=== PATIENT | male | born 1965 | race Caucasian/White ===

== ENCOUNTER → 2019-10-10 09:18 | Outpatient (BNVA) | payer MEDICARE, SELFPAY | PROVIDERS: Visit Provider Nurse Practitioner | DX: F33.2 Major depressive disorder, recurrent severe without psychotic features (principal); G47.30 Sleep apnea, unspecified | CPT/HCPCS: 99213 ==

== ENCOUNTER → 2019-10-15 13:25 | Outpatient (BNVA) | payer MEDICARE, SELFPAY | PROVIDERS: Visit Provider Nurse Practitioner | DX: M51.36 Other intervertebral disc degeneration, lumbar region (principal); M51.17 Intervertebral disc disorders with radiculopathy, lumbosacral region; Z79.891 Long term (current) use of opiate analgesic | CPT/HCPCS: 99213 ==

== ENCOUNTER → 2020-01-09 07:48 | Outpatient (BNVA) | payer MEDICARE, SELFPAY | PROVIDERS: PCP Family Medicine; Visit Provider Nurse Practitioner | DX: F33.2 Major depressive disorder, recurrent severe without psychotic features (principal) | CPT/HCPCS: 99213 ==

== ENCOUNTER → 2020-02-06 10:15 | Outpatient (BNVA) | payer MEDICARE, SELFPAY | PROVIDERS: PCP Family Medicine; Visit Provider Nurse Practitioner | DX: M47.816 Spondylosis without myelopathy or radiculopathy, lumbar region (principal); M51.36 Other intervertebral disc degeneration, lumbar region; M51.17 Intervertebral disc disorders with radiculopathy, lumbosacral region; Z79.891 Long term (current) use of opiate analgesic | CPT/HCPCS: 99213 ==

== ENCOUNTER → 2020-02-26 10:20 | Outpatient (BNVA) | payer MEDICARE, SELFPAY | PROVIDERS: PCP Family Medicine; Visit Provider Family Medicine | DX: J30.9 Allergic rhinitis, unspecified; I10 Essential (primary) hypertension; F32.1 Major depressive disorder, single episode, moderate; E78.2 Mixed hyperlipidemia | CPT/HCPCS: 80053; 80061; 85025 ==

== ENCOUNTER → 2020-04-09 10:11 | Outpatient (BNVA) | payer MEDICARE, SELFPAY | PROVIDERS: PCP Family Medicine; Visit Provider Nurse Practitioner | DX: F33.2 Major depressive disorder, recurrent severe without psychotic features (principal); M51.36 Other intervertebral disc degeneration, lumbar region; M47.816 Spondylosis without myelopathy or radiculopathy, lumbar region; M51.17 Intervertebral disc disorders with radiculopathy, lumbosacral region; Z79.891 Long term (current) use of opiate analgesic | CPT/HCPCS: 99213 ==

== ENCOUNTER → 2020-04-22 13:52 | Outpatient (BNVA) | payer MEDICARE, SELFPAY | PROVIDERS: PCP Family Medicine; Visit Provider Anesthesiology Pain Medicine | DX: M47.816 Spondylosis without myelopathy or radiculopathy, lumbar region (principal); Z79.891 Long term (current) use of opiate analgesic | CPT/HCPCS: 64635; 64636; J1030 ==

== ENCOUNTER → 2020-05-04 12:25 | Outpatient (BNVA) | payer MEDICARE, SELFPAY | PROVIDERS: PCP Family Medicine; Visit Provider Anesthesiology Pain Medicine | DX: M47.816 Spondylosis without myelopathy or radiculopathy, lumbar region (principal) | CPT/HCPCS: 64635; 64636; J1030 ==

== ENCOUNTER → 2020-06-22 09:33 | Outpatient (BNVA) | payer MEDICARE, SELFPAY | PROVIDERS: PCP Family Medicine; Visit Provider Family Medicine | DX: Z20.828 Contact with and (suspected) exposure to other viral communicable diseases (principal); E78.5 Hyperlipidemia, unspecified; R10.9 Unspecified abdominal pain | CPT/HCPCS: 81000; 87635 ==

== ENCOUNTER → 2020-07-03 07:35 | Outpatient (BNVA) | payer MEDICARE, SELFPAY | PROVIDERS: PCP Family Medicine; Visit Provider Nurse Practitioner | DX: F33.2 Major depressive disorder, recurrent severe without psychotic features (principal) | CPT/HCPCS: 99213 ==

== ENCOUNTER → 2020-07-09 08:31 | Outpatient (BNVA) | payer MEDICARE, SELFPAY | PROVIDERS: PCP Family Medicine; Visit Provider Anesthesiology | DX: M47.816 Spondylosis without myelopathy or radiculopathy, lumbar region (principal); M51.36 Other intervertebral disc degeneration, lumbar region; M51.17 Intervertebral disc disorders with radiculopathy, lumbosacral region; Z51.81 Encounter for therapeutic drug level monitoring; Z79.1 Long term (current) use of non-steroidal anti-inflammatories (NSAID); Z79.891 Long term (current) use of opiate analgesic | CPT/HCPCS: 99214 ==

== ENCOUNTER → 2020-07-16 11:49 | Outpatient (BNVA) | payer MEDICARE, SELFPAY | PROVIDERS: PCP Family Medicine; Visit Provider Anesthesiology | DX: Z51.81 Encounter for therapeutic drug level monitoring (principal); Z79.1 Long term (current) use of non-steroidal anti-inflammatories (NSAID); Z79.891 Long term (current) use of opiate analgesic | CPT/HCPCS: 80048 ==

== ENCOUNTER 2020-07-30 19:06 | Emergency (ER) | payer MEDICARE, SELFPAY ==
[2020-07-30 19:12] VITALS: BP 152/87; PULSE 76; RESP 16; TEMP 37.5; O2SAT 96; BMI 36.1
--- NOTE | 2020-07-30 19:12 | XRR_ITS ---
PROCEDURE INFORMATION: Exam: XR Chest, 1 View Exam date and time: 07/30/2020 7:26 PM Age: 54 years old Clinical indication: Cough and shortness of breath TECHNIQUE: Imaging protocol: XR of the chest Views: 1 view. COMPARISON: CR Chest 1 [place] [id number] 09/16/2018 2:58 AM FINDINGS: Lungs: Unremarkable. No consolidation. Pleural space: Unremarkable. No pleural effusion. No pneumothorax. Heart/Mediastinum: Unremarkable. No cardiomegaly. Bones/joints: Unremarkable. XR/XR chest 1V portable [id number] IMPRESSION: No acute findings.
--- NOTE | 2020-07-30 19:13 | ED_ITS ---
HPI - URI/Sore Throat General: Chief Complaint: COVID symptoms Stated Complaint: cough, dizzy Time Seen by Provider: 07/30/20 19:10 Source: patient and EMS Mode of arrival: EMS Limitations: no limitations History of Present Illness: HPI Narrative: 54-year-old male states that he has had a cough along with congestion and body aches started yesterday. He states he has had low-grade fevers as well and some diarrhea. He states he is concerned he may have Covid as he has been exposed at home. Patient is not having shortness of breath and his pulse ox per EMS has been in the upper 90s on room air. He denies any chest pain. Associated symptoms: Reports chills and diarrhea; Deny chest pain or headache(s) Review of Systems Const: Reports: chills and body aches Eyes: Denies: blurry vision or eye discomfort ENMT: Denies: throat pain or dental pain Card: Denies: chest pain Resp: Reports: non-productive cough GI: Reports: diarrhea : Denies: dysuria Musc: Denies: neck pain or back pain Skin/Breast: Denies: rash Neuro: Denies: headache(s) Psych: Denies: depression Magdi/Lymph: Denies: easy bruising All/Imm: Denies: urticaria PFSH ED PFSH: Medical History (Updated 07/30/20 @ 20:25 by Loida Harmon MD) DDD (degenerative disc disease), lumbar Facet syndrome, lumbar Inguinal hernia Long-term current use of opiate analgesic Major depressive disorder, recurrent severe without psychotic features Pain management contract signed Surgical History Hx of appendectomy Hx of hernia repair Hx of rotator cuff surgery LEFT SHOULDER S/P appendectomy Family History Mother CAD (coronary artery disease) Cancer LUNG CANCER Social History Smoking and tobacco status: never smoked Alcohol intake: never Lives independently: Yes Marital status: History of recent travel: No Physical Exam Const: COMMON NORMALS: no acute distress, patient oriented x3 and healthy appearing HENMT: COMMON NORMALS: normocephalic and atraumatic HEAD & SCALP: normocephalic and atraumatic Eye: COMMON NORMALS: Equal, round and reactive pupils present and EOMs intact bilaterally PUPIL: Yes Equal, round and reactive pupils present Neck/C-Spine: COMMON NORMALS: full ROM and supple Chest: COMMONS NORMALS: normal inspection of the chest and normal palpation of entire chest wall Resp: COMMON NORMALS: normal respiratory effort, No retractions, No use of accessory muscles and clear to auscultation bilaterally AUSCULTATION: clear to auscultation bilaterally Cardio: COMMON NORMALS: regular rate, regular rhythm and No murmurs present (Cardio) RATE: regular rate RHYTHM: regular rhythm GI: COMMON NORMALS: Normal to inspection, nondistended, normoactive bowel sounds present, Soft to palpation, non-tender and no masses PALPATION: Yes Soft to palpation Extremity: COMMON NORMALS: normal to inspection and full ROM Neuro: COMMON NORMALS: patient oriented x3, moves all extremities and no focal motor deficits Psych: COMMON NORMALS: mental status grossly normal, Normal thought process present and cooperative THOUGHT PROCESS: Normal thought process present Skin: COMMON NORMALS: no rashes or lesions noted and no wounds GENERAL SKIN EXAM: no rashes or lesions noted Course Vital Signs: Vital signs: Vital Signs Temperature 99.5 F 07/30/20 19:12 Pulse Rate 74 07/30/20 19:51 Respiratory Rate 23 H 07/30/20 19:51 Blood Pressure 128/79 07/30/20 19:51 Pulse Oximetry 98 07/30/20 19:51 MDM - URI/Sore Throat MDM Narrative: Medical decision making narrative: Patient presents here with cough body aches with COVID-19 exposure. Symptoms are consistent with likely Covid. He is in no distress here and his oxygen level is normal. Patient's lab work here is normal. Did do a send out PTC Covid test. Patient is to return if worsening. He understands agrees to plan. Lab Data: Labs: Lab Results 07/30/20 07/30/20 Range/Units 19:44 19:44 WBC 6.1 (4.0-10.0) 10^3/ uL RBC 5.24 (4.1-5.3) 10^6/u L Hgb 14.6 (11.7-16.6) g/dL Hct 45.9 (42.0-52.0) % MCV 87.6 (80-94) fL MCH 27.9 L (28.0-34.0) pg MCHC 31.8 (30.0-36.0) g/dL RDW 13.2 (12.1-15.1) % Plt Count 200 (130-400) 10^3/c mm MPV 11.9 H (7.4-10.4) fL Neut % (Auto) 59.0 % Lymph % (Auto) 21.0 % [place] % (Auto) 16.0 % Eos % (Auto) 2.0 % Baso % (Auto) 1.7 % Neut # (Auto) 3.57 (1.8-7.7) 10^3/u L Lymph # (Auto) 1.3 (0.8-4.8) 10^3/u L [place] # (Auto) 1.0 H (0.2-0.9) 10^3/u L Eos # (Auto) 0.1 (0.0-0.8) 10^3/u L Baso # (Auto) 0.1 (0.0-0.1) 10^3/u L Nucleated RBC % (a uto) 0 % Nucleated RBCs # 0.0 /100WBC Sodium 136 (136-145) mmol/L Potassium 3.7 (3.5-5.1) mmol/L Chloride 106 (98-107) mmol/L Carbon Dioxide 21 L (22-29) mmol/L Anion Gap 12.7 (5-19) BUN 14 (6-20) mg/dL Creatinine 0.9 (0.7-1.2) mg/dL GFR Calculation 87.3 L (90-130) mL/min Glucose 102 (65-115) mg/dL Calculated Osmolal ity 283 L (285-295) mOsm/k g Calcium 8.8 (8.5-10.5) mg/dL Total Bilirubin 0.4 (0.15-1.2) mg/dL AST 32 (0-40) U/L ALT 46 H (0-41) U/L Alkaline Phosphata se 153 H (40-130) IU/L Total Protein 6.4 L (6.6-8.7) g/dL Albumin 4.1 (3.5-5.2) g/dL Globulin 2.3 (1.3-4.6) g/dL Imaging Data^: CXR: Attestation: I personally reviewed and interpreted this imaging study as follows: My impression: no acute abnormality Discharge Plan Discharge Patient Disposition: Home Clinical Impression: Close exposure to severe acute respiratory syndrome coronavirus 2 (SARS-CoV-2) Upper respiratory infection Qualifiers: URI type: unspecified URI Qualified Code(s): J06.9 - Acute upper respiratory infection, unspecified Condition: Stable Prescriptions: No Action sodium chloride 0.9 % Solution 10 ml epidural ONCE Qty: 1 RF: 0 methylprednisolone acetate [Depo-Medrol] 40 mg/mL suspension 40 mg Infiltration ONCE Qty: 1 RF: 0 lidocaine (PF) 10 mg/mL (1 %) solution 10 mg SUBCUT ONCE Qty: 1 RF: 0 nitroglycerin 0.4 mg tablet, sublingual 0.4 mg SUBLINGUAL Q5M PRNRF: 0 Zyrtec 10 mg tablet,disintegrating 10 mg PO ONCE RF: 0 brimonidine 0.1 % drops 1 drop ophthalmic (eye) Q8H RF: 0 multivitamin Tablet 1 tab PO QAM RF: 0 timolol maleate 0.5 % drops 1 drop ophthalmic (eye) BID RF: 0 aspirin [Adult Low Dose Aspirin] 81 mg tablet,delayed release (DR/EC) 81 mg PO ONCE RF: 0 ascorbate calcium (vitamin C) 500 mg tablet 500 mg PO BID RF: 0 duloxetine [Cymbalta] 60 mg capsule,delayed release(DR/EC) 60 mg PO BID Qty: 180 RF: 1 cyclobenzaprine 10 mg tablet 10 mg PO TID PRN (Reason: muscle spasm) 90 Days Qty: 270 RF: 0 fluticasone propionate [Flonase Allergy Relief] 50 mcg/actuation spray,suspension 1 spray INTRANASAL BID Qty: 48 RF: 2 metoprolol tartrate 50 mg tablet 50 mg PO DAILY Qty: 90 RF: 2 pantoprazole 40 mg tablet,delayed release (DR/EC) 40 mg PO DAILY Qty: 90 RF: 2 tamsulosin 0.4 mg capsule 0.4 mg PO .hs Qty: 90 RF: 2 potassium chloride 20 mEq tablet extended release 20 meq PO DAILY Qty: 90 RF: 2 potassium chloride 10 mEq tablet extended release 10 meq .ROUTE DAILY Qty: 90 RF: 2 oxycodone 5 mg tablet 5 mg PO .at bedtime PRN (Reason: pain) 30 Days Qty: 30 RF: 0 oxycodone 5 mg tablet 5 mg PO .Q hs PRN (Reason: pain) 30 Days Qty: 30 RF: 0 valsartan-hydrochlorothiazide 80-12.5 mg tablet See Rx Instructions .ROUTE .COMPLEX Qty: 90 RF: 3 atorvastatin 80 mg tablet See Rx Instructions .ROUTE .COMPLEX Qty: 90 RF: 3 montelukast 10 mg tablet See Rx Instructions .ROUTE .COMPLEX Qty: 30 RF: 3 celecoxib 200 mg capsule See Rx Instructions .ROUTE .COMPLEX Qty: 60 RF: 2 aripiprazole [Abilify] 5 mg tablet 5 mg PO DAILY Qty: 30 RF: 2 topiramate [Topamax] 100 mg tablet 100 mg PO BID Qty: 60 RF: 2 Discharge Orders: Discharge Order (Routine); Ordered 07/30/20 Ordered By: Loida Harmon Referrals: Angélica Ugalde MD [Primary Care Provider] - 1-3 days Discharge Diet: Advance as tolerated Discharge Activity: Resume usual activity Patient Instructions: Upper Respiratory Infection (ED) Coding Level of Care Code ED [employer] for [employer] Fwd Exam Comprehensive
[2020-07-30 19:21] VITALS: O2SAT 98
[2020-07-30] MEDS: sodium chloride 0.9% 1,000 ML 999 ML IV (19:34)
[2020-07-30 19:51] VITALS: BP 128/79; PULSE 74; RESP 23; O2SAT 98
[2020-07-30 19:54] LABS: Basophils # 0.1 10^3/uL (0.0-0.1); Basophils % 1.7 %; Eosinophils # 0.1 10^3/uL (0.0-0.8); Hematocrit 45.9 % (42.0-52.0); Hemoglobin 14.6 g/dL (11.7-16.6); Lymphocytes # 1.3 10^3/uL (0.8-4.8); Mean Corpuscular HGB Conc 31.8 g/dL (30.0-36.0); Mean Corpuscular Hemoglobin 27.9 pg (28.0-34.0); Mean Corpuscular Volume 87.6 fL (80-94); Mean Platelet Volume 11.9 fL (7.4-10.4); Neutrophils # 3.57 10^3/uL (1.8-7.7); Nucleated Red Blood Cells % 0 %; Platelet Count 200 10^3/cmm (130-400); Red Blood Count 5.24 10^6/uL (4.1-5.3); Red Cell Distribution Width 13.2 % (12.1-15.1); White Blood Count 6.1 10^3/uL (4.0-10.0)
[2020-07-30 20:10] LABS: Alanine Aminotransferase 46 U/L (0-41); Albumin Level 4.1 g/dL (3.5-5.2); Alkaline Phosphatase 153 IU/L (40-130); Blood Urea Nitrogen 14 mg/dL (6-20); Calcium 8.8 mg/dL (8.5-10.5); Carbon Dioxide 21 mmol/L (22-29); Chloride 106 mmol/L (98-107); Globulin 2.3 g/dL (1.3-4.6); Glomerular Filtration Rate 87.3 mL/min (90-130); Glucose 102 mg/dL (65-115); Osmolality Calculated 283 mOsm/kg (285-295); Sodium 136 mmol/L (136-145); Total Bilirubin 0.4 mg/dL (0.15-1.2); Total Protein 6.4 g/dL (6.6-8.7)
[2020-07-30 20:16] LABS: Anion Gap 12.7 (5-19); Aspartate Amino Transferase 32 U/L (0-40); Potassium 3.7 mmol/L (3.5-5.1)
[2020-07-30] MEDS: ketorolac 30 mg/mL INJ 15 MG IVP (20:35)
[2020-07-30 20:45] VITALS: BP 140/79; PULSE 76; RESP 20; O2SAT 98
[2020-08-03 07:02] LABS: Coronavirus Lab Test PTC Positive
--- NOTE | 2020-08-03 08:43 | PC.NURSE ---
Patient notified of COVID results at this time.
== END 2020-07-30 20:46 | disposition home or self-care (01) ==
PROVIDERS: Emergency Provider Emergency Medicine; PCP Family Medicine
DX: U07.1 COVID-19 (principal); Z79.82 Long term (current) use of aspirin
CPT/HCPCS: 12345; 71045; 80053; 85025; 87635; 96361; 96374; 96375; 99283; J1885; J7030

== ENCOUNTER → 2020-09-18 08:29 | Outpatient (BNVA) | payer MEDICARE, SELFPAY | PROVIDERS: PCP Family Medicine; Visit Provider Family Medicine | DX: E78.5 Hyperlipidemia, unspecified (principal); Z12.5 Encounter for screening for malignant neoplasm of prostate | CPT/HCPCS: 80053; 80061; 85025; G0103 ==

== ENCOUNTER → 2020-10-06 09:43 | Outpatient (BNVA) | payer MEDICARE, SELFPAY | PROVIDERS: PCP Family Medicine; Visit Provider Nurse Practitioner | DX: M47.816 Spondylosis without myelopathy or radiculopathy, lumbar region (principal); M51.36 Other intervertebral disc degeneration, lumbar region; Z79.891 Long term (current) use of opiate analgesic | CPT/HCPCS: 99212; 99213 ==

== ENCOUNTER → 2020-10-30 07:50 | Outpatient (BNVA) | payer MEDICARE, SELFPAY | PROVIDERS: PCP Family Medicine; Visit Provider Nurse Practitioner | DX: F33.2 Major depressive disorder, recurrent severe without psychotic features (principal) | CPT/HCPCS: 99214 ==

== ENCOUNTER → 2021-02-23 12:05 | Outpatient (BNVA) | payer MEDICARE, SELFPAY | PROVIDERS: PCP Family Medicine; Visit Provider Family Medicine | DX: I10 Essential (primary) hypertension (principal); E78.2 Mixed hyperlipidemia; Z12.5 Encounter for screening for malignant neoplasm of prostate | CPT/HCPCS: 80053; 80061; 85025; G0103 ==

== ENCOUNTER → 2021-05-25 08:35 | Outpatient (BNVA) | payer MEDICARE, SELFPAY | PROVIDERS: PCP Family Medicine; Visit Provider Anesthesiology | DX: M51.17 Intervertebral disc disorders with radiculopathy, lumbosacral region (principal); M47.816 Spondylosis without myelopathy or radiculopathy, lumbar region; M51.36 Other intervertebral disc degeneration, lumbar region; Z79.891 Long term (current) use of opiate analgesic | CPT/HCPCS: 99213 ==

== ENCOUNTER → 2021-05-26 10:56 | Outpatient (BNVA) | payer MEDICARE, SELFPAY | PROVIDERS: PCP Family Medicine; Visit Provider Nurse Practitioner Family | DX: M19.011 Primary osteoarthritis, right shoulder (principal) | CPT/HCPCS: 73030 ==

== ENCOUNTER → 2021-06-02 13:51 | Outpatient (BNVA) | payer MEDICARE, SELFPAY | PROVIDERS: PCP Family Medicine; Visit Provider Anesthesiology Pain Medicine | DX: M47.816 Spondylosis without myelopathy or radiculopathy, lumbar region (principal); Z79.891 Long term (current) use of opiate analgesic | CPT/HCPCS: 64635; 64636; J1030 ==

== ENCOUNTER → 2021-06-16 13:24 | Outpatient (BNVA) | payer MEDICARE, SELFPAY | PROVIDERS: PCP Family Medicine; Visit Provider Anesthesiology Pain Medicine | DX: M47.816 Spondylosis without myelopathy or radiculopathy, lumbar region (principal); Z79.891 Long term (current) use of opiate analgesic | CPT/HCPCS: 64635; 64636; J1030 ==

== ENCOUNTER → 2021-07-09 11:29 | Outpatient (BNVA) | payer MEDICARE, SELFPAY | PROVIDERS: PCP Family Medicine; Visit Provider Nurse Practitioner Family | DX: Z20.822 Contact with and (suspected) exposure to COVID-19 (principal); J40 Bronchitis, not specified as acute or chronic; R05.9 Cough, unspecified; I10 Essential (primary) hypertension; M19.90 Unspecified osteoarthritis, unspecified site; J01.40 Acute pansinusitis, unspecified | CPT/HCPCS: 87635 ==

== ENCOUNTER → 2021-09-15 09:55 | Outpatient (BNVA) | payer MEDICARE, SELFPAY | PROVIDERS: PCP Family Medicine; Visit Provider Nurse Practitioner Family | DX: Z12.5 Encounter for screening for malignant neoplasm of prostate (principal); N40.0 Benign prostatic hyperplasia without lower urinary tract symptoms; E78.2 Mixed hyperlipidemia; I10 Essential (primary) hypertension | CPT/HCPCS: 80053; 80061; 84153 ==

== ENCOUNTER → 2021-09-16 09:02 | Outpatient (BNVA) | payer MEDICARE, SELFPAY | PROVIDERS: PCP Family Medicine; Visit Provider Nurse Practitioner Family | DX: R74.8 Abnormal levels of other serum enzymes (principal) | CPT/HCPCS: 86705; 86706; 86709; 86803; 87340 ==

== ENCOUNTER 2021-09-23 13:46 | Outpatient (CLI) | payer MEDICARE, SELFPAY ==
--- NOTE | 2021-09-23 14:14 | XR_ITS ---
WS: [id number] SHOULDER LEFT TECHNIQUE: 3 views of the left shoulder CLINICAL INFORMATION: shoulder pain COMPARISON: 2016 FINDINGS: Mild degenerative arthritis left AC joint with mild downsloping acromion. Slight subacromia l spurring. Distal clavicle is normal. Moderate degenerative arthritis left shoulder with joint space narrowing at the glenohumeral joint. No acute fractures. Partially visualized left lung is well aera doris. XR/XR shoulder LT min 2V* [id number] IMPRESSION: No acute fractures
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
--- NOTE | 2021-09-23 14:14 | XR_ITS ---
WS: [id number] PELVIS TECHNIQUE: 1 view(s) of the pelvis CLINICAL INFORMATION: tail bone pain, bilateral hip pain COMPARISON: None. FINDINGS: Visualized hips are normal in appearance. Mild degenerative narrowing both hips with slight hypertrop hic spurring of acetabulum. Normal acetabulum. Lower lumbar spine is normal. Inferior and superior pu bic rami are normal. Normal iliopectineal line. Visualized sacrum appears normal. XR/XR pelvis 1-2V* [id number] IMPRESSION: 1. Mild degenerative arthritis with joint space narrowing. 2. No visualized acute fractures. 3. Possible sacrococcygeal fracture discussed on lumbar spine radiograph
== END 2021-09-23 13:47 | disposition home or self-care (01) ==
PROVIDERS: PCP Family Medicine; Visit Provider Nurse Practitioner Family
DX: M25.512 Pain in left shoulder (principal); M25.551 Pain in right hip; M25.552 Pain in left hip; M53.3 Sacrococcygeal disorders, not elsewhere classified; M47.816 Spondylosis without myelopathy or radiculopathy, lumbar region; M51.36 Other intervertebral disc degeneration, lumbar region; M54.50 Low back pain, unspecified; M19.09 Primary osteoarthritis, other specified site
CPT/HCPCS: 72100; 72170; 73030

== ENCOUNTER → 2021-11-09 09:51 | Outpatient (BNVA) | payer MEDICARE, SELFPAY | PROVIDERS: PCP Family Medicine; Referring Provider Family Medicine; Visit Provider Orthopaedic Surgery | DX: M25.551 Pain in right hip (principal); M25.552 Pain in left hip | CPT/HCPCS: 73523 ==

== ENCOUNTER 2021-12-13 19:37 | Emergency (ER) | payer MEDICARE, SELFPAY ==
[2021-12-13 19:43] VITALS: BP 187/99; PULSE 78; RESP 20; TEMP 36.7; O2SAT 94; BMI 37.6
--- NOTE | 2021-12-13 19:54 | XRR_ITS ---
PROCEDURE INFORMATION: Exam: XR Chest Exam date and time: 12/13/2021 8:01 PM Age: 56 years old Clinical indication: Cough TECHNIQUE: Imaging protocol: XR of the chest. Views: 1 view. COMPARISON: CR XR chest 1V portable [id number] 07/30/2020 7:46 PM FINDINGS: Lungs: Unremarkable. No consolidation. Pleural spaces: Unremarkable. No pleural effusion. No pneumothorax. Heart/Mediastinum: Unremarkable. No cardiomegaly. Bones/joints: Unremarkable. XR/XR chest 1V portable [id number] IMPRESSION: No acute findings.
--- NOTE | 2021-12-13 19:55 | ED_ITS ---
Documented by User: TIFFANIE Rhoades 12/13/21 22:53 HPI - General Adult General: Chief complaint: Shortness of Breath/Dyspnea Stated complaint: SOB\Cough\Wheezing Time Seen by Provider: 12/13/21 19:51 History of Present Illness: Presents with cough that started this morning. Patient that his allergies are flaring up he is on Singulair, Flonase and Claritin. Said last week's been pretty bad. He is having a dripping nose consistently. Not anything up with cough. Cough makes him feel short of breath. Denies any fever chills or other recent illness. Has used albuterol inhaler x6-day with good relief. Just does not seem like it lasted very long. Associated symptoms: Reports dyspnea; Deny chest pain, headache(s), nausea, rash or vomiting Review of Systems Const: Denies: fever(s), chills or body aches Eyes: Denies: eye discomfort ENMT: Reports: nasal congestion; Denies: throat pain Card: Denies: chest pain Resp: Reports: dyspnea and non-productive cough GI: Denies: abdominal pain, nausea or vomiting Skin/Breast: Denies: rash Neuro: Denies: headache(s) Psych: Denies: depression or suicidal ideation PFS ED PFSH: Medical History (Updated 12/13/21 @ 20:50 by TIFFANIE Rhoades) DDD (degenerative disc disease), lumbar Facet syndrome, lumbar Inguinal hernia Long-term current use of opiate analgesic Major depressive disorder, recurrent severe without psychotic features Pain management contract signed Surgical History Hx of appendectomy Hx of hernia repair Hx of rotator cuff surgery LEFT SHOULDER S/P appendectomy Family History Mother CAD (coronary artery disease) Cancer LUNG CANCER Social History Smoking and tobacco status: never smoked Second hand smoke exposure: No Alcohol intake: never Lives independently: Yes Marital status: History of recent travel: No Physical Exam Const: COMMON NORMALS: no acute distress, patient oriented x3 and alert HENMT: COMMON NORMALS: normocephalic and external ears normal HEAD & SCALP: normocephalic EXTERNAL EAR: Yes external ears normal Eye: COMMON NORMALS: EOMs intact bilaterally Neck/C-Spine: COMMON NORMALS: no JVD Resp: COMMON NORMALS: normal respiratory effort and No use of accessory muscles Cardio: COMMON NORMALS: no JVD GI: INSPECTION: Yes normal to inspection Extremity: COMMON NORMALS: normal to inspection and full ROM Neuro: COMMON NORMALS: patient oriented x3 SENSORIUM/ORIENTATION: Yes alert Psych: COMMON NORMALS: mental status grossly normal Skin: COMMON NORMALS: no rashes or lesions noted GENERAL SKIN EXAM: no rashes or lesions noted Course Vital Signs: Vital signs: Vital Signs Temperature 98.1 F 12/13/21 19:43 Pulse Rate 78 12/13/21 21:12 Respiratory Rate 18 12/13/21 21:12 Blood Pressure 159/74 12/13/21 21:12 Pulse Oximetry 95 12/13/21 21:12 MDM - General Adult Medical Decision Making Comes in complain about coughing that started this morning and also shortness of breath when he coughs. Patient been have allergy problems last week due to pretty bad. Had use inhaler x6 today with short-term relief. Patient given breathing treatment here which she responded to very well. Steroids was admin istered and chest x-ray which was clear for any concerning problems. Patient encouraged to wear a mask while out in the yard at home take medication as prescribed and follow-up primary care provider in the next week or 2. Lab Data Radiology Impressions Chest X-Ray 12/13/21 19:54 IMPRESSION: No acute findings. Discharge Plan Discharge Patient Disposition: Home Clinical Impression: Dyspnea, Seasonal allergies Condition: Stable Prescriptions: New Combivent Respimat 20-100 mcg/actuation mist 1 puff inhalation QID Qty: 4 0RF Rx Instructions: space evenly during waking hours prednisone 20 mg tablet 20 mg PO DAILY Qty: 7 0RF No Action aripiprazole [Abilify] 5 mg tablet 5 mg PO DAILY Qty: 30 2RF atorvastatin 80 mg tablet See Rx Instructions .ROUTE .COMPLEX Qty: 90 3RF Dose Instruction: TAKE 1 TABLET BY MOUTH DAILY Rx Instructions: TAKE 1 TABLET BY MOUTH DAILY tramadol 50 mg tablet 50 mg PO TID Qty: 60 0RF (DME) lower back brace See Rx Instructions .Route .MEDSUPPLY Qty: 1 0RF Rx Instructions: As directed nitroglycerin 0.4 mg tablet, sublingual 0.4 mg SUBLINGUAL Q5M PRN0RF brimonidine 0.1 % drops 1 drop ophthalmic (eye) Q8H 0RF multivitamin Tablet 1 tab PO QAM 0RF timolol maleate 0.5 % drops 1 drop ophthalmic (eye) BID 0RF aspirin [Adult Low Dose Aspirin] 81 mg tablet,delayed release (DR/EC) 81 mg PO ONCE 0RF ascorbate calcium (vitamin C) 500 mg tablet 500 mg PO BID 0RF oxycodone 5 mg tablet 5 mg PO .Q hs PRN (Reason: pain) 30 Days Qty: 23 0RF Rx Instructions: Fill on or after 06/01/21 dutasteride [Avodart] 0.5 mg capsule 0.5 mg PO DAILY Qty: 30 3RF tamsulosin 0.4 mg capsule 0.4 mg PO .COMPLEX Qty: 180 3RF Rx Instructions: 0.4 mg PO; albuterol sulfate [ProAir HFA] 90 mcg/actuation HFA aerosol inhaler 2 puff inhalation QID Qty: 8.5 3RF budesonide-formoterol [Symbicort] 160-4.5 mcg/actuation HFA aerosol inhaler 2 puff inhalation Q12H Qty: 10.2 3RF celecoxib 200 mg capsule See Rx Instructions .ROUTE .COMPLEX Qty: 60 5RF Dose Instruction: Take 1 capsule by mouth twice daily Rx Instructions: Take 1 capsule by mouth twice daily Zyrtec 10 mg tablet,disintegrating 10 mg PO ONCE Qty: 90 3RF duloxetine [Cymbalta] 60 mg capsule,delayed release(DR/EC) 60 mg PO BID Qty: 180 1RF fluticasone propionate 50 mcg/actuation spray,suspension See Rx Instructions .ROUTE .COMPLEX Qty: 48 2RF Dose Instruction: USE 1 SPRAY NASALLY TWICE DAILY Rx Instructions: USE 1 SPRAY NASALLY TWICE DAILY metoprolol tartrate 50 mg tablet See Rx Instructions .ROUTE .COMPLEX Qty: 90 3RF Dose Instruction: TAKE 1 TABLET BY MOUTH DAILY Rx Instructions: TAKE 1 TABLET BY MOUTH DAILY montelukast 10 mg tablet See Rx Instructions .ROUTE .COMPLEX Qty: 30 4RF Dose Instruction: Take 1 tablet by mouth once daily Rx Instructions: Take 1 tablet by mouth once daily pantoprazole 40 mg tablet,delayed release (DR/EC) See Rx Instructions .ROUTE .COMPLEX Qty: 90 3RF Dose Instruction: TAKE 1 TABLET BY MOUTH DAILY Rx Instructions: TAKE 1 TABLET BY MOUTH DAILY potassium chloride 10 mEq tablet extended release See Rx Instructions .ROUTE .COMPLEX Qty: 90 3RF Dose Instruction: TAKE 1 TABLET BY MOUTH DAILY Rx Instructions: TAKE 1 TABLET BY MOUTH DAILY potassium chloride 20 mEq tablet extended release See Rx Instructions .ROUTE .COMPLEX Qty: 90 3RF Dose Instruction: TAKE 1 TABLET BY MOUTH DAILY WITH 10MEQ TABLET DAILY FOR A TOTAL DAILY DOSE OF 30 MEQ Rx Instructions: TAKE 1 TABLET BY MOUTH DAILY WITH 10MEQ TABLET DAILY FOR A TOTAL DAILY DOSE OF 30 MEQ topiramate [Topamax] 100 mg tablet 100 mg PO BID Qty: 60 2RF valsartan-hydrochlorothiazide 80-12.5 mg tablet See Rx Instructions .ROUTE .COMPLEX Qty: 90 3RF Dose Instruction: TAKE 1 TABLET BY MOUTH DAILY Rx Instructions: TAKE 1 TABLET BY MOUTH DAILY primidone 50 mg tablet 50 mg PO .qhs 90 Days Qty: 90 1RF Discharge Orders: Discharge ED (Routine); Ordered 12/13/21 Ordered By: Braulio Hester Referrals: Angélica Ugalde MD [Primary Care Provider] - Discharge Diet: Usual diet Discharge Activity: Increase activity as tolerated Patient Instructions: Allergic Rhinitis (ED), Allergies (ED) Activity Restrictions/Additional Instructions: Follow-up with medical provider as directed. Take medications as prescribed. Return to the ER or your medical provider if condition worsens. Please read and understand discharge instructions. If any questions ask please. Coding Level of Care Code ED Biodiesel Process Control Technician for g Fwd Exam Comprehensive Documented by User: Jean Stevens MD 12/14/21 11:10 HPI - General Adult General: Chief complaint: Shortness of Breath/Dyspnea Stated complaint: SOB\Cough\Wheezing Time Seen by Provider: 12/13/21 19:51 PFSH ED PFSH: Medical History (Updated 04/11/22 @ 20:50 by TIFFANIE Rhoades) DDD (degenerative disc disease), lumbar Facet syndrome, lumbar Inguinal hernia Long-term current use of opiate analgesic Major depressive disorder, recurrent severe without psychotic features Pain management contract signed Surgical History Hx of appendectomy Hx of hernia repair Hx of rotator cuff surgery LEFT SHOULDER S/P appendectomy Family History Mother CAD (coronary artery disease) Cancer LUNG CANCER Social History Smoking and tobacco status: never smoked Second hand smoke exposure: No Alcohol intake: never Lives independently: Yes Marital status: History of recent travel: No Course Vital Signs: Vital signs: Vital Signs Temperature 98.1 F 12/13/21 19:43 Pulse Rate 78 12/13/21 21:12 Respiratory Rate 18 12/13/21 21:12 Blood Pressure 159/74 12/13/21 21:12 Pulse Oximetry 95 12/13/21 21:12 MDM - General Adult Medical Decision Making Comes in complain about coughing that started this morning and also shortness of breath when he coughs. Patient been have allergy problems last week due to pretty bad. Had use inhaler x6 today with short-term relief. Patient given breathing treatment here which she responded to very well. Steroids was administered and chest x-ray which was clear for any concerning problems. Patient encouraged to wear a mask while out in the yard at home take medication as prescribed and follow-up primary care provider in the next week or 2. Dr. Stevens - Patient evaluation, diagnosis, and management was performed independently by Braulio Hester. I did not personally see the patient nor staff the patient with patient's provider. I did review the patient's note today and I believe this note is consistent. Lab Data Radiology Impressions Chest X-Ray 12/13/21 19:54 IMPRESSION: No acute findings. Discharge Plan Discharge Patient Disposition: Home Clinical Impression: Dyspnea, Seasonal allergies Condition: Stable Prescriptions: New Combivent Respimat 20-100 mcg/actuation mist 1 puff inhalation QID Qty: 4 0RF Rx Instructions: space evenly during waking hours prednisone 20 mg tablet 20 mg PO DAILY Qty: 7 0RF No Action aripiprazole [Abilify] 5 mg tablet 5 mg PO DAILY Qty: 30 2RF atorvastatin 80 mg tablet See Rx Instructions .ROUTE .COMPLEX Qty: 90 3RF Dose Instruction: TAKE 1 TABLET BY MOUTH DAILY Rx Instructions: TAKE 1 TABLET BY MOUTH DAILY tramadol 50 mg tablet 50 mg PO TID Qty: 60 0RF (DME) lower back brace See Rx Instructions .Route .MEDSUPPLY Qty: 1 0RF Rx Instructions: As directed nitroglycerin 0.4 mg tablet, sublingual 0.4 mg SUBLINGUAL Q5M PRN0RF brimonidine 0.1 % drops 1 drop ophthalmic (eye) Q8H 0RF multivitamin Tablet 1 tab PO QAM 0RF timolol maleate 0.5 % drops 1 drop ophthalmic (eye) BID 0RF aspirin [Adult Low Dose Aspirin] 81 mg tablet,delayed release (DR/EC) 81 mg PO ONCE 0RF ascorbate calcium (vitamin C) 500 mg tablet 500 mg PO BID 0RF oxycodone 5 mg tablet 5 mg PO .Q hs PRN (Reason: pain) 30 Days Qty: 23 0RF Rx Instructions: Fill on or after 06/01/21 dutasteride [Avodart] 0.5 mg capsule 0.5 mg PO DAILY Qty: 30 3RF tamsulosin 0.4 mg capsule 0.4 mg PO .COMPLEX Qty: 180 3RF Rx Instructions: 0.4 mg PO; albuterol sulfate [ProAir HFA] 90 mcg/actuation HFA aerosol inhaler 2 puff inhalation QID Qty: 8.5 3RF budesonide-formoterol [Symbicort] 160-4.5 mcg/actuation HFA aerosol inhaler 2 puff inhalation Q12H Qty: 10.2 3RF celecoxib 200 mg capsule See Rx Instructions .ROUTE .COMPLEX Qty: 60 5RF Dose Instruction: Take 1 capsule by mouth twice daily Rx Instructions: Take 1 capsule by mouth twice daily Zyrtec 10 mg tablet,disintegrating 10 mg PO ONCE Qty: 90 3RF duloxetine [Cymbalta] 60 mg capsule,delayed release(DR/EC) 60 mg PO BID Qty: 180 1RF fluticasone propionate 50 mcg/actuation spray,suspension See Rx Instructions .ROUTE .COMPLEX Qty: 48 2RF Dose Instruction: USE 1 SPRAY NASALLY TWICE DAILY Rx Instructions: USE 1 SPRAY NASALLY TWICE DAILY metoprolol tartrate 50 mg tablet See Rx Instructions .ROUTE .COMPLEX Qty: 90 3RF Dose Instruction: TAKE 1 TABLET BY MOUTH DAILY Rx Instructions: TAKE 1 TABLET BY MOUTH DAILY montelukast 10 mg tablet See Rx Instructions .ROUTE .COMPLEX Qty: 30 4RF Dose Instruction: Take 1 tablet by mouth once daily Rx Instructions: Take 1 tablet by mouth once daily pantoprazole 40 mg tablet,delayed release (DR/EC) See Rx Instructions .ROUTE .COMPLEX Qty: 90 3RF Dose Instruction: TAKE 1 TABLET BY MOUTH DAILY Rx Instructions: TAKE 1 TABLET BY MOUTH DAILY potassium chloride 10 mEq tablet extended release See Rx Instructions .ROUTE .COMPLEX Qty: 90 3RF Dose Instruction: TAKE 1 TABLET BY MOUTH DAILY Rx Instructions: TAKE 1 TABLET BY MOUTH DAILY potassium chloride 20 mEq tablet extended release See Rx Instructions .ROUTE .COMPLEX Qty: 90 3RF Dose Instruction: TAKE 1 TABLET BY MOUTH DAILY WITH 10MEQ TABLET DAILY FOR A TOTAL DAILY DOSE OF 30 MEQ Rx Instructions: TAKE 1 TABLET BY MOUTH DAILY WITH 10MEQ TABLET DAILY FOR A TOTAL DAILY DOSE OF 30 MEQ topiramate [Topamax] 100 mg tablet 100 mg PO BID Qty: 60 2RF valsartan-hydrochlorothiazide 80-12.5 mg tablet See Rx Instructions .ROUTE .COMPLEX Qty: 90 3RF Dose Instruction: TAKE 1 TABLET BY MOUTH DAILY Rx Instructions: TAKE 1 TABLET BY MOUTH DAILY primidone 50 mg tablet 50 mg PO .qhs 90 Days Qty: 90 1RF Discharge Orders: Discharge ED (Routine); Ordered 12/13/21 Ordered By: Braulio Hester Referrals: Angélica Ugalde MD [Primary Care Provider] - Discharge Diet: Usual diet Discharge Activity: Increase activity as tolerated Patient Instructions: Allergic Rhinitis (ED), Allergies (ED) Activity Restrictions/Additional Instructions: Follow-up with medical provider as directed. Take medications as prescribed. Return to the ER or your medical provider if condition worsens. Please read and understand discharge instructions. If any questions ask please. Coding Level of Care Code ED Biodiesel Process Control Technician for Dinesh Fwd Exam Comprehensive
[2021-12-13] MEDS: dexamethasone 10 mg/mL INJ IM (20:11)
[2021-12-13] MEDS: predniSONE 20 mg Tablet PO (20:12)
[2021-12-13 20:25] VITALS: PULSE 77; RESP 16; O2SAT 97
[2021-12-13] MEDS: ipratropium-albuterol 3 mL Neb INHALATION (20:25)
[2021-12-13 21:12] VITALS: BP 159/74; PULSE 78; RESP 18; O2SAT 95
== END 2021-12-13 21:13 | disposition home or self-care (01) ==
PROVIDERS: Emergency Provider Nurse Practitioner Family; PCP Family Medicine
DX: J30.2 Other seasonal allergic rhinitis (principal); R06.00 Dyspnea, unspecified
CPT/HCPCS: 71045; 94640; 96372; 99283; J1100; J7512

== ENCOUNTER → 2022-04-11 08:59 | Outpatient (BNVA) | payer MEDICARE, SELFPAY | PROVIDERS: PCP Family Medicine; Visit Provider Family Medicine | DX: E78.5 Hyperlipidemia, unspecified (principal); I10 Essential (primary) hypertension; G25.0 Essential tremor; J30.9 Allergic rhinitis, unspecified; M51.36 Other intervertebral disc degeneration, lumbar region; M47.816 Spondylosis without myelopathy or radiculopathy, lumbar region; M19.90 Unspecified osteoarthritis, unspecified site; J40 Bronchitis, not specified as acute or chronic; K21.9 Gastro-esophageal reflux disease without esophagitis; E78.2 Mixed hyperlipidemia; Z12.5 Encounter for screening for malignant neoplasm of prostate | CPT/HCPCS: 80053; 80061; 84443; 85025; G0103 ==

== ENCOUNTER → 2022-07-13 09:00 | Outpatient (BNVA) | payer MEDICARE, SELFPAY | PROVIDERS: PCP Family Medicine; Visit Provider Nurse Practitioner Family | DX: J02.9 Acute pharyngitis, unspecified (principal); J32.0 Chronic maxillary sinusitis | CPT/HCPCS: 87071; 87880 ==

== ENCOUNTER → 2022-07-22 11:08 | Outpatient (BNVA) | payer MEDICARE, SELFPAY | PROVIDERS: PCP Family Medicine; Visit Provider Nurse Practitioner Family | DX: J18.9 Pneumonia, unspecified organism (principal) | CPT/HCPCS: 71046 ==

== ENCOUNTER 2022-07-22 12:38 | Emergency (ER) | payer MEDICARE, SELFPAY ==
[2022-07-22 13:02] VITALS: BP 166/77; PULSE 89; RESP 17; TEMP 38.2; O2SAT 95; BMI 39.2
--- NOTE | 2022-07-22 13:25 | XR_ITS ---
WS: [id number] Exam: XR chest 1V portable [id number] Date/Time of Exam: 07/22/2022 1:25 PM Reason For Exam: dyspnea/cough Comparison 07/22/2022. 11:11 AM The lungs are clear and fully inflated. Normal cardiomediastinal silhouette. No pleural effusions. Jomar ny elements are intact. XR/XR chest 1V portable [id number] IMPRESSION: 1. No acute cardiopulmonary finding.
--- NOTE | 2022-07-22 13:37 | W.ED.SOB ---
HPI - SOB/Dyspnea General: Chief Complaint: Shortness of Breath/Dyspnea Stated Complaint: SOB Time Seen by Provider: 07/22/22 13:20 Source: patient Mode of arrival: ambulatory History of Present Illness: HPI Narrative: 48-year-old male presents emergency room complaining of a cough for the last several weeks getting progressively worse he has a low-grade fever with it as well. He does not really have any chest pain except with coughing fits. He has not had any hemoptysis. He has been through several rounds of steroids and antibiotics it seems to get better spicer on the antibiotics and then worsens shortly after he finishes them. Patient presents with a temp today. No dysuria urgency or frequency denies any abdominal pain. MD elicited complaint: shortness of breath and cough Onset (ago): week(s) (2) Timing: intermittent Severity: mild Exacerbating factors: coughing Relieving factors: nothing Associated symptoms: Deny abdominal pain, chest congestion, chest pain, cough, diaphoresis, dizziness, extremity pain, fever(s), hemoptysis, lightheadedness, myalgias, nausea, orthopnea, palpitations, paresthesias, polydipsia, polyuria, rash, sense of impending doom, syncope or vomiting Treatment prior to arrival: none Review of Systems Const: Denies: fever(s), chills, fatigue or diaphoresis Card: Denies: chest pain, palpitations, lightheadedness, syncope or orthopnea Resp: Reports: dyspnea, non-productive cough and wheezing; Denies: hemoptysis or chest congestion GI: Denies: abdominal pain, nausea or vomiting : Denies: difficulty urinating, dysuria, urinary frequency or urinary urgency Musc: Denies: extremity pain Neuro: Reports: headache(s); Denies: dizziness Endo: Denies: polyuria or polydipsia PFS ED PFSH: Medical History DDD (degenerative disc disease), lumbar Facet syndrome, lumbar Inguinal hernia Long-term current use of opiate analgesic Major depressive disorder, recurrent severe without psychotic features Pain management contract signed Surgical History Hx of appendectomy Hx of hernia repair Hx of rotator cuff surgery LEFT SHOULDER S/P appendectomy Family History Mother CAD (coronary artery disease) Cancer LUNG CANCER Social History Smoking and tobacco status: never smoked Second hand smoke exposure: No Alcohol intake: never Lives independently: Yes Marital status: History of recent travel: No Physical Exam Const: GENERAL APPEARANCE: cooperative and comfortable ORIENTATION/CONSCIOUSNESS: Yes awake, Yes oriented to person, Yes oriented to place and Yes oriented to time HENMT: COMMON NORMALS: normocephalic, atraumatic and hearing grossly normal bilaterally HEAD & SCALP: normocephalic and atraumatic Resp: COMMON NORMALS: normal respiratory effort, No retractions and No use of accessory muscles AUSCULTATION: rhonchi and wheezes Cardio: COMMON NORMALS: regular rate, regular rhythm and No murmurs present (Cardio) RATE: regular rate RHYTHM: regular rhythm GI: COMMON NORMALS: Soft to palpation and No hepatosplenomegaly present AUSCULTATION: Yes normoactive bowel sounds PALPATION: Yes Soft to palpation, No Tenderness to palpation present (GI), No Guarding due to palpation present (GI) and Yes No hepatosplenomegaly present Extremity: COMMON NORMALS: normal to inspection, capillary refill normal, no clubbing, cyanosis or edema, no calf tenderness and no pedal edema Neuro: SENSORIUM/ORIENTATION: Yes oriented to person, Yes oriented to place and Yes oriented to time Skin: COMMON NORMALS: no rashes or lesions noted GENERAL SKIN EXAM: no rashes or lesions noted Course Vital Signs: Vital signs: Vital Signs Temperature 100.8 F H 07/22/22 13:02 Pulse Rate 89 07/22/22 13:02 Respiratory Rate 17 07/22/22 13:02 Blood Pressure 166/77 07/22/22 13:02 Pulse Oximetry 95 07/22/22 13:02 Oxygen Delivery Me thod 07/22/22 13:02 MDM - SOB/Dyspnea Medical Decision Making Positive for influenza outside the timeframe for antiviral supportive cares follow-up as needed. Labs and imaging reviewed. Patient stable at time of discharge. Medical Records I reviewed the patient's medical records. Lab Data I reviewed the patient's lab results. 07/22/22 13:50 07/22/22 13:50 Labs/Radiology: Radiology Impressions Chest X-Ray 07/22/22 13:25 IMPRESSION: 1. No acute cardiopulmonary finding. Laboratory Results WBC 9.9 10^3/uL (4.0-10.0) 07/22/22 13:50 RBC 5.43 10^6/uL (4.1-5.3) H 07/22/22 13:50 Hgb 15.0 g/dL (11.7-16.6) 07/22/22 13:50 Hct 46.3 % (42.0-52.0) 07/22/22 13:50 MCV 85.3 fl (80-94) 07/22/22 13:50 MCH 27.6 pg (28.0-34.0) L 07/22/22 13:50 MCHC 32.4 g/dL (30.0-36.0) 07/22/22 13:50 RDW 13.2 % (12.1-15.1) 07/22/22 13:50 Plt Count 198 10^3/cmm (130-400) 07/22/22 13:50 MPV 11.2 fL (7.4-10.4) H 07/22/22 13:50 Neut % (Auto) 81.6 % 07/22/22 13:50 Lymph % (Auto) 3.9 % 07/22/22 13:50 Richardson % (Auto) 10.1 % 07/22/22 13:50 Eos % (Auto) 3.0 % 07/22/22 13:50 Baso % (Auto) 1.1 % 07/22/22 13:50 Neut # (Auto) 8.06 10^3/uL (1.8-7.7) H 07/22/22 13:50 Lymph # (Auto) 0.4 10^3/uL (0.8-4.8) L 07/22/22 13:50 Richardson # (Auto) 1.0 10^3/uL (0.2-0.9) H 07/22/22 13:50 Eos # (Auto) 0.3 10^3/uL (0.0-0.8) 07/22/22 13:50 Baso # (Auto) 0.1 10^3/uL (0.0-0.1) 07/22/22 13:50 Nucleated RBC % (auto) 0 % 07/22/22 13:50 Nucleated RBCs # 0.0 /100WBC 07/22/22 13:50 Sodium 138 mmol/L (136-145) 07/22/22 13:50 Potassium 4.1 mmol/L (3.5-5.1) 07/22/22 13:50 Chloride 102 mmol/L (98-107) 07/22/22 13:50 Carbon Dioxide 24 mmol/L (22-29) 07/22/22 13:50 Anion Gap 16.1 (5-19) 07/22/22 13:50 BUN 16 mg/dL (6-20) 07/22/22 13:50 Creatinine 0.7 mg/dL (0.7-1.2) 07/22/22 13:50 GFR Calculation 115.8 mL/min (90-130) 07/22/22 13:50 Glucose 107 mg/dL (65-115) 07/22/22 13:50 Calculated Osmolality 288 mOsm/kg (285-295) 07/22/22 13:50 Calcium 9.2 mg/dL (8.5-10.5) 07/22/22 13:50 Total Bilirubin 0.5 mg/dL (0.15-1.2) 07/22/22 13:50 AST 34 U/L (0-40) 07/22/22 13:50 ALT 37 U/L (0-41) 07/22/22 13:50 Alkaline Phosphatase 136 U/L (40-130) H 07/22/22 13:50 NT-Pro-B Natriuret Pep 66 pg/mL (0-125) 07/22/22 13:50 Total Protein 7.0 g/dL (6.6-8.7) 07/22/22 13:50 Albumin 4.3 g/dL (3.5-5.2) 07/22/22 13:50 Globulin 2.7 g/dL (1.3-4.6) 07/22/22 13:50 Influenza Type A Ag positive (Negative) 07/22/22 13:50 Influenza Type B Ag negative (Negative) 07/22/22 13:50 Discharge Plan Discharge Patient Disposition: Home Clinical Impression: Influenza Condition: Stable Prescriptions: No Action (DME) lower back brace See Rx Instructions .Route .MEDSUPPLY Qty: 1 0RF Rx Instructions: As directed multivitamin Tablet 1 tab PO QAM aspirin [Adult Low Dose Aspirin] 81 mg tablet,delayed release (DR/EC) 81 mg PO DAILY ascorbate calcium (vitamin C) 500 mg tablet 500 mg PO BID (DME) CPAP AUTO TITRATING See Rx Instructions .Route .MEDSUPPLY Qty: 1 0RF Rx Instructions: PLEASE PROVIDE NEW TUBING AND MASK. doxycycline hyclate 100 mg capsule 100 mg PO BID 10 Days Qty: 40 0RF prednisone 10 mg tablet See Rx Instructions PO DAILY Qty: 7 0RF Rx Instructions: 30mg , 20 mg Monday, 10 mg Monday and Monday ipratropium-albuterol 0.5 mg-3 mg(2.5 mg base)/3 mL solution for nebulization 3 ml inhalation Q4H PRN (Reason: wheezing) Qty: 180 0RF (DME) nebulizers Misc See Rx Instructions .Route Qty: 1 0RF Rx Instructions: 1 nebulizer and all necessary equipment As directed duloxetine [Cymbalta] 60 mg capsule,delayed release(DR/EC) 60 mg PO BID Qty: 180 1RF albuterol sulfate [ProAir HFA] 90 mcg/actuation HFA aerosol inhaler 2 puff inhalation QID Qty: 8.5 3RF benzonatate 200 mg capsule 200 mg PO TID PRN (Reason: cough) Qty: 30 0RF (DME) C-PAP Supplies See Rx Instructions .Route .MEDSUPPLY Qty: 1 11RF Rx Instructions: As directed celecoxib 200 mg capsule 200 mg PO BID primidone 50 mg tablet 50 mg PO BEDTIME atorvastatin 80 mg tablet 80 mg PO BEDTIME potassium chloride 10 mEq tablet extended release 10 meq PO BEDTIME valsartan-hydrochlorothiazide 80-12.5 mg tablet 1 tab PO DAILY tamsulosin 0.4 mg capsule 0.4 mg PO BID pantoprazole 40 mg tablet,delayed release (DR/EC) 40 mg PO DAILY metoprolol tartrate 50 mg tablet 25 mg PO DAILY montelukast 10 mg tablet 10 mg PO BEDTIME fluticasone propionate 50 mcg/actuation spray,suspension 1 spray intranasal BID dutasteride 0.5 mg capsule 0.5 mg PO DAILY Zyrtec 10 mg tablet,disintegrating 10 mg PO DAILY potassium chloride 20 mEq tablet extended release 20 meq PO BEDTIME Rx Instructions: TAKE WITH 10 MEQ TAB TO EQUAL 30 MEQ DAILY Combivent Respimat 20-100 mcg/actuation mist 1 puff inhalation BID vitamin E 268 mg (400 unit) Capsule 268 mg PO DAILY Discharge Orders: Discharge ED (Routine); Ordered 07/22/22 Ordered By: Herson Reich Referrals: Angélica Ugalde MD [Primary Care Provider] - Discharge Diet: Usual diet Discharge Activity: Resume usual activity Patient Instructions: Influenza (ED), Opioid Safety, Pain Management Activity Restrictions/Additional Instructions: You were seen today for fever and upper respiratory symptoms. Your influenza test was positive. You have had symptoms for long enough that the antivirals are not an option. Influenza is self-limiting. Recommend you treat symptoms as as needed with [id number] medications follow-up with your primary care doctor if not improving. Coding Level of Care Code ED Regulatory Technician for Dinesh Fwd Exam Detailed
[2022-07-22 14:00] VITALS: BP 178/98; PULSE 92; RESP 18; O2SAT 91
[2022-07-22 14:08] LABS: Basophils # 0.1 10^3/uL (0.0-0.1); Basophils % 1.1 %; Eosinophils # 0.3 10^3/uL (0.0-0.8); Hematocrit 46.3 % (42.0-52.0); Lymphocytes # 0.4 10^3/uL (0.8-4.8); Lymphocytes % 3.9 %; Mean Corpuscular HGB Conc 32.4 g/dL (30.0-36.0); Mean Corpuscular Hemoglobin 27.6 pg (28.0-34.0); Mean Corpuscular Volume 85.3 fl (80-94); Mean Platelet Volume 11.2 fL (7.4-10.4); Monocytes % 10.1 %; Neutrophils # 8.06 10^3/uL (1.8-7.7); Neutrophils % 81.6 %; Nucleated Red Blood Cells % 0 %; Platelet Count 198 10^3/cmm (130-400); Red Blood Count 5.43 10^6/uL (4.1-5.3); Red Cell Distribution Width 13.2 % (12.1-15.1); White Blood Count 9.9 10^3/uL (4.0-10.0)
[2022-07-22 14:23] LABS: Influenza A by IFA positive (Negative); Influenza B by IFA negative (Negative)
[2022-07-22 14:33] LABS: Alanine Aminotransferase 37 U/L (0-41); Albumin Level 4.3 g/dL (3.5-5.2); Alkaline Phosphatase 136 U/L (40-130); Blood Urea Nitrogen 16 mg/dL (6-20); Calcium 9.2 mg/dL (8.5-10.5); Carbon Dioxide 24 mmol/L (22-29); Chloride 102 mmol/L (98-107); Globulin 2.7 g/dL (1.3-4.6); Glomerular Filtration Rate 115.8 mL/min (90-130); Glucose 107 mg/dL (65-115); NT Pro B Type Natriuretic Pept 66 pg/mL (0-125); Osmolality Calculated 288 mOsm/kg (285-295); Sodium 138 mmol/L (136-145); Total Bilirubin 0.5 mg/dL (0.15-1.2)
[2022-07-22 14:34] LABS: Anion Gap 16.1 (5-19); Aspartate Amino Transferase 34 U/L (0-40); Potassium 4.1 mmol/L (3.5-5.1)
[2022-07-22 15:00] VITALS: BP 172/93; PULSE 89; RESP 18; O2SAT 92
[2022-07-22 15:02] LABS: Add Urine Microscopic? NO; Charge for UA Resulting for Rev
--- NOTE | 2022-07-22 15:15 | PC.NURSE ---
notfied dr. gray of pt co dizziness upon dc. he verbalized understanding no further orders.
[2022-07-22 15:16] LABS: Urine Color Yellow (Yellow)
[2022-07-22 15:17] LABS: Bilirubin Urine Neg (Negative); Blood Urine Neg (Negative); Glucose Urine UA Norm (Normal); Ketones Urine Negative (Negative); Leukocyte Esterase Urine Negative (Negative); Nitrate Urine Negative (Negative); Protein Urine Neg (Negative); Specific Gravity, Urine 1.025 (1.005-1.030); Urine Appearance Clear (CLEAR); Urobilinogen Urine Norm (Negative); pH Urine 5 (5-7)
[2022-07-22 16:10] LABS: Adenovirus Not Detected (NOT DETECT); Chlamydia Pneumoniae Not Detected (NOT DETECT); Coronavirus 229E,HKU1,NL63,OC4 Not Detected (NOT DETECT); Human Metapneumovirus Not Detected (NOT DETECT); Human Rhinovirus/Enterovirus Not Detected (NOT DETECT); Influenza A Detected (NOT DETECT); Influenza A H1 Not Detected (NOT DETECT); Influenza A H1-2009 Detected (NOT DETECT); Influenza A H3 Not Detected (NOT DETECT); Influenza B Not Detected (NOT DETECT); Mycoplasma Pneumoniae Not Detected (NOT DETECT); Parainfluenza Virus Type 1 Not Detected (NOT DETECT); Parainfluenza Virus Type 2 Not Detected (NOT DETECT); Parainfluenza Virus Type 3 Not Detected (NOT DETECT); Parainfluenza Virus Type 4 Not Detected (NOT DETECT); Respiratory Syncytial Virus A Not Detected (NOT DETECT); Respiratory Syncytial Virus B Not Detected (NOT DETECT); SARS-COV-2 Not Detected (NOT DETECT)
[2022-07-22 19:35] LABS: Influenza A Detected (NOT DETECT); Influenza A H1 Not Detected (NOT DETECT); Influenza A H1-2009 Detected (NOT DETECT); Influenza A H3 Not Detected (NOT DETECT); Influenza B Not Detected (NOT DETECT); Results from Genmark
== END 2022-07-22 15:25 | disposition home or self-care (01) ==
PROVIDERS: Emergency Provider Family Medicine; PCP Family Medicine
DX: J11.1 Influenza due to unidentified influenza virus with other respiratory manifestations (principal); Z79.82 Long term (current) use of aspirin; Z20.822 Contact with and (suspected) exposure to COVID-19; J18.9 Pneumonia, unspecified organism
CPT/HCPCS: 71045; 71046; 80053; 81003; 83880; 85025; 87631; 87635; 87804; 99284

== ENCOUNTER 2022-10-03 09:20 | Outpatient (CLI) | payer MEDICARE, OTHER, SELFPAY ==
--- NOTE | 2022-10-03 09:30 | CT_ITS ---
WS: [id number] TECHNIQUE: with coronal and sagittal reformatted images. CLINICAL INFORMATION: left shoulder pain, tenderness and decrased ROM COMPARISON: None. DLP: 637.[address] scans at [facility] use at least one of these dose optimization techniques: automated e xposure control; mA and/or kV adjustment per patient size (includes targeted exams where dose is matc hed to clinical indication); or iterative reconstruction. FINDINGS: Mild degenerative arthritis AC joint. Mild downsloping acromion with subacromial spurring. Mild narro wing of the subacromial space. Normal humerus and glenoid. No acute fractures. History of prior rotat or cuff surgery. Supraspinatus and infraspinatus appear grossly intact. Normal teres minor. Normal vi sualized subscapularis. Biceps tendon visualized in the bicipital groove. Rotator cuff would be silva r evaluated with MRI. Visualized LEFT lung is well aerated CT/CT shoulder LT wo con* [id number] IMPRESSION: 1. Mild degenerative arthritis AC joint with mild subacromial spurring. Mild n arrowing of the subacromial space. 2. No acute fractures. 3. Rotator cuff appears grossly intact. This would be better evaluated with MR I. 4. Biceps tendon is visualized in the bicipital groove. 5. No other suspicious findings.
== END 2022-10-03 09:21 | disposition home or self-care (01) ==
PROVIDERS: PCP Family Medicine; Visit Provider Nurse Practitioner Family
DX: M19.012 Primary osteoarthritis, left shoulder (principal); M25.512 Pain in left shoulder; M25.612 Stiffness of left shoulder, not elsewhere classified
CPT/HCPCS: 73200

== ENCOUNTER 2022-11-07 11:20 | Outpatient (CLI) | payer MEDICARE, MEDICAID, SELFPAY ==
--- NOTE | 2022-11-07 11:45 | MR_ITS ---
WS: [id number] MRI LEFT SHOULDER HISTORY: abnormal CT of Left Shoulder. COMPARISON: Shoulder CT 10/03/2022. Prior MRI 06/01/2017 TECHNIQUE: Multiplanar sequences of the shoulder joint are submitted. Moderate AC joint arthritis. Very minimal encroachment upon the supraspinatus. Small amount of fluid in the subacromial bursa. Moderate osteophytosis distal acromion with moderate subacromial impingemen t. No os acromion. Biceps tendon in the bicipital groove. Micrometallic artifacts from prior shoulder surgery. Mild narrowing of the glenohumeral joint. No mus nicolas atrophy or edema. Moderate thickening and increased T2 signal in the distal supraspinatus. Consis tent with tendinopathy. No definite tear is identified. There is an increased T2 signal are more cons istent with tendinopathy. No labral tear. Normal rotator cuff interval. No anchors are identified in the humeral head. MR/MR shoulder LT wo con* [id number] IMPRESSION: 1. Moderate AC joint arthritis. 2. Moderate subacromial impingement. Subacromial impingement due to an osteoph yte from the distal undersurface of the acromion. 3. Moderate tendinopathy distal supraspinatus. No definite tear is identified. No retraction or muscle atrophy. 4. Normal biceps tendon. 5. Mild glenohumeral joint narrowing.
== END 2022-11-07 11:21 | disposition home or self-care (01) ==
PROVIDERS: PCP Nurse Practitioner Family; Referring Provider Orthopaedic Surgery; Visit Provider Nurse Practitioner Family
DX: M19.012 Primary osteoarthritis, left shoulder (principal); M67.912 Unspecified disorder of synovium and tendon, left shoulder
CPT/HCPCS: 73221

== ENCOUNTER → 2022-11-09 10:14 | Outpatient (BNVA) | payer MEDICARE, MEDICAID, SELFPAY | PROVIDERS: PCP Nurse Practitioner Family; Referring Provider Nurse Practitioner Family; Visit Provider Orthopaedic Surgery | DX: S43.402A Unspecified sprain of left shoulder joint, initial encounter (principal); V63.9XXA Unspecified occupant of heavy transport vehicle injured in collision with car, pick-up truck or van in traffic accident, initial encounter | CPT/HCPCS: 99213 ==

== ENCOUNTER → 2022-12-13 10:36 | Outpatient (BNVA) | payer MEDICARE, MEDICAID, SELFPAY | PROVIDERS: PCP Nurse Practitioner Family; Visit Provider Orthopaedic Surgery | DX: S43.402A Unspecified sprain of left shoulder joint, initial encounter (principal); X58.XXXA Exposure to other specified factors, initial encounter | CPT/HCPCS: 20610; 99213; J0702; J3490 ==

== ENCOUNTER 2022-12-16 09:26 | Outpatient (CLI) | payer MEDICARE, MEDICAID, SELFPAY ==
--- NOTE | 2022-12-16 10:00 | US_ITS ---
WS: [id number] ULTRASOUND SOFT TISSUES inguinal canals. HISTORY: right inguinal hernia COMPARISON: None available. TECHNIQUE: 2-D and color Doppler imaging is submitted. Ultrasound directed to the inguinal canals. No soft tissue mass or peristalsis identified. No bowel l oop or fatty hernia. US/US abdomen limited [id number] IMPRESSION: Negative ultrasound RIGHT inguinal canal. No hernia identified.
== END 2022-12-16 09:27 | disposition home or self-care (01) ==
LOC: RAD 09:30
PROVIDERS: PCP Nurse Practitioner Family; Visit Provider Nurse Practitioner Family
DX: K40.90 Unilateral inguinal hernia, without obstruction or gangrene, not specified as recurrent (principal)
CPT/HCPCS: 76705

== ENCOUNTER → 2022-12-21 10:08 | Outpatient (BNVA) | payer MEDICARE, MEDICAID, SELFPAY | PROVIDERS: PCP Nurse Practitioner Family; Visit Provider Orthopaedic Surgery | DX: S43.402A Unspecified sprain of left shoulder joint, initial encounter (principal); X58.XXXA Exposure to other specified factors, initial encounter | CPT/HCPCS: 99213 ==

== ENCOUNTER → 2022-12-27 09:40 | Outpatient (BNVA) | payer MEDICARE, MEDICAID, SELFPAY | PROVIDERS: PCP Nurse Practitioner Family; Visit Provider Surgery | DX: K40.90 Unilateral inguinal hernia, without obstruction or gangrene, not specified as recurrent (principal) | CPT/HCPCS: 99203 ==

== ENCOUNTER 2023-01-26 06:28 | Day surgery (SDC) | payer MEDICARE, MEDICAID, SELFPAY ==
[2023-01-26 07:22] VITALS: BP 165/85; PULSE 62; RESP 16; TEMP 36.5; O2SAT 99
[2023-01-26 08:17] LABS: Blood Urea Nitrogen 19 mg/dL (6-20); Calcium 8.8 mg/dL (8.5-10.5); Carbon Dioxide 25 mmol/L (22-29); Chloride 107 mmol/L (98-107); Creatinine Clr Calc Pharmacy 148.0719; Glomerular Filtration Rate 115.4 mL/min (90-130); Glucose 90 mg/dL (65-115); Osmolality Calculated 298 mOsm/kg (285-295); Sodium 143 mmol/L (136-145)
== END 2023-01-26 07:00 | disposition home or self-care (01) ==
PROVIDERS: Anesthesiology; PCP Nurse Practitioner Family; Visit Provider Surgery
DX: K40.90 Unilateral inguinal hernia, without obstruction or gangrene, not specified as recurrent (principal); Z53.9 Procedure and treatment not carried out, unspecified reason
CPT/HCPCS: 36415; 80048

== ENCOUNTER 2023-03-07 13:21 | Emergency (ER) | payer MEDICARE, MEDICAID, SELFPAY ==
[2023-03-07 13:39] VITALS: BP 173/91; PULSE 65; RESP 14; TEMP 37; O2SAT 96; BMI 39.9
[2023-03-07] MEDS: tizanidine 4 mg Tablet 8 MG PO (14:20)
[2023-03-07] MEDS: dexamethasone 10 mg/mL INJ IVP (14:21)
[2023-03-07] MEDS: ketorolac 30 mg/mL INJ IVP (14:22)
--- NOTE | 2023-03-07 14:25 | ED_ITS ---
HPI - Back Pain/Injury General: Chief Complaint: Back Pain/Injury Stated Complaint: back pain Time Seen by Provider: 03/07/23 13:51 Source: patient Mode of arrival: ambulatory History of Present Illness: 57-year-old male presents to the emergency room with complaint of right-sided low back pain radiating to his right upper leg through his groin. 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 No urinary retention or fecal incontinence. He has been able to ambulate but has significant discomfort while ambulating most comfortable position is supine. He has previously had MRIs and been referred to pain clinic has not had surgical intervention he has been told he has some disc bulging. MRI from December 2011 reviewed he had some slight disc bulges no encroachment nerve roots at that time. MD elicited complaint: back pain Pertinent past history: prior back pain Onset (ago): hour(s) Timing: constant Severity: moderate Similar Symptoms Previously: Yes Location: lumbar spine Radiation: right upper leg Exacerbating factors: sitting upright and walking Relieving factors: supine Context: while lifting Associated symptoms: Reports difficulty walking and other; Deny abdominal pain, arthralgias, chills, dysuria, fecal incontinence, fever(s), hematuria, myalgias, numbness, syncope, tingling/numbness/burning, urinary frequency, urinary urgency or weakness Work related injury: No Review of Systems Const: Denies: fever(s) or chills Card: Denies: syncope Resp: Denies: dyspnea GI: Denies: abdominal pain or fecal incontinence : Denies: difficulty urinating, dysuria, urinary frequency, urinary urgency or hematuria Skin/Breast: Denies: rash or pruritus Neuro: Reports: difficulty walking PFSH ED PFSH: Medical History DDD (degenerative disc disease), lumbar Facet syndrome, lumbar Inguinal hernia Long-term current use of opiate analgesic Major depressive disorder, recurrent severe without psychotic features LUIS (obstructive sleep apnea) Pain management contract signed Surgical History History of esophagogastroduodenoscopy (EGD) Hx of appendectomy Hx of colonoscopy 3 yrs ago Hx of hernia repair Hx of rotator cuff surgery LEFT SHOULDER S/P appendectomy Family History Mother CAD (coronary artery disease) Cancer LUNG CANCER Social History Smoking and tobacco status: never smoked Second hand smoke exposure: No Alcohol intake: never Substance/Drug Use: never Lives independently: Yes Marital status: Physical Exam Const: GENERAL APPEARANCE: cooperative and comfortable ORIENTATION/CONSCIOUSNESS: Yes awake, Yes oriented to person, Yes oriented to place and Yes oriented to time HENMT: COMMON NORMALS: normocephalic, atraumatic and hearing grossly normal bilaterally HEAD & SCALP: normocephalic and atraumatic Resp: COMMON NORMALS: normal respiratory effort, No retractions, No use of accessory muscles and clear to auscultation bilaterally AUSCULTATION: clear to auscultation bilaterally Cardio: COMMON NORMALS: regular rate, regular rhythm and No murmurs present (Cardio) RATE: regular rate RHYTHM: regular rhythm GI: COMMON NORMALS: Soft to palpation and No hepatosplenomegaly present AUSCULTATION: Yes normoactive bowel sounds PALPATION: Yes Soft to palpation, No Tenderness to palpation present (GI), No Guarding due to palpation present (GI) and Yes No hepatosplenomegaly present : OTHER: Examination of the inguinal region there is no inguinal hernia or bulging there is tenderness along the ilioinguinal ligament. Extremity: COMMON NORMALS: normal to inspection, capillary refill normal, no clubbing, cyanosis or edema, no calf tenderness and no pedal edema Neuro: SENSORIUM/ORIENTATION: Yes oriented to person, Yes oriented to place and Yes oriented to time OTHER: Straight leg raising equivocal on the right negative on the left. On the right mild discomfort radiating to the right lateral thigh Skin: COMMON NORMALS: no rashes or lesions noted GENERAL SKIN EXAM: no rashes or lesions noted Course Vital Signs: Vital signs: Vital Signs Temperature 98.6 F 03/07/23 13:39 Pulse Rate 65 03/07/23 13:39 Respiratory Rate 14 03/07/23 13:39 Blood Pressure 173/91 03/07/23 13:39 Pulse Oximetry 96 03/07/23 13:39 Oxygen Delivery Me thod Room Air 03/07/23 13:39 MDM - Back Pain/Injury Medical Decision Making Prednisone taper. Start Lyrica 75 twice daily also start on tizanidine 4 mg every 6 hours as needed. Was recently prescribed diclofenac continue to use this follow-up with pain clinic and also make arrangements for follow-up with Dr. Law in the outpatient orthopedic spine clinic. Return if is worsening problems. Medical Records I reviewed the patient's medical records. Labs I reviewed the patient's lab results. Discharge Plan Discharge Patient Disposition: Home Clinical Impression: Strain of lumbar region, Lumbar radiculopathy Condition: Stable Prescriptions: New tizanidine 4 mg tablet 4 mg PO Q6H PRN (Reason: muscle spasticity) Qty: 20 0RF Rx Instructions: do not exceed 3 doses per 24 hrs prednisone 20 mg tablet 20 mg PO TID Qty: 15 0RF Rx Instructions: 1 p.o. 3 times daily x3 days, 1 p.o. twice daily x2 days, 1 p.o. daily x2 day s Lyrica 75 mg capsule 75 mg PO BID Qty: 60 0RF Discontinued cyclobenzaprine 10 mg tablet 10 mg PO TID PRN (Reason: muscle spasm) Qty: 90 0RF No Action (DME) lower back brace See Rx Instructions .Route .MEDSUPPLY Qty: 1 0RF Rx Instructions: As directed multivitamin Tablet 1 tab PO QAM aspirin [Adult Low Dose Aspirin] 81 mg tablet,delayed release (DR/EC) 81 mg PO DAILY ascorbate calcium (vitamin C) 500 mg tablet 500 mg PO BID (DME) CPAP AUTO TITRATING See Rx Instructions .Route .MEDSUPPLY Qty: 1 0RF Rx Instructions: PLEASE PROVIDE NEW TUBING AND MASK. triamcinolone acetonide [Kenalog] 40 mg/mL suspension 40 mg Infiltration ONCE Qty: 1 0RF bupivacaine (PF) 0.5 % (5 mg/mL) solution 5 mg Infiltration ONCE Qty: 1 0RF methylprednisolone acetate [Depo-Medrol] 40 mg/mL suspension 40 mg Infiltration ONCE Qty: 1 0RF bupivacaine (PF) 0.5 % (5 mg/mL) solution 5 mg Infiltration ONCE Qty: 1 0RF (DME) C-PAP Supplies See Rx Instructions .Route .MEDSUPPLY Qty: 1 11RF Rx Instructions: As directed (DME) nebulizers Misc See Rx Instructions .Route Qty: 1 0RF Rx Instructions: 1 nebulizer and all necessary equipment As directed valsartan-hydrochlorothiazide 80-12.5 mg tablet 1 tab PO DAILY Qty: 90 0RF montelukast 10 mg tablet See Rx Instructions .ROUTE .COMPLEX Qty: 30 3RF Dose Instruction: Take 1 tablet by mouth once daily Rx Instructions: Take 1 tablet by mouth once daily dutasteride 0.5 mg capsule See Rx Instructions .ROUTE .COMPLEX Qty: 30 2RF Dose Instruction: Take 1 capsule by mouth once daily Rx Instructions: Take 1 capsule by mouth once daily potassium chloride [Klor-Con M20] 20 mEq tablet,ER particles/crystals See Rx Instructions .ROUTE .COMPLEX Qty: 90 0RF Dose Instruction: TAKE 1 TABLET BY MOUTH ONCE DAILY WITH 10 MEQ TABLET DAILY FOR A TOTAL DAILY DOSE OF 30 MEQ Rx Instructions: TAKE 1 TABLET BY MOUTH ONCE DAILY WITH 10 MEQ TABLET DAILY FOR A TOTAL DAILY DOSE OF 30 MEQ duloxetine 60 mg capsule,delayed release(DR/EC) See Rx Instructions .ROUTE .COMPLEX Qty: 180 0RF Dose Instruction: Take 1 capsule by mouth twice daily Rx Instructions: Take 1 capsule by mouth twice daily diclofenac potassium 50 mg tablet See Rx Instructions .ROUTE .COMPLEX Qty: 90 0RF Dose Instruction: TAKE 1 TABLET BY MOUTH THREE TIMES DAILY NEEDED FOR PAIN Rx Instructions: TAKE 1 TABLET BY MOUTH THREE TIMES DAILY NEEDED FOR PAIN primidone 50 mg tablet See Rx Instructions .ROUTE .COMPLEX Qty: 90 0RF Dose Instruction: TAKE 1 TABLET BY MOUTH AT BEDTIME Rx Instructions: TAKE 1 TABLET BY MOUTH AT BEDTIME atorvastatin 80 mg tablet 80 mg PO BEDTIME potassium chloride 10 mEq tablet extended release 10 meq PO BEDTIME tamsulosin 0.4 mg capsule 0.4 mg PO BID pantoprazole 40 mg tablet,delayed release (DR/EC) 40 mg PO DAILY metoprolol tartrate 50 mg tablet 25 mg PO DAILY fluticasone propionate 50 mcg/actuation spray,suspension 1 spray intranasal BID Zyrtec 10 mg tablet,disintegrating 10 mg PO DAILY vitamin E 268 mg (400 unit) Capsule 268 mg PO DAILY Discharge Orders: Discharge ED (Routine); Ordered 03/07/23 Ordered By: Herson Reich Referrals: Bess Bernard NP [Primary Care Provider] - Patient Instructions: Opioid Safety, Pain Management Activity Restrictions/Additional Instructions: You are seen today for an exacerbation of your low back pain. On exam this appears more musculoskeletal. We have given you prescriptions for a muscle relaxer prednisone and Lyrica which is for chronic pain. Can also use the diclofenac which was recently prescribed by a provider in your primary care clinic. Case management will make arrangements for you to have follow-up with Dr. Law in the orthopedic spine clinic. Coding Level of Care Code ED Drupal Developer for Dinesh Padilla
[2023-03-07] MEDS: morphine 4 mg/mL SDV 1 mL IVP (14:56)
[2023-03-07 16:20] VITALS: RESP 16; O2SAT 95
== END 2023-03-07 16:21 | disposition home or self-care (01) ==
PROVIDERS: Emergency Provider Family Medicine; PCP Nurse Practitioner Family
DX: S39.012A Strain of muscle, fascia and tendon of lower back, initial encounter (principal); M54.16 Radiculopathy, lumbar region; Z79.82 Long term (current) use of aspirin; X50.0XXA Overexertion from strenuous movement or load, initial encounter
CPT/HCPCS: 96374; 96375; 99284; J1100; J1885; J2270

== ENCOUNTER 2023-03-08 11:18 | Outpatient (CLI) | payer MEDICARE, MEDICAID, SELFPAY ==
--- NOTE | 2023-03-08 12:04 | XR_ITS ---
WS: [id number] XR lumbar spine 6V w f/e [id number] REASON FOR EXAM: back pain FINDINGS: Old compression deformities of T12-L2. Intervertebral disc spaces are intact with mild narrowing at L4-L5 and L5-S1. 3 mm of anterolisthesis of L4 in relation to L3. No significant change in this listhesis with flexion and extension. No other vertebral body movement on flexion and extension. XR/XR lumbar spine 6V w f/e [id number] IMPRESSION: Old healed compression fractures and degenerative spondylosis as above.
== END 2023-03-08 11:19 | disposition home or self-care (01) ==
LOC: RAD 11:21
PROVIDERS: PCP Nurse Practitioner Family; Visit Provider Family Medicine
DX: M47.816 Spondylosis without myelopathy or radiculopathy, lumbar region (principal); M79.604 Pain in right leg; Z87.311 Personal history of (healed) other pathological fracture
CPT/HCPCS: 72114

== ENCOUNTER 2023-03-17 10:55 | Outpatient (CLI) | payer MEDICARE, MEDICAID, SELFPAY ==
--- NOTE | 2023-03-17 11:00 | MR_ITS ---
WS: [id number] MRI LUMBAR SPINE NONCONTRAST TECHNIQUE: Sagittal T1, T2 and STIR imaging. Axial T1 and T2 imaging. CLINICAL INFORMATION: low back pain COMPARISON: MRI 2012 FINDINGS: Mild lumbar curve. Mild chronic anterior wedging L1 vertebral body. No acute compression fractures. D isc bulging worse L4-L5 and L5-S1. Tiny annular fissure L5-S1. L1-L2: Mild annular bulging. Mild facet arthropathy. Spinal canal and foramen are patent. L2-L3: Mild annular bulging with narrowing of the subarticular recess bilaterally. RIGHT eccentric di sc bulging with mild RIGHT foraminal narrowing. Mild facet arthropathy. LEFT foramen is patent. L3-L4: Mild annular bulging with mild central canal stenosis. Impingement traversing LEFT greater thierry n RIGHT L4 nerve roots. Moderate facet arthropathy. Small LEFT foraminal protrusion slightly impinges the exiting LEFT L3 nerve root with mild LEFT foraminal narrowing. Mild RIGHT foraminal narrowing wi th a tiny RIGHT foraminal protrusion. L4-L5: Mild annular bulging with mild central canal stenosis. Slight impingement traversing L5 nerve roots LEFT greater than RIGHT. Mild facet arthropathy. Mild bilateral foraminal narrowing. L5-S1: Mild disc bulging with a tiny RIGHT pericentral protrusion. Slight contact RIGHT S1 nerve root . Mild facet arthropathy. Small annular fissure. Mild bilateral foraminal narrowing. Visualized pelvic bony structures: Normal. Paravertebral soft tissues: Normal. Mild central canal stenosis in the cervical spine due to small disc protrusions at C5-C6 and C6-C7. S maller protrusion at C3-C4. MR/MR lumbar spine wo con* [id number] IMPRESSION: 1. Mild lumbar curve. No acute compression. No high-grade central canal stenos is. 2. Mild annular bulging L3-L4 and L4-L5 with mild central canal stenosis and s light impingement subarticular recess at these levels. 3. Tiny shallow RIGHT pericentral protrusion L5-S1 slightly contacts the RIGHT S1 nerve root. 4. Small LEFT foraminal protrusion L3-L4 with mild LEFT foraminal narrowing wi th slight impingement on the exiting LEFT L3 nerve root laterally. 5. Moderate facet arthropathy L3-L4 and L4-L5.
== END 2023-03-17 10:56 | disposition home or self-care (01) ==
PROVIDERS: PCP Nurse Practitioner Family; Visit Provider Family Medicine
DX: M79.604 Pain in right leg (principal); M51.36 Other intervertebral disc degeneration, lumbar region; M51.26 Other intervertebral disc displacement, lumbar region
CPT/HCPCS: 72148

== ENCOUNTER → 2023-04-11 13:52 | Outpatient (BNVA) | payer MEDICARE, MEDICAID, SELFPAY | PROVIDERS: PCP Nurse Practitioner Family; Referring Provider Family Medicine; Visit Provider Physician Assistant | DX: M79.604 Pain in right leg; M48.061 Spinal stenosis, lumbar region without neurogenic claudication; M47.817 Spondylosis without myelopathy or radiculopathy, lumbosacral region | CPT/HCPCS: 99204 ==

== ENCOUNTER → 2023-05-01 10:59 | Outpatient (BNVA) | payer MEDICARE, MEDICAID, SELFPAY | PROVIDERS: PCP Nurse Practitioner Family; Visit Provider Anesthesiology Pain Medicine | DX: M79.604 Pain in right leg; M51.16 Intervertebral disc disorders with radiculopathy, lumbar region | CPT/HCPCS: 99214 ==

== ENCOUNTER → 2023-05-03 12:10 | Outpatient (BNVA) | payer MEDICARE, MEDICAID, SELFPAY | PROVIDERS: PCP Nurse Practitioner Family; Visit Provider Nurse Practitioner Family | DX: F33.2 Major depressive disorder, recurrent severe without psychotic features (principal); M25.50 Pain in unspecified joint | CPT/HCPCS: 84443; 84550; 85651; 86038; 86140; 86200; 86431 ==

== ENCOUNTER → 2023-05-09 15:40 | Outpatient (BNVA) | payer MEDICARE, MEDICAID, SELFPAY | PROVIDERS: PCP Nurse Practitioner Family; Visit Provider Nurse Practitioner Family | DX: I10 Essential (primary) hypertension (principal); E78.5 Hyperlipidemia, unspecified; E78.2 Mixed hyperlipidemia; M19.90 Unspecified osteoarthritis, unspecified site; M25.512 Pain in left shoulder; M25.561 Pain in right knee; M25.562 Pain in left knee; G25.0 Essential tremor; K21.9 Gastro-esophageal reflux disease without esophagitis | CPT/HCPCS: 80053; 80061 ==

== ENCOUNTER → 2023-05-18 13:53 | Outpatient (BNVA) | payer MEDICARE, MEDICAID, SELFPAY | PROVIDERS: PCP Nurse Practitioner Family; Visit Provider Anesthesiology Pain Medicine | DX: M54.16 Radiculopathy, lumbar region (principal); M79.604 Pain in right leg | CPT/HCPCS: 62323; J1040 ==

== ENCOUNTER → 2023-05-23 11:31 | Outpatient (BNVA) | payer MEDICARE, MEDICAID, SELFPAY | PROVIDERS: PCP Nurse Practitioner Family; Referring Provider Nurse Practitioner Family; Visit Provider Physician Assistant | DX: M75.42 Impingement syndrome of left shoulder; M19.012 Primary osteoarthritis, left shoulder | CPT/HCPCS: 20610; 73030; 99213; J3301 ==

== ENCOUNTER → 2023-06-01 12:35 | Outpatient (BNVA) | payer MEDICARE, MEDICAID, SELFPAY | PROVIDERS: PCP Nurse Practitioner Family; Visit Provider Anesthesiology Pain Medicine | DX: M54.16 Radiculopathy, lumbar region (principal); M79.604 Pain in right leg | CPT/HCPCS: 62323; J1040 ==

== ENCOUNTER → 2023-06-22 11:23 | Outpatient (BNVA) | payer MEDICARE, MEDICAID, SELFPAY | PROVIDERS: PCP Nurse Practitioner Family; Visit Provider Physician Assistant | DX: M17.12 Unilateral primary osteoarthritis, left knee; M25.569 Pain in unspecified knee | CPT/HCPCS: 20610; 73560; 73565; 99213; J3301 ==

== ENCOUNTER → 2023-06-27 14:04 | Outpatient (BNVA) | payer MEDICARE, MEDICAID, SELFPAY | PROVIDERS: PCP Nurse Practitioner Family; Visit Provider Physician Assistant | DX: G89.29 Other chronic pain (principal); M79.604 Pain in right leg; M47.816 Spondylosis without myelopathy or radiculopathy, lumbar region; M51.26 Other intervertebral disc displacement, lumbar region; M48.061 Spinal stenosis, lumbar region without neurogenic claudication | CPT/HCPCS: 36415; 72100; 80053; 81003; 85025; 85651; 86140; 86160; 86162; 86200; 86235; 86255; 86376; 86431; 99213 ==

== ENCOUNTER → 2023-07-18 10:11 | Outpatient (BNVA) | payer MEDICARE, MEDICAID, SELFPAY | PROVIDERS: PCP Nurse Practitioner Family; Visit Provider Anesthesiology Pain Medicine | DX: M79.604 Pain in right leg; M51.16 Intervertebral disc disorders with radiculopathy, lumbar region; M47.816 Spondylosis without myelopathy or radiculopathy, lumbar region | CPT/HCPCS: 99214 ==

== ENCOUNTER 2023-07-23 11:12 | Day surgery (SDC) | payer OTHER, MEDICAID, SELFPAY ==
[2023-07-23] VITALS (17 sets, daily range): BP systolic 153–191; BP diastolic 81–105; PULSE 60–91; RESP 16–18; TEMP 36.1–37.1; O2SAT 92–98; BMI 39.2
--- NOTE | 2023-07-23 11:17 | ED_ITS ---
HPI - General Adult General: Chief complaint: Eye Problems Stated complaint: RIGHT EYE LAC Time Seen by Provider: 07/23/23 11:15 Source: patient Mode of arrival: EMS History of Present Illness: 57-year-old male presents emergency room with a laceration above his right eye. Patient is bilateral eye patches on arrival. He is unsure of his last tetanus shot he did this a couple hours prior to arrival. patient can only see light in the right his left eye was affected. Immediately after the injury he covered his eye with his hand but states he did not rub over it. He did have a little bleeding from the time. Onset (ago): minute(s) Location: eyes Relieving factors: none Exacerbating factors: none Associated symptoms: Deny chest pain, confusion, cough, diaphoresis, decreased appetite, dyspnea, fevers/chills, headache(s), malaise, nausea, rash, palpitations, seizures, short of breath, syncope, vomiting or weakness Review of Systems Const: Denies: fever(s), chills, fatigue, malaise or diaphoresis Eyes: Reports: change in vision (Loss of vision right eye), eye discomfort and eye redness Card: Denies: chest pain, palpitations or syncope Resp: Denies: dyspnea GI: Denies: nausea or vomiting : Denies: dysuria, urinary frequency or urinary urgency Musc: Denies: neck pain or back pain Skin/Breast: Denies: rash Neuro: Denies: headache(s) or confusion PFS ED PFSH: Medical History DDD (degenerative disc disease), lumbar Facet syndrome, lumbar Inguinal hernia Long-term current use of opiate analgesic Major depressive disorder, recurrent severe without psychotic features LUIS (obstructive sleep apnea) Pain management contract signed Surgical History History of esophagogastroduodenoscopy (EGD) Hx of appendectomy Hx of colonoscopy 3 yrs ago Hx of hernia repair Hx of rotator cuff surgery LEFT SHOULDER S/P appendectomy Family History Mother CAD (coronary artery disease) Cancer LUNG CANCER Social History (Reviewed 07/23/23 @ 11:17 by EDGAR Valladares Smoking and tobacco/nicotine status: never used tobacco/nicotine Second hand smoke exposure: No Alcohol intake: never Substance/Drug Use: never Lives independently: Yes Marital status: Physical Exam Const: COMMON NORMALS: no acute distress GENERAL APPEARANCE: cooperative and comfortable ORIENTATION/CONSCIOUSNESS: Yes awake, Yes oriented to person, Yes oriented to place and Yes oriented to time HENMT: COMMON NORMALS: normocephalic and hearing grossly normal bilaterally HEAD & SCALP: normocephalic Eye: OTHER: Right eye subconjunctival hematoma and hyphema. Resp: COMMON NORMALS: normal respiratory effort, No retractions, No use of accessory muscles and clear to auscultation bilaterally AUSCULTATION: clear to auscultation bilaterally Cardio: COMMON NORMALS: regular rate, regular rhythm and No murmurs present (Cardio) RATE: regular rate RHYTHM: regular rhythm GI: COMMON NORMALS: Soft to palpation and No hepatosplenomegaly present AUSCULTATION: Yes normoactive bowel sounds PALPATION: Yes Soft to palpation, No Tenderness to palpation present (GI), No Guarding due to palpation present (GI) and Yes No hepatosplenomegaly present Extremity: COMMON NORMALS: normal to inspection, capillary refill normal, no clubbing, cyanosis or edema, no calf tenderness and no pedal edema Neuro: SENSORIUM/ORIENTATION: Yes oriented to person, Yes oriented to place and Yes oriented to time Skin: COMMON NORMALS: no rashes or lesions noted GENERAL SKIN EXAM: no rashes or lesions noted Course Vital Signs: Vital signs: Vital Signs Temperature 98.8 F 07/23/23 11:14 Pulse Rate 64 07/23/23 14:21 Respiratory Rate 18 07/23/23 14:21 Blood Pressure 157/92 07/23/23 14:21 Pulse Oximetry 95 07/23/23 14:21 Oxygen Delivery Me thod Room Air 07/23/23 14:21 MDM - General Adult Medical Decision Making Patient seen and evaluated. He can only appreciate light in the right eye her left eye is unaffected. Contact Dr. Akhtar who is on-call for ophthalmology he came to the department seen the patient we had requested a CT of the orbits with contrast he reviewed the CT films he is planning to take patient to surgery for this injury. Medical Records I reviewed the patient's medical records. Lab Data Radiology Impressions Orbit CT 07/23/23 11:37 IMPRESSION: 1. Fluid density tracking beneath right eyelid and along right sclera. Irregular and smaller right globe with tear in anterolateral aspect of sclera. Irregular hyperdensity seen within vitreous humor suggesting hemorrhage with additional tracking of hemorrhage along superolateral sclera suggesting retinal hemorrhage. 2. No radio-dense foreign body. 3. No acute facial fractures detected. ADDENDUM: 07/23/23 1222 THIS REPORT CONTAINS FINDINGS THAT MAY BE CRITICAL TO PATIENT CARE. The findings were verbally communicated via telephone conference at 12:20 PM [employer] 1 THROUGH 6 TEACHER on 07/23/2023 with HERSON REICH. The findings were acknowledged and understood. All radiology interpretation(s) finalized by discharge Discharge Plan Discharge Patient Disposition: Placed in Observation Clinical Impression: Hyphema of right eye, Injury of globe of right eye Coding Level of Care Code ED Topographical Field Assistant for Dinesh Padilla
--- NOTE | 2023-07-23 11:37 | CTR_ITS ---
PROCEDURE INFORMATION: Exam: CT Orbits With Contrast Exam date and time: 07/23/2023 11:48 AM Age: 57 years old Clinical indication: Injury or trauma; Other: Hit RT eye; Laceration; Ocular (eye or eyeball); Right; Not specified TECHNIQUE: Imaging protocol: Computed tomography of the orbits with contrast. Total images: 824 Radiation optimization: All CT scans at this facility use at least one of these dose optimization techniques: automated exposure control; mA and/or kV adjustment per patient size (includes targeted exams where dose is matched to clinical indication); or iterative reconstruction. Contrast material: OMNI 350; Contrast volume: 100 ml; Contrast route: INTRAVENOUS (IV); REPORTING DATA: Count of CT and Cardiac NM exams in prior 12 months: This patient has received [address] and 0 known cardiac nuclear medicine studies in the 12 months prior to the current study. COMPARISON: CT facial bones w con [id number] 04/11/2018 7:06 PM RADIATION DOSE METRICS: Total DLP (mGy-cm): 377.18 FINDINGS: Paranasal sinuses: Normal. No air-fluid levels. Orbital cavities: Fluid density tracking beneath right eyelid and along right sclera. Irregular and smaller right globe with tear in anterolateral aspect of sclera. Irregular hyperdensity seen within vitreous humor suggesting hemorrhage with additional tracking of hemorrhage along superolateral sclera suggesting retinal hemorrhage. Normal appearance of right optic nerve. Right extraocular muscles intact. Intraconal and extraconal fat unremarkable. Small density along the lateral left cornea felt to be postsurgical. Prior lens extraction. Bones/joints: No acute facial fractures detected. Soft tissues: No radio-dense foreign body. Vasculature: Small amount of air seen within cavernous sinus and right superior ophthalmic vein felt to be iatrogenic at the time of injection and not felt to be of clinical significance. CT/CT orbit BI w con [id number] IMPRESSION: 1. Fluid density tracking beneath right eyelid and along right sclera. Irregular and smaller right globe with tear in anterolateral aspect of sclera. Irregular hyperdensity seen within vitreous humor suggesting hemorrhage with additional tracking of hemorrhage along superolateral sclera suggesting retinal hemorrhage. 2. No radio-dense foreign body. 3. No acute facial fractures detected.
[2023-07-23] MEDS: iohexol 350 mg/mL 500 mL Btl (per mL) IV (12:01)
[2023-07-23] MEDS: morphine 4 mg/mL SDV 1 mL IVP (12:09)
[2023-07-23] MEDS: ondansetron 2 mg/ML SDV 2 mL 4 MG IVP (12:12)
[2023-07-23] MEDS: tetanus-dipt-pertussis 0.5 mL SDV IM (12:14)
--- NOTE | 2023-07-23 13:03 | PC.NURSE ---
eye shield placed over right eye
--- NOTE | 2023-07-23 13:53 | P.ANESASSM_ITS ---
Pre-Anesthetic Assessment Height/Weight: Height 1.75 m Weight 120.656 kg Temp Pulse Resp BP Pulse Ox O2 Del Method 98.8 F 61 16 164/98 95 Room Air 07/23/23 11:14 07/23/23 13:00 07/23/23 12:46 07/23/23 13:35 07/23/23 13:35 07/23/23 13:35 Operation Date: 07/23/23 14:50 Proposed Procedures p Perforated Globe Repair(Right) - Arjun Akhtar MD Familial anesthetic complications: None Was Beta Merary taken within 24 hours: N/A Was Clonidine taken within 24 hours: N/A Last intake: raisin Bran w/ 2% milk at 0730 Social No alcohol and No tobacco Exam alert, oriented x 3, clear to auscultation bilaterally and regular rate & rhythm Airway Mallampati: Class IV Dentition: partials Comments: Comments: large neck full del rosario Pulmonary Sleep Apnea CV/HEM Hypertension GI Gastroesophageal Reflux Disease Metabolic Hyperlipidemia and Morbid Obesity Musc/skel Lower Back Pain and Osteoarthritis/DJD Anesthetic Plan ASA status: 2 Anesthesia: General Risk of > 500 ml blood loss (7ml/kg in children): No Medications/Allergies Home Medications Medication Instructions Recorded Confirmed Last Taken Type ascorbate calcium (vitamin C) 500 500 mg PO BID 09/16/19 07/18/23 01/26/23 History mg tablet aspirin 81 mg tablet,delayed 81 mg PO DAILY 09/16/19 07/18/23 01/24/23 History release (Adult Low Dose Aspirin) multivitamin 1 tab PO QAM 09/16/19 07/18/23 01/25/23 History lower back brace #1 ea 09/30/21 07/18/23 Unknown Rx C-PAP Supplies #1 ea 05/02/22 07/18/23 Unknown Rx CPAP AUTO TITRATING #1 ea 06/30/22 07/18/23 Unknown Rx cetirizine 10 mg disintegrating 10 mg PO DAILY 07/22/22 07/18/23 01/25/23 History tablet metoprolol tartrate 50 mg tablet 25 mg PO DAILY 07/22/22 07/18/23 01/25/23 History nebulizers #1 ea 07/22/22 07/18/23 Unknown Rx vitamin E 268 mg (400 unit) capsule 268 mg PO DAILY 07/22/22 07/18/2301/25/23 History montelukast 10 mg tablet See Rx Instructions .Route 01/10/23 07/18/23 01/25/23 Rx .COMPLEX #30 tabs tizanidine 4 mg tablet 4 mg PO Q6H PRN muscle spasticity 03/07/23 07/18/23 Unknown Rx #20 tabs hydrocodone 7.5 mg-acetaminophen 1 tab PO Q6H PRN pain 30 days #120 03/23/23 07/18/23 Unknown Rx 325 mg tablet tabs valsartan 80 See Rx Instructions .Route 03/31/23 07/18/23 Unknown Rx mg-hydrochlorothiazide 12.5 mg .COMPLEX #90 tabs tablet cyclobenzaprine 10 mg tablet 10 mg PO TID PRN muscle spasm #60 05/03/23 07/18/23 Unknown Rx tabs fluticasone propionate 50 See Rx Instructions .Route 05/03/23 07/18/23 Unknown Rx mcg/actuation nasal .COMPLEX #48 grams spray,suspension dutasteride 0.5 mg capsule See Rx Instructions .Route 05/09/23 07/18/23 Unknown Rx .COMPLEX 90 days #90 caps potassium chloride 10 mEq 10 meq PO BEDTIME 90 days #90 tabs 05/09/23 07/18/23 Unknown Rx tablet,extended release potassium chloride 20 mEq See Rx Instructions .Route 05/09/23 07/18/23 Unknown Rx tablet,extended .COMPLEX #90 tabs release(part/cryst) (Klor-Con M) naltrexone 1.5 mg capsule (Naltrex) 1.5 mg PO DAILY 30 days #30 caps 05/11/23 07/18/23 Unknown Rx duloxetine 60 mg capsule,delayed See Rx Instructions .Route 05/22/23 07/18/23 Unknown Rx release .COMPLEX #180 ea primidone 50 mg tablet See Rx Instructions .Route 05/22/23 07/18/23 Unknown Rx .COMPLEX #90 tabs diclofenac sodium 100 mg 100 mg PO BID 30 days #60 tabs 06/23/23 07/18/23 Unknown Rx tablet,extended release 24 hr pregabalin 75 mg capsule (Lyrica) 75 mg PO BID #60 caps 06/23/23 07/18/23 Unknown Rx pantoprazole 40 mg tablet,delayed 40 mg PO DAILY #30 tabs 07/05/23 07/18/23 Unknown Rx release tamsulosin 0.4 mg capsule 0.4 mg PO BID #60 caps 07/05/23 07/18/23 Unknown Rx atorvastatin 80 mg tablet See Rx Instructions .Route 07/06/23 07/18/23 Unknown Rx .COMPLEX #90 tabs Allergies Allergy/AdvReac Type Severity Reaction Status Date / Time chicken derived Allergy anaphylaxis Verified 07/23/23 11:18 turkey Allergy anaphylaxis Verified 07/23/23 11:18 [facility] Anesthesia Medical History DDD (degenerative disc disease), lumbar Facet syndrome, lumbar Inguinal hernia Long-term current use of opiate analgesic Major depressive disorder, recurrent severe without psychotic features LUIS (obstructive sleep apnea) Pain management contract signed Surgical History History of esophagogastroduodenoscopy (EGD) Hx of appendectomy Hx of colonoscopy 3 yrs ago Hx of hernia repair Hx of rotator cuff surgery LEFT SHOULDER S/P appendectomy Family History Mother CAD (coronary artery disease) Cancer LUNG CANCER Social History Smoking and tobacco/nicotine status: never used tobacco/nicotine Second hand smoke exposure: No Alcohol intake: never Substance/Drug Use: never Lives independently: Yes Marital status: Data Anesthesia Cardiac Studies: No Data to Display
[2023-07-23] MEDS: sodium chloride 0.9% 1,000 ML 30 ML IV (14:58)
[2023-07-23] MEDS: cefTAZidime 1,000 MG in sodium chloride 0.9% (plus) 50 ML 150 MG IV (15:01)
[2023-07-23] MEDS: triamcinolone 40 mg/mL SDV XX (15:49)
[2023-07-23] MEDS: lidocaine 1% INJ 10 mL (per mL) 3 ML XX (17:01)
[2023-07-23] MEDS: neomycin-poly-dex Op oint 3.5 gm 1 APPLIC EYE-RIGHT (17:05)
--- NOTE | 2023-07-23 17:27 | SUR.OPER ---
Moxifoxacin eye drops administered to right eye, lot number [id number] exp 03/2025
--- NOTE | 2023-07-23 18:24 | SUR.PHASEII ---
3 hydrocodone 5-325mg tabs given to pt due to being unable to get prescription filled tonight to take home and take q 4 as needed. Medication verified by pharmacy. Discharge notes not able to be printed, IT consulted, Jasmina Crews and myself looked at trying to get them printed. A copy of discharge instructions written by myself and signed by Dr. Akhtar given to the patient.
== END 2023-07-23 13:49 | disposition home or self-care (01) ==
LOC: ER 13:38 → OR 13:50
PROVIDERS: Emergency Provider Family Medicine; PCP Nurse Practitioner Family; Visit Provider Student in an Organized Health Care Education/Training Program
PROC: (CPT 65280; principal; 2023-07-23 14:30)
DX: H21.01 Hyphema, right eye (principal); S05.31XA Ocular laceration without prolapse or loss of intraocular tissue, right eye, initial encounter; X58.XXXA Exposure to other specified factors, initial encounter; G47.33 Obstructive sleep apnea (adult) (pediatric); I10 Essential (primary) hypertension; K21.9 Gastro-esophageal reflux disease without esophagitis; E78.5 Hyperlipidemia, unspecified; E66.01 Morbid (severe) obesity due to excess calories; Z68.39 Body mass index [BMI] 39.0-39.9, adult; Z79.82 Long term (current) use of aspirin
CPT/HCPCS: 65285; 70481; 90471; 90715; A4216; J0330; J0713; J1100; J2270; J2405; J2704; J3010; J3301; J7030; Q9967

== ENCOUNTER → 2023-09-12 11:04 | Outpatient (BNVA) | payer OTHER, MEDICAID, SELFPAY | PROVIDERS: PCP Nurse Practitioner Family; Visit Provider Nurse Practitioner Family | DX: R10.31 Right lower quadrant pain (principal); R10.813 Right lower quadrant abdominal tenderness; N45.1 Epididymitis; Z12.5 Encounter for screening for malignant neoplasm of prostate; N50.811 Right testicular pain | CPT/HCPCS: 80053; G0103 ==

== ENCOUNTER → 2023-09-26 10:04 | Outpatient (BNVA) | payer OTHER, MEDICAID, SELFPAY | PROVIDERS: PCP Nurse Practitioner Family; Visit Provider Orthopaedic Surgery | DX: Z01.812 Encounter for preprocedural laboratory examination (principal); M48.062 Spinal stenosis, lumbar region with neurogenic claudication | CPT/HCPCS: 36415; 72100; 80053; 81003; 85025; 99214 ==

== ENCOUNTER 2023-09-28 07:56 | Outpatient (CLI) | payer OTHER, MEDICAID, SELFPAY ==
--- NOTE | 2023-09-28 09:00 | US_ITS ---
WS: [id number] TESTICULAR ULTRASOUND HISTORY: Right testicular pain COMPARISON: None available. TECHNIQUE: Real-time and color Doppler imaging or utilized to perform a testicular ultrasound. Right testicle: 5.0 cm x 3.0 cm x 2.3 cm. Normal size testicle. There is mild heterogeneity throughout the parenchyma of the testicle with slig ht increased vascularity. No mass or torsion. Increased Doppler within the testicle. Small simple hydrocele. Right epididymis: Epididymis is slightly enlarged and contains a spermatocele measuring 9 x 8 x 9 mm. No increased vascularity. Left testicle: 4.0 cm x 3.1 cm x 2.2 cm. Normal size and echogenicity. No mass or torsion. Normal color Doppler is present throughout. Systolic and diastolic velocities are both present. No significant hydrocele. Left epididymis: Normal epididymis with no increased vascularity. IMPRESSION: 1. Mild RIGHT orchitis. No mass or torsion. 2. Small RIGHT epididymal spermatocele. 3. Small simple RIGHT hydrocele.
[2023-09-28] MEDS: iohexol 350 mg/mL 500 mL Btl (per mL) PO (09:26)
--- NOTE | 2023-09-28 09:30 | CT_ITS ---
WS: [id number] CT ABDOMEN AND PELVIS WITH CONTRAST HISTORY: RLQ ABD pain TECHNIQUE: Imaging performed of the abdomen and pelvis with IV contrast. Single phase imaging of the abdomen. Coronal and sagittal reformats are submitted. All CT scans at [facility] use at [address] one of these dose optimization techniques: automated exposure control; mA and/or kV adjustment per patient size (includes targeted exams where dose is matched to clinical indication); or iterative re construction. IV CONTRAST: Omnipaque 350; 100 mL IV. Oral contrast: Yes. DLP: 1062.43 mGy.cm COMPARISON: 10/02/2017 Lower thorax: Platelike atelectasis or scar at the RIGHT lung base. Heart is normal size. No hiatal h ernia. Liver/biliary system: Normal size liver. There is scattered low-attenuation masses within the RIGHT a nd LEFT lobes which are probably small cyst. These are too small to characterize completely. Some of these low-attenuation masses were present on the prior study from 2018. No bile duct dilatation. Gallbladder: Slightly contracted gallbladder. No adjacent inflammation. Pancreas: Normal size pancreas and pancreatic duct. No adjacent inflammation. Spleen: Normal size spleen. No mass or infarct. Adrenal glands: Normal. Right kidney: Very minimal perinephric stranding with no obstruction. Left kidney: Minimal perinephric stranding with no obstruction. Aorta: Mild atherosclerosis with no aneurysm. Lymphadenopathy: None. Free fluid: None. GI tract: Normally distended stomach. No small bowel obstruction. Prior appendectomy. No colon obstru ction. Very minimal diverticular burden in the sigmoid colon. Abdominal wall: Unremarkable abdominal wall. No hernia. Pelvis: No free fluid or adenopathy. Negative urinary bladder. No inguinal abnormalities are identifi ed. Bones: Increase in the lumbar lordosis. Very slight anterior wedging of L1 is chronic. IMPRESSION: 1. No acute abdominal or pelvic abnormalities. No abnormality in the RIGHT inguinal region to explai n patient's pain and discomfort. 2. Prior appendectomy. 3. No GI tract obstruction. 4. Too small to characterize masses within this liver. Some of these were present on the prior study from 2018. Favor these are probably benign cysts.
[2023-09-28] MEDS: iohexol 350 mg/mL 500 mL Btl (per mL) IV (09:41)
== END 2023-09-28 07:57 | disposition home or self-care (01) ==
LOC: RAD 07:57
PROVIDERS: PCP Nurse Practitioner Family; Visit Provider Nurse Practitioner Family
DX: R10.31 Right lower quadrant pain (principal); N50.811 Right testicular pain; Z90.89 Acquired absence of other organs
CPT/HCPCS: 74177; 76870; Q9967

== ENCOUNTER 2023-10-16 05:27 | Day surgery (SDC) | payer MEDICARE, MEDICAID, SELFPAY ==
[2023-10-16] VITALS (11 sets, daily range): BP systolic 134–172; BP diastolic 76–89; PULSE 67–86; RESP 15–18; TEMP 36.3–36.5; O2SAT 95–100; BMI 39.9
--- NOTE | 2023-10-16 | XR_ITS ---
WS: [id number] INTRAOPERATIVE TECHNIQUE: 2 Spot fluoroscopic images for intraoperative purposes. FLUOROSCOPY TIME: 17.7 seconds CLINICAL INFORMATION: decompression, or pic COMPARISON: None. FINDINGS: Localization marker overlying the RIGHT L4-5 interspace and RIGHT L3-4 interspace IMPRESSION: Images obtained for intraoperative purposes.
[2023-10-16] MEDS: sodium chloride 0.9% 1,000 ML 30 ML IV (06:53)
--- NOTE | 2023-10-16 07:04 | W.PM.OPSUD ---
Surgery/Procedure H&P Update DATE OF PROCEDURE: October 16, 2023 DATE H&P PERFORMED: 10/09/23 H&P UPDATE INFORMATION: I have reviewed H&P completed within last 30 days, I have examined patient prior to procedure and No changes to prior documentation PREOP DIAGNOSIS: Lumbar stenosis with neurogenic claudication PLANNED PROCEDURE: Operation Date: 10/16/23 08:15 Proposed Procedures p Lumbar Spine Decompression Lumbar Decompression/ standing on the right side(Bilateral) - Chay Law DO
[2023-10-16] MEDS: HYDROmorphone 1 mg/mL INJ 1 mL 0.5 MG IVP (07:18)
[2023-10-16] MEDS: ceFAZolin 2,000 MG in sodium chloride 0.9% (plus) 50 ML 100 MG IV (08:59)
[2023-10-16] MEDS: ceFAZolin 1,000 mg SDV 1000 MG (09:23)
[2023-10-16] MEDS: lidocaine-epi 1% 20 mL INJ INJECTION (09:24)
--- NOTE | 2023-10-16 09:37 | ANES.PREANE2 ---
Pre-Anesthetic Assessment Height/Weight: Height 1.75 m Weight 122.47 kg Temp Pulse Resp BP Pulse Ox O2 Del Method 97.4 F L 67 16 152/89 96 Room Air 10/16/23 06:15 10/16/23 06:15 10/16/23 07:18 10/16/23 06:15 10/16/23 06:15 10/16/23 06:19 Preop Diagnosis: Lumbar stenosis with neurogenic claudication Operation Date: 10/16/23 08:15 Proposed Procedures p Lumbar Spine Decompression Lumbar Decompression/ standing on the right side(Bilateral) - Chay Law DO Familial anesthetic complications: none Was Beta Merary taken within 24 hours: Yes Was Clonidine taken within 24 hours: N/A Last intake: Intake Last Liquid Date 10/15/23 Last Liquid Time 20:00 Last Solid Date 10/15/23 Last Solid Time 16:00 Social No alcohol and No tobacco Exam alert, oriented x 3, clear to auscultation bilaterally and regular rate & rhythm Airway Submandibular: within normal limits Cervical ROM: within normal limits Mallampati: Class II Dentition: chipped Pulmonary Sleep Apnea CV/HEM Hypertension GI Gastroesophageal Reflux Disease Metabolic Morbid Obesity [facility] [place] Lower Back Pain and Osteoarthritis/DJD Neuropsych Anxiety, Depression and Neuropathy Anesthetic Plan ASA status: 3 Anesthesia: General Medications/Allergies Home Medications Medication Instructions Recorded Confirmed Last Taken Type ascorbate calcium (vitamin C) 500 500 mg PO BID 09/16/19 10/14/23 10/15/23 History mg tablet aspirin 81 mg tablet,delayed 81 mg PO DAILY 09/16/19 10/14/23 10/08/23 History release (Adult Low Dose Aspirin) multivitamin 1 tab PO QAM 09/16/19 10/14/23 10/15/23 History lower back brace #1 ea 09/30/21 10/06/23 Unknown Rx C-PAP Supplies #1 ea 05/02/22 10/06/23 Unknown Rx CPAP AUTO TITRATING #1 ea 06/30/22 10/06/23 Unknown Rx metoprolol tartrate 50 mg tablet 25 mg PO DAILY 07/22/22 10/14/23 10/16/23 History nebulizers #1 ea 07/22/22 10/06/23 Unknown Rx vitamin E 268 mg (400 unit) capsule 268 mg PO DAILY 07/22/22 10/14/23 10/10/23 History potassium chloride 10 mEq 10 meq PO BEDTIME 90 days #90 tabs 05/09/23 10/14/23 10/15/23 Rx tablet,extended release tamsulosin 0.4 mg capsule 0.4 mg PO BID #60 caps 09/22/23 10/14/23 10/15/23 Rx pregabalin 75 mg capsule 75 mg PO DAILY #30 caps 10/03/23 10/16/23 10/15/23 Rx cyclobenzaprine 10 mg tablet 10 mg PO TID PRN muscle spasm #90 10/06/23 10/14/23 10/12/23 Rx tabs magnesium oxide 400 mg (241.3 mg 400 mg PO DAILY 90 days #90 tabs 10/06/23 10/16/23 10/15/23 Rx magnesium) tablet (MagOx) atorvastatin 80 mg tablet 80 mg PO DAILY 10/14/23 10/14/23 10/15/23 History cetirizine 10 mg tablet (Allergy 10 mg PO DAILY 10/14/23 10/14/23 10/15/23 History Relief (cetirizine)) diclofenac sodium 100 mg 100 mg PO DAILY 10/14/23 10/14/23 10/11/23 History tablet,extended release 24 hr duloxetine 60 mg capsule,delayed 60 mg PO BID 10/14/23 10/14/23 10/15/23 History release dutasteride 0.5 mg capsule 0.5 mg PO DAILY 10/14/23 10/14/23 10/15/23 History fluticasone propionate 50 50 mcg intranasal DAILY 10/14/23 10/14/23 10/16/23 History mcg/actuation nasal spray,suspension pantoprazole 40 mg tablet,delayed 40 mg PO DAILY 10/14/23 10/14/23 10/16/23 History release potassium chloride 20 mEq 20 meq PO DAILY 10/14/23 10/14/23 History tablet,extended release(part/cryst) (Klor-Con M) primidone 50 mg tablet 50 mg PO BEDTIME 10/14/23 10/14/23 10/15/23 History valsartan 80 80 tab PO DAILY 10/14/23 10/14/23 10/14/23 History mg-hydrochlorothiazide 12.5 mg tablet Allergies Allergy/AdvReac Type Severity Reaction Status Date / Time chicken derived Allergy anaphylaxis Verified 10/09/23 11:44 turkey Allergy anaphylaxis Verified 10/09/23 11:44 Current Medications Generic Name Dose Route Start Last Admin Trade Name Freq PRN Reason Stop Dose Admin Hydromorphone HCl 0.5 mg 10/16/23 06:44 10/16/23 07:18 Hydromorphone 1 Mg/Ml Inj 1 Ml IVP 0.5 mg ONCE PRN Administration For preop pain/anxiety Sodium Chloride 1,000 mls @ 30 mls/hr 10/16/23 06:45 10/16/23 06:53 Sodium Chloride 0.9% IV 10/17/23 06:44 30 mls/hr .Q24H JASON Administration PFSH Anesthesia Medical History LUIS (obstructive sleep apnea) Major depressive disorder, recurrent severe without psychotic features Inguinal hernia Long-term current use of opiate analgesic Pain management contract signed DDD (degenerative disc disease), lumbar Facet syndrome, lumbar Surgical History Hx of colonoscopy 3 yrs ago History of esophagogastroduodenoscopy (EGD) S/P appendectomy Hx of appendectomy Hx of hernia repair Hx of rotator cuff surgery LEFT SHOULDER Family History Mother CAD (coronary artery disease) Cancer LUNG CANCER Social History Smoking and tobacco/nicotine status: never used tobacco/nicotine Second hand smoke exposure: No Alcohol intake: never Substance/Drug Use: never Lives independently: Yes Marital status: Data Anesthesia Cardiac Studies: No Data to Display
--- NOTE | 2023-10-16 10:46 | PM.OP ---
Operative Report Date of procedure: October 16, 2023 Post-op diagnosis: same Procedure done: 1. L3-4 laminectomy with partial facetectomy 2. L4-5 laminectomy with partial facetectomy Surgeon: Chay Law DO Estimated blood loss (mL): 25 Procedure: 1. L3-4 laminectomy with partial facetectomy 2. L4-5 laminectomy with partial facetectomy Patient is brought to the operative suite. After undergoing anesthesia they are placed in the prone position. All areas of impingement are well padded. Patient is then prepped and draped in the normal sterile fashion. A skin incision is made over the L3/4 level. This is confirmed under c-arm guidance. A series of dilators are passed and the tubular retractor is docked on the L3 lamina. A bovie is used to clear the soft tissue off the lamina and the L 3/4 facet joint. A high speed curtis is then used to perform the laminectomy and take down the medial aspect of the L 3/4 facet joint. A kerrison rongeure was then used to take down the remaining lamina and smooth the edge of the laminectomy up to the point where the ligamentum flavum attaches. Attention was then brought to the medial aspect of the facet joint. The remaining medial aspect of the superior and inferior aspect of the facet joint were taken down with the kerrison from the pedicle of L3 to L 4. The facet joint had significant hypertrophy. Attention was then brought to the Ligamentum Flavum. The ligament was taken down from the lamina of L3 to L4 and out medially to the remaining facet joint. The ligament was thick. The dura was then exposed. The dura was in good repair. The L3 nerve was then traced with a curette out the L3/4 foramen and found to be adequately decompressed. The L4 nerve was traced with a curette around the L4 pedicle. The lateral recess was opened with a kerrison helping to further decompress the L4 nerve. Wound is then irrigated copiously with saline and surgiflo is used to stop any bleeding. The tubular retractor is removed and the A skin incision is made over the L4/5 level. This is confirmed under c-arm guidance. A series of dilators are passed and the tubular retractor is docked on the L4 lamina. A bovie is used to clear the soft tissue off the lamina and the L 4/5 facet joint. A high speed curtis is then used to perform the laminectomy and take down the medial aspect of the L 4/5 facet joint. A kerrison rongeure was then used to take down the remaining lamina and smooth the edge of the laminectomy up to the point where the ligamentum flavum attaches. Attention was then brought to the medial aspect of the facet joint. The remaining medial aspect of the superior and inferior aspect of the facet joint were taken down with the kerrison from the pedicle of L4 to L 5. The facet joint had significant hypertrophy. Attention was then brought to the Ligamentum Flavum. The ligament was taken down from the lamina of L4 to L5 and out medially to the remaining facet joint. The ligament was thick. The dura was then exposed. The dura was in good repair. The L4 nerve was then traced with a curette out the L4/5 foramen and found to be adequately decompressed. The L5 nerve was traced with a curette around the L5 pedicle. The lateral recess was opened with a kerrison helping to further decompress the L5 nerve. Wound is then irrigated copiously with saline and surgiflo is used to stop any bleeding. The tubular retractor is removed and the wound is closed with vicryl and monocryl suture. Glue is then used to protect the wound. A sterile dressing is then placed. Patient was then placed in the supine position and transferred to the PACU in stable condition.
[2023-10-16] MEDS: HYDROcodone-acetaminophen 5-325 mg Tablet 2 TAB PO (11:15)
--- NOTE | 2023-10-16 16:16 | ANE.PACU2 ---
Inpatient post-anesthesia follow up: Airway intact: Yes Vital signs: Temperature 97.3 F Pulse Rate 69 Respiratory Rate 18 Blood Pressure 157/84 Pulse Oximetry 98 Oxygen Delivery Me thod Room Air Oxygen Flow Rate 6 Fraction of Inspir ed Oxygen Hydration adequate: Yes Nausea and vomiting: No Pain level: 3 Mental status: Baseline
== END 2023-10-16 11:40 | disposition home or self-care (01) ==
PROVIDERS: PCP Nurse Practitioner Family; Visit Provider Orthopaedic Surgery
PROC: (CPT 63005; principal; 2023-10-16 08:15)
DX: M48.062 Spinal stenosis, lumbar region with neurogenic claudication (principal); I10 Essential (primary) hypertension; K21.9 Gastro-esophageal reflux disease without esophagitis; E66.01 Morbid (severe) obesity due to excess calories; Z68.39 Body mass index [BMI] 39.0-39.9, adult; G47.33 Obstructive sleep apnea (adult) (pediatric); Z79.891 Long term (current) use of opiate analgesic
CPT/HCPCS: 63047; 63048; 72020; 76000; J0690; J1170; J2250; J2704; J2710; J3010; J3490; J7030

== ENCOUNTER 2023-10-19 14:33 | Observation (INO) | payer MEDICARE, MEDICAID, SELFPAY ==
[2023-10-19] VITALS (11 sets, daily range): BP systolic 170–183; BP diastolic 87–92; PULSE 60–79; RESP 16–20; TEMP 36.9–37.2; O2SAT 92–97; BMI 39.9
[2023-10-19] MEDS: ondansetron 2 mg/ML SDV 2 mL 4 MG IVP (14:52)
[2023-10-19] MEDS: dexamethasone 10 mg/mL INJ IVP ×2 (14:52→20:18)
[2023-10-19] MEDS: HYDROmorphone 1 mg/mL INJ 1 mL IVP ×2 (14:52→16:56)
--- NOTE | 2023-10-19 15:00 | W.ED.BACK ---
HPI - Back Pain/Injury General: Chief Complaint: Back Pain/Injury Stated Complaint: back pain post surgery Time Seen by Provider: 10/19/23 14:35 Source: patient Mode of arrival: ambulatory Limitations: no limitations History of Present Illness: 57-year-old male who had low back surgery here on Monday he states that he started having pain yesterday and increased today states that he is having a shooting pain down both legs. He had no bowel or bladder incontinence said some pain with walking but is able ambulate denies any fevers. Associated symptoms: Deny abdominal pain, chills, fever(s), nausea or vomiting Review of Systems Const: Denies: fever(s), chills, body aches or change in appetite ENMT: Denies: throat pain or dental pain Card: Denies: chest pain Resp: Denies: dyspnea GI: Denies: abdominal pain, nausea, vomiting or diarrhea Musc: Reports: back pain; Denies: neck pain Skin/Breast: Denies: rash Neuro: Denies: headache(s) PFSH ED PFSH: Medical History LUIS (obstructive sleep apnea) Major depressive disorder, recurrent severe without psychotic features Inguinal hernia Long-term current use of opiate analgesic Pain management contract signed DDD (degenerative disc disease), lumbar Facet syndrome, lumbar Surgical History Hx of colonoscopy 3 yrs ago History of esophagogastroduodenoscopy (EGD) S/P appendectomy Hx of appendectomy Hx of hernia repair Hx of rotator cuff surgery LEFT SHOULDER Family History Mother CAD (coronary artery disease) Cancer LUNG CANCER Social History Smoking and tobacco/nicotine status: never used tobacco/nicotine Second hand smoke exposure: No Alcohol intake: never Substance/Drug Use: never Lives independently: Yes Marital status: Physical Exam Const: COMMON NORMALS: no acute distress, patient oriented x3 and healthy appearing HENMT: COMMON NORMALS: normocephalic and atraumatic HEAD & SCALP: normocephalic and atraumatic Neck/C-Spine: COMMON NORMALS: full ROM and supple Chest: COMMONS NORMALS: normal inspection of the chest Resp: COMMON NORMALS: normal respiratory effort, No retractions, No use of accessory muscles and clear to auscultation bilaterally AUSCULTATION: clear to auscultation bilaterally Cardio: COMMON NORMALS: regular rate, regular rhythm and No murmurs present (Cardio) RATE: regular rate RHYTHM: regular rhythm Extremity: COMMON NORMALS: normal to inspection and full ROM Neuro: COMMON NORMALS: patient oriented x3, moves all extremities and no focal motor deficits Psych: COMMON NORMALS: mental status grossly normal, Normal thought process present and cooperative THOUGHT PROCESS: Normal thought process present Skin: COMMON NORMALS: no rashes or lesions noted and no wounds GENERAL SKIN EXAM: no rashes or lesions noted Course Vital Signs: Vital signs: Vital Signs Temperature 98.4 F 10/19/23 14:34 Pulse Rate 69 10/19/23 14:34 Respiratory Rate 17 10/19/23 14:52 Blood Pressure 170/87 10/19/23 14:34 Pulse Oximetry 97 10/19/23 14:52 Oxygen Delivery Me thod Room Air 10/19/23 14:34 MDM - Back Pain/Injury Medical Decision Making Patient presents here with postop back pain is no signs of infection spoke to patient surgeon Dr. Law and will admit. Medical Records I reviewed the patient's medical records. Labs I reviewed the patient's lab results. 10/19/23 14:55 10/19/23 14:55 Laboratory Results WBC 8.12 10^3/uL (3.29-11.43) 10/19/23 14:55 RBC 4.70 10^6/uL (3.85-5.65) 10/19/23 14:55 Hgb 13.30 g/dL (11.27-16.99) 10/19/23 14:55 Hct 41.3 % (37-53) 10/19/23 14:55 MCV 87.9 fl (82-101) 10/19/23 14:55 MCH 28.3 pg (27-33) 10/19/23 14:55 MCHC 32.2 g/dL (30-55) 10/19/23 14:55 RDW 12.5 % (12.1-15.1) 10/19/23 14:55 Plt Count 220 10^3/cmm (157-399) 10/19/23 14:55 MPV 11.0 fL (7.4-10.4) H 10/19/23 14:55 Neut % (Auto) 49.7 % 10/19/23 14:55 Lymph % (Auto) 34.0 % 10/19/23 14:55 Haines % (Auto) 9.6 % 10/19/23 14:55 Eos % (Auto) 5.3 % 10/19/23 14:55 Baso % (Auto) 1.2 % 10/19/23 14:55 Neut # (Auto) 4.03 10^3/uL (1.8-7.7) 10/19/23 14:55 Lymph # (Auto) 2.8 10^3/uL (0.8-4.8) 10/19/23 14:55 Haines # (Auto) 0.8 10^3/uL (0.2-0.9) 10/19/23 14:55 Eos # (Auto) 0.4 10^3/uL (0.0-0.8) 10/19/23 14:55 Baso # (Auto) 0.1 10^3/uL (0.0-0.1) 10/19/23 14:55 Nucleated RBC % (auto) 0 % 10/19/23 14:55 Nucleated RBCs # 0.0 /100WBC 10/19/23 14:55 Sodium 137 mmol/L (136-145) 10/19/23 14:55 Potassium 4.0 mmol/L (3.5-5.1) 10/19/23 14:55 Chloride 101 mmol/L (98-107) 10/19/23 14:55 Carbon Dioxide 29 mmol/L (22-29) 10/19/23 14:55 Anion Gap 11.0 (5-19) 10/19/23 14:55 BUN 14 mg/dL (6-20) 10/19/23 14:55 Creatinine 0.8 mg/dL (0.7-1.2) 10/19/23 14:55 GFR Calculation 98.9 mL/min (90-130) 10/19/23 14:55 Glucose 113 mg/dL (65-115) 10/19/23 14:55 Calculated Osmolality 285 mOsm/kg (285-295) 10/19/23 14:55 Calcium 8.7 mg/dL (8.5-10.5) 10/19/23 14:55 Total Bilirubin 0.7 mg/dL (0.15-1.2) 10/19/23 14:55 AST 25 U/L (0-40) 10/19/23 14:55 ALT 29 U/L (0-41) 10/19/23 14:55 Alkaline Phosphatase 117 U/L (40-130) 10/19/23 14:55 Total Protein 6.5 g/dL (6.6-8.7) L 10/19/23 14:55 Albumin 3.9 g/dL (3.5-5.2) 10/19/23 14:55 Globulin 2.6 g/dL (1.3-4.6) 10/19/23 14:55 No radiology studies performed this visit Discharge Plan Discharge Patient Disposition: Admitted As Inpatient Clinical Impression: Post-operative pain Condition: Stable Prescriptions: No Action (DME) lower back brace See Rx Instructions .Route .MEDSUPPLY Qty: 1 0RF Rx Instructions: As directed multivitamin Tablet 1 tab PO QAM aspirin [Adult Low Dose Aspirin] 81 mg tablet,delayed release (DR/EC) 81 mg PO QPM ascorbate calcium (vitamin C) 500 mg tablet 500 mg PO BID (DME) CPAP AUTO TITRATING See Rx Instructions .Route .MEDSUPPLY Qty: 1 0RF Rx Instructions: PLEASE PROVIDE NEW TUBING AND MASK. cyclobenzaprine 10 mg tablet 10 mg PO TID PRN (Reason: muscle spasm) Qty: 90 0RF magnesium oxide [MagOx] 400 mg (241.3 mg magnesium) tablet 400 mg PO DAILY 90 Days Qty: 90 1RF potassium chloride 10 mEq tablet extended release 10 meq PO BEDTIME 90 Days Qty: 90 1RF (DME) C-PAP Supplies See Rx Instructions .Route .MEDSUPPLY Qty: 1 11RF Rx Instructions: As directed (DME) nebulizers Misc See Rx Instructions .Route Qty: 1 0RF Rx Instructions: 1 nebulizer and all necessary equipment As directed tamsulosin 0.4 mg capsule 0.4 mg PO BID Qty: 60 1RF pregabalin 75 mg capsule 75 mg PO DAILY Qty: 30 2RF hydrocodone-acetaminophen 5-325 mg tablet 1 - 2 tab PO Q4H PRN (Reason: pain) montelukast 10 mg tablet 10 mg PO BEDTIME metoprolol tartrate 50 mg tablet 25 mg PO DAILY vitamin E 268 mg (400 unit) Capsule 268 mg PO DAILY atorvastatin 80 mg tablet 80 mg PO QPM cetirizine [Allergy Relief (cetirizine)] 10 mg tablet 10 mg PO DAILY diclofenac sodium 100 mg tablet extended release 24 hr 100 mg PO BID primidone 50 mg tablet 50 mg PO BEDTIME valsartan-hydrochlorothiazide 80-12.5 mg tablet 80 tab PO DAILY potassium chloride [Klor-Con M20] 20 mEq tablet,ER particles/crystals 20 meq PO DAILY Rx Instructions: TAKE 1 TABLET BY MOUTH ONCE DAILY WITH 10 MEQ TABLET DAILY FOR A TOTAL DAILY DOSE OF 30 MEQ pantoprazole 40 mg tablet,delayed release (DR/EC) 40 mg PO DAILY fluticasone propionate 50 mcg/actuation spray,suspension 2 spray intranasal DAILY dutasteride 0.5 mg capsule 0.5 mg PO DAILY duloxetine 60 mg capsule,delayed release(DR/EC) 60 mg PO BID Referrals: Bess Bernard NP [Primary Care Provider] - Coding Level of Care Code ED Anesthesiologists' Assistant for Dinesh Padilla
[2023-10-19 15:08] LABS: Basophils # 0.1 10^3/uL (0.0-0.1); Basophils % 1.2 %; Eosinophils # 0.4 10^3/uL (0.0-0.8); Eosinophils % 5.3 %; Hematocrit 41.3 % (37-53); Lymphocytes # 2.8 10^3/uL (0.8-4.8); Mean Corpuscular HGB Conc 32.2 g/dL (30-55); Mean Corpuscular Hemoglobin 28.3 pg (27-33); Mean Corpuscular Volume 87.9 fl (82-101); Monocytes # 0.8 10^3/uL (0.2-0.9); Monocytes % 9.6 %; Neutrophils # 4.03 10^3/uL (1.8-7.7); Neutrophils % 49.7 %; Nucleated Red Blood Cells % 0 %; Platelet Count 220 10^3/cmm (157-399); Red Cell Distribution Width 12.5 % (12.1-15.1); White Blood Count 8.12 10^3/uL (3.29-11.43)
[2023-10-19 15:32] LABS: Alanine Aminotransferase 29 U/L (0-41); Albumin Level 3.9 g/dL (3.5-5.2); Alkaline Phosphatase 117 U/L (40-130); Aspartate Amino Transferase 25 U/L (0-40); Blood Urea Nitrogen 14 mg/dL (6-20); Calcium 8.7 mg/dL (8.5-10.5); Carbon Dioxide 29 mmol/L (22-29); Chloride 101 mmol/L (98-107); Globulin 2.6 g/dL (1.3-4.6); Glomerular Filtration Rate 98.9 mL/min (90-130); Glucose 113 mg/dL (65-115); Osmolality Calculated 285 mOsm/kg (285-295); Sodium 137 mmol/L (136-145); Total Bilirubin 0.7 mg/dL (0.15-1.2); Total Protein 6.5 g/dL (6.6-8.7)
[2023-10-19] MEDS: HYDROcodone-acetaminophen 10-325 mg Tablet PO (20:18)
[2023-10-19] MEDS: morphine 4 mg/mL SDV 1 mL 2 MG IVP (22:19)
[2023-10-20] VITALS: BP 170/80; PULSE 74; RESP 20; TEMP 36.9; O2SAT 94
[2023-10-20] MEDS: HYDROcodone-acetaminophen 10-325 mg Tablet PO ×3 (01:29→12:53)
[2023-10-20] MEDS: dexamethasone 10 mg/mL INJ IVP ×3 (01:32→12:53)
[2023-10-20 02:49] VITALS: RESP 20
[2023-10-20] MEDS: morphine 4 mg/mL SDV 1 mL 2 MG IVP (02:49)
[2023-10-20 04:00] VITALS: BP 163/80; PULSE 89; RESP 20; TEMP 37.1; O2SAT 96
[2023-10-20 06:00] VITALS: BMI 39.5
[2023-10-20 07:52] VITALS: BP 167/85; PULSE 77; RESP 19; TEMP 36.5; O2SAT 93
--- NOTE | 2023-10-20 07:59 | P.HP_ITS ---
Providers/Chief Complaint 2 Admitting Physician: Chay Law DO Primary Care Provider: Bess Bernard NP Chief Complaint: back pain post surgery History of Present Illness Benjamin Carrion is a 57 year old male complaining of pain in his back when he gets up. And numbness in his leg. Patient is evaluated bedside comfortable sitting in bed no complaints just when he gets up is really the main issue. Review of Systems 2 Const: Denies: fever(s), chills, body aches or change in appetite ENMT: Denies: throat pain or dental pain Card: Denies: chest pain Resp: Denies: dyspnea GI: Denies: abdominal pain, nausea, vomiting or diarrhea Musc: Reports: back pain; Denies: neck pain Skin/Breast: Denies: rash Neuro: Denies: headache(s) Medications/Allergies Home Medications Medication Instructions Recorded Confirmed Last Taken Type ascorbate calcium (vitamin C) 500 500 mg PO BID 09/16/19 10/19/23 10/19/23 History mg tablet aspirin 81 mg tablet,delayed 81 mg PO QPM 09/16/19 10/19/23 10/18/23 History release (Adult Low Dose Aspirin) multivitamin 1 tab PO QAM 09/16/19 10/19/23 10/19/23 History lower back brace #1 ea 09/30/21 10/19/23 Unknown Rx C-PAP Supplies #1 ea 05/02/22 10/19/23 Unknown Rx CPAP AUTO TITRATING #1 ea 06/30/22 10/19/23 Unknown Rx metoprolol tartrate 50 mg tablet 25 mg PO DAILY 07/22/22 10/19/23 10/19/23 History nebulizers #1 ea 07/22/22 10/19/23 Unknown Rx vitamin E 268 mg (400 unit) capsule 268 mg PO DAILY 07/22/22 10/19/23 10/19/23 History potassium chloride 10 mEq 10 meq PO BEDTIME 90 days #90 tabs 05/09/23 10/19/23 10/19/23 Rx tablet,extended release tamsulosin 0.4 mg capsule 0.4 mg PO BID #60 caps 09/22/23 10/19/23 10/19/23 Rx pregabalin 75 mg capsule 75 mg PO DAILY #30 caps 10/03/23 10/19/23 10/19/23 Rx cyclobenzaprine 10 mg tablet 10 mg PO TID PRN muscle spasm #90 10/06/23 10/19/23 10/12/23 Rx tabs magnesium oxide 400 mg (241.3 mg 400 mg PO DAILY 90 days #90 tabs 10/06/23 10/19/23 10/19/23 Rx magnesium) tablet (MagOx) atorvastatin 80 mg tablet 80 mg PO QPM 10/14/23 10/19/23 10/18/23 History cetirizine 10 mg tablet (Allergy 10 mg PO DAILY 10/14/23 10/19/23 10/19/23 History Relief (cetirizine)) diclofenac sodium 100 mg 100 mg PO BID 10/14/23 10/19/23 10/19/23 History tablet,extended release 24 hr duloxetine 60 mg capsule,delayed 60 mg PO BID 10/14/23 10/19/23 10/19/23 History release dutasteride 0.5 mg capsule 0.5 mg PO DAILY 10/14/23 10/19/23 10/19/23 History fluticasone propionate 50 2 spray intranasal DAILY 10/14/23 10/19/23 10/19/23 History mcg/actuation nasal spray,suspension pantoprazole 40 mg tablet,delayed 40 mg PO DAILY 10/14/23 10/19/23 10/19/23 History release potassium chloride 20 mEq 20 meq PO DAILY 10/14/23 10/19/23 10/19/23 History tablet,extended release(part/cryst) (Klor-Con M) primidone 50 mg tablet 50 mg PO BEDTIME 10/14/23 10/19/23 10/19/23 History valsartan 80 80 tab PO DAILY 10/14/23 10/19/23 10/19/23 History mg-hydrochlorothiazide 12.5 mg tablet hydrocodone 5 mg-acetaminophen 325 1 - 2 tab PO Q4H PRN pain 10/19/23 10/19/23 10/19/23 History mg tablet montelukast 10 mg tablet 10 mg PO BEDTIME 10/19/23 10/19/23 10/18/23 History Allergies Allergy/AdvReac Type Severity Reaction Status Date / Time chicken derived Allergy anaphylaxis Verified 10/19/23 15:43 turkey Allergy anaphylaxis Verified 10/19/23 15:43 PFSH Acute 2 PFSH: Medical History LUIS (obstructive sleep apnea) Major depressive disorder, recurrent severe without psychotic features Inguinal hernia Long-term current use of opiate analgesic Pain management contract signed DDD (degenerative disc disease), lumbar Facet syndrome, lumbar Surgical History Hx of colonoscopy 3 yrs ago History of esophagogastroduodenoscopy (EGD) S/P appendectomy Hx of appendectomy Hx of hernia repair Hx of rotator cuff surgery LEFT SHOULDER Family History Mother CAD (coronary artery disease) Cancer LUNG CANCER Social History Smoking and tobacco/nicotine status: never used tobacco/nicotine Second hand smoke exposure: No Alcohol intake: never Substance/Drug Use: never Lives independently: Yes Marital status: Vitals/I&O/Wt Last Vital Signs Temp 97.7 F 10/20/23 07:52 Pulse 77 10/20/23 07:52 Resp 19 H 10/20/23 07:52 BP 167/85 10/20/23 07:52 Pulse Ox 93 10/20/23 07:52 O2 Del Method Room Air 10/20/23 07:52 10/19/23 10/20/23 10/20/23 22:59 06:59 14:59 Output Total 325 / 325 200 / 525 Balance -325 / -325 -200 / -525 Weight last 48 hrs Weight 267 lb 14.4 oz Weight 270 lb Weight 270 lb Physical Exam 2 Narrative: 5 5 strength in bed resting Data 10/19/23 14:55 10/19/23 14:55 A&P Assessment and plan (1) Status post lumbar laminectomy: Patient is status post lumbar laminectomy. At this point complain of pain when he ambulates in his pelvis. At this point we will try to get him up with physical therapy this morning see how he does. May be just his pain meds more if needed. Attestations 2 Medical Necessity Statement*: Pain control Coding Level of Care Code Acute Code for Chg Fwd Diagnoses Status post lumbar laminectomy Z98.890
--- NOTE | 2023-10-20 09:29 | PC.CHAP ---
Pastoral Care Encounter/Spiritual Assessment Type of Contact [] Declined geophysical laboratory supervisor visit [] Patient/Family/Request visit [] Outpatient visit [] Follow-up visit [] Physician referral [] Code/Alert [x] Routine visit [] Staff referral [] Actively dying [] Patient sleeping [] Family support [] [] Out of room [] Palliative care [] [] Receiving care in room [] Pre-surgical visit [] Trauma [] Long length of stay [] ICU visit [] Other: Relational/Emotional Strength [x] Patient feels connected with others/family/visitors/staff [] Distress [] Loneliness/isolation [] Abandonment Spirituality of Patient [x] Person of [place] [] Attends Taoist of their [place] [x] Believes in Prayer [] Reads Bible or Amish materials [] There are Spiritual issues to be addressed Luggage Liner Interventions [x] Prayer [x] Active listening [] Non-anxious presence [x] Spiritual/emotional support [] Crisis/trauma care [] Spiritual counseling [] Bereavement support [] Provided bereavement packet [] Provided Bible/devotional materials [] Provided toy/stuffed animal, coloring book to patient or family member [] Provided Communion [] Anointing/Redig [] Salvation [x] Completed spiritual assessment [] Other: Impact on Illness or Injury [] Angry [] Fearful [] Anxious [] Often cries [] Exhaustion [] Unable to work [] Unable to attend denominational [] Unable to walk/stand [] Unable to read [] Unable to drive [] Unable to eat/drink [] Unable to sleep [] Unable to be with family [] Patient intubated [] Other: Summary Time spent with patient 5 min
[2023-10-20] MEDS: magnesium oxide 400 mg tablet PO (09:51)
[2023-10-20] MEDS: hydroCHLOROthiazide 25 mg Tablet 12.5 MG PO (09:52)
[2023-10-20] MEDS: pregabalin 75 mg Capsule PO (09:52)
[2023-10-20] MEDS: metoprolol tartrate 50 mg Tablet 25 MG PO (09:52)
[2023-10-20] MEDS: losartan 50 mg Tablet 25 MG PO (09:53)
[2023-10-20] MEDS: pantoprazole DR 40 mg Tablet PO (09:53)
[2023-10-20] MEDS: tamsulosin 0.4 mg Capsule PO (09:54)
[2023-10-20] MEDS: ascorbic acid 500 mg Tablet PO (09:54)
[2023-10-20] MEDS: cetirizine 10 mg Tablet PO (09:54)
[2023-10-20] MEDS: duloxetine 60 mg Capsule PO (09:54)
[2023-10-20 12:05] VITALS: BP 152/83; PULSE 76; RESP 16; TEMP 36.5; O2SAT 90
[2023-10-20] MEDS: sennosides-docusate Tablet 2 TAB PO (14:40)
[2023-10-20 16:44] VITALS: BP 152/83; PULSE 76; RESP 16; TEMP 36.5; O2SAT 90
--- NOTE | 2023-10-23 13:45 | PM.DCS ---
Discharge Providers Date of Admission: 10/19/23 18:36 Date of Discharge: October 20, 2023 Attending Provider at Admission: Chay Law DO Attending Provider at Discharge: Chay Law DO Primary Care Provider: Bess Bernard NP Diagnoses at Discharge Discharge Diagnosis (1) Status post lumbar laminectomy: Status: Acute Reason for Visit Reason for Visit: back pain post surgery Physical Exam Narrative: Pain somewhat better controlled at this point. Discharge Data Studies Completed and Pending Laboratory Results WBC 8.12 10^3/uL (3.29-11.43) 10/19/23 14:55 RBC 4.70 10^6/uL (3.85-5.65) 10/19/23 14:55 Hgb 13.30 g/dL (11.27-16.99) 10/19/23 14:55 Hct 41.3 % (37-53) 10/19/23 14:55 MCV 87.9 fl (82-101) 10/19/23 14:55 MCH 28.3 pg (27-33) 10/19/23 14:55 MCHC 32.2 g/dL (30-55) 10/19/23 14:55 RDW 12.5 % (12.1-15.1) 10/19/23 14:55 Plt Count 220 10^3/cmm (157-399) 10/19/23 14:55 MPV 11.0 fL (7.4-10.4) H 10/19/23 14:55 Neut % (Auto) 49.7 % 10/19/23 14:55 Lymph % (Auto) 34.0 % 10/19/23 14:55 [place] % (Auto) 9.6 % 10/19/23 14:55 Eos % (Auto) 5.3 % 10/19/23 14:55 Baso % (Auto) 1.2 % 10/19/23 14:55 Neut # (Auto) 4.03 10^3/uL (1.8-7.7) 10/19/23 14:55 Lymph # (Auto) 2.8 10^3/uL (0.8-4.8) 10/19/23 14:55 [place] # (Auto) 0.8 10^3/uL (0.2-0.9) 10/19/23 14:55 Eos # (Auto) 0.4 10^3/uL (0.0-0.8) 10/19/23 14:55 Baso # (Auto) 0.1 10^3/uL (0.0-0.1) 10/19/23 14:55 Nucleated RBC % (auto) 0 % 10/19/23 14:55 Nucleated RBCs # 0.0 /100WBC 10/19/23 14:55 Sodium 137 mmol/L (136-145) 10/19/23 14:55 Potassium 4.0 mmol/L (3.5-5.1) 10/19/23 14:55 Chloride 101 mmol/L (98-107) 10/19/23 14:55 Carbon Dioxide 29 mmol/L (22-29) 10/19/23 14:55 Anion Gap 11.0 (5-19) 10/19/23 14:55 BUN 14 mg/dL (6-20) 10/19/23 14:55 Creatinine 0.8 mg/dL (0.7-1.2) 10/19/23 14:55 GFR Calculation 98.9 mL/min (90-130) 10/19/23 14:55 Glucose 113 mg/dL (65-115) 10/19/23 14:55 Calculated Osmolality 285 mOsm/kg (285-295) 10/19/23 14:55 Calcium 8.7 mg/dL (8.5-10.5) 10/19/23 14:55 Total Bilirubin 0.7 mg/dL (0.15-1.2) 10/19/23 14:55 AST 25 U/L (0-40) 10/19/23 14:55 ALT 29 U/L (0-41) 10/19/23 14:55 Alkaline Phosphatase 117 U/L (40-130) 10/19/23 14:55 Total Protein 6.5 g/dL (6.6-8.7) L 10/19/23 14:55 Albumin 3.9 g/dL (3.5-5.2) 10/19/23 14:55 Globulin 2.6 g/dL (1.3-4.6) 10/19/23 14:55 Vitals Last Vital Signs Temp 97.7 F 10/20/23 16:44 Pulse 76 10/20/23 16:44 Resp 16 10/20/23 16:44 BP 152/83 10/20/23 16:44 Pulse Ox 90 10/20/23 16:44 O2 Del Method Room Air 10/20/23 12:05 Discharge Plan Discharge Patient Disposition: Home Condition: Stable Prescriptions: New hydrocodone-acetaminophen 10-325 mg tablet 1 - 2 tab PO Q4H PRN (Reason: pain) 7 Days Qty: 40 0RF prednisone 20 mg tablet 20 mg PO DAILY 7 Days Qty: 15 0RF Rx Instructions: day 1 60 mg day 2 60 mg day 3 60 mg day 4 40 mg day 5 40 mg day 6 20 mg day 7 20 mg Continued (DME) lower back brace See Rx Instructions .Route .MEDSUPPLY Qty: 1 0RF Rx Instructions: As directed multivitamin Tablet 1 tab PO QAM aspirin [Adult Low Dose Aspirin] 81 mg tablet,delayed release (DR/EC) 81 mg PO QPM ascorbate calcium (vitamin C) 500 mg tablet 500 mg PO BID (DME) CPAP AUTO TITRATING See Rx Instructions .Route .MEDSUPPLY Qty: 1 0RF Rx Instructions: PLEASE PROVIDE NEW TUBING AND MASK. cyclobenzaprine 10 mg tablet 10 mg PO TID PRN (Reason: muscle spasm) Qty: 90 0RF magnesium oxide [MagOx] 400 mg (241.3 mg magnesium) tablet 400 mg PO DAILY 90 Days Qty: 90 1RF potassium chloride 10 mEq tablet extended release 10 meq PO BEDTIME 90 Days Qty: 90 1RF (DME) C-PAP Supplies See Rx Instructions .Route .MEDSUPPLY Qty: 1 11RF Rx Instructions: As directed (DME) nebulizers [facility] See Rx Instructions .Route Qty: 1 0RF Rx Instructions: 1 nebulizer and all necessary equipment As directed tamsulosin 0.4 mg capsule 0.4 mg PO BID Qty: 60 1RF pregabalin 75 mg capsule 75 mg PO DAILY Qty: 30 2RF hydrocodone-acetaminophen 5-325 mg tablet 1 - 2 tab PO Q4H PRN (Reason: pain) montelukast 10 mg tablet 10 mg PO BEDTIME metoprolol tartrate 50 mg tablet 25 mg PO DAILY vitamin E 268 mg (400 unit) Capsule 268 mg PO DAILY atorvastatin 80 mg tablet 80 mg PO QPM cetirizine [Allergy Relief (cetirizine)] 10 mg tablet 10 mg PO DAILY diclofenac sodium 100 mg tablet extended release 24 hr 100 mg PO BID primidone 50 mg tablet 50 mg PO BEDTIME valsartan-hydrochlorothiazide 80-12.5 mg tablet 80 tab PO DAILY potassium chloride [Klor-Con M20] 20 mEq tablet,ER particles/crystals 20 meq PO DAILY Rx Instructions: TAKE 1 TABLET BY MOUTH ONCE DAILY WITH 10 MEQ TABLET DAILY FOR A TOTAL DAILY DOSE OF 30 MEQ pantoprazole 40 mg tablet,delayed release (DR/EC) 40 mg PO DAILY fluticasone propionate 50 mcg/actuation spray,suspension 2 spray intranasal DAILY dutasteride 0.5 mg capsule 0.5 mg PO DAILY duloxetine 60 mg capsule,delayed release(DR/EC) 60 mg PO BID Discharge Orders: Discharge Order (Routine); Ordered 10/20/23 Ordered By: Chay Law Other Ambulatory Orders: DME: Tommy (Order) Location: None Selected Ordered By: Chay Law Referrals: Bess Bernard NP [Primary Care Provider] - 10/26/23 11:00 am Chay Law DO [Physician] - 10/24/23 2:00 pm Discharge Diet: Advance as tolerated Discharge Activity: Limit activity as instructed Patient Instructions: Hydrocodone/Acetaminophen (By mouth), Prednisone (By mouth), Laminectomy (GEN), Opioid Safety Activity Restrictions/Additional Instructions: Thank you for [facility] for your care! The following is a list of instructions, from your provider, to follow upon your discharge to ensure you have the optimal recovery from your recent injury orsurgery. Follow-up care is a hassan part of your treatment and safety. Be sure to make and go to all appointments, and call your doctor if you are having problems. If you do not already have a follow-up appointment made, call Dr. Law office in the next 1-3 days to make follow up appointment for this October at [phone]. It is also a good idea to know your test results and keep a list of the medicines you take. Medications will be prescribed for you at your provider's discretion. These medications are to be used as instructed; if they are taken more often that prescribed they will not be refilled early and in most cases will not be refilled at all. > When a refill is needed,you should contact antwan taylor 2-3 business days before your prescription runs out. Medications will NOT be refilled by composition weather[employer] applier providers after hours! > Many pain medications contain Tylenol (Acetaminophen). Do not consume more than 4,000 mg of Tylenol per day in total with any combination ofmedications. > Pain medications can cause constipation. Please use an over the counter stool softener as directed, while taking pain medications. Consulty our local pharmacist with questions or recommendations on stool softeners. If constipation persists, contact our office or your primary care provider. > While under our care,you are not to receive pain medications or other controlled substances from any other provider unless our office is notified and approves. Any attempts to do so will result in refusal to prescribe any further pain medications and possible dismissal from our practice. ? Your wound and/or dressing should remain clean and dry for 2 days after surgery. On postoperative day 2 (48 hours after your surgery) the dressing (if present) should be removed and it is okay to shower and get the incision wet. Pad dry afterwards. No further dressing should be required from that point on. Do not put any creams or ointments on theincision > It is normal for there to be a small amount of discharge (bloody or blood tinged) present from a surgical wound for the first 1-3days. > The wound should be examined twice a day for signs of infection. Mild redness or bruising is to be expected but indications that an infection maybe starting would include; An increase in redness, swelling, or discharge, a foul odor present around the incision, and/or a fever greater than 101 ?F ? Showering is permitted, however we ask that you do not take a bath, sit in a whirlpool / Jacuzzi, or go swimming for 1 month. For only the first 2 days after surgery, lt wilt be necessary for you to cover your wound/dressing with plastic and tape to keep it dry. ? Walking is essential for the healing process after surgery. We would like you to slowly advance your walking. This should be done on relatively flat clear ground (inside or out) or can be done on a treadmill. Remember this goal does not have to happen all at once, slowly increase your distance and duration. This can be broken into more more than one walk per day as tolerated. Patients who walk as directed after surgery rarely require Physical Therapy. In the unlikely event this issue arises your provider will direct hospital staff to make the appropriate arrangements. ? No lifting over 5 pounds {a gallon of milk) or bending/twisting until further notice. Each of these activities places an unnecessary amount of stress onto the body and can impede the delicate healing process. > Instead of bending at the waist, keep your back straight and bend at the knees. > Instead of twisting your torso, keep your back straight and turn your entire body with your feet. ? You may sleep in any position which makes you comfortable. Many patients find comfort sleeping in a reclining chair. It is not abnormal to have difficulty sleeping for the first several weeks following your surgery. We recommend trying Benadry! or Tylenol PM as directed to help with your sleeping difficulties. Both medications are over the counter and available withoutprescription. ? NO SMOKING!!! Smoking dramatically increases the probability of developing postoperative wound infections. ? Common complaints after lumbar and/or thoracic spine surgery include, but are not limited to: numbness and/or tingling in the legs, pain around the incision and surrounding tissues, muscle spasms, or stiffness of the middle to low back. Contact our office if these symptoms persist or if an acute change occurs. ? No driving for the first 3-5days, and not while taking narcotics until seen at your follow-up appointment and cleared. There are no restrictions for riding on short trips, however if you take a longer trip, arrangements should be made to make regular stops to get out of the vehicle and stretch . ? Swelling is an unfortunate event that will take place with any surgery and is the primary source of your postoperative discomfort. While walking and regular approved activities helps control inflammation, there are additional steps you can take to minimizeswelling. > Place ice over the surgical site and surrounding tissue for twenty minutes, followed by applying a low/medium heat (heating pad) for an additional twenty minutes every 1-2 hours as needed for painrelief. > You may use of over the counter anti-inflammatory medications (Ibuprofen, Motrin, Aleve, Advil, etc) as directed on the package label. These types of medicines wm significantly reduce the amount of discomfort you experience after surgery from swelling. It should be noted that if you have and allergy to any of these medications, or a history of ulcers or kidney disease you should consult you primary care provider prior to starting these medications. Discharge Attestations Time Spent in Discharge Care*: less than 30 min Quality Metrics Clinical Quality Measures [ No reported AMI, CVA or VTE this stay] Coding Level of Care Code Acute Code for Chg Fwd Diagnoses Status post lumbar laminectomy Z98.890
== END 2023-10-20 16:00 | disposition home or self-care (01) ==
LOC: ER 16:04 → MEDSURG 23:22
PROVIDERS: Admitting Provider Orthopaedic Surgery; Emergency Provider Emergency Medicine; PCP Nurse Practitioner Family; Visit Provider Orthopaedic Surgery
DX: Z98.890 Other specified postprocedural states (principal); G89.18 Other acute postprocedural pain; Z79.82 Long term (current) use of aspirin; G47.33 Obstructive sleep apnea (adult) (pediatric)
CPT/HCPCS: 36415; 80053; 85025; 96374; 96375; 96376; 97110; 97116; 97161; 97530; 99285; G0378; J1100; J1170; J2270; J2405

== ENCOUNTER → 2023-10-24 13:56 | Outpatient (BNVA) | payer MEDICARE, MEDICAID, SELFPAY | PROVIDERS: PCP Nurse Practitioner Family; Visit Provider Orthopaedic Surgery | DX: Z47.89 Encounter for other orthopedic aftercare | CPT/HCPCS: 99024 ==

== ENCOUNTER → 2023-10-31 12:45 | Outpatient (BNVA) | payer MEDICARE, MEDICAID, SELFPAY | PROVIDERS: PCP Nurse Practitioner Family; Visit Provider Surgery | DX: Z12.11 Encounter for screening for malignant neoplasm of colon (principal); Z79.899 Other long term (current) drug therapy | CPT/HCPCS: 99204 ==

== ENCOUNTER → 2023-11-03 09:37 | Outpatient (BNVA) | payer MEDICARE, MEDICAID, SELFPAY | PROVIDERS: PCP Nurse Practitioner Family; Visit Provider Orthopaedic Surgery | DX: M48.062 Spinal stenosis, lumbar region with neurogenic claudication (principal); Z98.890 Other specified postprocedural states | CPT/HCPCS: 99024 ==

== ENCOUNTER → 2023-11-16 10:42 | Outpatient (BNVA) | payer MEDICARE, MEDICAID, SELFPAY | PROVIDERS: PCP Nurse Practitioner Family; Visit Provider Orthopaedic Surgery | DX: Z98.890 Other specified postprocedural states (principal) | CPT/HCPCS: 99024 ==

== ENCOUNTER 2023-11-16 11:41 | Outpatient (CLI) | payer MEDICARE, MEDICAID, SELFPAY | END 2023-11-16 11:42 | disposition home or self-care (01) | LOC: SPT 11:41 | PROVIDERS: PCP Nurse Practitioner Family; Visit Provider Orthopaedic Surgery | DX: Z47.89 Encounter for other orthopedic aftercare (principal) | CPT/HCPCS: 97760; L0637 ==

== ENCOUNTER 2023-12-12 02:49 | Emergency (ER) | payer MEDICARE, MEDICAID, SELFPAY ==
[2023-12-12 03:13] VITALS: BP 194/114; PULSE 75; RESP 18; TEMP 36.6; O2SAT 98; BMI 39.9
[2023-12-12] MEDS: lidocaine 2% viscous 15 ML, aluminum-mag hydrox-simethicon 30 ML, sucralfate oral liq 1 GM PO (03:40)
--- NOTE | 2023-12-12 04:03 | CTR_ITS ---
PROCEDURE INFORMATION: Exam: CT Abdomen And Pelvis With Contrast Exam date and time: 12/12/2023 4:32 AM Age: 58 years old Clinical indication: Abdominal pain; Localized; Right lower quadrant (rlq); Prior surgery; Surgery date: 6+ months; Surgery type: Appy. Left inguinal hernia repair; Patient HX: C/O rlq/rt groin pain. Patient states he had an abnormal testicular US in September and is awaiting consultation with urology. ; Additional info: Right lower quadrant abdominal pain, TECHNIQUE: Imaging protocol: Computed tomography of the abdomen and pelvis with contrast. Radiation optimization: All CT scans at this facility use at least one of these dose optimization techniques: automated exposure control; mA and/or kV adjustment per patient size (includes targeted exams where dose is matched to clinical indication); or iterative reconstruction. Contrast material: OMNI 350; Contrast volume: 125 ml; Contrast route: INTRAVENOUS (IV); COMPARISON: CT abdomen pelvis w con* [id number] 09/28/2023 9:38 AM RADIATION DOSE METRICS: Total DLP (mGy-cm): 1496.13 FINDINGS: Liver: A few small cystic liver lesions are present stable from prior with simple appearance. Gallbladder and bile ducts: Normal. No calcified stones. No ductal dilation. Pancreas: Normal. No ductal dilation. Spleen: Normal. No splenomegaly. Adrenal glands: Normal. No mass. Kidneys and ureters: Normal. No hydronephrosis. Stomach and bowel: Unremarkable. No obstruction. No mucosal thickening. Appendix: Appendectomy. Intraperitoneal space: Unremarkable. No free air. No significant fluid collection. Vasculature: Unremarkable. No abdominal aortic aneurysm. Lymph nodes: Unremarkable. No enlarged lymph nodes. Urinary bladder: Unremarkable as visualized. Reproductive: Unremarkable as visualized. Bones/joints: Unremarkable. No acute fracture. Soft tissues: Unremarkable. CT/CT abdomen pelvis w con* [id number] IMPRESSION: Negative for acute abdominopelvic pathology.
[2023-12-12 04:09] LABS: Add Urine Microscopic? NO; Charge for UA Resulting for Rev
[2023-12-12 04:10] LABS: Basophils # 0.1 10^3/uL (0.0-0.1); Basophils % 1.5 %; Eosinophils # 0.4 10^3/uL (0.0-0.8); Eosinophils % 3.9 %; Hematocrit 47.5 % (37-53); Lymphocytes # 3.4 10^3/uL (0.8-4.8); Lymphocytes % 38.6 %; Mean Corpuscular HGB Conc 32.8 g/dL (30-55); Mean Corpuscular Hemoglobin 28.2 pg (27-33); Mean Corpuscular Volume 85.9 fl (82-101); Mean Platelet Volume 11.8 fL (7.4-10.4); Monocytes % 11.5 %; Neutrophils # 3.93 10^3/uL (1.8-7.7); Neutrophils % 44.3 %; Nucleated Red Blood Cells % 0 %; Platelet Count 259 10^3/cmm (157-399); Red Blood Count 5.53 10^6/uL (3.85-5.65); Red Cell Distribution Width 13.5 % (12.1-15.1); White Blood Count 8.87 10^3/uL (3.29-11.43)
[2023-12-12 04:23] LABS: Alanine Aminotransferase 44 U/L (0-41); Albumin Level 4.2 g/dL (3.5-5.2); Alkaline Phosphatase 122 U/L (40-130); Anion Gap 15.7 (5-19); Aspartate Amino Transferase 22 U/L (0-40); Blood Urea Nitrogen 17 mg/dL (8-23); Calcium 9.6 mg/dL (8.5-10.5); Carbon Dioxide 24 mmol/L (22-29); Chloride 106 mmol/L (98-107); Creatinine Clr Calc Pharmacy 126.9556; Globulin 2.8 g/dL (1.3-4.6); Glomerular Filtration Rate 98.6 mL/min (90-130); Glucose 100 mg/dL (65-115); Lipase 51 U/L (13-60); Osmolality Calculated 296 mOsm/kg (285-295); Potassium 3.7 mmol/L (3.5-5.1); Sodium 142 mmol/L (136-145); Total Bilirubin 0.4 mg/dL (0.15-1.2)
[2023-12-12 04:26] LABS: Bilirubin Urine Neg (Negative); Blood Urine Neg (Negative); Glucose Urine UA Norm (Normal); Ketones Urine Negative (Negative); Leukocyte Esterase Urine Negative (Negative); Nitrate Urine Negative (Negative); Protein Urine Neg (Negative); Urine Appearance Clear (CLEAR); Urine Color Colorless (Yellow); Urobilinogen Urine Neg (Negative); pH Urine 5 (5-7)
[2023-12-12] MEDS: iohexol 350 mg/mL 500 mL Btl (per mL) IV (04:34)
[2023-12-12 05:06] VITALS: BP 172/88; PULSE 73; O2SAT 95
[2023-12-12 06:16] VITALS: PULSE 74; O2SAT 96
--- NOTE | 2023-12-12 06:25 | W.ED.ABDPA2 ---
HPI - Abdominal Pain General: Chief Complaint: Abdominal Pain Stated Complaint: abdomen pain, acid reflux Time Seen by Provider: 12/12/23 03:04 History of Present Illness: 58-year-old male presents emergency department complaints of lower abdominal pain. He states he does not have normal bowel movement in the last 5 days. He states he also has pain to his right groin he states he was provided an ultrasound by his nurse practitioner and states that he was told he had a spermatocele and epididymitis but has not received any antibiotics for that. He states he does have significant acid reflux and burning to his epigastric region. He denies vomiting fever chills or night sweats. He states his epigastric burning pain is a 5 out of 10 that does not radiate. He states he does have associated nausea with his acid reflux. Associated Symptoms: Reports nausea Review of Systems General: Reports: 10 or more systems reviewed and unremarkable except in HPI and below GI: Reports: abdominal pain and nausea [facility] PFSH: Medical History LUIS (obstructive sleep apnea) Major depressive disorder, recurrent severe without psychotic features Inguinal hernia Long-term current use of opiate analgesic Pain management contract signed DDD (degenerative disc disease), lumbar Facet syndrome, lumbar Surgical History Hx of colonoscopy 3 yrs ago History of esophagogastroduodenoscopy (EGD) S/P appendectomy Hx of appendectomy Hx of hernia repair Hx of rotator cuff surgery LEFT SHOULDER Family History Mother CAD (coronary artery disease) Cancer LUNG CANCER Social History Smoking and tobacco/nicotine status: never used tobacco/nicotine Second hand smoke exposure: No Alcohol intake: never Substance/Drug Use: never Lives independently: Yes Marital status: Physical Exam Narrative: EXAM NARRATIVE: Constitutional: the patient appears well nourished and with normal development. Vital signs reviewed as documented. HENMT: Normocephalic, atraumatic. External ears normal appearance without drainage. Nose without drainage, normal appearance. Mucus membranes moist. Neck is supple, No jugular venous distension, trachea is midline, no appreciable carotid bruits. No lymphadenopathy. No meningeal signs. Flexion, extension and lateral rotation is without pain. Eyes: Pupils are equal, round, reactive to light and accommodation. No scleral icterus. Extra-ocular movement are intact. Thorax is symmetrical and with equal rise and fall with respirations. Resp: Lungs are clear to auscultation. No wheezes, rales, crackles or ronchi at present. Cardio: Regular rate and rhythm. Positive S1, S2. No appreciable murmurs, rubs or gallops. GI: Abdominal exam reveals normal bowel sounds to all quadrants. No organomegaly. No obvious palpable masses noted. No hepatomegally appreciated. Soft, non-tender to palpation. Extremity: Extremities are non-edematous and both femoral and pedal pulses are 2+ and equal bilaterally. Moves all extremities well, sensation in all extremities. Neuro: Alert and oriented x4, person, place, time and situation. Cranial nerves II through XII are grossly intact, there is no focal neurological deficits that I can appreciate at present. Motor strength in the upper and lower extremities are equal and bilateral 5/5. Psych: Cooperative, calm, normal thought process, appropriate judgment. Skin: No lesions, rashes. No gross abnormalities noted. Back: Symmetrical, no obvious deformity, No CVA tenderness Course Vital Signs: Vital signs: Vital Signs Temperature 97.9 F 12/12/23 03:13 Pulse Rate 74 12/12/23 06:16 Respiratory Rate 18 12/12/23 03:13 Blood Pressure 172/88 12/12/23 05:06 Pulse Oximetry 96 12/12/23 06:16 Oxygen Delivery Me thod Room Air 12/12/23 06:16 MDM - Abdominal Pain Medical Decision Making Physical exam completed and documented, I will obtain laboratory evaluation to include a CBC, CMP, lipase, urinalysis, and a CT scan of the patient's abdomen pelvis to evaluate for possible differential diagnosis of bowel obstruction, incarcerated hernia, abdominal wall strain, abdominal wall hematoma, constipation, colitis, acute appendicitis, diverticulitis. After review the patient's ultrasound results that were previously obtained I did provide the patient IV antibiotics as well as written prescription for antibiotics. I did provide the patient magnesium citrate for his constipation and abdominal discomfort I did provide him written prescriptions for senna S as well as Bentyl for his abdominal cramping. I did discuss the importance of follow-up with his primary care provider and also provided the patient contact information for local urologist. Patient was discharged home in stable condition and in no acute distress after an extensive approximately 45 minutes of education regarding supportive care treatment and follow-up. Medical Records I reviewed the patient's medical records. Lab Data I reviewed the patient's lab results. 12/12/23 03:21 12/12/23 03:21 Labs/Radiology: Radiology Impressions Abdomen/Pelvis CT 12/12/23 04:03 IMPRESSION: Negative for acute abdominopelvic pathology. Laboratory Results WBC 8.87 10^3/uL (3.29-11.43) 12/12/23 03:21 RBC 5.53 10^6/uL (3.85-5.65) 12/12/23 03:21 Hgb 15.60 g/dL (11.27-16.99) 12/12/23 03:21 Hct 47.5 % (37-53) 12/12/23 03:21 MCV 85.9 fl (82-101) 12/12/23 03:21 MCH 28.2 pg (27-33) 12/12/23 03:21 MCHC 32.8 g/dL (30-55) 12/12/23 03:21 RDW 13.5 % (12.1-15.1) 12/12/23 03:21 Plt Count 259 10^3/cmm (157-399) 12/12/23 03:21 MPV 11.8 fL (7.4-10.4) H 12/12/23 03:21 Neut % (Auto) 44.3 % 12/12/23 03:21 Lymph % (Auto) 38.6 % 12/12/23 03:21 Boundary % (Auto) 11.5 % 12/12/23 03:21 Eos % (Auto) 3.9 % 12/12/23 03:21 Baso % (Auto) 1.5 % 12/12/23 03:21 Neut # (Auto) 3.93 10^3/uL (1.8-7.7) 12/12/23 03:21 Lymph # (Auto) 3.4 10^3/uL (0.8-4.8) 12/12/23 03:21 Boundary # (Auto) 1.0 10^3/uL (0.2-0.9) H 12/12/23 03:21 Eos # (Auto) 0.4 10^3/uL (0.0-0.8) 12/12/23 03:21 Baso # (Auto) 0.1 10^3/uL (0.0-0.1) 12/12/23 03:21 Nucleated RBC % (auto) 0 % 12/12/23 03:21 Nucleated RBCs # 0.0 /100WBC 12/12/23 03:21 Sodium 142 mmol/L (136-145) 12/12/23 03:21 Potassium 3.7 mmol/L (3.5-5.1) 12/12/23 03:21 Chloride 106 mmol/L (98-107) 12/12/23 03:21 Carbon Dioxide 24 mmol/L (22-29) 12/12/23 03:21 Anion Gap 15.7 (5-19) 12/12/23 03:21 BUN 17 mg/dL (8-23) 12/12/23 03:21 Creatinine 0.8 mg/dL (0.7-1.2) 12/12/23 03:21 GFR Calculation 98.6 mL/min (90-130) 12/12/23 03:21 Glucose 100 mg/dL (65-115) 12/12/23 03:21 Calculated Osmolality 296 mOsm/kg (285-295) H 12/12/23 03:21 Calcium 9.6 mg/dL (8.5-10.5) 12/12/23 03:21 Total Bilirubin 0.4 mg/dL (0.15-1.2) 12/12/23 03:21 AST 22 U/L (0-40) 12/12/23 03:21 ALT 44 U/L (0-41) H 12/12/23 03:21 Alkaline Phosphatase 122 U/L (40-130) 12/12/23 03:21 Total Protein 7.0 g/dL (6.6-8.7) 12/12/23 03:21 Albumin 4.2 g/dL (3.5-5.2) 12/12/23 03:21 Globulin 2.8 g/dL (1.3-4.6) 12/12/23 03:21 Lipase 51 U/L (13-60) 12/12/23 03:21 Urine Color Colorless (Yellow) 12/12/23 03:21 Urine Appearance Clear (CLEAR) 12/12/23 03:21 Urine pH 5 (5-7) 12/12/23 03:21 Ur Specific [place] 1.010 (1.005-1.030) 12/12/23 03:21 Urine Protein Neg (Negative) 12/12/23 03:21 Urine Glucose (UA) Norm (Normal) 12/12/23 03:21 Urine Ketones Negative (Negative) 12/12/23 03:21 Urine Blood Neg (Negative) 12/12/23 03:21 Urine Nitrate Negative (Negative) 12/12/23 03:21 Urine Bilirubin Neg (Negative) 12/12/23 03:21 Urine Urobilinogen Neg mg/dL (Negative) 12/12/23 03:21 Ur Leukocyte Esterase Negative (Negative) 12/12/23 03:21 All radiology interpretation(s) finalized by discharge Discharge Plan Discharge Patient Disposition: Home Clinical Impression: Abdominal pain, Epididymitis, Acute constipation Condition: Stable Prescriptions: New Senna-S 8.6-50 mg tablet 2 tab-cap PO BID Qty: 60 0RF dicyclomine 20 mg tablet 20 mg PO BID Qty: 30 0RF doxycycline hyclate 100 mg capsule 100 mg PO BID 14 Days Qty: 28 0RF No Action multivitamin Tablet 1 tab PO QAM aspirin [Adult Low Dose Aspirin] 81 mg tablet,delayed release (DR/EC) 81 mg PO QPM ascorbate calcium (vitamin C) 500 mg tablet 500 mg PO BID (DME) CPAP AUTO TITRATING See Rx Instructions .Route .MEDSUPPLY Qty: 1 0RF Rx Instructions: PLEASE PROVIDE NEW TUBING AND MASK. cyclobenzaprine 10 mg tablet 10 mg PO TID PRN (Reason: muscle spasm) Qty: 90 0RF magnesium oxide [MagOx] 400 mg (241.3 mg magnesium) tablet 400 mg PO DAILY 90 Days Qty: 90 1RF famotidine 40 mg tablet 40 mg PO BID 30 Days Qty: 60 0RF atorvastatin 80 mg tablet 80 mg PO QPM 90 Days Qty: 90 1RF cetirizine [Allergy Relief (cetirizine)] 10 mg tablet 10 mg PO DAILY 90 Days Qty: 90 1RF dutasteride 0.5 mg capsule 0.5 mg PO DAILY 90 Days Qty: 90 1RF metoprolol tartrate 25 mg tablet 25 mg PO DAILY 90 Days Qty: 90 1RF valsartan-hydrochlorothiazide 80-12.5 mg tablet 80 tab PO DAILY 90 Days Qty: 90 1RF fluticasone propionate 50 mcg/actuation spray,suspension 2 spray intranasal DAILY Qty: 16 11RF (DME) lumbar corsett See Rx Instructions .Route .MEDSUPPLY Qty: 1 0RF Rx Instructions: As directed (DME) C-PAP Supplies See Rx Instructions .Route .MEDSUPPLY Qty: 1 11RF Rx Instructions: As directed tamsulosin 0.4 mg capsule 0.4 mg PO BID Qty: 60 1RF pregabalin 75 mg capsule 75 mg PO DAILY Qty: 30 2RF potassium chloride [Klor-Con M20] 20 mEq tablet,ER particles/crystals See Rx Instructions .ROUTE .COMPLEX Qty: 90 0RF Dose Instruction: TAKE 1 TABLET BY MOUTH ONCE DAILY WITH 10 MEQ TABLET DAILY FOR A TOTAL DAILY DOSE OF 30 MEQ Rx Instructions: TAKE 1 TABLET BY MOUTH ONCE DAILY WITH 10 MEQ TABLET DAILY FOR A TOTAL DAILY DOSE OF 30 MEQ potassium chloride 10 mEq tablet extended release 10 meq PO BEDTIME 90 Days Qty: 90 1RF potassium chloride [Klor-Con M20] 20 mEq tablet,ER particles/crystals 20 meq PO DAILY 90 Days Qty: 90 1RF Rx Instructions: TAKE 1 TABLET BY MOUTH ONCE DAILY WITH 10 MEQ TABLET DAILY FOR A TOTAL DAILY DOSE OF 30 MEQ primidone 50 mg tablet 50 mg PO BEDTIME Qty: 30 3RF hydrocodone-acetaminophen 5-325 mg tablet 1 - 2 tab PO Q4H PRN (Reason: pain) montelukast 10 mg tablet 10 mg PO BEDTIME vitamin E 268 mg (400 unit) Capsule 268 mg PO DAILY Discharge Orders: Discharge ED (Routine); Ordered 12/12/23 Ordered By: Pedro Wakefield Referrals: Bess Bernard NP [Primary Care Provider] - Discharge Diet: Usual diet Discharge Activity: Resume usual activity Patient Instructions: Abdominal Pain (ED), Opioid Safety, Pain Management Activity Restrictions/Additional Instructions: Activity Restrictions/Additional Instructions: Thank you for choosing [facility] for your healthcare needs today. Please realize that you were seen in the Emergency Department and that we are providing you with an emergency medical screening exam and this may not be a complete and all inclusive of all the testing and or medical work-up that you may need to determine your ailment or severity of your illness. It is very important that you follow-up as instructed with your Primary care provider or Specialist for additional evaluation and to discuss your medical treatment plan. You may return to the Emergency Department should you have concerns or if your condition changes or worsens in any way. Call to make a Follow-up appointment: [facility] [address] [place] [address] [facility] [address] [place] [address] Dr.ive Mason [place], [place] [address] Phone--[phone] Coding Level of Care Code ED Lead Sprinkler for Dinesh Padilla
[2023-12-12] MEDS: sennosides-docusate Tablet 2 TAB PO (06:36)
[2023-12-12] MEDS: cefTRIAXone 1,000 MG in sodium chloride 0.9% (plus) 50 ML 100 MG IV (06:37)
[2023-12-12] MEDS: magnesium citrate Btl 296 mL PO (07:19)
[2023-12-12 07:25] VITALS: BP 160/115; PULSE 76; O2SAT 98
== END 2023-12-12 07:27 | disposition home or self-care (01) ==
PROVIDERS: Emergency Provider Internal Medicine; PCP Nurse Practitioner Family
DX: R10.30 Lower abdominal pain, unspecified (principal); N45.1 Epididymitis; K59.00 Constipation, unspecified; Z79.82 Long term (current) use of aspirin
CPT/HCPCS: 74177; 80053; 81003; 83690; 85025; 96365; 99285; J0696; Q9967

== ENCOUNTER → 2023-12-18 11:24 | Outpatient (BNVA) | payer MEDICARE, MEDICAID, SELFPAY | PROVIDERS: PCP Nurse Practitioner Family; Visit Provider Nurse Practitioner Family | DX: M25.50 Pain in unspecified joint (principal); E78.2 Mixed hyperlipidemia | CPT/HCPCS: 80061; 85651; 86038; 86140 ==

== ENCOUNTER 2024-03-12 08:29 | Day surgery (SDC) | payer MEDICARE, MEDICAID, SELFPAY ==
[2024-03-12 08:42] VITALS: BMI 40.1
--- NOTE | 2024-03-12 08:44 | W.PM.OPSFHP ---
Same Day Surgery H&P Indication for Procedure/HPI DATE OF PROCEDURE: March 12, 2024 CHIEF COMPLAINT/INDICATIONFOR SURGICAL PROCEDURE: Need for screening colonoscopy and GERD PREOP DIAGNOSIS: Need for screening colonoscopy and GERD PLANNED PROCEDURE: Operation Date: 03/12/24 09:45 Proposed Procedures p Colonoscopy 48651, G0121, Z12.11 34908, R10.31, K21.9(Not Applicable) - Hosea Bonilla MD s EGD(Not Applicable) - Hosea Bonilla MD Medications/Allergies* Home Medications Medication Instructions Recorded Confirmed Type cetirizine 10 mg tablet (Allergy 10 mg PO DAILY 03/06/24 03/06/24 History Relief (cetirizine)) sennosides 8.6 mg-docusate sodium 2 tab-cap PO BID PRN Constipation 03/06/24 03/06/24 History 50 mg tablet (Senna-S) valsartan 80 1 tab PO DAILY 03/06/24 03/06/24 History mg-hydrochlorothiazide 12.5 mg tablet Allergies/Adverse Reactions Allergy/AdvReac Type Severity Reaction Status Date / Time chicken derived Allergy anaphylaxis Verified 03/06/24 09:27 turkey Allergy anaphylaxis Verified 03/06/24 09:27 Pertinent History/Comorbid Conditions* Medical History (Updated 12/20/23 @ 00:01 by FELI Moise) LUIS (obstructive sleep apnea) Major depressive disorder, recurrent severe without psychotic features Inguinal hernia Long-term current use of opiate analgesic Pain management contract signed DDD (degenerative disc disease), lumbar Facet syndrome, lumbar Surgical History (Updated 10/27/23 @ 00:00 by FELI Moise) Hx of colonoscopy 3 yrs ago History of esophagogastroduodenoscopy (EGD) S/P appendectomy Hx of appendectomy Hx of hernia repair Hx of rotator cuff surgery LEFT SHOULDER Family History (Updated 10/15/19 @ 15:25 by Tram Styles RN) CAD (coronary artery disease) Mother Cancer Mother LUNG CANCER Social History Smoking and tobacco/nicotine status: never used tobacco/nicotine Second hand smoke exposure: No Alcohol intake: never Substance/Drug Use: never Lives independently: Yes Marital status: Pertinent Exam Findings alert, oriented x 3, clear to auscultation bilaterally, regular rate & rhythm and operative site marked Recommendations Surgery/Procedure today (I have also discussed the risk and benefits of upper endoscopy including the risk of perforation requiring surgical intervention. Patient understands and wishes to proceed.) Coding Level of Care Code Acute Code for Chg Fwd
[2024-03-12 08:52] VITALS: BP 177/93; PULSE 64; RESP 16; TEMP 36.5; O2SAT 97
--- NOTE | 2024-03-12 08:56 | ANES.PREANE2 ---
Pre-Anesthetic Assessment Height/Weight: Height 1.75 m Weight 123.377 kg Temp Pulse Resp BP Pulse Ox O2 Del Method 97.7 F 64 16 177/93 97 Room Air 03/12/24 08:52 03/12/24 08:52 03/12/24 08:52 03/12/24 08:52 03/12/24 08:52 03/12/24 08:52 Preop Diagnosis: Need for screening colonoscopy and GERD Operation Date: 03/12/24 09:45 Proposed Procedures p Colonoscopy 07992, G0121, Z12.11 41530, R10.31, K21.9(Not Applicable) - Hosea Bonilla MD s EGD(Not Applicable) - Hosea Bonilla MD Familial anesthetic complications: None Was Beta Merary taken within 24 hours: N/A Was Clonidine taken within 24 hours: N/A Last intake: Intake Last Liquid Date 03/11/24 Last Liquid Time 21:00 Last Solid Date 03/10/24 Last Solid Time 17:30 Social No alcohol and No tobacco Exam alert, oriented x 3, clear to auscultation bilaterally and regular rate & rhythm Airway Mallampati: Class II Dentition: partials (upper) Comments: Comments: Full del rosario, large neck circumference, TMJ Pulmonary Sleep Apnea CV/HEM Hypertension Metabolic Morbid Obesity Anesthetic Plan ASA status: 2 Anesthesia: MAC Risk of > 500 ml blood loss (7ml/kg in children): No Medications/Allergies Home Medications Medication Instructions Recorded Confirmed Last Taken Type C-PAP Supplies #1 ea 05/02/22 01/17/24 Unknown Rx CPAP AUTO TITRATING #1 ea 06/30/22 01/17/24 Unknown Rx metoprolol tartrate 25 mg tablet 25 mg PO DAILY 90 days #90 tabs 10/26/23 03/12/24 03/12/24 Rx lumbar corsett #1 ea 11/16/23 01/17/24 Unknown Rx montelukast 10 mg tablet 10 mg PO BEDTIME #30 tabs 12/25/23 03/12/24 03/11/24 Rx fluticasone propionate 50 2 spray intranasal DAILY #16 grams 01/17/24 03/12/24 03/11/24 Rx mcg/actuation nasal spray,suspension celecoxib 200 mg capsule (Celebrex) 200 mg PO BID 30 days #60 caps 02/06/24 03/12/24 03/11/24 Rx cetirizine 10 mg tablet (Allergy 10 mg PO DAILY 03/06/24 03/12/24 03/11/24 History Relief (cetirizine)) sennosides 8.6 mg-docusate sodium 2 tab-cap PO BID PRN Constipation 03/06/24 03/12/24 03/11/24 History 50 mg tablet (Senna-S) valsartan 80 1 tab PO DAILY 03/06/24 03/12/24 03/11/24 History mg-hydrochlorothiazide 12.5 mg tablet Allergies Allergy/AdvReac Type Severity Reaction Status Date / Time chicken derived Allergy Severe anaphylaxis Verified 03/12/24 08:46 turkey Allergy Severe anaphylaxis Verified 03/12/24 08:46 [facility] Anesthesia Medical History LUIS (obstructive sleep apnea) Major depressive disorder, recurrent severe without psychotic features Inguinal hernia Long-term current use of opiate analgesic Pain management contract signed DDD (degenerative disc disease), lumbar Facet syndrome, lumbar Surgical History Hx of colonoscopy 3 yrs ago History of esophagogastroduodenoscopy (EGD) S/P appendectomy Hx of appendectomy Hx of hernia repair Hx of rotator cuff surgery LEFT SHOULDER Family History Mother CAD (coronary artery disease) Cancer LUNG CANCER Social History Smoking and tobacco/nicotine status: never used tobacco/nicotine Second hand smoke exposure: No Alcohol intake: never Substance/Drug Use: never Lives independently: Yes Marital status: Data Anesthesia Cardiac Studies: No Data to Display
[2024-03-12] MEDS: sodium chloride 0.9% 1,000 ML 30 ML IV (09:08)
[2024-03-12 10:10] VITALS: BP 120/71; PULSE 62; RESP 20; TEMP 36.3; O2SAT 95
[2024-03-12 10:24] VITALS: BP 123/82; PULSE 60; RESP 16; O2SAT 96
--- NOTE | 2024-03-12 10:43 | ANES.PROC ---
Anesthesia Procedures Procedure/Date: 03/12/24 Epidural: Epidural procedure: sterile prep of area and 0.2% Ropivacaine bolus ml
--- NOTE | 2024-03-12 10:45 | ANE.PACU2 ---
Inpatient post-anesthesia follow up: Airway intact: Yes Vital signs: Temperature 97.3 F Pulse Rate 60 Respiratory Rate 16 Blood Pressure 123/82 Pulse Oximetry 96 Oxygen Delivery Me thod Room Air Oxygen Flow Rate 3 Fraction of Inspir ed Oxygen Hydration adequate: Yes Nausea and vomiting: No Pain level: 1 Mental status: Baseline
== END 2024-03-12 10:48 | disposition home or self-care (01) ==
PROVIDERS: PCP Nurse Practitioner Family; Visit Provider Surgery
PROC: 0DJD8ZZ Inspection of Lower Intestinal Tract, Via Natural or Artificial Opening Endoscopic (ICD-10-PCS; CPT 45378; principal; 2024-03-12 09:45)
PROC: 0DJ08ZZ Inspection of Upper Intestinal Tract, Via Natural or Artificial Opening Endoscopic (ICD-10-PCS; CPT 43235; 2024-03-12 09:45)
DX: Z12.11 Encounter for screening for malignant neoplasm of colon (principal); K21.9 Gastro-esophageal reflux disease without esophagitis; R10.31 Right lower quadrant pain; K29.80 Duodenitis without bleeding; K29.70 Gastritis, unspecified, without bleeding; D12.5 Benign neoplasm of sigmoid colon; D12.3 Benign neoplasm of transverse colon; D12.8 Benign neoplasm of rectum; G47.30 Sleep apnea, unspecified; I10 Essential (primary) hypertension; E66.01 Morbid (severe) obesity due to excess calories; Z68.41 Body mass index [BMI] 40.0-44.9, adult
CPT/HCPCS: 43239; 45380; 88305; J2704; J7030

== ENCOUNTER 2024-03-23 11:05 | Emergency (ER) | payer MEDICARE, MEDICAID, SELFPAY ==
[2024-03-23 11:27] VITALS: BP 194/96; PULSE 67; RESP 18; TEMP 36.8; O2SAT 98; BMI 39.9
--- NOTE | 2024-03-23 11:37 | W.ED.BACK ---
HPI - Back Pain/Injury General: Chief Complaint: Back Pain/Injury Stated Complaint: back pain Time Seen by Provider: 03/23/24 11:29 History of Present Illness: 58-year-old male presents emergency room claiming of back pain radiating down his left leg. He had a lumbar laminectomy L3 445 levels with partial facetectomy with Dr. Law on October 16 2023. He has resumed some heavy lifting he has not made all of his follow-up appointments. No fecal incontinence or urinary retention. He recently has been doing more heavy lifting Associated symptoms: Deny abdominal pain, chills, dysuria, fever(s) or urinary urgency Review of Systems Const: Denies: fever(s) or chills Card: Denies: chest pain Resp: Denies: dyspnea GI: Denies: abdominal pain : Denies: dysuria, urinary frequency or urinary urgency Musc: Reports: back pain and extremity pain; Denies: neck pain Skin/Breast: Denies: rash PFSH ED PFSH: Medical History LUIS (obstructive sleep apnea) Major depressive disorder, recurrent severe without psychotic features Inguinal hernia Long-term current use of opiate analgesic Pain management contract signed DDD (degenerative disc disease), lumbar Facet syndrome, lumbar Surgical History Hx of colonoscopy 3 yrs ago History of esophagogastroduodenoscopy (EGD) S/P appendectomy Hx of appendectomy Hx of hernia repair Hx of rotator cuff surgery LEFT SHOULDER Family History Mother CAD (coronary artery disease) Cancer LUNG CANCER Social History Smoking and tobacco/nicotine status: never used tobacco/nicotine Second hand smoke exposure: No Alcohol intake: never Substance/Drug Use: never Lives independently: Yes Marital status: Physical Exam Const: COMMON NORMALS: no acute distress GENERAL APPEARANCE: cooperative and comfortable ORIENTATION/CONSCIOUSNESS: Yes awake, Yes oriented to person, Yes oriented to place and Yes oriented to time HENMT: COMMON NORMALS: normocephalic, atraumatic and hearing grossly normal bilaterally HEAD & SCALP: normocephalic and atraumatic Resp: COMMON NORMALS: normal respiratory effort, No retractions and No use of accessory muscles Extremity: COMMON NORMALS: normal to inspection, capillary refill normal, no clubbing, cyanosis or edema, no calf tenderness and no pedal edema OTHER: Plantarflexion 5 of 5 Neuro: SENSORIUM/ORIENTATION: Yes oriented to person, Yes oriented to place and Yes oriented to time Skin: COMMON NORMALS: no rashes or lesions noted GENERAL SKIN EXAM: no rashes or lesions noted Course Vital Signs: Vital signs: Vital Signs Temperature 98.2 F 03/23/24 11:27 Pulse Rate 62 03/23/24 12:48 Respiratory Rate 18 03/23/24 11:27 Blood Pressure 194/96 03/23/24 11:27 Pulse Oximetry 95 03/23/24 12:48 Oxygen Delivery Me thod Room Air 03/23/24 11:27 MDM - Back Pain/Injury Medical Decision Making Patient is experiencing radicular symptoms again some this may be brought upon by his recent heavy lifting. He he has had no dysuria but some frequency of urination. No pain or burning no dysuria. He has not had any fecal incontinence quite to the office that he has had increasing constipation since he had a colonoscopy. He definitely is getting radicular-like symptoms offered him pain medications he declined he does not want to be any more constipated than he has. Did give him dexamethasone Norflex and ketorolac he had some improvement with that we will discharge the patient home set him up for an outpatient MRI he has a follow-up with Dr. Law in 3 days. Encouraged him to keep this start him on Lyrica and tizanidine and a steroid taper send and hydrocodone he can use as needed he did not want to take it initially encouraged him to allow me to send it and he can pick it up or not pick it up depending on his needs believes he would have it available. Because of his constipation advised him that if does find himself need to use hydrocodone and he should increase his MiraLAX dose. Discussed with him the utility of other imaging modalities particularly CT or lumbar spine as they will not show the type of detail that he would need especially given his previous surgery. On his prior MRI done last summer he was shown to have some disc bulging but was not that significant and central stenosis looked more prominent which was why they went forward with the laminectomy. Discussed with him this may need to be reassessed notices recurrence of symptoms if they do not improve with medications given. No radiology studies performed this visit Discharge Plan Discharge Patient Disposition: Home Clinical Impression: Lumbar disc disease with radiculopathy Condition: Stable Prescriptions: New tizanidine 4 mg tablet 4 mg PO Q6H PRN (Reason: muscle spasticity) Qty: 20 0RF Rx Instructions: do not exceed 3 doses per 24 hrs hydrocodone-acetaminophen 5-325 mg tablet 1 tab PO Q6H PRN (Reason: pain) Qty: 15 0RF prednisone 20 mg tablet 20 mg PO TID Qty: 15 0RF Rx Instructions: 1 p.o. 3 times daily x3 days, 1 p.o. twice daily x2 days, 1 p.o. daily x2 days Lyrica 75 mg capsule 75 mg PO BID Qty: 60 0RF No Action (DME) CPAP AUTO TITRATING See Rx Instructions .Route .MEDSUPPLY Qty: 1 0RF Rx Instructions: PLEASE PROVIDE NEW TUBING AND MASK. fluticasone propionate 50 mcg/actuation spray,suspension 2 spray intranasal DAILY Qty: 16 11RF metoprolol tartrate 25 mg tablet 25 mg PO DAILY 90 Days Qty: 90 1RF (DME) lumbar corsett See Rx Instructions .Route .MEDSUPPLY Qty: 1 0RF Rx Instructions: As directed (DME) C-PAP Supplies See Rx Instructions .Route .MEDSUPPLY Qty: 1 11RF Rx Instructions: As directed montelukast 10 mg tablet 10 mg PO BEDTIME Qty: 30 3RF celecoxib [Celebrex] 200 mg capsule 200 mg PO BID 30 Days Qty: 60 3RF polyethylene glycol 3350 [Miralax] 17 gram/dose powder 17 g PO DAILY 7 Days Qty: 238 0RF docusate sodium 100 mg tablet 100 mg PO DAILY 7 Days Qty: 7 0RF cetirizine [Allergy Relief (cetirizine)] 10 mg tablet 10 mg PO DAILY sennosides-docusate sodium [Senna-S] 8.6-50 mg tablet 2 tab-cap PO BID PRN (Reason: Constipation) valsartan-hydrochlorothiazide 80-12.5 mg tablet 1 tab PO DAILY pantoprazole 40 mg tablet,delayed release (DR/EC) 40 mg PO BID 30 Days Qty: 60 0RF Discharge Orders: Discharge ED (Routine); Ordered 03/23/24 Ordered By: Herson Reich Referrals: Bess Bernard NP [Primary Care Provider] - Discharge Diet: Usual diet Discharge Activity: Increase activity as tolerated Patient Instructions: Opioid Safety, Pain Management Activity Restrictions/Additional Instructions: Thank you for choosing [facility] for your healthcare needs today. It is very important that you follow up as instructed or that you return to the Emergency Department should you have concerns or if your condition changes or worsens in any way. You were seen today for low back pain with pain radiating to her legs. Since she had no red flag syndromes imaging is not particularly helpful. You should have another MRI of your low back. This was ordered for you follow-up with Dr. Law as planned and he can review the results for you. We did send in medications for you to use continue to use the Celebrex start the prednisone taper tomorrow. Lyrica should be taken regularly 1 pill twice a day this may take as much is a week before it has a full effect. The tizanidine is a muscle relaxer and can be taken as needed. You also were given a prescription for hydrocodone to use if needed. Since she had mentioned problems with constipation if you do use the hydrocodone it would be helpful to increase your dose of polyethylene glycol to twice a day. Coding Level of Care Code ED Certified Activities Director for Dinesh Padilla
[2024-03-23] MEDS: dexamethasone 10 mg/mL INJ IM (11:56)
[2024-03-23] MEDS: orphenadrine 30 mg/mL Inj 2 mL 60 MG IM (11:56)
[2024-03-23 12:48] VITALS: PULSE 62; O2SAT 95
== END 2024-03-23 12:49 | disposition home or self-care (01) ==
PROVIDERS: Emergency Provider Family Medicine; PCP Nurse Practitioner Family
DX: M51.16 Intervertebral disc disorders with radiculopathy, lumbar region (principal)
CPT/HCPCS: 96372; 99284; J1100; J2360

== ENCOUNTER → 2024-03-25 11:57 | Outpatient (BNVA) | payer MEDICARE, MEDICAID, SELFPAY | PROVIDERS: PCP Nurse Practitioner Family; Visit Provider Nurse Practitioner Family | DX: E78.2 Mixed hyperlipidemia (principal); I10 Essential (primary) hypertension; N40.1 Benign prostatic hyperplasia with lower urinary tract symptoms; R35.1 Nocturia | CPT/HCPCS: 80053; 80061; 85025 ==

== ENCOUNTER → 2024-03-26 13:45 | Outpatient (BNVA) | payer MEDICARE, MEDICAID, SELFPAY | PROVIDERS: PCP Nurse Practitioner Family; Visit Provider Orthopaedic Surgery | DX: Z98.890 Other specified postprocedural states (principal); M48.062 Spinal stenosis, lumbar region with neurogenic claudication | CPT/HCPCS: 99214 ==

== ENCOUNTER 2024-04-08 14:09 | Outpatient (CLI) | payer MEDICARE, MEDICAID, SELFPAY ==
--- NOTE | 2024-04-08 14:28 | MR_ITS ---
WS: [id number] MRI LUMBAR SPINE NONCONTRAST TECHNIQUE: Sagittal T1, T2 and STIR imaging. Axial T1 and T2 imaging. CLINICAL INFORMATION: back pain COMPARISON: MRI 03/17/2023 FINDINGS: Mild lumbar curve. No acute compression. Mild chronic anterior wedging at L1. Interval postoperative changes from RIGHT L3-L4 and RIGHT L4-L5 hemilaminectomies. L1-L2: Mild facet arthropathy. Spinal canal and foramen are patent. L2-L3: No significant disc bulging. Mild facet arthropathy. Spinal canal and foramen are patent. L3-L4: RIGHT hemilaminectomy is new from previous. Improved central canal stenosis. Mild facet arthro janey. Small bilateral foraminal protrusions with mild bilateral foraminal narrowing. L4-L5: Interval RIGHT hemilaminectomy. Improved central canal and subarticular recess stenosis. Mild residual narrowing of the RIGHT subarticular recess. Moderate facet arthropathy. Mild RIGHT greater t mcintosh LEFT foraminal narrowing. L5-S1: Mild annular bulging. Tiny shallow central protrusion. Mild LEFT and no significant RIGHT fora teresita narrowing. Mild facet arthropathy. Visualized pelvic bony structures: Normal. Paravertebral soft tissues: Normal. MR/MR lumbar spine wo con* [id number] IMPRESSION: 1. Interval postoperative changes RIGHT L3-L4 and RIGHT L4-L5 hemilaminectomie s with improved central canal stenosis at these levels. Mild residual narrowing of the RIGHT L4-5 subarticular recess. 2. Mild bilateral L3-4 and RIGHT L4-5 foraminal narrowing. 3. Mild LEFT L5-S1 foraminal narrowing. 4. No other significant interval changes.
== END 2024-04-08 14:10 | disposition home or self-care (01) ==
LOC: RAD 14:10
PROVIDERS: PCP Nurse Practitioner Family; Visit Provider Family Medicine
DX: Z98.890 Other specified postprocedural states (principal); M47.896 Other spondylosis, lumbar region
CPT/HCPCS: 72148

== ENCOUNTER → 2024-04-12 10:12 | Outpatient (BNVA) | payer MEDICARE, MEDICAID, SELFPAY | PROVIDERS: PCP Nurse Practitioner Family; Visit Provider Surgery | DX: Z09 Encounter for follow-up examination after completed treatment for conditions other than malignant neoplasm (principal) | CPT/HCPCS: 99213 ==

== ENCOUNTER → 2024-04-16 14:22 | Outpatient (BNVA) | payer MEDICARE, MEDICAID, SELFPAY | PROVIDERS: PCP Nurse Practitioner Family; Visit Provider Physician Assistant | DX: M25.561 Pain in right knee (principal); M25.562 Pain in left knee; M25.551 Pain in right hip; M25.552 Pain in left hip; M17.0 Bilateral primary osteoarthritis of knee | CPT/HCPCS: 20610; 73560; 73565; 99213; J3301 ==

== ENCOUNTER → 2024-04-18 13:26 | Outpatient (BNVA) | payer MEDICARE, MEDICAID, SELFPAY | PROVIDERS: PCP Nurse Practitioner Family; Visit Provider Orthopaedic Surgery | DX: Z98.890 Other specified postprocedural states (principal) | CPT/HCPCS: 99214 ==

== ENCOUNTER → 2024-04-24 14:27 | Outpatient (BNVA) | payer MEDICARE, MEDICAID, SELFPAY | PROVIDERS: PCP Nurse Practitioner Family; Visit Provider Nurse Practitioner Family | DX: I10 Essential (primary) hypertension (principal) | CPT/HCPCS: 93005 ==

== ENCOUNTER 2024-05-04 13:13 | Inpatient (IN) | payer MEDICARE, MEDICAID, SELFPAY ==
[2024-05-04] VITALS (30 sets, daily range): BP systolic 114–201; BP diastolic 50–117; PULSE 61–105; RESP 15–24; TEMP 36.7–37.2; O2SAT 91–98; BMI 40.3
--- NOTE | 2024-05-04 13:18 | XRR_ITS ---
PROCEDURE INFORMATION: Exam: XR Chest Exam date and time: 05/04/2024 1:37 PM Age: 58 years old Clinical indication: Cough and dyspnea; Patient HX: Hypertension TECHNIQUE: Imaging protocol: Radiologic exam of the chest. Views: 1 view. COMPARISON: CR XR chest 1V portable [id number] 07/22/2022 2:29 PM FINDINGS: Lungs: Unremarkable. No consolidation. Pleural spaces: Unremarkable. No pleural effusion. No pneumothorax. Heart/Mediastinum: Mild cardiomegaly. Bones/joints: Moderate degenerative disease of the right acromioclavicular joint. XR/XR chest 1V portable [id number] IMPRESSION: No acute cardiopulmonary process.
--- NOTE | 2024-05-04 13:19 | ED_ITS ---
HPI - General Adult 2 General: Chief complaint: General Medical Stated complaint: hypertension Time Seen by Provider: 05/04/24 13:18 History of Present Illness: 58-year-old male presents to the emergen cy room with complaints of elevated blood pressure mild chest discomfort. He has a known history of hypertension last several weeks had made multiple adjustments to his medications he had been on lisinopril metoprolol these were stopped to change some of the medications I added 2 more later and gave him a as needed of clonidine. Today he did not feel well urine had some numbness and tingling in his right arm as well as some chest discomfort his blood pressure monitoring at home shows markedly elevated took a clonidine as part of his as needed regimen it did not seem to improve much presents emergency room. Difficulty speech or swallowing. Associated symptoms: Deny chest pain, dyspnea or rash Related Data Home Medications Medication Instructions Recorded Confirmed cetirizine 10 mg tablet (Allergy 10 mg PO DAILY 03/06/24 04/29/24 Relief (cetirizine)) polyethylene glycol 3350 17 17 g PO DAILY PRN 04/24/24 04/29/24 gram/dose oral powder (Miralax) Previous Rx's Medication Instructions Recorded C-PAP Supplies #1 ea 05/02/22 CPAP AUTO TITRATING #1 ea 06/30/22 lumbar corsett #1 ea 11/16/23 fluticasone propionate 50 2 spray intranasal DAILY #16 grams 01/17/24 mcg/actuation nasal spray,suspension tizanidine 4 mg tablet 4 mg PO Q6H PRN muscle spasticity 03/23/24 #20 tabs celecoxib 200 mg capsule (Celebrex) 200 mg PO BID 30 days #60 caps 04/18/24 montelukast 10 mg tablet 10 mg PO BEDTIME 90 days #90 tabs 04/18/24 tamsulosin 0.4 mg capsule (Flomax) 0.4 mg PO DAILY 90 days #90 caps 04/18/24 amlodipine 10 mg tablet 10 mg PO DAILY 30 days #30 tabs 04/24/24 magnesium oxide 400 mg (241.3 mg 400 mg PO DAILY 30 days #30 tabs 04/24/24 magnesium) tablet (MagOx) pantoprazole 40 mg tablet,delayed 40 mg PO DAILY 90 days #90 tabs 04/24/24 release quinine sulfate 324 mg capsule 324 mg PO DAILY 30 days #30 caps 04/24/24 clonidine HCl 0.1 mg tablet 0.1 mg PO TID HTN #90 tabs 04/29/24 hydralazine 10 mg tablet 10 mg PO TID 30 days #90 tabs 04/29/24 lisinopril 20 mg tablet 20 mg PO DAILY 30 days #30 tabs 04/29/24 Allergies Allergy/AdvReac Type Severity Reaction Status Date / Time chicken derived Allergy Severe anaphylaxis Verified 04/18/24 14:30 turkey Allergy Severe anaphylaxis Verified 04/18/24 14:30 Review of Systems 2 Const: Denies: fever(s) or chills Eyes: Reports: change in vision and blurry vision Card: Denies: chest pain Resp: Denies: dyspnea GI: Denies: abdominal pain : Denies: dysuria, urinary frequency or urinary urgency Musc: Denies: neck pain or back pain Skin/Breast: Denies: rash PFSH ED 2 PFSH: Medical History LUIS (obstructive sleep apnea) Major depressive disorder, recurrent severe without psychotic features Inguinal hernia Long-term current use of opiate analgesic Pain management contract signed DDD (degenerative disc disease), lumbar Facet syndrome, lumbar Surgical History Hx of colonoscopy 3 yrs ago History of esophagogastroduodenoscopy (EGD) S/P appendectomy Hx of appendectomy Hx of hernia repair Hx of rotator cuff surgery LEFT SHOULDER Family History Mother CAD (coronary artery disease) Cancer LUNG CANCER Social History Smoking and tobacco/nicotine status: never used tobacco/nicotine Second hand smoke exposure: No Alcohol intake: never Substance/Drug Use: never Lives independently: Yes Marital status: Physical Exam 2 Const: COMMON NORMALS: no acute distress GENERAL APPEARANCE: cooperative and comfortable ORIENTATION/CONSCIOUSNESS: Yes awake, Yes oriented to person, Yes oriented to place and Yes oriented to time HENMT: COMMON NORMALS: normocephalic, atraumatic and hearing grossly normal bilaterally HEAD & SCALP: normocephalic and atraumatic Resp: COMMON NORMALS: normal respiratory effort, No retractions, No use of accessory muscles and clear to auscultation bilaterally AUSCULTATION: clear to auscultation bilaterally Cardio: COMMON NORMALS: regular rate, regular rhythm and No murmurs present (Cardio) RATE: regular rate RHYTHM: regular rhythm GI: COMMON NORMALS: Soft to palpation and No hepatosplenomegaly present A USCULTATION: Yes normoactive bowel sounds PALPATION: Yes Soft to palpation, No Tenderness to palpation present (GI), No Guarding due to palpation present (GI) and Yes No hepatosplenomegaly present Extremity: COMMON NORMALS: normal to inspection, capillary refill normal, no clubbing, cyanosis or edema, no calf tenderness and no pedal edema Neuro: SENSORIUM/ORIENTATION: Yes oriented to person, Yes oriented to place and Yes oriented to time Skin: COMMON NORMALS: no rashes or lesions noted GENERAL SKIN EXAM: no rashes or lesions noted Course 2 Vital Signs: Vital signs: Vital Signs Temperature 99.0 F 05/04/24 13:14 Pulse Rate 84 05/04/24 16:44 Respiratory Rate 17 05/04/24 16:44 Blood Pressure 157/73 05/04/24 16:44 Pulse Oximetry 96 05/04/24 16:44 Oxygen Delivery Me thod Room Air 05/04/24 13:14 [facility] - General Adult Medical Decision Making Patient blood pressures persistently elevated even after hydralazine labetalol actually increased. He had some transient vision changes CT of the head is unremarkable EKG shows nonspecific changes cardiac enzymes are negative will admit for accelerated hypertension to complete his cardiac workup. He has been started on nicardipine and symptoms have improved and his blood pressure is much better controlled time of dictation is 144/73. Discussed with hospitalist orders written Medical Records I reviewed the patient's medical records. Lab Data I reviewed the patient's lab results. 05/04/24 13:40 05/04/24 13:40 Radiology Impressions Chest X-Ray 05/04/24 13:18 IMPRESSION: No acute cardiopulmonary process. Head CT 05/04/24 16:21 IMPRESSION: No large territorial infarct or intracranial bleed. Laboratory Results WBC 9.38 10^3/uL (3.29-11.43) 05/04/24 13:40 RBC 5.89 10^6/uL (3.85-5.65) H 05/04/24 13:40 Hgb 16.20 g/dL (11.27-16.99) 05/04/24 13:40 Hct 49.9 % (37-53) 05/04/24 13:40 MCV 84.7 fl (82-101) 05/04/24 13:40 MCH 27.5 pg (27-33) 05/04/24 13:40 MCHC 32.5 g/dL (30-55) 05/04/24 13:40 RDW 13.3 % (12.1-15.1) 05/04/24 13:40 Plt Count 247 10^3/cmm (157-399) 05/04/24 13:40 MPV 10.9 fL (7.4-10.4) H 05/04/24 13:40 Neut % (Auto) 61.0 % 05/04/24 13:40 Lymph % (Auto) 29.9 % 05/04/24 13:40 [place] % (Auto) 7.0 % 05/04/24 13:40 Eos % (Auto) 0.7 % 05/04/24 13:40 Baso % (Auto) 1.1 % 05/04/24 13:40 Neut # (Auto) 5.72 10^3/uL (1.8-7.7) 05/04/24 13:40 Lymph # (Auto) 2.8 10^3/uL (0.8-4.8) 05/04/24 13:40 [place] # (Auto) 0.7 10^3/uL (0.2-0.9) 05/04/24 13:40 Eos # (Auto) 0.1 10^3/uL (0.0-0.8) 05/04/24 13:40 Baso # (Auto) 0.1 10^3/uL (0.0-0.1) 05/04/24 13:40 Nucleated RBC % (auto) 0 % 05/04/24 13:40 Nucleated RBCs # 0.0 /100WBC 05/04/24 13:40 Sodium 137 mmol/L (136-145) 05/04/24 13:40 Potassium 3.9 mmol/L (3.5-5.1) 05/04/24 13:40 Chloride 104 mmol/L (98-107) 05/04/24 13:40 Carbon Dioxide 21 mmol/L (22-29) L 05/04/24 13:40 Anion Gap 15.9 (5-19) 05/04/24 13:40 BUN 17 mg/dL (8-23) 05/04/24 13:40 Creatinine 0.8 mg/dL (0.7-1.2) 05/04/24 13:40 GFR Calculation 98.6 mL/min (90-130) 05/04/24 13:40 Glucose 110 mg/dL (65-115) 05/04/24 13:40 Calculated Osmolality 286 mOsm/kg (285-295) 05/04/24 13:40 Calcium 9.3 mg/dL (8.5-10.5) 05/04/24 13:40 Total Bilirubin 0.7 mg/dL (0.15-1.2) 05/04/24 13:40 AST 16 U/L (0-40) 05/04/24 13:40 ALT 33 U/L (0-41) 05/04/24 13:40 Alkaline Phosphatase 105 U/L (40-130) 05/04/24 13:40 Troponin T Baseline 11 ng/L (0-15) 05/04/24 13:40 Troponin T 120 Minute 10.93 ng/L (0-15) 05/04/24 15:50 Delta Troponin T -0.07 ABS# (0-10) L 05/04/24 15:50 Total Protein 6.8 g/dL (6.6-8.7) 05/04/24 13:40 Albumin 4.7 g/dL (3.5-5.2) 05/04/24 13:40 Globulin 2.1 g/dL (1.3-4.6) 05/04/24 13:40 All radiology interpretation(s) finalized by discharge EKG Data EKG 1: Interpretation: 05/04/2024 1331 The EKG shows normal sinus rhythm at a rate of 90 NC interval of 140 nonspecific changes in the lateral leads. Inverted T waves in 2 3 and aVF. No previous EKGs to compare Computer generated interpretation: Chest X-Ray 05/04/24 13:18 IMPRESSION: No acute cardiopulmonary process. Head CT 05/04/24 16:21 IMPRESSION: No large territorial infarct or intracranial bleed. EKG 2: Interpretation: 05/04/2024 1557 Normal sinus rhythm nonspecific ST changes. No ST elevation. Rate of 70 NC interval 176 Computer generated interpretation: Chest X-Ray 05/04/24 13:18 IMPRESSION: No acute cardiopulmonary process. Head CT 05/04/24 16:21 IMPRESSION: No large territorial infarct or intracranial bleed. Discharge Plan Discharge Patient Disposition: Admitted As Inpatient Clinical Impression: Accelerated hypertension, Atypical chest pain Condition: Stable Prescriptions: No Action (DME) CPAP AUTO TITRATING See Rx Instructions .Route .MEDSUPPLY Qty: 1 0RF Rx Instructions: PLEASE PROVIDE NEW TUBING AND MASK. fluticasone propionate 50 mcg/actuation spray,suspension 2 spray intranasal DAILY Qty: 16 11RF polyethylene glycol 3350 [Miralax] 17 gram/dose powder 17 g PO DAILY PRN amlodipine 10 mg tablet 10 mg PO DAILY 30 Days Qty: 30 0RF magnesium oxide [MagOx] 400 mg (241.3 mg magnesium) tablet 400 mg PO DAILY 30 Days Qty: 30 0RF quinine sulfate 324 mg capsule 324 mg PO DAILY 30 Days Qty: 30 0RF pantoprazole 40 mg tablet,delayed release (DR/EC) 40 mg PO DAILY 90 Days Qty: 90 1RF lisinopril 20 mg tablet 20 mg PO DAILY 30 Days Qty: 30 0RF hydralazine 10 mg tablet 10 mg PO TID 30 Days Qty: 90 0RF clonidine HCl 0.1 mg tablet 0.1 mg PO TID Qty: 90 0RF Rx Instructions: Take 0.1 mg every 8 for SBP >180 or DP >90 (DME) lumbar corsett See Rx Instructions .Route .MEDSUPPLY Qty: 1 0RF Rx Instructions: As directed celecoxib [Celebrex] 200 mg capsule 200 mg PO BID 30 Days Qty: 60 3RF tamsulosin [Flomax] 0.4 mg capsule 0.4 mg PO DAILY 90 Days Qty: 90 1RF montelukast 10 mg tablet 10 mg PO BEDTIME 90 Days Qty: 90 1RF (DME) C-PAP Supplies See Rx Instructions .Route .MEDSUPPLY Qty: 1 11RF Rx Instructions: As directed cetirizine [Allergy Relief (cetirizine)] 10 mg tablet 10 mg PO DAILY tizanidine 4 mg tablet 4 mg PO Q6H PRN (Reason: muscle spasticity) Qty: 20 0RF Rx Instructions: do not exceed 3 doses per 24 hrs Referrals: Bess Bernard NP [Primary Care Provider] - Patient Instructions: Opioid Safety, Pain Management Coding Level of Care Code ED Swat Team Member for Dinesh Padilla
--- NOTE | 2024-05-04 13:31 | ECG_ITS ---
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 Measurements Intervals [place] Rate: 90 P: 36 UT: 140 QRS: 49 QRSD: 96 T: -1 QT: 345 QTc: 424 Interpretive Statements SINUS RHYTHM NONSPECIFIC T-WAVE ABNORMALITY Compared to ECG 09/16/2018 06:23:07 T-wave abnormality now present Electronically Signed On 05-04-2024 15:07:14 CDT by Pascual Marroquin M.D. [id number]
[2024-05-04 13:53] LABS: Basophils # 0.1 10^3/uL (0.0-0.1); Basophils % 1.1 %; Eosinophils # 0.1 10^3/uL (0.0-0.8); Eosinophils % 0.7 %; Hematocrit 49.9 % (37-53); Lymphocytes # 2.8 10^3/uL (0.8-4.8); Lymphocytes % 29.9 %; Mean Corpuscular HGB Conc 32.5 g/dL (30-55); Mean Corpuscular Hemoglobin 27.5 pg (27-33); Mean Corpuscular Volume 84.7 fl (82-101); Mean Platelet Volume 10.9 fL (7.4-10.4); Monocytes # 0.7 10^3/uL (0.2-0.9); Neutrophils # 5.72 10^3/uL (1.8-7.7); Nucleated Red Blood Cells % 0 %; Platelet Count 247 10^3/cmm (157-399); Red Blood Count 5.89 10^6/uL (3.85-5.65); Red Cell Distribution Width 13.3 % (12.1-15.1); White Blood Count 9.38 10^3/uL (3.29-11.43)
[2024-05-04] MEDS: aspirin 81 mg Chew Tablet 324 MG PO (13:54)
[2024-05-04] MEDS: hyDRALAzine 20 mg/mL INJ 1 mL 10 MG IVP (13:55)
[2024-05-04] MEDS: labetalol 5 mg/mL SDV 20mL 10 MG IVP (13:57)
[2024-05-04 14:11] LABS: Alanine Aminotransferase 33 U/L (0-41); Albumin Level 4.7 g/dL (3.5-5.2); Alkaline Phosphatase 105 U/L (40-130); Anion Gap 15.9 (5-19); Aspartate Amino Transferase 16 U/L (0-40); Blood Urea Nitrogen 17 mg/dL (8-23); Calcium 9.3 mg/dL (8.5-10.5); Carbon Dioxide 21 mmol/L (22-29); Chloride 104 mmol/L (98-107); Creatinine Clr Calc Pharmacy 127.7117; Globulin 2.1 g/dL (1.3-4.6); Glomerular Filtration Rate 98.6 mL/min (90-130); Glucose 110 mg/dL (65-115); Osmolality Calculated 286 mOsm/kg (285-295); Potassium 3.9 mmol/L (3.5-5.1); Sodium 137 mmol/L (136-145); Total Bilirubin 0.7 mg/dL (0.15-1.2); Total Protein 6.8 g/dL (6.6-8.7); Troponin(5th) Baseline 11 ng/L (0-15)
[2024-05-04] MEDS: nicardipine 20 MG/200 ML PREMIX 50 MG IV (15:57)
--- NOTE | 2024-05-04 15:57 | ECG_ITS ---
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 Measurements Intervals [place] Rate: 70 P: 16 VT: 176 QRS: 55 QRSD: 92 T: 29 QT: 403 QTc: 436 Interpretive Statements SINUS RHYTHM NONSPECIFIC T-WAVE ABNORMALITY Compared to ECG 05/04/2024 13:31:14 No significant changes Electronically Signed On 05-04-2024 16:18:07 CDT by Pascual Marroquin M.D. [id number]
[2024-05-04 16:14] LABS: Troponin 5 2HR 10.93 ng/L (0-15); Troponin 5 2HR Delta -0.07 ABS# (0-10)
--- NOTE | 2024-05-04 16:21 | CTR_ITS ---
PROCEDURE INFORMATION: Exam: CT Head Without Contrast Exam date and time: 05/04/2024 4:32 PM Age: 58 years old Clinical indication: Other: Accelerated HTN TECHNIQUE: Imaging protocol: Computed tomography of the head without contrast. Radiation optimization: All CT scans at this facility use at least one of these dose optimization techniques: automated exposure control; mA and/or kV adjustment per patient size (includes targeted exams where dose is matched to clinical indication); or iterative reconstruction. COMPARISON: CT orbit BI w con [id number] 07/23/2023 11:48 AM RADIATION DOSE METRICS: Total DLP (mGy-cm): 1165.98 FINDINGS: Brain: Normal. No hemorrhage. Unremarkable white matter. No mass effect. Cerebral ventricles: No ventriculomegaly. Paranasal sinuses: Visualized sinuses are unremarkable. No fluid levels. Mastoid air cells: Visualized mastoid air cells are well aerated. Orbital cavities: Post left cataract surgery. Small right eye globe, from prior insult. Bones: Unremarkable. No acute fracture. Soft tissues: Unremarkable. CT/CT head wo con* [id number] IMPRESSION: No large territorial infarct or intracranial bleed.
--- NOTE | 2024-05-04 17:21 | P.HP_ITS ---
Providers/Chief Complaint 2 Admitting Physician: Jose David Ramos Primary Care Provider: Bess Bernard NP Chief Complaint: hypertension History of Present Illness Pleasant 58-year-old gentleman with history of resistant hypertension, recently having to have his medications adjusted, previously was on metoprolol and valsartan for a long time, but over the last several months blood pressures have been more difficult to control, was switched over to lisinopril, morphine dose was increased to 10 mg twice daily, on lisinopril 20 mg, also with addition of hydralazine and has been taking clonidine as needed. He only started clonidine over the last week or so and has not been taking it for any prolonged period of time. He came into the ER due to difficult to control blood pressures, on waking up this morning his blood pressure was 190 systolic. He has started experiencing some numbness and tingling in his hands and feet, was not feeling well, in ER blood pressure was very elevated up to 220s-230s systolic, and he started having some blurred vision in his left eye. 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 He does not have chest pain currently but has been getting intermittent chest discomfort. Review of Systems 2 Const: Denies: fever(s), chills, body aches or malaise ENMT: Denies: throat pain Card: Reports: chest pain and edema (trace); Denies: pre-syncope or dyspnea on exertion Resp: Denies: dyspnea, productive cough, change in phlegm color or hemoptysis GI: Denies: abdominal pain, nausea, vomiting, diarrhea, constipation, hematochezia or melena : Denies: flank pain, difficulty urinating, urinary frequency or hematuria Musc: Denies: back pain, joint swelling or joint redness Skin/Breast: Denies: rash or new lesions Neuro: Reports: headache(s) and other (tingling in extremities. Blurred vision.); Denies: weakness in extremities, dizziness, confusion or seizure-like activity Medications/Allergies Home Medications Medication Instructions Recorded Confirmed Last Taken Type C-PAP Supplies #1 ea 05/02/22 04/29/24 Unknown Rx CPAP AUTO TITRATING #1 ea 06/30/22 04/29/24 Unknown Rx lumbar corsett #1 ea 11/16/23 04/29/24 Unknown Rx fluticasone propionate 50 2 spray intranasal DAILY #16 grams 01/17/24 04/29/24 03/11/24 Rx mcg/actuation nasal spray,suspension cetirizine 10 mg tablet (Allergy 10 mg PO DAILY 03/06/24 04/29/24 03/11/24 History Relief (cetirizine)) tizanidine 4 mg tablet 4 mg PO Q6H PRN muscle spasticity 03/23/24 04/29/24 Unknown Rx #20 tabs celecoxib 200 mg capsule (Celebrex) 200 mg PO BID 30 days #60 caps 04/18/24 04/29/24 Unknown Rx montelukast 10 mg tablet 10 mg PO BEDTIME 90 days #90 tabs 04/18/24 04/29/24 Unknown Rx tamsulosin 0.4 mg capsule (Flomax) 0.4 mg PO DAILY 90 days #90 caps 04/18/24 04/29/24 Unknown Rx amlodipine 10 mg tablet 10 mg PO DAILY 30 days #30 tabs 04/24/24 04/29/24 Unknown Rx magnesium oxide 400 mg (241.3 mg 400 mg PO DAILY 30 days #30 tabs 04/24/24 04/29/24 Unknown Rx magnesium) tablet (MagOx) pantoprazole 40 mg tablet,delayed 40 mg PO DAILY 90 days #90 tabs 04/24/24 04/29/24 Unknown Rx release polyethylene glycol 3350 17 17 g PO DAILY PRN 04/24/24 04/29/24 Unknown History gram/dose oral powder (Miralax) quinine sulfate 324 mg capsule 324 mg PO DAILY 30 days #30 caps 04/24/24 04/29/24 Unknown Rx clonidine HCl 0.1 mg tablet 0.1 mg PO TID HTN #90 tabs 04/29/24 04/29/24 Unknown Rx hydralazine 10 mg tablet 10 mg PO TID 30 days #90 tabs 04/29/24 04/29/24 Unknown Rx lisinopril 20 mg tablet 20 mg PO DAILY 30 days #30 tabs 04/29/24 04/29/24 Unknown Rx Allergies Allergy/AdvReac Type Severity Reaction Status Date / Time chicken derived Allergy Severe anaphylaxis Verified 04/18/24 14:30 turkey Allergy Severe anaphylaxis Verified 04/18/24 14:30 PFSH Acute 2 PFSH: Medical History LUIS (obstructive sleep apnea) Major depressive disorder, recurrent severe without psychotic features Inguinal hernia Long-term current use of opiate analgesic Pain management contract signed DDD (degenerative disc disease), lumbar Facet syndrome, lumbar Surgical History Hx of colonoscopy 3 yrs ago History of esophagogastroduodenoscopy (EGD) S/P appendectomy Hx of appendectomy Hx of hernia repair Hx of rotator cuff surgery LEFT SHOULDER Family History Mother CAD (coronary artery disease) Cancer LUNG CANCER Social History Smoking and tobacco/nicotine status: never used tobacco/nicotine Second hand smoke exposure: No Alcohol intake: never Substance/Drug Use: never Lives independently: Yes Marital status: Vitals/I&O/Wt Last Vital Signs Temp 99.0 F 05/04/24 13:14 Pulse 84 05/04/24 16:44 Resp 17 05/04/24 16:44 BP 157/73 05/04/24 16:44 Pulse Ox 96 05/04/24 16:44 O2 Del Method Room Air 05/04/24 13:14 05/04/24 05/04/24 05/04/24 06:59 14:59 22:59 Intake Total 101.250 / 101.250 Balance 101.250 / 101.250 Weight last 48 hrs Weight 123.831 kg Physical Exam 2 Narrative: Accompanied by his . Const: COMMON NORMALS: patient oriented x3 and alert GENERAL APPEARANCE: c ooperative NUTRITIONAL APPEARANCE: obese ORIENTATION/CONSCIOUSNESS: Yes awake HENMT: COMMON NORMALS: oropharynx normal Eye: OTHER: R eye chronic blindness. Conjunctival injection. Neck/C-Spine: COMMON NORMALS: no JVD Resp: COMMON NORMALS: normal respiratory effort and clear to auscultation bilaterally AUSCULTATION: clear to auscultation bilaterally Cardio: COMMON NORMALS: no JVD, regular rhythm, S1 normal heart sound present, S2 normal heart sound present and No murmurs present (Cardio) RHYTHM: regular rhythm HEART SOUNDS: S1 normal heart sound present and S2 normal heart sound present GI: COMMON NORMALS: Normal to inspection, nondistended, normoactive bowel sounds present, Soft to palpation and non-tender PALPATION: Yes Soft to palpation Extremity: COMMON NORMALS: no joint enlargement GENERAL: Yes edema (Trace) Neuro: COMMON NORMALS: patient oriented x3 and moves all extremities S ENSORIUM/ORIENTATION: Yes alert OTHER: Mod L hand intention tremor Skin: COMMON NORMALS: no rashes or lesions noted GENERAL SKIN EXAM: no rashes or lesions noted Data 05/04/24 13:40 05/04/24 13:40 A&P Assessment and plan (1) Hypertensive urgency: Reviewed vitals, CBC, CMP, baseline and 2-hour troponin, EKG on my interpretation with T wave flattening laterally in V5, V6, pending official read. Reviewed ER note, discussed with ER provider. Hypertensive urgency with intermittent chest discomfort, blurred vision in ER, blood pressures up to 220s- 230s systolic. Did not respond to hydralazine, labetalol push. Started on nicardipine drip. Monitor for risk of hypotension. Continue to titrate. Admitting to ICU. Complete troponin EKG series. Obtain echocardiogram. Monitor on telemetry. Resume his home medications, will increase lisinopril to 20 mg twice daily. Wean nicardipine drip. Target systolic blood pressure of about 165, then will gradually decrease the rest of the way. CT of the head pending. (2) Resistant hypertension: On amlodipine, lisinopril, hydralazine, as needed clonidine. So far with failure of outpatient treatment. Blood pressure still difficult to control. On his log blood pressures ranging from 150s over to 190s. This morning he woke up with blood pressure 190s systolic. Per discussion with him we will additionally assess renal artery duplex to assess for renal artery stenosis. Check TSH. Follow-up with primary provider, hypertensive specialist for further assessment, adrenal hormones. He does report that they have been eating more recently. Package/TV dinners per day. Discussed with him to limit sodium intake to 1999. It is likely that he is having much higher sodium intake. He denies NSAID use, although I do see celecoxib listed on past medications, will have to confirm with him. He also has LUIS listed, will need to confirm compliance with NIPPV. Plan Intention tremor in the left hand: Discussed with him - follow-up with primary provider. LUIS Status post back surgery for herniated disc: Takes Tylenol intermittently for pain. Blindness in the right eye after trauma. Attestations 2 Medical Necessity Statement*: Admission of over 2 midnights anticipated for assessment of management of hypertensive urgency with chest pain, vision changes, and gentleman with resistant hypertension, difficult to treat with failure of outpatient treatment. Coding Level of Care Code Critical Care >/= 30 minutes Critical care time (in minutes): 35 The high probability of a clinically significant, sudden or life threatening deterioration, as referenced in this documentation, required my full and direct attention, intervention and personal management. The critical care time shown is in addition to time spent performing any reported separately billable procedures and includes the following: [x] Data and vital sign review and interpretation [x ] Patient assessment, examination and intervention [x] Medication orders and management [x] Patient/Family updates as able [x] Care Coordination and Documentation. Diagnoses Hypertensive urgency I16.0 Resistant hypertension I1A.0
[2024-05-04] MEDS: nitroglycerin 1 gm/inch oint Pkt 0.5 INCH TOPICAL (17:58)
[2024-05-04] MEDS: nicardipine 20 MG/200 ML PREMIX 150 MG IV (18:01)
[2024-05-04] MEDS: nicardipine 20 MG/200 ML PREMIX 125 MG IV (19:13)
[2024-05-04] MEDS: amlodipine 10 mg Tablet PO (19:26)
[2024-05-04] MEDS: lisinopril 20 mg Tablet PO (19:27)
--- NOTE | 2024-05-04 19:33 | ECG_ITS ---
[facility] Test Date: 2024-05-04 Pat Name: Benjamin Carrion Department: Room: [facility] Gender: Male [employer] Rol[employer] Operator: : 1965 Requested By: Herson Eaton Order Number: [id number] Yoli MD: Pascual Marroquin M.D. Measurements Intervals [place] Rate: 69 P: 54 TX: 178 QRS: 53 QRSD: 94 T: 19 QT: 417 QTc: 447 Interpretive Statements SINUS RHYTHM NONSPECIFIC T-WAVE ABNORMALITY Compared to ECG 05/04/2024 15:57:06 No significant changes Electronically Signed On 05-04-2024 21:54:35 CDT by Pascual Marroquin M.D. [id number]
[2024-05-04 19:59] LABS: Troponin 5 6HR 9.16 ng/L (0-15)
[2024-05-04 20:00] LABS: Troponin 5 6HR Delta -1.84 ng/L (0-12)
[2024-05-04] MEDS: nicardipine 20 MG/200 ML PREMIX 100 MG IV (20:58)
[2024-05-04] MEDS: hyDRALAzine 10 mg Tablet PO (20:58)
[2024-05-04] MEDS: magnesium oxide 400 mg tablet PO (21:04)
[2024-05-04] MEDS: enoxaparin 40 mg/0.4 mL Syringe SUBCUT (21:04)
[2024-05-05] VITALS (20 sets, daily range): BP systolic 100–171; BP diastolic 51–84; PULSE 58–74; RESP 13–24; TEMP 36.7–37; O2SAT 93–98
[2024-05-05] MEDS: acetaminophen 325 mg Tablet 650 MG PO ×3 (00:06→22:13)
[2024-05-05 04:18] LABS: Basophils # 0.1 10^3/uL (0.0-0.1); Basophils % 1.3 %; Eosinophils # 0.1 10^3/uL (0.0-0.8); Eosinophils % 1.3 %; Hematocrit 46.5 % (37-53); Lymphocytes # 2.5 10^3/uL (0.8-4.8); Lymphocytes % 28.7 %; Mean Corpuscular HGB Conc 32.7 g/dL (30-55); Mean Corpuscular Hemoglobin 27.7 pg (27-33); Mean Corpuscular Volume 84.9 fl (82-101); Mean Platelet Volume 10.8 fL (7.4-10.4); Monocytes # 0.7 10^3/uL (0.2-0.9); Monocytes % 7.9 %; Neutrophils # 5.19 10^3/uL (1.8-7.7); Neutrophils % 60.6 %; Nucleated Red Blood Cells % 0 %; Platelet Count 225 10^3/cmm (157-399); Red Blood Count 5.48 10^6/uL (3.85-5.65); Red Cell Distribution Width 13.6 % (12.1-15.1); White Blood Count 8.57 10^3/uL (3.29-11.43)
[2024-05-05 04:51] LABS: Alanine Aminotransferase 31 U/L (0-41); Alkaline Phosphatase 97 U/L (40-130); Anion Gap 15.9 (5-19); Aspartate Amino Transferase 14 U/L (0-40); Blood Urea Nitrogen 18 mg/dL (8-23); Calcium 8.8 mg/dL (8.5-10.5); Carbon Dioxide 21 mmol/L (22-29); Chloride 106 mmol/L (98-107); Creatinine Clr Calc Pharmacy 125.5833; Globulin 2.3 g/dL (1.3-4.6); Glomerular Filtration Rate 98.6 mL/min (90-130); Glucose 111 mg/dL (65-115); Magnesium 2.1 mg/dL (1.7-2.3); Osmolality Calculated 291 mOsm/kg (285-295); Potassium 3.9 mmol/L (3.5-5.1); Sodium 139 mmol/L (136-145); Thyroid Stimulating Hormone 3.28 uIU/mL (0.27-4.20); Total Protein 6.3 g/dL (6.6-8.7)
--- NOTE | 2024-05-05 05:51 | USR_ITS ---
PROCEDURE INFORMATION: Exam: US Duplex Artery and Vein of the Abdominal and/or Reproductive Organs, Complete Kidneys Exam date and time: 05/05/2024 8:22 AM Age: 58 years old Clinical indication: Abdominal or pelvic symptoms: HTN; Additional info: Art duplex, assess for renal artery stenosis TECHNIQUE: Imaging protocol: Real-time duplex ultrasound scan of the arterial and venous flow with color Doppler flow and spectral waveform analysis with image documentation. Complete duplex exam focused on the kidneys. Duplex exam was performed to evaluate for vascular conditions. COMPARISON: US scrotum [id number] 09/28/2023 8:14 AM FINDINGS: Right kidney: The right kidney measures 5.6 x 6.6 x 11 cm in size with a cortical thickness of 1.8 cm. Echogenicity is normal. Right renal artery: Peak systolic velocity of the main right renal artery at the hilum of the kidney is 20.8 cm/s with a resistive index of 0.69, distal renal artery 70.3 cm/s with a resistive index of 0.77, mid renal artery 61.2 cm/s with a resistive index of 0.77, and proximal renal artery 51.4 cm/s with a resistive index of 0.72. Waveforms are normal. Right interlobar/arcuate arteries: Resistive indices and peak systolic velocities are as follows: Upper pole 23.6 cm/s with a resistive index of 0.75, mid pole 21.3 cm/s with a resistive index of 0.54, and lower pole 29 cm/s with a resistive index is 0.68. Waveforms are normal. Right renal vein: Patent Left kidney: The left kidney measures 4.7 x 5.9 x 12.9 cm in size with a cortical thickness of 1.7 cm. Cortical echogenicity is normal. Left renal artery: Peak systolic velocity of the main left renal artery at the hilum of the kidney is 39.3 cm/s with a resistive index of 0.59, distal renal artery 89.4 cm/s with a resistive index of 0.72, mid main renal artery 96.8 cm/s with a resistive index of 0.68, and proximal left renal artery 133 cm/s with a resistive index of 0.70. Waveforms are normal. Left interlobar/arcuate arteries: Peak systolic velocities and resistive indices are as follows: Upper pole 28.8 cm/s with a resistive index is 0.57, mid pole 42.3 cm/s with a resistive index of 0.73, and lower pole 29.4 cm/s with a resistive index of 0.61. Waveforms are normal. Left renal vein: Patent US/CV renal doppler [id number] IMPRESSION: Normal kidneys. No hemodynamically significant stenosis.
--- NOTE | 2024-05-05 05:51 | USCV_ITS ---
Benjamin Carrion Age: 58 Gender: M : 1965 Exam Date: 05/05/2024 07:47 Ordering Phys: Jose David Ramos MD Technologist: Blu Gonzalez [place] [facility] [place]: htn urgency BP: 160 / 84 HR: 62 Rhythm: Sinus Technical Quality: Adequate MEASUREMENTS (Male / Female) Normal Values 2D ECHO LV Diastolic Diameter PLAX 4.6 cm 4.2 - 5.9 / 3.9 - 5.3 cm IVS Diastolic Thickness 1.1 cm 0.6 - 1.0 / 0.6 - 0.9 cm IVS Systolic Thickness 1.8 cm LVPW Diastolic Thickness 1.6 cm 0.6 - 1.0 / 0.6 - 0.9 cm LVPW Systolic Thickness 2.4 cm LVOT Diameter 2.1 cm LV Ejection Fraction 2D Teich 63.2 % LV Ejection Fraction MOD 4C 69.0 % LV Ejection Fraction MOD 2C 70.9 % LV Ejection Fraction 2C AL 71.9 % LA Diameter 3.9 cm RA Systolic Volume 4C AL 55.1 ml RA Systolic Volume 4C MOD 55.5 ml LA Sys Volume AL 68.7 cm cubed LA Sys Volume Index AL 27.8 cm cubed/m squared Aorta at Sinotubular Diameter 2.6 cm IVC Diameter 1.9 cm M-MODE LA Ao Ratio MM 1.3 AV Cusp Separation MM 1.8 cm DOPPLER AV Peak Velocity 125.0 cm/s LVOT Peak Velocity 111.0 cm/s AV Area Cont Eq vti 2.8 cm squared AV Area Cont Eq pk 3.0 cm squared MV Peak Velocity 95.0 cm/s MV Area PHT 4.9 cm squared Mitral E to A Ratio 1.0 TR Peak Velocity 114.0 cm/s TR Peak Gradient 5.2 mmHg TR Mean Velocity 83.0 cm/s TR Mean Gradient 3.1 mmHg TR Velocity Time Integral 25.4 cm PV Peak Velocity 82.0 cm/s RV Ejection Time 0.3 s FINDINGS Left Ventricle Technically limited quality echocardiogram because of poor ultrasonic windows. Left ventricle is normal in size. LV systolic function is normal with EF of 65 to 70%. No regional wall motion abnormalities are seen. Right Ventricle Normal size and function Right Atrium Normal in size Left Atrium Normal in size Mitral Valve Grossly normal. Mild mitral regurgitation. Aortic Valve Grossly normal. No significant stenosis or regurgitation. Tricuspid Valve Mild tricuspid regurgitation. Insufficient TR jet to calculate RVSP. Pulmonic Valve Not well visualized Pericardium Normal Aorta Normal in size IVC Appears to be normal CONCLUSIONS Technically limited quality echocardiogram because of poor ultrasonic windows. LV systolic function is normal with EF of 65 to 70%. Mild mitral regurgitation. Mild tricuspid regurgitation No comparison studies are available Pascual Marroquin MD (Electronically Signed) Final Date: 05 May 2024 11:54 S
[2024-05-05] MEDS: amlodipine 10 mg Tablet PO ×2 (09:26→17:13)
[2024-05-05] MEDS: hyDRALAzine 10 mg Tablet PO ×2 (09:26→14:09)
[2024-05-05] MEDS: lisinopril 20 mg Tablet PO ×2 (09:26→17:13)
--- NOTE | 2024-05-05 11:55 | XRR_ITS ---
PROCEDURE INFORMATION: Exam: XR Right Shoulder Exam date and time: 05/05/2024 12:42 PM Age: 58 years old Clinical indication: Right; Patient HX: RT shoulder pain; No known injury TECHNIQUE: Imaging protocol: Radiologic exam of the right shoulder. Views: 2 or more views. COMPARISON: CR (CHEST, ) 05/04/2024 1:37 PM FINDINGS: Bones/joints: Mild acromioclavicular and glenohumeral spurring. No fracture or dislocation. No acute osseous or joint abnormality. Soft tissues: Normal. XR/XR shoulder RT min 2V* [id number] IMPRESSION: No acute findings.
--- NOTE | 2024-05-05 11:55 | XRR_ITS ---
PROCEDURE INFORMATION: Exam: XR Right Hip Exam date and time: 05/05/2024 12:42 PM Age: 58 years old Clinical indication: Right hip; Patient HX: RT hip pain; No known injury TECHNIQUE: Imaging protocol: Radiologic exam of the right hip. Views: 1 view hip with pelvis when performed. COMPARISON: CT abdomen pelvis w con* [id number] 12/12/2023 4:32 AM FINDINGS: Bones/joints: Slight articular surface narrowing and spurring.. No acute fracture. Soft tissues: Unremarkable. XR/XR hip RT 2-3V wo/w pel* [id number] IMPRESSION: No acute findings.
[2024-05-05] MEDS: predniSONE 20 mg Tablet PO (12:12)
[2024-05-05] MEDS: tamsulosin 0.4 mg Capsule PO (12:12)
[2024-05-05] MEDS: pantoprazole DR 40 mg Tablet PO (12:12)
--- NOTE | 2024-05-05 14:23 | PC.NURSE ---
report given and transfered to room 271 per wc with by side
--- NOTE | 2024-05-05 19:43 | P.PN_ITS ---
Subjective 2 Subjective: He is not having any headache, no blurred vision. He is bothered by some pain in his right shoulder and right hip. Vitals/I&O/Wt Last Vital Signs Temp 98.3 F 05/05/24 16:00 Pulse 66 05/05/24 16:00 Resp 19 H 05/05/24 12:00 BP 157/78 05/05/24 16:00 Pulse Ox 96 05/05/24 16:00 O2 Del Method Room Air 05/05/24 14:25 05/05/24 05/05/24 05/05/24 06:59 14:59 22:59 Intake Total 600 / 600 Output Total 875 / 1055 600 / 600 Balance -875 / 188.750 0 / 0 Weight last 48 hrs Weight 120 kg Weight 54.431 kg Weight 123.831 kg Physical Exam 2 Const: COMMON NORMALS: patient oriented x3 and alert GENERAL APPEARANCE: c ooperative NUTRITIONAL APPEARANCE: obese ORIENTATION/CONSCIOUSNESS: Yes awake HENMT: COMMON NORMALS: oropharynx normal Eye: OTHER: R eye chronic blindness. Conjunctival injection. Neck/C-Spine: COMMON NORMALS: no JVD Resp: COMMON NORMALS: normal respiratory effort and clear to auscultation bilaterally AUSCULTATION: clear to auscultation bilaterally Cardio: COMMON NORMALS: no JVD, regular rhythm, S1 normal heart sound present, S2 normal heart sound present and No murmurs present (Cardio) RHYTHM: regular rhythm HEART SOUNDS: S1 normal heart sound present and S2 normal heart sound present GI: COMMON NORMALS: Normal to inspection, nondistended, normoactive bowel sounds present, Soft to palpation and non-tender PALPATION: Yes Soft to palpation Extremity: COMMON NORMALS: no joint enlargement GENERAL: Yes edema (Trace) Neuro: COMMON NORMALS: patient oriented x3 and moves all extremities S ENSORIUM/ORIENTATION: Yes alert OTHER: Mod L hand intention tremor Skin: COMMON NORMALS: no rashes or lesions noted GENERAL SKIN EXAM: no rashes or lesions noted Data 05/05/24 03:43 05/05/24 03:43 A&P Assessment and plan (1) Hypertensive urgency: Blood pressure is doing better. Reviewed vitals,. Blood pressures 150s-160s, weaned off nicardipine drip. Discontinued. Transfer out of ICU. Discussed with him we have restarted his home medications yesterday and I went up on his lisinopril to 20 mg twice daily. Reviewed blood pressures again this afternoon, still elevated 160s, increase hydralazine dose to 20 mg 3 times daily. Reassess blood pressures, continue to optimize. Will benefit from follow-up with hypertension specialist. Reviewed renal ultrasound, no sign of renal artery stenosis. Reviewed echocardiogram, poor quality study, normal ejection fraction. Reviewed CT of the head, unremarkable. Will benefit from follow-up for further hormonal testing to assess for underlying secondary causes of resistant hypertension. At home he uses clonidine as needed, although noted heart rates on the bradycardic side, mostly in the 60s, would not start clonidine scheduled, few heart rate reads in the upper 50s, perhaps may wish to avoid clonidine altogether. (2) Resistant hypertension: Increase lisinopril to 20 mg twice daily. Continue amlodipine he is already on 10 mg twice daily. Increase hydralazine to 20 mg 3 times daily. Reassess blood pressures. He additionally confirms he has been on celecoxib, and may have misunderstood the directions and taken twice the new higher dose. Discussed with him risk of hypertension, as well as risk of stroke and heart attack with NSAIDs, in addition risk of kidney injury, although renal function on review of BUN, creatinine so far is okay. Discussed with him if possible discontinuing NSAID. He does report having been diagnosed with rheumatoid arthritis, is awaiting follow-up with film mounter, and has been bothered by pain in the right shoulder and right hip. Discussed with him to try to help wean off NSAID for now we may give him a course of prednisone although it may have some of the similar side effects. He does report that they have been eating more recently. Package/TV dinners per day. Discussed with him to limit sodium intake to 1999. It is likely that he is having much higher sodium intake. He also has LUIS listed, he does wear nightly CPAP Reviewed renal ultrasound, no renal artery stenosis. Will benefit from further hormonal testing, although his JOSE inhibitor we need to be held for that. Would benefit from follow-up with hypertension specialist. Plan Intention tremor in the left hand: Discussed with him - follow-up with primary provider. Rheumatoid arthritis: Complaining of pain of the right shoulder, pain in the right hip. Obtained x-rays, unremarkable. Discussed with him attempting to wean off of celecoxib. He has an appointment pending with rheumatology in October hopefully may be able to initiate some DMARD. For now we will give her a course of prednisone, start prednisone 20 mg. Discontinue celecoxib if possible. LUIS: He wears nightly CPAP. Requested for the hospital stay. Status post back surgery for herniated disc: Takes Tylenol intermittently for pain. Blindness in the right eye after trauma. Attestations 2 Medical Necessity Statement*: Continue admission for assessment and management after hypertensive urgency, optimization of control of resistant hypertension. and High MDM includes described risk of complication, morbidity or mortality of management as documented Diagnoses Hypertensive urgency I16.0 Resistant hypertension I1A.0
[2024-05-05] MEDS: hyDRALAzine 10 mg Tablet 20 MG PO (20:33)
[2024-05-05] MEDS: enoxaparin 40 mg/0.4 mL Syringe SUBCUT (20:33)
[2024-05-05] MEDS: magnesium oxide 400 mg tablet PO (20:35)
[2024-05-06] VITALS: BP 169/78; PULSE 61; RESP 17; TEMP 36.9; O2SAT 94
[2024-05-06 02:59] LABS: Basophils # 0.1 10^3/uL (0.0-0.1); Basophils % 0.4 %; Eosinophils % 0.3 %; Hematocrit 48.5 % (37-53); Lymphocytes # 2.4 10^3/uL (0.8-4.8); Lymphocytes % 20.6 %; Mean Corpuscular HGB Conc 32.4 g/dL (30-55); Mean Corpuscular Hemoglobin 27.6 pg (27-33); Mean Corpuscular Volume 85.2 fl (82-101); Mean Platelet Volume 11.1 fL (7.4-10.4); Monocytes # 0.9 10^3/uL (0.2-0.9); Monocytes % 7.5 %; Neutrophils # 8.27 10^3/uL (1.8-7.7); Nucleated Red Blood Cells % 0 %; Platelet Count 227 10^3/cmm (157-399); Red Blood Count 5.69 10^6/uL (3.85-5.65); Red Cell Distribution Width 13.6 % (12.1-15.1); White Blood Count 11.66 10^3/uL (3.29-11.43)
[2024-05-06 03:25] LABS: Alanine Aminotransferase 30 U/L (0-41); Albumin Level 4.3 g/dL (3.5-5.2); Alkaline Phosphatase 101 U/L (40-130); Aspartate Amino Transferase 13 U/L (0-40); Blood Urea Nitrogen 19 mg/dL (8-23); Calcium 9.2 mg/dL (8.5-10.5); Carbon Dioxide 22 mmol/L (22-29); Chloride 108 mmol/L (98-107); Creatinine Clr Calc Pharmacy 125.5833; Globulin 2.3 g/dL (1.3-4.6); Glomerular Filtration Rate 98.6 mL/min (90-130); Glucose 107 mg/dL (65-115); Osmolality Calculated 295 mOsm/kg (285-295); Sodium 141 mmol/L (136-145); Total Bilirubin 0.7 mg/dL (0.15-1.2); Total Protein 6.6 g/dL (6.6-8.7)
[2024-05-06 04:00] VITALS: BP 136/81; PULSE 62; RESP 17; TEMP 37; O2SAT 96
[2024-05-06] MEDS: sennosides-docusate Tablet 2 TAB PO ×2 (04:09→08:44)
[2024-05-06 05:32] VITALS: PULSE 62
[2024-05-06 07:55] VITALS: BP 155/82; PULSE 65; RESP 16; TEMP 36.7; O2SAT 97
[2024-05-06] MEDS: hyDRALAzine 10 mg Tablet 20 MG PO ×2 (08:44→15:02)
[2024-05-06] MEDS: lisinopril 20 mg Tablet PO (08:44)
[2024-05-06] MEDS: tamsulosin 0.4 mg Capsule PO (08:44)
[2024-05-06] MEDS: predniSONE 20 mg Tablet PO (08:44)
[2024-05-06] MEDS: pantoprazole DR 40 mg Tablet PO (08:44)
[2024-05-06] MEDS: amlodipine 10 mg Tablet PO (08:45)
[2024-05-06] MEDS: acetaminophen 325 mg Tablet 650 MG PO (09:47)
[2024-05-06 11:25] VITALS: BP 148/87; PULSE 68; RESP 16; TEMP 36.9; O2SAT 96
--- NOTE | 2024-05-06 12:49 | PC.SOCIAL ---
IMM update Pg. 2 of IMM updated and reviewed with patient, who verbalized understanding. Copy provided.
--- NOTE | 2024-05-06 14:42 | PM.DCS ---
Discharge Providers Date of Admission: 05/04/24 16:22 Date of Discharge: May 06, 2024 Attending Provider at Admission: Jose David Ramos Attending Provider at Discharge: Delicia Carlisle MD Primary Care Provider: Bess Bernard NP Diagnoses at Discharge Discharge Diagnosis (1) Hypertensive urgency: Status: Acute (2) Resistant hypertension: Status: Acute Reason for Visit Reason for Visit: hypertension Hospital Course Hospital Course ?58M presented with hypertensive urgency with intermittent chest pain, blurred vision, blood pressures up to 220s-230s, resistant hypertension despite recent adjustments in medications, was already on amlodipine 10 mg twice daily, lisinopril 20 mg nightly, hydralazine 10 mg 3 times daily and clonidine 0.1 mg 3 times daily as needed which he has intermittently taken since last week.? Did not respond to labetalol, IV hydralazine, was started on nicardipine drip in ER.? ? HTN likely contributed by high sodium diet, he been eating a lot of TV dinners, counseled him on that. Provided information regarding low-sodium diet and Dash diets.? Does have sleep apnea but wears CPAP nightly.? Obtained renal artery duplex, negative for stenosis.? He has been having some swelling in his legs, echo obtained, technically difficult study, although ejection fraction appears normal.?No clinical signs of heart failure. Troponin series negative.? less likely AMI. His medications were adjusted as follows: Increased his lisinopril to 20 mg twice daily continued amlodipine 10 mg twice daily hydralazine increased to 20 mg 3 times daily.? Continued clonidine 0.1 mg as needed. Patient has been instructed to maintain a blood pressure chart by checking his numbers twice a day at the same time every day and take this chart to his primary care physician for review in the next 5 to 7 days. For systolic blood pressure greater than 180, he has been instructed to increase hydralazine to 30 mg. Would prefer to increase hydralazine to max dose before adding any other additional medications. Changed celecoxib to prn Patient has been diagnosed with rheumatoid arthritis, he is awaiting appointment with rheumatology in June. Short course of steroids prescribed for intermittent acute worsening of joint pains. Physical Exam Narrative: General: No acute distress, AO x3 HEENT: PERRLA, pupils bilaterally equal and reactive, pallors not present Chest: Normal vesicular breath sounds, no added sounds, equal good air entry bilaterally CVS: S1-S2 regular, no murmurs, no tachycardia, no gallops, no rubs Abdomen: Soft, nontender, no organomegaly, bowel sounds present Neuro: No focal deficits, no facial deformity, AO x3, power 5/5 in all limbs Extremities: no edema clubbing or cyanosis Discharge Data Studies Completed and Pending Completed Studies During Hospitalization Category Date Time Status CT head wo con* [id number] Stat Cat Scan 05/04/24 16:21 Completed XR chest 1V portable [id number] Stat Exams 05/04/24 13:18 Completed XR hip RT 2-3V wo/w pel* [id number] Routine Exams 05/05/24 11:55 Completed XR shoulder RT min 2V* [id number] Routine Exams 05/05/24 11:55 Completed CV renal doppler [id number] Routine Ultrasound 05/05/24 05:51 Completed CV. echo complete* [id number] Routine Ultrasound 05/05/24 05:51 Completed Pending at discharge Category Date Time Status Complete Blood Count w/Auto AM LABS Lab 05/07/24 04:00 Ordered Comprehensive Metabolic Panel AM LABS Lab 05/07/24 04:00 Ordered Radiology Impressions Chest X-Ray 05/04/24 13:18 IMPRESSION: No acute cardiopulmonary process. Head CT 05/04/24 16:21 IMPRESSION: No large territorial infarct or intracranial bleed. Renal Ultrasound 05/05/24 05:51 IMPRESSION: Normal kidneys. No hemodynamically significant stenosis. Hip/Pelvis X-Ray 05/05/24 11:55 IMPRESSION: No acute findings. Shoulder X-Ray 05/05/24 11:55 IMPRESSION: No acute findings. Laboratory Results WBC 11.66 10^3/uL (3.29-11.43) H 05/06/24 02:26 RBC 5.69 10^6/uL (3.85-5.65) H 05/06/24 02:26 Hgb 15.70 g/dL (11.27-16.99) 05/06/24 02:26 Hct 48.5 % (37-53) 05/06/24 02:26 MCV 85.2 fl (82-101) 05/06/24 02:26 MCH 27.6 pg (27-33) 05/06/24 02:26 MCHC 32.4 g/dL (30-55) 05/06/24 02:26 RDW 13.6 % (12.1-15.1) 05/06/24 02:26 Plt Count 227 10^3/cmm (157-399) 05/06/24 02:26 MPV 11.1 fL (7.4-10.4) H 05/06/24 02:26 Neut % (Auto) 71.0 % 05/06/24 02:26 Lymph % (Auto) 20.6 % 05/06/24 02:26 [place] % (Auto) 7.5 % 05/06/24 02:26 Eos % (Auto) 0.3 % 05/06/24 02:26 Baso % (Auto) 0.4 % 05/06/24 02:26 Neut # (Auto) 8.27 10^3/uL (1.8-7.7) H 05/06/24 02:26 Lymph # (Auto) 2.4 10^3/uL (0.8-4.8) 05/06/24 02:26 [place] # (Auto) 0.9 10^3/uL (0.2-0.9) 05/06/24 02:26 Eos # (Auto) 0.0 10^3/uL (0.0-0.8) 05/06/24 02:26 Baso # (Auto) 0.1 10^3/uL (0.0-0.1) 05/06/24 02:26 Nucleated RBC % (auto) 0 % 05/06/24 02:26 Nucleated RBCs # 0.0 /100WBC 05/06/24 02:26 Sodium 141 mmol/L (136-145) 05/06/24 02:26 Potassium 4.0 mmol/L (3.5-5.1) 05/06/24 02:26 Chloride 108 mmol/L (98-107) H 05/06/24 02:26 Carbon Dioxide 22 mmol/L (22-29) 05/06/24 02:26 Anion Gap 15.0 (5-19) 05/06/24 02:26 BUN 19 mg/dL (8-23) 05/06/24 02:26 Creatinine 0.8 mg/dL (0.7-1.2) 05/06/24 02:26 GFR Calculation 98.6 mL/min (90-130) 05/06/24 02:26 Glucose 107 mg/dL (65-115) 05/06/24 02:26 Calculated Osmolality 295 mOsm/kg (285-295) 05/06/24 02:26 Calcium 9.2 mg/dL (8.5-10.5) 05/06/24 02:26 Magnesium 2.1 mg/dL (1.7-2.3) 05/05/24 03:43 Total Bilirubin 0.7 mg/dL (0.15-1.2) 05/06/24 02:26 AST 13 U/L (0-40) 05/06/24 02:26 ALT 30 U/L (0-41) 05/06/24 02:26 Alkaline Phosphatase 101 U/L (40-130) 05/06/24 02:26 Troponin T Baseline 11 ng/L (0-15) 05/04/24 13:40 Troponin T 120 Minute 10.93 ng/L (0-15) 05/04/24 15:50 Delta Troponin T -0.07 ABS# (0-10) L 05/04/24 15:50 Troponin T Hi Sens 6Hr 9.16 ng/L (0-15) 05/04/24 19:33 Troponin T Hi Sens 6Hr Delta -1.84 ng/L (0-12) L 05/04/24 19:33 Total Protein 6.6 g/dL (6.6-8.7) 05/06/24 02:26 Albumin 4.3 g/dL (3.5-5.2) 05/06/24 02:26 Globulin 2.3 g/dL (1.3-4.6) 05/06/24 02:26 TSH 3.28 uIU/mL (0.27-4.20) 05/05/24 03:43 Vitals Last Vital Signs Temp 98.5 F 05/06/24 11:25 Pulse 68 05/06/24 11:25 Resp 16 05/06/24 11:25 BP 148/87 05/06/24 11:25 Pulse Ox 96 05/06/24 11:25 O2 Del Method Room Air 05/06/24 11:25 Discharge Plan Discharge Patient Disposition: Home Condition: Stable Prescriptions: New prednisone 20 mg Tablet 20 mg PO DAILY 5 Days Qty: 5 0RF Continued polyethylene glycol 3350 [Miralax] 17 gram/dose powder 17 g PO DAILY PRN magnesium oxide [MagOx] 400 mg (241.3 mg magnesium) tablet 400 mg PO DAILY 30 Days Qty: 30 0RF pantoprazole 40 mg tablet,delayed release (DR/EC) 40 mg PO DAILY 90 Days Qty: 90 1RF tamsulosin [Flomax] 0.4 mg capsule 0.4 mg PO DAILY 90 Days Qty: 90 1RF montelukast 10 mg tablet 10 mg PO BEDTIME 90 Days Qty: 90 1RF cetirizine [Allergy Relief (cetirizine)] 10 mg tablet 10 mg PO DAILY tizanidine 4 mg tablet 4 mg PO Q6H PRN (Reason: muscle spasticity) Qty: 20 0RF Rx Instructions: do not exceed 3 doses per 24 hrs Changed hydralazine 10 mg tablet 20 mg PO TID 30 Days Qty: 180 0RF clonidine HCl 0.1 mg tablet 0.1 mg PO TID PRN (Reason: HTN) Qty: 30 0RF Rx Instructions: Take 0.1 mg every 8 for SBP >180 or DP >90 lisinopril 20 mg tablet 20 mg PO BIDWM 30 Days Qty: 60 0RF amlodipine 10 mg tablet 10 mg PO BIDWM 30 Days Qty: 60 0RF Discontinued fluticasone propionate 50 mcg/actuation spray,suspension 2 spray intranasal DAILY Qty: 16 11RF quinine sulfate 324 mg capsule 324 mg PO DAILY 30 Days Qty: 30 0RF celecoxib [Celebrex] 200 mg capsule 200 mg PO BID 30 Days Qty: 60 3RF No Action (DME) CPAP AUTO TITRATING See Rx Instructions .Route .MEDSUPPLY Qty: 1 0RF Rx Instructions: PLEASE PROVIDE NEW TUBING AND MASK. (DME) lumbar corsett See Rx Instructions .Route .MEDSUPPLY Qty: 1 0RF Rx Instructions: As directed (DME) C-PAP Supplies See Rx Instructions .Route .MEDSUPPLY Qty: 1 11RF Rx Instructions: As directed Discharge Orders: Discharge Order (Routine); Ordered 05/06/24 Ordered By: Delicia Carlisle Referrals: Bess Bernard NP [Primary Care Provider] - 4-7 days (We have notified your physician's clinic of the need for a follow-up appointment to be scheduled. If you have not heard from them within the next 2 business days, please call them directly. ) Discharge Diet: Low Salt Patient Instructions: Opioid Safety, Pain Management Activity Restrictions/Additional Instructions: Please maintain a chart of your blood pressure by checking twice a day as discussed. Please take this chart to your primary care physician's office for review in 5 to 7 days to assess if the change dose of medications are working well. If top number of the blood pressure is above 180, increase hydralazine from 20 mg to 30 mg. Hydralazine may need to be titrated up further after follow-up with your primary care physician. Please use Celebrex as needed only. Short course of steroids to help with your joint pains has been prescribed. Please follow-up with rheumatology. Processed foods have the most sodium. These foods usually come in cans, boxes, jars, and bags. They tend to have a lot of sodium even if they don't taste salty. In fact, many sweet foods have a lot of sodium in them. The only way to know for sure how much sodium you are eating is to check the label. Here are some examples of foods that often have too much sodium: ?Canned soups ?Rice and noodle mixes ?Sauces, dressings, and condiments (such as ketchup and mustard) ?Pre-made frozen meals (also called TV dinners ) ?Deli meats, hot dogs, and cheeses ?Smoked, cured, or pickled foods ?Salted snack foods and nuts ?Restaurant meals Here are some tips to help you eat less sodium: ?Avoid processed foods when possible. This is the most important thing you can do to eat less sodium. Processed foods include most foods that are sold in cans, boxes, jars, and bags. ?Instead of buying pre-made, processed foods, buy fresh or fresh-frozen fruits and vegetables. ( Fresh-frozen means the food is frozen without anything added to it.) ?Buy meats, fish, chicken, and turkey that are fresh instead of canned or sold at the deli counter. (Meats sold at the deli counter are high in sodium.) ?Try to eat at restaurants less often ?When possible, try to make meals from scratch at home using fresh ingredients ?If you do need to buy canned or packaged foods, choose ones that are labeled sodium-free or very low sodium One of best ways to limit your sodium is to only eat out at restaurants every once in a while. When you do eat out, try to choose places that offer healthier choices and fresh ingredients. No matter where you eat, when choosing what to order: ?Ask your artillery or naval gunfire observer if your meal can be made without salt ?Avoid foods that come with sauces or dips ?Choose plain grilled meats or fish and steamed vegetables ?Ask for oil and vinegar for your salad, rather than dressing ?If a meal you really want has more sodium than you should have, consider saving half of it to eat another day Discharge Attestations Time Spent in Discharge Care*: greater than 30 min Quality Metrics Clinical Quality Measures [ No reported AMI, CVA or VTE this stay] Coding Level of Care Code Acute Code for Chg Fwd Diagnoses Hypertensive urgency I16.0 Resistant hypertension I1A.0
[2024-05-06 15:30] VITALS: BP 148/87; PULSE 68; RESP 16; TEMP 36.9; O2SAT 96
== END 2024-05-06 15:32 | disposition home or self-care (01) | DRG 305 ==
LOC: ER 16:59 → ICU 17:09 → MEDSURG 05-05 14:14
PROVIDERS: Admitting Provider Internal Medicine; Emergency Provider Family Medicine; PCP Nurse Practitioner Family; Visit Provider Student in an Organized Health Care Education/Training Program
DX: I16.0 Hypertensive urgency (principal); F33.9 Major depressive disorder, recurrent, unspecified; I1A.0 Resistant hypertension; G47.33 Obstructive sleep apnea (adult) (pediatric); G25.2 Other specified forms of tremor; H54.40 Blindness, one eye, unspecified eye; M25.511 Pain in right shoulder; M25.551 Pain in right hip; G47.00 Insomnia, unspecified; M06.9 Rheumatoid arthritis, unspecified; M79.89 Other specified soft tissue disorders; Z98.890 Other specified postprocedural states
CPT/HCPCS: 36415; 70450; 71045; 73030; 73502; 80053; 83735; 84443; 84484; 85025; 93005; 93306; 93975; 96365; 96366; 96372; 96374; 96375; 96376; 99285; J0360; J1650; J3490; J7512

== ENCOUNTER → 2024-05-14 11:00 | Outpatient (BNVA) | payer MEDICARE, MEDICAID, SELFPAY | PROVIDERS: PCP Nurse Practitioner Family; Visit Provider Podiatrist Foot & Ankle Surgery | DX: L60.3 Nail dystrophy (principal); I73.9 Peripheral vascular disease, unspecified | CPT/HCPCS: 11721; 99203 ==

== ENCOUNTER → 2024-05-21 10:14 | Outpatient (BNVA) | payer MEDICARE, MEDICAID, SELFPAY | PROVIDERS: PCP Nurse Practitioner Family; Visit Provider Physician Assistant | DX: M19.012 Primary osteoarthritis, left shoulder; M75.41 Impingement syndrome of right shoulder; M75.42 Impingement syndrome of left shoulder | CPT/HCPCS: 20610; 73030; 99213; J3301 ==

== ENCOUNTER → 2024-06-24 14:10 | Outpatient (BNVA) | payer MEDICARE, MEDICAID, SELFPAY | PROVIDERS: PCP Nurse Practitioner Family; Visit Provider Internal Medicine Cardiovascular Disease | DX: E78.5 Hyperlipidemia, unspecified (principal); I10 Essential (primary) hypertension; E78.2 Mixed hyperlipidemia; R94.31 Abnormal electrocardiogram [ECG] [EKG]; M51.26 Other intervertebral disc displacement, lumbar region; R63.4 Abnormal weight loss; Z68.38 Body mass index [BMI] 38.0-38.9, adult; Z72.0 Tobacco use | CPT/HCPCS: 99204 ==

== ENCOUNTER 2024-07-04 19:27 | Observation (INO) | payer MEDICARE, MEDICAID, SELFPAY ==
[2024-07-04] VITALS (9 sets, daily range): BP systolic 131–169; BP diastolic 89–114; PULSE 68–86; RESP 18; TEMP 36.6; O2SAT 93–98; BMI 36.6
--- NOTE | 2024-07-04 19:46 | XRR_ITS ---
PROCEDURE INFORMATION: Exam: XR Chest Exam date and time: 07/04/2024 8:02 PM Age: 58 years old Clinical indication: Pain; Other: High BP; Chest pressure; Additional info: Chest pain TECHNIQUE: Imaging protocol: Radiologic exam of the chest. Views: 1 view. COMPARISON: CR (CHEST, ) 06/09/2024 5:50 PM FINDINGS: Lungs: Unremarkable. No consolidation. Pleural spaces: Unremarkable. No pleural effusion. No pneumothorax. Heart/Mediastinum: Unremarkable. No cardiomegaly. Bones/joints: Unremarkable. XR/XR chest 1V portable [id number] IMPRESSION: No acute findings.
--- NOTE | 2024-07-04 19:53 | ECG_ITS ---
[facility] Test Date: 2024-07-04 Pat Name: Benjamin Carrion Department: Room: Gender: Male Legal Consultant: : 1965 Requested By: Kelsea Eaton Order Number: [id number] Yoli MD: Chemo Eli M.D. Measurements Intervals [place] Rate: 70 P: 34 TX: 177 QRS: 31 QRSD: 91 T: 40 QT: 391 QTc: 423 Interpretive Statements SINUS RHYTHM POSSIBLE LEFT ATRIAL ENLARGEMENT [-0.1mV P-WAVE IN V1/V2] Compared to ECG 06/09/2024 19:14:57 Sinus tachycardia no longer present T-wave abnormality no longer present Electronically Signed On 07-05-2024 12:20:33 CDT by Chemo Eli M.D. [email or web address]
[2024-07-04 20:03] LABS: Basophils # 0.2 10^3/uL (0.0-0.1); Basophils % 1.4 %; Eosinophils # 0.1 10^3/uL (0.0-0.8); Eosinophils % 1.2 %; Hematocrit 47.2 % (37-53); Lymphocytes # 3.6 10^3/uL (0.8-4.8); Lymphocytes % 34.4 %; Mean Corpuscular HGB Conc 33.1 g/dL (30-55); Mean Corpuscular Hemoglobin 27.9 pg (27-33); Mean Corpuscular Volume 84.4 fl (82-101); Mean Platelet Volume 10.3 fL (7.4-10.4); Monocytes % 9.4 %; Neutrophils # 5.63 10^3/uL (1.8-7.7); Neutrophils % 53.2 %; Nucleated Red Blood Cells % 0 %; Platelet Count 301 10^3/cmm (157-399); Red Blood Count 5.59 10^6/uL (3.85-5.65); Red Cell Distribution Width 14.8 % (12.1-15.1); White Blood Count 10.59 10^3/uL (3.29-11.43)
--- NOTE | 2024-07-04 20:05 | ED_ITS ---
HPI - Dizziness 2 General: Chief Complaint: Dizziness Stated Complaint: bp high Time Seen by Provider: 07/04/24 19:42 History of Present Illness: HPI Narrative: 58-year-old man history of obesity and h ypertension who presents to the emergency room with chest discomfort, arm discomfort, headaches, dizziness, thank you you difficult to control blood pressure. He was seen in clinic recently and they were discussing stress test. He says he was told if the symptoms continued and his blood pressure continued to be so difficult to control go to the emergency room and see if he can be admitted for stress test there. Related Data Home Medications Medication Instructions Recorded Confirmed cetirizine 10 mg tablet (Allergy 10 mg PO DAILY 03/06/24 06/06/24 Relief (cetirizine)) polyethylene glycol 3350 17 17 g PO DAILY PRN 04/24/24 06/06/24 gram/dose oral powder (Miralax) spironolactone 25 1 tab PO DAILY 06/24/24 mg-hydrochlorothiazide 25 mg tablet Previous Rx's Medication Instructions Recorded C-PAP Supplies #1 ea 05/02/22 CPAP AUTO TITRATING #1 ea 06/30/22 lumbar corsett #1 ea 11/16/23 montelukast 10 mg tablet 10 mg PO BEDTIME 90 days #90 tabs 04/18/24 tamsulosin 0.4 mg capsule (Flomax) 0.4 mg PO DAILY 90 days #90 caps 04/18/24 pantoprazole 40 mg tablet,delayed 40 mg PO DAILY 90 days #90 tabs 04/24/24 release magnesium oxide 400 mg (241.3 mg 400 mg PO BID 30 days #60 tabs 05/27/24 magnesium) tablet (MagOx) amlodipine 5 mg tablet 5 mg PO BIDWM 30 days #60 tabs 06/04/24 fexofenadine 180 mg tablet 180 mg PO DAILY #30 tabs 06/04/24 (Cecy Allergy) fluticasone propionate 50 2 spray intranasal DAILY #16 grams 06/04/24 mcg/actuation nasal spray,suspension (Allergy Relief (fluticasone)) carvedilol 12.5 mg tablet 12.5 mg PO BID #60 tabs 06/24/24 Allergies Allergy/AdvReac Type Severity Reaction Status Date / Time chicken derived Allergy Severe anaphylaxis Verified 10/21/24 14:22 turkey Allergy Severe anaphylaxis Verified 06/24/24 14:22 Review of Systems 2 Narrative: Constitutional symptoms: Negative except as documented in HPI. Skin symptoms: Negative except as documented in HPI. Eye symptoms: Negative except as documented in HPI. ENMT symptoms: Negative except as documented in HPI. Respiratory symptoms: Negative except as documented in HPI. Cardiovascular symptoms: Negative except as documented in HPI. Gastrointestinal symptoms: Negative except as documented in HPI. Genitourinary symptoms: Negative except as documented in HPI. Musculoskeletal symptoms: Negative except as documented in HPI. Neurologic symptoms: Negative except as documented in HPI. Psychiatric symptoms: Negative except as documented in HPI. Endocrine symptoms: Negative except as documented in HPI. PFSH ED 2 PFSH: Medical History LUIS (obstructive sleep apnea) Major depressive disorder, recurrent severe without psychotic features Inguinal hernia Long-term current use of opiate analgesic Pain management contract signed DDD (degenerative disc disease), lumbar Facet syndrome, lumbar Surgical History Hx of colonoscopy 3 yrs ago History of esophagogastroduodenoscopy (EGD) S/P appendectomy Hx of appendectomy Hx of hernia repair Hx of rotator cuff surgery LEFT SHOULDER Family History Mother CAD (coronary artery disease) Cancer LUNG CANCER Social History Smoking and tobacco/nicotine status: tobacco/nicotine user, details unknown Second hand smoke exposure: No Alcohol intake: never Substance/Drug Use: never Lives independently: Yes Marital status: Physical Exam 2 Narrative: EXAM NARRATIVE: General: Alert, no acute distress. Skin: Warm, dry. Head: Normocephalic, atraumatic. Neck: Supple, trachea midline. Eye: Extraocular movements are intact. Ears, nose, mouth and throat: mucosa moist. Cardiovascular: Regular, Normal peripheral perfusion. Respiratory: Lungs are clear to auscultation, respirations are non-labored, breath sounds are equal, Symmetrical chest wall expansion. Gastrointestinal: Soft, Nontender, Non distended Musculoskeletal: Normal ROM, no deformity. Neurological: Alert and oriented, No focal neurological deficit observed. Psychiatric: Cooperative, appropriate mood & affect. Course 2 Vital Signs: Vital signs: Vital Signs Temperature 98 F 07/04/24 19:35 Pulse Rate 77 07/04/24 22:30 Respiratory Rate 18 07/04/24 19:35 Blood Pressure 167/98 07/04/24 22:30 Pulse Oximetry 93 07/04/24 22:30 Oxygen Delivery Me thod Room Air 07/04/24 22:30 Clincial Decision Support The following clinical decision support tools were used to aid in care of the patient HEART Score -> History: Moderately Suspicious, EKG: Non-specific Changes, Age: 45-64 yrs, Risk Factors: >/=3 Risk Factors, Troponin: Baseline Trop <16 ng/L. Resulting HEART Score: 5. MDM - Dizziness Medical Decision Making Differential diagnosis for patient with chest pain includes but is not limited to and based on the above HPI, review of systems and physical exam: Pneumonia. unstable angina. angina. Acute coronary syndrome / CT. Pulmonary embolism. Costochondritis / musculoskeletal. Pleurisy. Pericarditis. Esophageal spasm. Pancreatis. Cholecystitis. Orders placed to evaluate differential diagnosis based on the above differential, HPI and physical exam EKG: Time 1952. Rate 70. Normal sinus rhythm, No ST-T changes, no ectopy, normal AK & QRS intervals, This was reviewed and interpreted by myself the ER physician at 1954 Lab Review: Laboratory results were reviewed and interpreted by myself the emergency room physician. Lab work is unremarkable. No leukocytosis. No anemia. No renal failure. Troponin is right at the edge of normal at 15 initially. Chest x-ray: No acute process. No infiltrate. No pneumothorax. This was reviewed and interpreted by myself the ER physician. I reviewed the patient's medical record. Heart score is 5 which would indicate the patient should have observation status to rule out acute coronary syndrome Reexamination: Patient remained stable. No increased work of breathing. No altered mental status. No focal motor deficits. Consultation: I spoke with Dr. Gutierrez who is on-call for the hospitalist service who agrees to admission. To observation. Assessment and plan: Chest pain Headache Hypertension -I discussed the patient with the hospitalist on-call who is admitting the patient. - Discussed findings and plan with patient. Answered any questions. - All laboratory values were reviewed and interpreted personally by myself, the ER physician - All imaging was reviewed and interpreted personally by myself, the ER physician. - Evaluation and treatment of this problem were appropriate in the emergency setting Lab Data 07/04/24 19:56 07/04/24 20:38 Radiology Impressions Chest X-Ray 07/04/24 19:46 IMPRESSION: No acute findings. Laboratory Results WBC 10.59 10^3/uL (3.29-11.43) 07/04/24 19:56 RBC 5.59 10^6/uL (3.85-5.65) 07/04/24 19:56 Hgb 15.60 g/dL (11.27-16.99) 07/04/24 19:56 Hct 47.2 % (37-53) 07/04/24 19:56 MCV 84.4 fl (82-101) 07/04/24 19:56 MCH 27.9 pg (27-33) 07/04/24 19:56 MCHC 33.1 g/dL (30-55) 07/04/24 19:56 RDW 14.8 % (12.1-15.1) 07/04/24 19:56 Plt Count 301 10^3/cmm (157-399) 07/04/24 19:56 MPV 10.3 fL (7.4-10.4) 07/04/24 19:56 Neut % (Auto) 53.2 % 07/04/24 19:56 Lymph % (Auto) 34.4 % 07/04/24 19:56 [place] % (Auto) 9.4 % 07/04/24 19:56 Eos % (Auto) 1.2 % 07/04/24 19:56 Baso % (Auto) 1.4 % 07/04/24 19:56 Neut # (Auto) 5.63 10^3/uL (1.8-7.7) 07/04/24 19:56 Lymph # (Auto) 3.6 10^3/uL (0.8-4.8) 07/04/24 19:56 [place] # (Auto) 1.0 10^3/uL (0.2-0.9) H 07/04/24 19:56 Eos # (Auto) 0.1 10^3/uL (0.0-0.8) 07/04/24 19:56 Baso # (Auto) 0.2 10^3/uL (0.0-0.1) H 07/04/24 19:56 Nucleated RBC % (auto) 0 % 07/04/24 19:56 Nucleated RBCs # 0.0 /100WBC 07/04/24 19:56 Sodium 137 mmol/L (136-145) 07/04/24 20:38 Potassium 4.1 mmol/L (3.5-5.1) 07/04/24 20:38 Chloride 101 mmol/L (98-107) 07/04/24 20:38 Carbon Dioxide 26 mmol/L (22-29) 07/04/24 20:38 Anion Gap 14.1 (5-19) 07/04/24 20:38 BUN 19 mg/dL (8-23) 07/04/24 20:38 Creatinine 0.9 mg/dL (0.7-1.2) 07/04/24 20:38 GFR Calculation 86.1 mL/min (90-130) L 07/04/24 20:38 Glucose 106 mg/dL (65-115) 07/04/24 20:38 Calculated Osmolality 287 mOsm/kg (285-295) 07/04/24 20:38 Calcium 9.3 mg/dL (8.5-10.5) 07/04/24 20:38 Total Bilirubin 0.4 mg/dL (0.15-1.2) 07/04/24 20:38 AST 17 U/L (0-40) 07/04/24 20:38 ALT 41 U/L (0-41) 07/04/24 20:38 Alkaline Phosphatase 95 U/L (40-130) 07/04/24 20:38 Troponin T Baseline 15 ng/L (0-15) 07/04/24 20:38 NT-Pro-B Natriuret Pep 78 pg/mL (0-125) 07/04/24 20:38 Total Protein 5.9 g/dL (6.6-8.7) L 07/04/24 20:38 Albumin 4.3 g/dL (3.5-5.2) 07/04/24 20:38 Globulin 1.6 g/dL (1.3-4.6) 07/04/24 20:38 All radiology interpretation(s) finalized by discharge Discharge Plan Discharge Patient Disposition: Placed in Observation Clinical Impression: Chest pain, Hypertension Coding Level of Care Code ED Tank Riveter for Dinesh Padilla
[2024-07-04 21:05] LABS: Troponin(5th) Baseline 15 ng/L (0-15)
[2024-07-04 21:20] LABS: Alanine Aminotransferase 41 U/L (0-41); Albumin Level 4.3 g/dL (3.5-5.2); Alkaline Phosphatase 95 U/L (40-130); Anion Gap 14.1 (5-19); Aspartate Amino Transferase 17 U/L (0-40); Blood Urea Nitrogen 19 mg/dL (8-23); Calcium 9.3 mg/dL (8.5-10.5); Carbon Dioxide 26 mmol/L (22-29); Chloride 101 mmol/L (98-107); Creatinine Clr Calc Pharmacy 107.9215; Globulin 1.6 g/dL (1.3-4.6); Glomerular Filtration Rate 86.1 mL/min (90-130); Glucose 106 mg/dL (65-115); NT Pro B Type Natriuretic Pept 78 pg/mL (0-125); Osmolality Calculated 287 mOsm/kg (285-295); Potassium 4.1 mmol/L (3.5-5.1); Sodium 137 mmol/L (136-145); Total Bilirubin 0.4 mg/dL (0.15-1.2); Total Protein 5.9 g/dL (6.6-8.7)
--- NOTE | 2024-07-04 23:09 | P.HP_ITS ---
Providers/Chief Complaint 2 Admitting Physician: Federico Lemos MD Primary Care Provider: DELANEY Young Chief Complaint: extremely high bp, neck pain, left side pain History of Present Illness Benjamin Carrion is a 58 year old male with a recent evaluation by Dr. Gill. Patient states that he had waited 6 to 7 weeks to see him and stress test is ordered for next week. Patient called Dr. Gill's office today and was told by assistant plant manager to go to the emergency department to see if he would get admitted and stress test could be moved forward. Patient reports chest pain left neck pain left axilla pain and blood pressure running high. He brings in blood pressure showing 140-183/84-158. Heart rate running 74-106. Patient tells me that he had a coronary angiogram 8 years ago showing coronary artery disease but not bad enough to need a stent. 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 He states he is allergic to chicken and turkey which causes his throat to tighten and hard to breathe. He has been avoiding salt and rea recently and weight is down from 276 pounds down to 248 pounds. He saw nurse practitioner car with blood pressure 180/90. Patient does not smoke and never has he does not currently drink alcohol he wants full code Review of Systems 2 Narrative: General No fevers or chills has had weight loss with effort Cardiovascular says his legs were more swollen now trace edema Cardiovascular positive for chest pain left axillary pain and left neck pain Respiratory no shortness of breath cough wheezing Medications/Allergies Home Medications Medication Instructions Recorded Confirmed Last Taken Type C-PAP Supplies #1 ea 05/02/22 06/06/24 Unknown Rx CPAP AUTO TITRATING #1 ea 06/30/22 06/06/24 Unknown Rx lumbar corsett #1 ea 11/16/23 06/06/24 Unknown Rx cetirizine 10 mg tablet (Allergy 10 mg PO DAILY 03/06/24 06/06/24 03/11/24 History Relief (cetirizine)) montelukast 10 mg tablet 10 mg PO BEDTIME 90 days #90 tabs 04/18/24 06/06/24 Unknown Rx tamsulosin 0.4 mg capsule (Flomax) 0.4 mg PO DAILY 90 days #90 caps 04/18/24 06/06/24 Unknown Rx pantoprazole 40 mg tablet,delayed 40 mg PO DAILY 90 days #90 tabs 04/24/24 06/06/24 Unknown Rx release polyethylene glycol 3350 17 17 g PO DAILY PRN 04/24/24 06/06/24 Unknown History gram/dose oral powder (Miralax) magnesium oxide 400 mg (241.3 mg 400 mg PO BID 30 days #60 tabs 05/27/24 06/06/24 Unknown Rx magnesium) tablet (MagOx) amlodipine 5 mg tablet 5 mg PO BIDWM 30 days #60 tabs 06/04/24 06/06/24 Unknown Rx fexofenadine 180 mg tablet 180 mg PO DAILY #30 tabs 06/04/24 06/06/24 Unknown Rx (Cecy Allergy) fluticasone propionate 50 2 spray intranasal DAILY #16 grams 06/04/24 06/06/24 Unknown Rx mcg/actuation nasal spray,suspension (Allergy Relief (fluticasone)) carvedilol 12.5 mg tablet 12.5 mg PO BID #60 tabs 06/24/24 06/24/24 Unknown Rx spironolactone 25 1 tab PO DAILY 06/24/24 Unknown History mg-hydrochlorothiazide 25 mg tablet Allergies Allergy/AdvReac Type Severity Reaction Status Date / Time chicken derived Allergy Severe anaphylaxis Verified 06/24/24 14:22 turkey Allergy Severe anaphylaxis Verified 06/24/24 14:22 PFSH Acute 2 PFSH: Medical History LUIS (obstructive sleep apnea) Major depressive disorder, recurrent severe without psychotic features Inguinal hernia Long-term current use of opiate analgesic Pain management contract signed DDD (degenerative disc disease), lumbar Facet syndrome, lumbar Surgical History Hx of colonoscopy 3 yrs ago History of esophagogastroduodenoscopy (EGD) S/P appendectomy Hx of appendectomy Hx of hernia repair Hx of rotator cuff surgery LEFT SHOULDER Family History Mother CAD (coronary artery disease) Cancer LUNG CANCER Social History Smoking and tobacco/nicotine status: tobacco/nicotine user, details unknown Second hand smoke exposure: No Alcohol intake: never Substance/Drug Use: never Lives independently: Yes Marital status: Vitals/I&O/Wt Last Vital Signs Temp 98 F 07/04/24 19:35 Pulse 77 07/04/24 22:30 Resp 18 07/04/24 19:35 BP 167/98 07/04/24 22:30 Pulse Ox 93 07/04/24 22:30 O2 Del Method Room Air 07/04/24 22:30 Weight last 48 hrs Weight 112.491 kg Physical Exam 2 Narrative: General Well-developed well-nourished overweight male in no cardiopulmonary distress he is alert and pleasant CV regular rate and rhythm no loud murmur Lungs clear to auscultation bilaterally Abdomen positive bowel sounds soft he has mild right upper quadrant but also left upper quadrant tenderness Calves trace ankle edema no asymmetry Mood and affect normal Skin warm and dry Data 07/04/24 19:56 07/04/24 20:38 A&P Assessment and plan (1) Hypertensive urgency: Started on IV enalapril and IV metoprolol. Will resume home blood pressure meds with change of Flomax to Cardura (2) Atypical chest pain: Patient complaining of recurring chest pain initial cardiac enzymes are negative but his series is being run. He will need a nuclear stress test (3) Coronary artery disease: Patient with hypertension [id number] intermittent blood pressures with systolic over 200 I have started IV enalapril and IV metoprolol. Resume home medications except change Flomax to Cardura 2 mg nightly. I am told the patient can get a nuclear stress test in the morning. He is not able to walk on the treadmill due to lumbar spinal stenosis and history of surgery. Patient states he had selective coronary angiogram 8 years ago with coronary artery disease nonocclusive (4) BPH (benign prostatic hyperplasia): Stop Flomax start Cardura 2 mg nightly Qualifiers: Lower urinary tract symptom presence: unspecified whether lower urinary tract symptoms present Qualified Code(s): N40.0 - Benign prostatic hyperplasia without lower urinary tract symptoms Attestations 2 Medical Necessity Statement*: Patient with [id number] blood pressure anticipate that he will have blood pressure control cardiac rule out and care not expected to cross 2 midnights Coding Level of Care Code 81911 Diagnoses Hypertensive urgency I16.0 Atypical chest pain R07.89 Coronary artery disease I25.10 Benign prostatic hyperplasia, unspecified whether lower urinary tract symptoms present N40.0 Lower urinary tract symptom presence: unspecified whether lower urinary tract symptoms present Time Spent (min) 70
[2024-07-04] MEDS: aspirin 81 mg Chew Tablet 162 MG PO (23:10)
[2024-07-04] MEDS: enoxaparin 100 mg/mL Syringe SUBCUT (23:11)
[2024-07-04] MEDS: enalaprilat 2.5 mg/2 mL SDV 1.25 MG IVP (23:13)
[2024-07-04] MEDS: metoprolol tartrate 1 mg/1 mL SDV 5 mL 5 MG IVP (23:13)
[2024-07-04 23:25] LABS: Troponin 5 2HR 15.97 ng/L (0-15); Troponin 5 2HR Delta 0.97 ABS# (0-10)
[2024-07-05] VITALS (13 sets, daily range): BP systolic 116–157; BP diastolic 75–105; PULSE 61–77; RESP 15–25; TEMP 36.4–37.2; O2SAT 93–98
[2024-07-05] MEDS: montelukast sodium 10 mg Tablet PO ×2 (01:35→20:35)
[2024-07-05] MEDS: acetaminophen 325 mg Tablet 650 MG PO ×2 (01:35→07:53)
--- NOTE | 2024-07-05 01:46 | ECG_ITS ---
[facility] 2024[facility]05 Pat Name: Benjamin Carrion Department: Room: 107 Gender: Male Filling Layer Up: : 1965 Requested By: Kelsea Eaton Order Number: [id number] Yoli MD: Chemo Eli M.D. Measurements Intervals [place] Rate: 62 P: 23 AR: 182 QRS: 23 QRSD: 94 T: 23 QT: 409 QTc: 417 Interpretive Statements SINUS RHYTHM Compared to ECG 07/04/2024 19:53:32 No significant changes Electronically Signed On 07-05-2024 12:23:41 CDT by Chemo Eli M.D. [id number]
[2024-07-05 02:37] LABS: Troponin 5 6HR 18.13 ng/L (0-15); Troponin 5 6HR Delta 3.13 ng/L (0-12)
[2024-07-05] MEDS: fluticasone nasal spray 16gm Btl 2 SPRAY INTRANASAL (07:52)
[2024-07-05] MEDS: amlodipine 5 mg Tablet PO ×2 (07:54→17:41)
[2024-07-05] MEDS: carvedilol 12.5 mg Tablet PO ×2 (07:54→17:41)
[2024-07-05] MEDS: hydroCHLOROthiazide 25 mg Tablet PO (07:54)
[2024-07-05] MEDS: spironolactone 25 mg Tablet PO (07:54)
[2024-07-05] MEDS: aspirin 81 mg EC Tablet PO (07:54)
[2024-07-05] MEDS: magnesium oxide 400 mg tablet PO ×2 (07:54→17:41)
[2024-07-05] MEDS: cetirizine 10 mg Tablet PO (07:54)
[2024-07-05] MEDS: pantoprazole DR 40 mg Tablet PO (07:55)
[2024-07-05] MEDS: enoxaparin 100 mg/mL Syringe SUBCUT (10:35)
--- NOTE | 2024-07-05 12:41 | PC.CHAP ---
Pastoral Care Encounter/Spiritual Assessment Type of Contact [] Declined basket operator visit [] Patient/Family/Request visit [] Outpatient visit [] Follow-up visit [] Physician referral [] Code/Alert [] Routine visit [] Staff referral [] Actively dying [] Patient sleeping [] Family support [] [] Out of room [] Palliative care [] [] Receiving care in room [] Pre-surgical visit [] Trauma [] Long length of stay [] ICU visit [] Other: Relational/Emotional Strength [] Patient feels connected with others/family/visitors/staff [] Distress [] Loneliness/isolation [] Abandonment Spirituality of Patient [] Person of [place] [] Attends Uatsdin of their [place] [] Believes in Prayer [] Reads Bible or Sikhism materials [] There are Spiritual issues to be addressed Assistant Professor Nurse Education Interventions [] Prayer [] Active listening [] Non-anxious presence [] Spiritual/emotional support [] Crisis/trauma care [] Spiritual counseling [] Bereavement support [] Provided bereavement packet [] Provided Bible/devotional materials [] Provided toy/stuffed animal, coloring book to patient or family member [] Provided Communion [] Anointing/[place] [] Salvation [] Completed spiritual assessment [] Other: Impact on Illness or Injury [] Angry [] Fearful [] Anxious [] Often cries [] Exhaustion [] Unable to work [] Unable to attend yarsani [] Unable to walk/stand [] Unable to read [] Unable to drive [] Unable to eat/drink [] Unable to sleep [] Unable to be with family [] Patient intubated [] Other: Summary Staff in room Time spent with patient
--- NOTE | 2024-07-05 16:36 | P.PN_ITS ---
Subjective 2 Subjective: Reports that he is feeling better. He is not having any chest pain, pressure or shortness of breath at this time. Says he was advised to have stress test today but he has not heard anything about it. He did have breakfast and lunch today. Medications: Reviewed: Yes Vitals/I&O/Wt Last Vital Signs Temp 97.8 F 07/05/24 16:00 Pulse 63 07/05/24 16:00 Resp 18 07/05/24 16:00 BP 137/77 07/05/24 16:00 Pulse Ox 97 07/05/24 16:00 O2 Del Method Room Air 07/05/24 16:00 07/05/24 07/05/24 07/05/24 06:59 14:59 22:59 Intake Total 200 / 200 720 / 720 Output Total 300 / 300 Balance -100 / -100 720 / 720 Weight last 48 hrs Weight 240 lb Weight 252 lb 9.6 oz Weight 248 lb Physical Exam 2 Narrative: General: Cooperative patient in no apparent distress. Well developed. HEENT: Normocephalic, Atraumatic. External ears normal. Nasal passages patent without drainage. MMM. Heart: RRR. Resp: LCTA. No respiratory distress, no use of accessory muscles. Abd: Soft, non-tender. Non-distended. Extremities: No edema. Skin: No rash or lesions on exposed areas. Data 07/04/24 19:56 07/04/24 20:38 A&P Assessment and plan (1) Hypertensive urgency: Started on IV enalapril and IV metoprolol. Will resume home blood pressure meds with change of Flomax to Cardura (2) Atypical chest pain: Patient complaining of recurring chest pain initial cardiac enzymes are negative but his series is being run. He will need a nuclear stress test (3) Coronary artery disease: Patient with hypertension [id number] intermittent blood pressures with systolic over 200 I have started IV enalapril and IV metoprolol. Resume home medications except change Flomax to Cardura 2 mg nightly. I am told the patient can get a nuclear stress test in the morning. He is not able to walk on the treadmill due to lumbar spinal stenosis and history of surgery. Patient states he had selective coronary angiogram 8 years ago with coronary artery disease nonocclusive (4) BPH (benign prostatic hyperplasia): Stop Flomax start Cardura 2 mg nightly Qualifiers: Lower urinary tract symptom presence: unspecified whether lower urinary tract symptoms present Qualified Code(s): N40.0 - Benign prostatic hyperplasia without lower urinary tract symptoms Plan PLAN FOR TODAY: Continue close inpatient monitoring. Currently without chest pain. EKG and telemetry without ST-T changes. His symptoms are consistent with typical Angina, which include chest pressure that worsens with exertion, and improves with rest. Blood pressure is better controlled, however is still above goal. I will add lisinopril to his regimen. Continue other medications including amlodipine, carvedilol, spironolactone. Plan for now is to arrange for a stress test on Monday morning. Unable to accomplish this over the weekend. He does see Dr. Gill for cardiology. Will send results to him. Continue other home medications for chronic illnesses. Code Status: Full IVF: none DVT PPx: Lovenox GI PPx: Pantoprazole ABx: None Diet: Cardiac Discharge plan: Home when able Attestations 2 Medical Necessity Statement*: Will need continued inpatient monitoring for hypertensive urgency, titration of blood pressure medications, chest pain workup, stress test for angina, and cardiac rule out. Coding Level of Care Code Acute Code for Chg Fwd Moderate MDM includes number and complexity of problems actively addressed during encounter, amount and/or complexity of data reviewed/ordered and described risk of complication, morbidity or mortality of management as documented Diagnoses Hypertensive urgency I16.0 Atypical chest pain R07.89 Coronary artery disease I25.10 Benign prostatic hyperplasia, unspecified whether lower urinary tract symptoms present N40.0 Lower urinary tract symptom presence: unspecified whether lower urinary tract symptoms present
--- NOTE | 2024-07-05 16:38 | ECG_ITS ---
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 Interpretive Statements Lung unchanged pre/post procedure; Intraprocedure shortess of breath; Symptoms resoled by discharge [id number]
[2024-07-05] MEDS: doxazosin 1 mg Tablet 2 MG PO (20:35)
[2024-07-05] MEDS: polyethylene glycol 3350 Pkt 17 gm PO (21:05)
[2024-07-06] VITALS (8 sets, daily range): BP systolic 115–150; BP diastolic 63–85; PULSE 54–72; RESP 15–24; TEMP 36.6–36.8; O2SAT 95–98; BMI 37.0
[2024-07-06] MEDS: enoxaparin 100 mg/mL Syringe SUBCUT ×3 (00:26→23:32)
[2024-07-06] MEDS: acetaminophen 325 mg Tablet 650 MG PO (02:17)
[2024-07-06] MEDS: morphine 4 mg/mL SDV 1 mL 2 MG IVP (03:16)
[2024-07-06] MEDS: aspirin 81 mg EC Tablet PO (08:37)
[2024-07-06] MEDS: lisinopril 20 mg Tablet PO (08:37)
[2024-07-06] MEDS: pantoprazole DR 40 mg Tablet PO (08:38)
[2024-07-06] MEDS: cetirizine 10 mg Tablet PO (08:38)
[2024-07-06] MEDS: carvedilol 12.5 mg Tablet PO ×2 (08:38→18:06)
[2024-07-06] MEDS: spironolactone 25 mg Tablet PO (08:38)
[2024-07-06] MEDS: fluticasone nasal spray 16gm Btl 2 SPRAY INTRANASAL (08:38)
[2024-07-06] MEDS: magnesium oxide 400 mg tablet PO ×2 (08:38→18:05)
[2024-07-06] MEDS: hydroCHLOROthiazide 25 mg Tablet PO (08:38)
[2024-07-06] MEDS: amlodipine 5 mg Tablet PO ×2 (08:38→18:05)
[2024-07-06 11:27] LABS: Basophils # 0.1 10^3/uL (0.0-0.1); Basophils % 1.3 %; Eosinophils # 0.1 10^3/uL (0.0-0.8); Eosinophils % 1.1 %; Lymphocytes # 2.5 10^3/uL (0.8-4.8); Lymphocytes % 28.9 %; Mean Corpuscular Hemoglobin 28.3 pg (27-33); Mean Corpuscular Volume 85.7 fl (82-101); Monocytes % 10.9 %; Neutrophils # 5.03 10^3/uL (1.8-7.7); Neutrophils % 57.6 %; Nucleated Red Blood Cells % 0 %; Platelet Count 240 10^3/cmm (157-399); Red Blood Count 5.37 10^6/uL (3.85-5.65); Red Cell Distribution Width 14.5 % (12.1-15.1); White Blood Count 8.73 10^3/uL (3.29-11.43)
[2024-07-06 11:46] LABS: Alanine Aminotransferase 45 U/L (0-41); Albumin Level 3.9 g/dL (3.5-5.2); Alkaline Phosphatase 81 U/L (40-130); Anion Gap 12.8 (5-19); Aspartate Amino Transferase 18 U/L (0-40); Blood Urea Nitrogen 17 mg/dL (8-23); Calcium 8.9 mg/dL (8.5-10.5); Carbon Dioxide 25 mmol/L (22-29); Chloride 101 mmol/L (98-107); Creatinine Clr Calc Pharmacy 122.0833; Globulin 1.6 g/dL (1.3-4.6); Glomerular Filtration Rate 98.6 mL/min (90-130); Glucose 99 mg/dL (65-115); Iron 95 ug/dL (59-158); Osmolality Calculated 282 mOsm/kg (285-295); Percent Saturation 37.4 % (20-50); Potassium 3.8 mmol/L (3.5-5.1); Sodium 135 mmol/L (136-145); Total Bilirubin 0.8 mg/dL (0.15-1.2); Total Iron Binding Capacity 254 mcg/dl; Total Protein 5.5 g/dL (6.6-8.7); Unsaturated Iron Binding 159 ug/dL (112-347)
[2024-07-06 11:55] LABS: Estmated Average Glucose 137; Hemoglobin A1C 6.4 % (4.0-6.0)
[2024-07-06] MEDS: TRAMadol 50 mg Tablet PO ×2 (12:23→21:03)
--- NOTE | 2024-07-06 16:27 | PM.PN ---
Subjective Subjective: No acute vents overnight. Patient states he is feeling a lot better but still concerned for chest pain. Denies any nausea, vomiting, headache. States he is happy the blood pressures are better controlled. Medications: Reviewed: Yes Vitals/I&O/Wt Last Vital Signs Temp 98.2 F 07/06/24 15:35 Pulse 72 07/06/24 15:35 Resp 15 07/06/24 15:35 BP 125/85 07/06/24 15:35 Pulse Ox 97 07/06/24 15:35 O2 Del Method Room Air 07/06/24 15:35 07/06/24 07/06/24 07/06/24 06:59 14:59 22:59 Intake Total 952 / 952 Output Total 400 / 901 Balance -400 / 299 952 / 952 Weight last 48 hrs Weight 113.7 kg Weight 112.899 kg Weight 108.862 kg Weight 114.577 kg Weight 112.491 kg Physical Exam Narrative: General: Cooperative patient in no apparent distress. Well developed. HEENT: Normocephalic, Atraumatic. External ears normal. Nasal passages patent without drainage. MMM. Heart: RRR. Resp: LCTA. No respiratory distress, no use of accessory muscles. Abd: Soft, non-tender. Non-distended. Extremities: No edema. Skin: No rash or lesions on exposed areas. Data 07/06/24 11:18 07/06/24 11:18 A&P Assessment and plan (1) Hypertensive urgency: Resolved. Blood pressure better controlled. Goal blood pressure less than 140/90 mmHg. Continue with home dose of Coreg, Cardura, spironolactone. Hydrochlorothiazide and lisinopril added earlier in the admission. Blood pressure is better controlled. Will continue the same for now. If can plan to discontinue spironolactone will continue on Coreg Cardura, lisinopril and hydrochlorothiazide. (2) Atypical chest pain: Has been scheduled for a stress test as an outpatient. Typical chest pain on admission. Patient does have risk factors for CAD including uncontrolled hypertension, hyperlipidemia. Patient was scheduled for stress test as an outpatient by his outpatient dictating machine transcriber. Plan for Lexiscan stress test on Monday. (3) Coronary artery disease: Check A1c, lipid panel. Continue baby aspirin. Add atorvastatin 40 mg oral daily. Patient is agreeable. Does have history of CAD and family (4) BPH (benign prostatic hyperplasia): Stop Flomax start Cardura 2 mg nightly Qualifiers: Lower urinary tract symptom presence: unspecified whether lower urinary tract symptoms present Qualified Code(s): N40.0 - Benign prostatic hyperplasia without lower urinary tract symptoms Plan Code Status: Full IVF: none DVT PPx: Lovenox GI PPx: Pantoprazole ABx: None Diet: Cardiac Discharge plan: Home when able Attestations Medical Necessity Statement*: Requires further hospitalization for management of atypical chest pain requiring stress test, uncontrolled hypertension as antihypertensives were adjusted Diagnoses Hypertensive urgency I16.0 Atypical chest pain R07.89 Coronary artery disease I25.10 Benign prostatic hyperplasia, unspecified whether lower urinary tract symptoms present N40.0 Lower urinary tract symptom presence: unspecified whether lower urinary tract symptoms present
[2024-07-06] MEDS: polyethylene glycol 3350 Pkt 17 gm PO (18:08)
[2024-07-06] MEDS: atorvastatin 40 mg Tablet PO (21:03)
[2024-07-06] MEDS: doxazosin 1 mg Tablet 2 MG PO (21:03)
[2024-07-06] MEDS: montelukast sodium 10 mg Tablet PO (21:03)
[2024-07-07] VITALS (9 sets, daily range): BP systolic 107–134; BP diastolic 59–84; PULSE 58–70; RESP 14–25; TEMP 36.6–37; O2SAT 94–99
[2024-07-07 03:30] LABS: Basophils # 0.1 10^3/uL (0.0-0.1); Basophils % 0.9 %; Eosinophils # 0.1 10^3/uL (0.0-0.8); Eosinophils % 0.9 %; Hematocrit 46.2 % (37-53); Lymphocytes # 2.9 10^3/uL (0.8-4.8); Lymphocytes % 30.2 %; Mean Corpuscular HGB Conc 32.9 g/dL (30-55); Mean Corpuscular Hemoglobin 28.2 pg (27-33); Mean Corpuscular Volume 85.7 fl (82-101); Mean Platelet Volume 10.8 fL (7.4-10.4); Monocytes # 0.9 10^3/uL (0.2-0.9); Monocytes % 9.7 %; Neutrophils # 5.55 10^3/uL (1.8-7.7); Neutrophils % 57.9 %; Nucleated Red Blood Cells % 0 %; Platelet Count 262 10^3/cmm (157-399); Red Blood Count 5.39 10^6/uL (3.85-5.65); Red Cell Distribution Width 14.6 % (12.1-15.1)
[2024-07-07 03:53] LABS: Magnesium 2.3 mg/dL (1.7-2.3)
[2024-07-07 03:54] LABS: Alanine Aminotransferase 40 U/L (0-41); Albumin Level 3.9 g/dL (3.5-5.2); Alkaline Phosphatase 85 U/L (40-130); Anion Gap 14.7 (5-19); Aspartate Amino Transferase 17 U/L (0-40); Blood Urea Nitrogen 18 mg/dL (8-23); Calcium 8.8 mg/dL (8.5-10.5); Carbon Dioxide 26 mmol/L (22-29); Chloride 99 mmol/L (98-107); Creatinine Clr Calc Pharmacy 108.5185; Globulin 2.1 g/dL (1.3-4.6); Glomerular Filtration Rate 86.1 mL/min (90-130); Glucose 108 mg/dL (65-115); Osmolality Calculated 284 mOsm/kg (285-295); Potassium 3.7 mmol/L (3.5-5.1); Sodium 136 mmol/L (136-145); Total Bilirubin 0.7 mg/dL (0.15-1.2)
[2024-07-07 04:09] LABS: Folate Level 7.7 ng/mL (4.5-32.2)
[2024-07-07] MEDS: artificial tears Op Soln 15 mL Btl 2 DROP EYE-BOTH (05:27)
[2024-07-07] MEDS: amlodipine 5 mg Tablet PO ×2 (08:42→17:34)
[2024-07-07] MEDS: fluticasone nasal spray 16gm Btl 2 SPRAY INTRANASAL (08:42)
[2024-07-07] MEDS: hydroCHLOROthiazide 25 mg Tablet PO (08:42)
[2024-07-07] MEDS: aspirin 81 mg EC Tablet PO (08:42)
[2024-07-07] MEDS: magnesium oxide 400 mg tablet PO ×2 (08:42→17:34)
[2024-07-07] MEDS: lisinopril 20 mg Tablet PO (08:42)
[2024-07-07] MEDS: cetirizine 10 mg Tablet PO (08:42)
[2024-07-07] MEDS: pantoprazole DR 40 mg Tablet PO (08:42)
[2024-07-07] MEDS: carvedilol 12.5 mg Tablet PO ×2 (08:42→17:34)
[2024-07-07] MEDS: acetaminophen 325 mg Tablet 650 MG PO (08:45)
--- NOTE | 2024-07-07 10:20 | USR_ITS ---
PROCEDURE INFORMATION: Exam: US Duplex Bilateral Extracranial Arteries; Complete; Carotid Arteries Exam date and time: 07/07/2024 2:42 PM Age: 58 years old Clinical indication: Other: CVA TECHNIQUE: Imaging protocol: Real-time duplex ultrasound scan of the bilateral extracranial arteries combining huntley scale, color Doppler and spectral waveform analysis with image documentation. Complete exam. Exam focused on the carotid arteries. COMPARISON: CT head wo con* [id number] 07/07/2024 11:49 AM FINDINGS: Right common carotid artery: Unremarkable. No occlusion or stenosis. Waveforms are normal. Right internal carotid artery: Unremarkable. No occlusion or stenosis. Waveforms are normal. Right ICA/CCA ratio: Within normal limits. Right external carotid artery: No stenosis in the origin. Right vertebral artery: Unremarkable. Antegrade flow. Left common carotid artery: Unremarkable. No occlusion or stenosis. Waveforms are normal. Left internal carotid artery: Unremarkable. No occlusion or stenosis. Waveforms are normal. Left ICA/CCA ratio: Within normal limits. Left external carotid artery: No stenosis in the origin. Left vertebral artery: Unremarkable. Antegrade flow. US/CV carotid duplex BI* [id number] IMPRESSION: No significant arterial stenosis. REFERENCES: SRU CRITERIA. The degree of internal carotid artery stenosis is based on criteria defined by the Society of Radiologists in Ultrasound (SRU). Normal is no stenosis. Mild is less than 50% stenosis. Moderate is 50-69% stenosis. Severe is greater than 69% stenosis to near occlusion. Near occlusion is a markedly narrowed lumen. Total occlusion is no detectable patent lumen.
--- NOTE | 2024-07-07 10:20 | CTR_ITS ---
PROCEDURE INFORMATION: Exam: CT Head Without Contrast Exam date and time: 07/07/2024 11:49 AM Age: 58 years old Clinical indication: Dizziness and visual disturbance; Additional info: Blurry vision TECHNIQUE: Imaging protocol: Computed tomography of the head without contrast. Radiation optimization: All CT scans at this facility use at least one of these dose optimization techniques: automated exposure control; mA and/or kV adjustment per patient size (includes targeted exams where dose is matched to clinical indication); or iterative reconstruction. COMPARISON: CT head wo con* [id number] 05/04/2024 4:32 PM RADIATION DOSE METRICS: Total DLP (mGy-cm): 1124.78 FINDINGS: Brain: Normal. No hemorrhage. Unremarkable white matter. No mass effect. Cerebral ventricles: No ventriculomegaly. Paranasal sinuses: Visualized sinuses are unremarkable. No fluid levels. Mastoid air cells: Visualized mastoid air cells are well aerated. Bones: Unremarkable. No acute fracture. Soft tissues: Unremarkable. CT/CT head wo con* [id number] IMPRESSION: No acute intracranial abnormality.
[2024-07-07] MEDS: enoxaparin 100 mg/mL Syringe SUBCUT ×2 (12:33→23:31)
--- NOTE | 2024-07-07 12:59 | PM.PN ---
Subjective Subjective: No acute events overnight. Patient stated he had a restful night. But today morning after waking up he complained of headache and mild blurry vision on the left eye. He denies any weakness in his arms or legs, nausea vomiting. He is complaining of pain on the left side of his neck which she states is chronic. Medications: Reviewed: Yes Vitals/I&O/Wt Last Vital Signs Temp 98.4 F 07/07/24 11:38 Pulse 69 07/07/24 11:38 Resp 21 H 07/07/24 11:38 BP 118/70 07/07/24 11:38 Pulse Ox 95 07/07/24 11:38 O2 Del Method Room Air 07/07/24 11:38 07/06/24 07/07/24 07/07/24 23:59 06:59 14:59 Intake Total 1020 / 1020 Balance 1020 / 1020 Weight last 48 hrs Weight 115.7 kg Weight 115.7 kg Weight 113.7 kg Weight 112.899 kg Physical Exam Narrative: General: Cooperative patient in no apparent distress. Well developed. HEENT: Normocephalic, Atraumatic. External ears normal. Nasal passages patent without drainage. MMM. Heart: RRR. Resp: LCTA. No respiratory distress, no use of accessory muscles. Abd: Soft, non-tender. Non-distended. Extremities: No edema. Skin: No rash or lesions on exposed areas. Data 07/07/24 02:18 07/07/24 02:18 A&P Assessment and plan (1) Hypertensive urgency: Resolved. Blood pressure better controlled. Goal blood pressure less than 140/90 mmHg. Continue with home dose of Coreg, Cardura, spironolactone. Hydrochlorothiazide and lisinopril added earlier in the admission. Blood pressure is better controlled. Will continue the same for now. If can plan to discontinue spironolactone will continue on Coreg Cardura, lisinopril and hydrochlorothiazide. (2) Atypical chest pain: Has been scheduled for a stress test as an outpatient. Typical chest pain on admission. Patient does have risk factors for CAD including uncontrolled hypertension, hyperlipidemia. Patient was scheduled for stress test as an outpatient by his outpatient title i math tutor. Plan for Lexiscan stress test on Monday. (3) Coronary artery disease: Check A1c, lipid panel. Continue baby aspirin. Add atorvastatin 40 mg oral daily. Patient is agreeable. Does have history of CAD and family (4) BPH (benign prostatic hyperplasia): Stop Flomax start Cardura 2 mg nightly Qualifiers: Lower urinary tract symptom presence: unspecified whether lower urinary tract symptoms present Qualified Code(s): N40.0 - Benign prostatic hyperplasia without lower urinary tract symptoms Plan Headache with blurry vision: Stroke unlikely but given history of uncontrolled hypertension and hyperlipidemia will need to rule out the same. Check CT head, carotid Dopplers. Patient already on aspirin and statin. Will continue. Plan for the day: Blood pressure is well-controlled. Continue with current antihypertensive including amlodipine 5 mg twice daily, Coreg 12.5 mg twice daily, Cardura, hydrochlorothiazide and lisinopril. Continue to hold off on spironolactone. Most likely will discontinue spironolactone on discharge. Awaiting Lexiscan stress test in AM. Code Status: Full IVF: none DVT PPx: Lovenox GI PPx: Pantoprazole ABx: None Diet: Cardiac Discharge plan: Home when able Attestations Medical Necessity Statement*: Requires further hospitalization for management of unstable angina as patient awaits stress test, uncontrolled hypertension while antihypertensives are adjusted, CVA is ruled out Diagnoses Hypertensive urgency I16.0 Atypical chest pain R07.89 Coronary artery disease I25.10 Benign prostatic hyperplasia, unspecified whether lower urinary tract symptoms present N40.0 Lower urinary tract symptom presence: unspecified whether lower urinary tract symptoms present
[2024-07-07] MEDS: polyethylene glycol 3350 Pkt 17 gm PO (16:00)
[2024-07-07] MEDS: montelukast sodium 10 mg Tablet PO (20:21)
[2024-07-07] MEDS: atorvastatin 40 mg Tablet PO (20:21)
[2024-07-07] MEDS: doxazosin 1 mg Tablet 2 MG PO (20:21)
[2024-07-07] MEDS: TRAMadol 50 mg Tablet PO (20:55)
[2024-07-08] VITALS (9 sets, daily range): BP systolic 117–140; BP diastolic 63–94; PULSE 61–85; RESP 15–21; TEMP 36.6–37.1; O2SAT 93–99
[2024-07-08] MEDS: morphine 4 mg/mL SDV 1 mL 2 MG IVP (00:47)
[2024-07-08 03:10] LABS: Basophils # 0.1 10^3/uL (0.0-0.1); Basophils % 0.8 %; Eosinophils # 0.1 10^3/uL (0.0-0.8); Eosinophils % 0.8 %; Hematocrit 44.4 % (37-53); Lymphocytes # 3.2 10^3/uL (0.8-4.8); Lymphocytes % 33.8 %; Mean Corpuscular HGB Conc 33.6 g/dL (30-55); Mean Corpuscular Hemoglobin 28.3 pg (27-33); Mean Corpuscular Volume 84.4 fl (82-101); Mean Platelet Volume 10.8 fL (7.4-10.4); Monocytes % 10.8 %; Neutrophils # 5.03 10^3/uL (1.8-7.7); Neutrophils % 53.4 %; Nucleated Red Blood Cells % 0 %; Platelet Count 261 10^3/cmm (157-399); Red Blood Count 5.26 10^6/uL (3.85-5.65); Red Cell Distribution Width 14.1 % (12.1-15.1); White Blood Count 9.44 10^3/uL (3.29-11.43)
[2024-07-08 03:48] LABS: Alanine Aminotransferase 53 U/L (0-41); Albumin Level 3.9 g/dL (3.5-5.2); Alkaline Phosphatase 89 U/L (40-130); Anion Gap 15.1 (5-19); Aspartate Amino Transferase 26 U/L (0-40); Blood Urea Nitrogen 20 mg/dL (8-23); Calcium 8.9 mg/dL (8.5-10.5); Carbon Dioxide 26 mmol/L (22-29); Chloride 96 mmol/L (98-107); Creatinine Clr Calc Pharmacy 98.5556; Globulin 1.9 g/dL (1.3-4.6); Glomerular Filtration Rate 76.2 mL/min (90-130); Glucose 109 mg/dL (65-115); Osmolality Calculated 279 mOsm/kg (285-295); Potassium 4.1 mmol/L (3.5-5.1); Sodium 133 mmol/L (136-145); Total Bilirubin 0.7 mg/dL (0.15-1.2); Total Protein 5.8 g/dL (6.6-8.7)
[2024-07-08 03:59] LABS: Magnesium 2.2 mg/dL (1.7-2.3)
[2024-07-08] MEDS: regadenoson 0.4 Mg/5 ml Syringe IVP (06:55)
[2024-07-08] MEDS: pantoprazole DR 40 mg Tablet PO (08:24)
[2024-07-08] MEDS: cetirizine 10 mg Tablet PO (08:24)
[2024-07-08] MEDS: lisinopril 20 mg Tablet PO (08:24)
[2024-07-08] MEDS: amlodipine 5 mg Tablet PO ×2 (08:24→17:59)
[2024-07-08] MEDS: aspirin 81 mg EC Tablet PO (08:25)
[2024-07-08] MEDS: acetaminophen 325 mg Tablet 650 MG PO (08:25)
[2024-07-08] MEDS: hydroCHLOROthiazide 25 mg Tablet PO (08:25)
[2024-07-08] MEDS: magnesium oxide 400 mg tablet PO ×2 (08:25→17:59)
[2024-07-08] MEDS: carvedilol 12.5 mg Tablet PO ×2 (08:26→17:59)
[2024-07-08] MEDS: fluticasone nasal spray 16gm Btl 2 SPRAY INTRANASAL (08:28)
--- NOTE | 2024-07-08 09:49 | PC.CHAP ---
Pastoral Care Encounter/Spiritual Assessment Type of Contact [] Declined career education teacher visit [] Patient/Family/Request visit [] Outpatient visit [] Follow-up visit [] Physician referral [] Code/Alert [x] Routine visit [] Staff referral [] Actively dying [] Patient sleeping [] Family support [] [] Out of room [] Palliative care [] [] Receiving care in room [] Pre-surgical visit [] Trauma [] Long length of stay [] ICU visit [] Other: Relational/Emotional Strength [] Patient feels connected with others/family/visitors/staff [] Distress [] Loneliness/isolation [] Abandonment Spirituality of Patient [] Person of [place] [] Attends Taoism of their [place] [] Believes in Prayer [] Reads Bible or Religion materials [] There are Spiritual issues to be addressed Orthopaedic Surgeon Interventions [x] Prayer [] Active listening [] Non-anxious presence [] Spiritual/emotional support [] Crisis/trauma care [] Spiritual counseling [] Bereavement support [] Provided bereavement packet [] Provided Bible/devotional materials [] Provided toy/stuffed animal, coloring book to patient or family member [] Provided Communion [] Anointing/[place] [] Salvation [x] Completed spiritual assessment [] Other: Impact on Illness or Injury [] Angry [] Fearful [] Anxious [] Often cries [] Exhaustion [] Unable to work [] Unable to attend moravian [] Unable to walk/stand [] Unable to read [] Unable to drive [] Unable to eat/drink [] Unable to sleep [] Unable to be with family [] Patient intubated [] Other: Summary Time spent with patient 5 min
[2024-07-08] MEDS: enoxaparin 100 mg/mL Syringe SUBCUT (11:20)
--- NOTE | 2024-07-08 16:38 | NMCV_ITS ---
NM kezia perf SPECT r/s* [id number] Benjamin Carrion Age: 58 Gender: M : 1965 Exam Date: 07/08/2024 16:38 Ordering Phys: Bolivar Copeland DO Technologist: KYLIE Chicas Exam Location: [facility] Indications: CP STRESS TEST Please see separate stress test report in [facility] for full findings IMAGE PROTOCOL Rest/Stress 1 Lexiscan Day Radiopharmaceutical Dose (mCi) Administration Site Administered by Rest: Tc-99m 10.3 IV Leyla Helga, UNIVERSITY DEMONSTRATOR Sestamibi Stress:Tc-99m 33.0 IV Leyla Helga, UNIVERSITY DEMONSTRATOR Sestamibi Rest: 08-Jul-2024 60 Discovery 630 Stress: 08-Jul-2024 30 Discovery 630 0.4mg Lexiscan. Supine position only as patient was unable to lay prone. SPECT RESULTS Technical Quality: Excellent Raw Data Analysis: Normal Image Corrections: No attenuation or motion correction applied Summed Stress Score: 0 Summed Rest Score: 0 Summed Difference Score: 0 PERFUSION FINDINGS Uniform myocardial tracer uptake with no significant Perfusion abnormalities FUNCTIONAL RESULTS (calculated via Gated SPECT) Stress Image LV EF (%): 71 Stress EDV (mL):90 TID: 0.85 Stress ESV (mL):26 FUNCTIONAL FINDINGS: Segmental wall motion analysis revealing no gross wall motion abnormalities IMPRESSIONS 1, Myocardial perfusion imaging revealing fairly uniform myocardial tracer uptake with no significant perfusion abnormalities 2. Normal LV ejection fraction 71%. 3. LV wall motion analysis revealing no gross wall motion abnormalities. 4. Normal LV volume Low probability for coronary ischemia, based on the above findings Dr. Ramos was informed about the test results Dr Roel Gill MD [facility] (Electronically Signed) Final Date: 08 July 2024 17:02 S
--- NOTE | 2024-07-08 17:25 | P.DS_ITS ---
Discharge Providers Date of Admission: 07/05/24 01:08 Date of Discharge: July 08, 2024 Attending Provider at Admission: Federico Lemos MD Attending Provider at Discharge: Jose David Ramos Primary Care Provider: DELANEY Young Diagnoses at Discharge Discharge Diagnosis (1) Hypertensive urgency: Status: Acute (2) Atypical chest pain: Status: Acute (3) Coronary artery disease: Status: Acute (4) BPH (benign prostatic hyperplasia): Status: Acute Qualifiers: Lower urinary tract symptom presence: unspecified whether lower urinary tract symptoms present Qualified Code(s): N40.0 - Benign prostatic hyperplasia without lower urinary tract symptoms Reason for Visit Reason for Visit: extremely high bp, neck pain, left side pain Hospital Course Hospital Course Pleasant 58-year-old gentleman came in with typical angina and shortness of breath, hypertension, has been planning to have a stress test with his primary provider. He has been having resistant hypertension, difficult to manage despite several medications already started home including carvedilol, amlodipine, spironolactone-HCTZ. During hospitalization tamsulosin was switched over to doxazosin and lisinopril was added as well. Blood pressure now is better controlled, 123/78. He is encouraged to continue cardiac diet, moderate exercise, visit with primary provider for further optimization, weight loss. Continue workup of hypertension for any secondary causes. He has previously had renal artery ultrasound which was negative. Would further consider assessment of RAAS. Stress test showed no areas of ischemia, normal ejection fraction, discussed with his meat and poultry inspector. He is aware of low possibility of false negative test results, knows to seek medical attention in case of any worsening or new concerning symptoms. Physical Exam Narrative: On second visit accompanied by family. Const: COMMON NORMALS: patient oriented x3 and alert GENERAL APPEARANCE: cooperative ORIENTATION/CONSCIOUSNESS: Yes awake HENMT: COMMON NORMALS: oropharynx normal Neck/C-Spine: COMMON NORMALS: no JVD Resp: COMMON NORMALS: normal respiratory effort and clear to auscultation bilaterally AUSCULTATION: clear to auscultation bilaterally Cardio: COMMON NORMALS: no JVD, regular rhythm, S1 normal heart sound present, S2 normal heart sound present and No murmurs present (Cardio) RHYTHM: regular rhythm HEART SOUNDS: S1 normal heart sound present and S2 normal heart sound present GI: COMMON NORMALS: Normal to inspection, nondistended, normoactive bowel sounds present, Soft to palpation and non-tender PALPATION: Yes Soft to palpation Extremity: COMMON NORMALS: no joint enlargement and no pedal edema Neuro: COMMON NORMALS: patient oriented x3 and moves all extremities SENSORIUM/ORIENTATION: Yes alert Skin: COMMON NORMALS: no rashes or lesions noted GENERAL SKIN EXAM: no rashes or lesions noted Discharge Data Studies Completed and Pending Completed Studies During Hospitalization Category Date Time Status CT head wo con* [id number] Routine Cat Scan 07/07/24 10:20 Completed Sestamibi Stress Test Request Routine Exams 07/05/24 16:38 Draft XR chest 1V portable [id number] Stat Exams 07/04/24 19:46 Completed NM kezia perf SPECT r/s* [id number] Routine Nuc Med 07/08/24 16:38 Completed CV carotid duplex BI* [id number] Routine Ultrasound 07/07/24 10:20 Completed Pending at discharge Category Date Time Status MAG [Magnesium] AM LABS Lab 07/09/24 04:00 Ordered Vitamin B12 Routine Lab 07/06/24 11:18 Received Radiology Impressions Chest X-Ray 07/04/24 19:46 IMPRESSION: No acute findings. Carotid Doppler Study 07/07/24 10:20 IMPRESSION: No significant arterial stenosis. REFERENCES: SRU CRITERIA. The degree of internal carotid artery stenosis is based on criteria defined by the Society of Radiologists in Ultrasound (SRU). Normal is no stenosis. Mild is less than 50% stenosis. Moderate is 50-69% stenosis. Severe is greater than 69% stenosis to near occlusion. Near occlusion is a markedly narrowed lumen. Total occlusion is no detectable patent lumen. Head CT 07/07/24 10:20 IMPRESSION: No acute intracranial abnormality. Laboratory Results WBC 9.44 10^3/uL (3.29-11.43) 07/08/24 02:10 RBC 5.26 10^6/uL (3.85-5.65) 07/08/24 02:10 Hgb 14.90 g/dL (11.27-16.99) 07/08/24 02:10 Hct 44.4 % (37-53) 07/08/24 02:10 MCV 84.4 fl (82-101) 07/08/24 02:10 MCH 28.3 pg (27-33) 07/08/24 02:10 MCHC 33.6 g/dL (30-55) 07/08/24 02:10 RDW 14.1 % (12.1-15.1) 07/08/24 02:10 Plt Count 261 10^3/cmm (157-399) 07/08/24 02:10 MPV 10.8 fL (7.4-10.4) H 07/08/24 02:10 Neut % (Auto) 53.4 % 07/08/24 02:10 Lymph % (Auto) 33.8 % 07/08/24 02:10 [place] % (Auto) 10.8 % 07/08/24 02:10 Eos % (Auto) 0.8 % 07/08/24 02:10 Baso % (Auto) 0.8 % 07/08/24 02:10 Neut # (Auto) 5.03 10^3/uL (1.8-7.7) 07/08/24 02:10 Lymph # (Auto) 3.2 10^3/uL (0.8-4.8) 07/08/24 02:10 [place] # (Auto) 1.0 10^3/uL (0.2-0.9) H 07/08/24 02:10 Eos # (Auto) 0.1 10^3/uL (0.0-0.8) 07/08/24 02:10 Baso # (Auto) 0.1 10^3/uL (0.0-0.1) 07/08/24 02:10 Nucleated RBC % (auto) 0 % 07/08/24 02:10 Nucleated RBCs # 0.0 /100WBC 07/08/24 02:10 Sodium 133 mmol/L (136-145) L 07/08/24 02:10 Potassium 4.1 mmol/L (3.5-5.1) 07/08/24 02:10 Chloride 96 mmol/L (98-107) L 07/08/24 02:10 Carbon Dioxide 26 mmol/L (22-29) 07/08/24 02:10 Anion Gap 15.1 (5-19) 07/08/24 02:10 BUN 20 mg/dL (8-23) 07/08/24 02:10 Creatinine 1.0 mg/dL (0.7-1.2) 07/08/24 02:10 GFR Calculation 76.2 mL/min (90-130) L 07/08/24 02:10 Glucose 109 mg/dL (65-115) 07/08/24 02:10 Estimat Average Glucose 137 07/06/24 11:18 Hemoglobin A1c 6.4 % (4.0-6.0) H 07/06/24 11:18 Calculated Osmolality 279 mOsm/kg (285-295) L 07/08/24 02:10 Calcium 8.9 mg/dL (8.5-10.5) 07/08/24 02:10 Magnesium 2.2 mg/dL (1.7-2.3) 07/08/24 02:10 Iron 95 ug/dL (59-158) 07/06/24 11:18 TIBC 254 mcg/dl 07/06/24 11:18 % Saturation 37.4 % (20-50) 07/06/24 11:18 Unsat Iron Binding 159 ug/dL (112-347) 07/06/24 11:18 Total Bilirubin 0.7 mg/dL (0.15-1.2) 07/08/24 02:10 AST 26 U/L (0-40) 07/08/24 02:10 ALT 53 U/L (0-41) H 07/08/24 02:10 Alkaline Phosphatase 89 U/L (40-130) 07/08/24 02:10 Troponin T Baseline 15 ng/L (0-15) 07/04/24 20:38 Troponin T 120 Minute 15.97 ng/L (0-15) H 07/04/24 22:45 Delta Troponin T 0.97 ABS# (0-10) 07/04/24 22:45 Troponin T Hi Sens 6Hr 18.13 ng/L (0-15) H 07/05/24 01:54 Troponin T Hi Sens 6Hr Delta 3.13 ng/L (0-12) 07/05/24 01:54 NT-Pro-B Natriuret Pep 78 pg/mL (0-125) 07/04/24 20:38 Total Protein 5.8 g/dL (6.6-8.7) L 07/08/24 02:10 Albumin 3.9 g/dL (3.5-5.2) 07/08/24 02:10 Globulin 1.9 g/dL (1.3-4.6) 07/08/24 02:10 Vitamin B12 Cancelled 07/06/24 11:18 Folate 7.7 ng/mL (4.5-32.2) 07/07/24 02:18 Vitals Last Vital Signs Temp 98.3 F 07/08/24 16:00 Pulse 67 07/08/24 16:00 Resp 16 07/08/24 16:00 BP 123/78 07/08/24 16:00 Pulse Ox 95 07/08/24 16:00 O2 Del Method Room Air 07/08/24 16:00 Discharge Plan Discharge Patient Disposition: Home Condition: Stable Prescriptions: New lisinopril 20 mg Tablet 20 mg PO DAILY Qty: 90 0RF doxazosin 1 mg Tablet 2 mg PO BEDTIME Qty: 90 0RF aspirin 81 mg Tablet,Delayed Release (Dr/Ec) 81 mg PO DAILY Qty: 90 0RF atorvastatin 40 mg Tablet 40 mg PO BEDTIME Qty: 90 0RF Continued (DME) CPAP AUTO TITRATING See Rx Instructions .Route .MEDSUPPLY Qty: 1 0RF Rx Instructions: PLEASE PROVIDE NEW TUBING AND MASK. pantoprazole 40 mg tablet,delayed release (DR/EC) 40 mg PO DAILY 90 Days Qty: 90 1RF spironolacton-hydrochlorothiaz 25-25 mg tablet 1 tab PO DAILY carvedilol 12.5 mg tablet 12.5 mg PO BID Qty: 60 5RF Rx Instructions: must administer with a meal/food (DME) lumbar corsett See Rx Instructions .Route .MEDSUPPLY Qty: 1 0RF Rx Instructions: As directed montelukast 10 mg tablet 10 mg PO BEDTIME 90 Days Qty: 90 1RF magnesium oxide [MagOx] 400 mg (241.3 mg magnesium) tablet 400 mg PO BID 30 Days Qty: 60 5RF fluticasone propionate [Allergy Relief (fluticasone)] 50 mcg/actuation spray,suspension 2 spray intranasal DAILY Qty: 16 5RF Rx Instructions: administer into each nostril amlodipine 5 mg tablet 5 mg PO BIDWM 30 Days Qty: 60 2RF (DME) C-PAP Supplies See Rx Instructions .Route .MEDSUPPLY Qty: 1 11RF Rx Instructions: As directed Discontinued tamsulosin [Flomax] 0.4 mg capsule 0.4 mg PO DAILY 90 Days Qty: 90 1RF Discharge Orders: Discharge Order (Routine); Ordered 07/08/24 Ordered By: Jose David Ramos Referrals: CARDIOLOGY [Provider Group] - 2 weeks Manjula [place] FNP-C [Primary Care Provider] - 4-7 days Discharge Diet: Cardiac Patient Instructions: Lisinopril (By mouth), Aspirin (By mouth), Doxazosin (By mouth), Atorvastatin (By mouth), Hypertension (GEN), Exercise Walking Activity Restrictions/Additional Instructions: Follow-up with your primary provider for reassessment of blood pressure control, further optimization of medications, and further workup for any additional secondary causes of hypertension including renin aldosterone angiotensin system. You have previously had an ultrasound on your kidney arteries which did not reveal any stenosis. Continue to limit salt intake in your diet, try to limit sodium to below 2000 mg in a day. Continue to wear CPAP for sleep apnea, untreated sleep apnea may contribute to hypertension as well. Continue 150 minutes of moderate exercise in a week as discussed. Continue weight loss. Discussed with your primary doctor in case there is any unintended weight loss which may require workup. As discussed seek medical attention in case of any worsening or new concerning symptoms Discharge Attestations Time Spent in Discharge Care*: greater than 30 min Quality Metrics Clinical Quality Measures [ No reported AMI, CVA or VTE this stay] Coding Level of Care Code 07565 Total time (in minutes) for Discharge: 55 Diagnoses Hypertensive urgency I16.0 Atypical chest pain R07.89 Coronary artery disease I25.10 Benign prostatic hyperplasia, unspecified whether lower urinary tract symptoms present N40.0 Lower urinary tract symptom presence: unspecified whether lower urinary tract symptoms present
--- NOTE | 2024-07-08 18:52 | PC.NURSE ---
Patient educated on new medications and what to stop. Patient was also given lisinopril, doxazosin, atorvastatin, montelukast, and aspirin from the xis, per Dr. Ramos, to take at home before he gets to the pharmacy. Patient was educated on when to take medications and also given the nurses' station number to call in case he has any questions.
[2024-07-09 18:11] LABS: Vitamin B12 546 pg/mL (232-1245)
== END 2024-07-08 18:24 | disposition home or self-care (01) ==
LOC: ER 22:40 → CSU 23:14
PROVIDERS: Student in an Organized Health Care Education/Training Program; Admitting Provider Internal Medicine; Emergency Provider Emergency Medicine; PCP Nurse Practitioner Family; Visit Provider Internal Medicine
DX: I16.0 Hypertensive urgency (principal); R07.89 Other chest pain; I25.10 Atherosclerotic heart disease of native coronary artery without angina pectoris; N40.0 Benign prostatic hyperplasia without lower urinary tract symptoms; G47.33 Obstructive sleep apnea (adult) (pediatric)
CPT/HCPCS: 36415; 70450; 71045; 78452; 80053; 82607; 82746; 83036; 83540; 83550; 83735; 83880; 84484; 85025; 93005; 93017; 93880; 96372; 96374; 96375; 96376; 99285; A9500; G0378; J1650; J2270; J2785; J3490

== ENCOUNTER → 2024-07-23 09:49 | Outpatient (BNVA) | payer MEDICARE, MEDICAID, SELFPAY | PROVIDERS: PCP Internal Medicine; Visit Provider Podiatrist Foot & Ankle Surgery | DX: L60.3 Nail dystrophy (principal); I73.9 Peripheral vascular disease, unspecified | CPT/HCPCS: 11721 ==

== ENCOUNTER 2024-07-29 09:59 | Outpatient (CLI) | payer MEDICARE, MEDICAID, SELFPAY ==
--- NOTE | 2024-07-29 10:06 | CT_ITS ---
WS: [id number] CT PARANASAL SINUSES HISTORY: CHRONIC SINUSITIS TECHNIQUE: Contiguous 2.0 mm axial images obtained through the sinuses. Images are reconstructed in s agittal and coronal planes. All CT scans at [facility] use at least one of these dose optimiz ation techniques: automated exposure control; mA and/or kV adjustment per patient size (includes targ eted exams where dose is matched to clinical indication); or iterative reconstruction. DLP: 363.29 mGy.cm COMPARISON: None available. Frontal sinuses: Normal. Sphenoid sinus: Normal. Ethmoid sinuses: Normal. Maxillary sinus: No air-fluid levels. No significant mucosal thickening. Ostiomeatal unit: Tiny amount of mucoperiosteal thickening at the ostiomeatal units but there is no o bstruction. Very minimal curvature of the nasal septum without significant bony spurring. Soft tissues of the orb its and globes are negative. Visualized calvarium is negative. No fluid in the mastoid air cells or a uditory canals. CT/CT sinus wo con* [id number] IMPRESSION: 1. No significant paranasal sinus disease is identified. 2. No obstruction of the ostiomeatal units.
== END 2024-07-29 10:00 | disposition home or self-care (01) ==
LOC: RAD 10:00
PROVIDERS: PCP Internal Medicine; Visit Provider Internal Medicine
DX: J32.9 Chronic sinusitis, unspecified (principal)
CPT/HCPCS: 70486

== ENCOUNTER 2024-08-20 13:57 | Outpatient (CLI) | payer MEDICARE, MEDICAID, SELFPAY ==
--- NOTE | 2024-08-20 14:01 | XRR_ITS ---
PROCEDURE INFORMATION: Exam: XR Chest Exam date and time: 08/20/2024 2:12 PM Age: 58 years old Clinical indication: Cough; Additional info: Chronic cough TECHNIQUE: Imaging protocol: Radiologic exam of the chest. Views: 2 views. COMPARISON: CR (CHEST, ) 07/04/2024 8:02 PM FINDINGS: Lungs: Unremarkable. No consolidation. Pleural spaces: Unremarkable. No pleural effusion. No pneumothorax. Heart/Mediastinum: Unremarkable. No cardiomegaly. Bones/joints: Unremarkable. XR/XR chest 2V* [id number] IMPRESSION: No acute findings.
[2024-08-21 15:49] LABS: Alternaria Alternata (M6) Ige 0.85 kU/L; Alternaria Class 2; Aspergillus fumigatus 0.18 kU/L; Aspergillus fumigatus Class 0/1; Bermuda Class 3; Bermuda Grass (G2) Ige 5.96 kU/L; Cat Dander (E1) Ige 0.69 kU/L; Cat Dander Class 1; Cladosporium herbarum 0.35 kU/L; Cladosporium herbarum Class 1; Cockroach 0.64 kU/L; Cockroach Class 1; Cottonwood 3.04 kU/L; Cottonwood Class 2; D. Farinae Class 1; Dermatophagoides Class 0; Dermatophagoides Pteronyssinus <0.10 kU/L; Dog Dander (E5) Ige 1.16 kU/L; Dog Dander Class 2; Elm (T8) Ige 3.44 kU/L; Elm Class 2; Immunoglobulin E 171 kU/L (<OR=114); Maple (Box Elder) (T1) Ige 3.94 kU/L; Maple Class 3; Maple leaf sycamore Tree 2.94 kU/L; Maple leaf sycamore Tree Class 2; Mountain cedar 2.34 kU/L; Mountain cedar Class 2; Mouse Urine Proteins <0.10 kU/L; Mouse Urine Proteins Class 0; Oak (T7) Ige 5.07 kU/L; Oak Class 3; Pecan/Hickory Tree 2.37 kU/L; Pecan/Hickory Tree Class 2; Penicillium Class 0/1; Penicillium Notatum (M1) Ige 0.19 kU/L; Ragweeed Class 3; Rough Marsh Elder (W16) Ige 2.74 kU/L; Rough Marsh Elder Class 2; Rough pigweed 4.03 kU/L; Rough pigweed Class 3; Russian Thistle (W11) IgE 2.64 kU/L; Russian Thistle Class 2; Timothy Grass (G6) Ige 6.36 kU/L; Timothy Grass Class 3; Walnut Tree 5.45 kU/L; Walnut Tree Class 3; White Ash Tree 6.51 kU/L; White Ash Tree Class 3; White Mulberry 0.82 kU/L; White Mulberry Class 2
== END 2024-08-20 13:58 | disposition home or self-care (01) ==
LOC: LAB 13:59
PROVIDERS: PCP Internal Medicine; Visit Provider Specialist
DX: J30.89 Other allergic rhinitis (principal)
CPT/HCPCS: 20610; 36415; 71046; 86003; J3301

== ENCOUNTER 2024-09-17 12:07 | Outpatient (CLI) | payer MEDICARE, MEDICAID, SELFPAY | END 2024-09-17 12:08 | disposition home or self-care (01) | LOC: RT 12:08 | PROVIDERS: PCP Internal Medicine; Visit Provider Specialist | DX: R06.02 Shortness of breath (principal) | CPT/HCPCS: 94010 ==

== ENCOUNTER → 2024-09-24 14:43 | Outpatient (BNVA) | payer MEDICARE, MEDICAID, SELFPAY | PROVIDERS: PCP Internal Medicine; Visit Provider Student in an Organized Health Care Education/Training Program | DX: M25.551 Pain in right hip (principal); M25.552 Pain in left hip; I73.9 Peripheral vascular disease, unspecified; L60.3 Nail dystrophy | CPT/HCPCS: 11721; 73523; 99213 ==

== ENCOUNTER → 2024-10-29 10:06 | Outpatient (BNVA) | payer MEDICARE, MEDICAID, SELFPAY | PROVIDERS: PCP Internal Medicine; Visit Provider Nurse Practitioner Family | DX: M48.062 Spinal stenosis, lumbar region with neurogenic claudication (principal); M54.50 Low back pain, unspecified; M79.604 Pain in right leg; M51.16 Intervertebral disc disorders with radiculopathy, lumbar region; M47.816 Spondylosis without myelopathy or radiculopathy, lumbar region | CPT/HCPCS: 99214 ==

== ENCOUNTER → 2024-11-06 11:18 | Outpatient (BNVA) | payer MEDICARE, MEDICAID, SELFPAY | PROVIDERS: PCP Internal Medicine; Visit Provider Anesthesiology Pain Medicine | DX: M47.816 Spondylosis without myelopathy or radiculopathy, lumbar region (principal); M48.062 Spinal stenosis, lumbar region with neurogenic claudication | CPT/HCPCS: 64635; 64636; J1010 ==

== ENCOUNTER → 2024-11-20 12:56 | Outpatient (BNVA) | payer MEDICARE, MEDICAID, SELFPAY | PROVIDERS: PCP Internal Medicine; Visit Provider Nurse Practitioner Family | DX: M48.062 Spinal stenosis, lumbar region with neurogenic claudication (principal); M54.50 Low back pain, unspecified; M79.604 Pain in right leg; M51.16 Intervertebral disc disorders with radiculopathy, lumbar region; M47.816 Spondylosis without myelopathy or radiculopathy, lumbar region | CPT/HCPCS: 99213 ==

== ENCOUNTER → 2024-11-22 08:18 | Outpatient (BNVA) | payer MEDICARE, MEDICAID, SELFPAY | PROVIDERS: PCP Internal Medicine; Visit Provider Student in an Organized Health Care Education/Training Program | DX: M16.11 Unilateral primary osteoarthritis, right hip (principal) | CPT/HCPCS: 20610; 77002; J3301; J9999 ==

== ENCOUNTER → 2024-11-26 10:04 | Outpatient (BNVA) | payer MEDICARE, MEDICAID, SELFPAY | PROVIDERS: PCP Internal Medicine; Visit Provider Podiatrist Foot & Ankle Surgery | DX: I73.9 Peripheral vascular disease, unspecified (principal); L60.3 Nail dystrophy | CPT/HCPCS: 11721 ==

== ENCOUNTER → 2024-12-10 13:10 | Outpatient (BNVA) | payer MEDICARE, SELFPAY | PROVIDERS: PCP Internal Medicine; Visit Provider Anesthesiology Pain Medicine | DX: M47.816 Spondylosis without myelopathy or radiculopathy, lumbar region (principal) | CPT/HCPCS: 64635; 64636; J1010; J9999 ==

== ENCOUNTER → 2024-12-24 11:02 | Outpatient (BNVA) | payer MEDICARE, SELFPAY | PROVIDERS: PCP Internal Medicine; Visit Provider Nurse Practitioner Family | DX: M48.062 Spinal stenosis, lumbar region with neurogenic claudication (principal); M54.50 Low back pain, unspecified; M79.604 Pain in right leg; M51.16 Intervertebral disc disorders with radiculopathy, lumbar region; M47.816 Spondylosis without myelopathy or radiculopathy, lumbar region | CPT/HCPCS: 99213 ==

== ENCOUNTER → 2025-01-01 12:41 | Outpatient (BNVA) | payer MEDICARE, SELFPAY | PROVIDERS: PCP Internal Medicine; Visit Provider Anesthesiology Pain Medicine | DX: M54.16 Radiculopathy, lumbar region (principal); M48.062 Spinal stenosis, lumbar region with neurogenic claudication | CPT/HCPCS: 64483; 64484; J1100; J3490; J9999 ==

== ENCOUNTER → 2025-01-28 09:51 | Outpatient (BNVA) | payer MEDICARE, SELFPAY | PROVIDERS: PCP Internal Medicine; Visit Provider Podiatrist Foot & Ankle Surgery | DX: I73.9 Peripheral vascular disease, unspecified (principal); L60.3 Nail dystrophy | CPT/HCPCS: 11721 ==

== ENCOUNTER → 2025-02-12 12:41 | Outpatient (BNVA) | payer MEDICARE, SELFPAY | PROVIDERS: PCP Internal Medicine; Visit Provider Nurse Practitioner Family | DX: M48.062 Spinal stenosis, lumbar region with neurogenic claudication (principal); M54.50 Low back pain, unspecified; M79.604 Pain in right leg; M51.16 Intervertebral disc disorders with radiculopathy, lumbar region; M47.816 Spondylosis without myelopathy or radiculopathy, lumbar region | CPT/HCPCS: 99214 ==

== ENCOUNTER 2025-03-01 19:41 | Emergency (ER) | payer OTHER, SELFPAY ==
--- OUTSIDE RECORDS SUMMARY | 2025-02-10 06:00 | XMS_ITS ---
Author Organization [facility] Address [address] [place] [address] Care Team Providers Care Relationship Assoc Name Role Phone Prabhakar Gutierrez Primary Care Provider REASON FOR VISIT 6 MONTH F/U Encounters Encounter Location Date Provider Diagnosis [facility] [address] [address] 02/10/2025 Prabhakar Gutierrez Plan Of Treatment Next Appt Details Provider Name:Prabhakar Gutierrez, 07/17/2025 01:00:00 PM, [address], [phone], Progress Notes * GOKUL KEATONDOB: 4 (59 yo M)Acc No.[id number]:02/10/2025 Progress Notes Patient: KEATON STERLING Provider: Sofy Gutierrez MD :1965 A ge:59 Y S ex:Male Date:02/10/2025 Address:[address] [place] [phone] Subjective: * Chief Complaints: * 1 . 6 MONTH F/U. * Medical History: Objective: * Vitals: Assessment: Plan: * Treatment: Forms: * Billing Information: * Visit Code: * Procedure Codes: Care Plan Details* * Electronic signature of Jackelin Gutierrez MD on 03/01/2025 at 07:47 PM CDT Sign off status: Pending * Provider: Sofy Gutierrez MD Date: 0 02/10/2025 Generated for Marilee nuñez/Jacinda/Danial on: 0 03/01/2025 07:47 PM CDT
[2025-03-01 19:46] VITALS: BP 183/82; PULSE 66; RESP 18; TEMP 37.3; O2SAT 97; BMI 40.1
--- OUTSIDE RECORDS SUMMARY | 2025-03-01 19:47 | XMS_ITS | Encounter Summary ---
Author Organization [facility] Address [address] [place] [address] Care Team Providers Care Technical Buyer Name Role Phone Harsha Shay DO Primary Care Provider [phone] Encounter Details Date Type Department Care Team (Latest Contact Info) Description 10/24/2003 Outpatient Historical [facility] [address] 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
--- OUTSIDE RECORDS SUMMARY | 2025-03-01 19:47 | XMS_ITS | Encounter Summary ---
Author Organization [facility] Address [address] [place] [address] Care Team Providers Care Education Liaison Name Role Phone Harsha Shay DO Primary Care Provider [phone] Encounter Details Date Type Department Care Team (Latest Contact Info) Description 08/14/2006 Outpatient Historical [facility] [address] 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
--- OUTSIDE RECORDS SUMMARY | 2025-03-01 19:47 | XMS_ITS | Encounter Summary ---
Author Organization [facility] Address [address] [place] [address] Care Team Providers Care Clinical Psychologist Name Role Phone Harsha Shay DO Primary Care Provider [phone] Encounter Details Date Type Department Care Team (Latest Contact Info) Description 12/17/2003 Outpatient Historical [facility] [place] [address] 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
--- OUTSIDE RECORDS SUMMARY | 2025-03-01 19:47 | XMS_ITS | Encounter Summary ---
Author Organization [facility] Address [address] [place] [address] Care Team Providers Care Equipment Operator/Laborer/Supervisor Name Role Phone Harsha Shay DO Primary Care Provider [phone] Encounter Details Date Type Department Care Team (Latest Contact Info) Description 03/16/2004 Outpatient Historical [facility] [address] [place] [address] [place] [address] Arjun Sandoval MD [address] [place] [address] CARPAL TUNNEL SYNDROME (Primary Dx) Social History Tobacco Use Types Packs/Day Years Used Date Smoking Tobacco: Never Assessed Sex and Gender Information Value Date Recorded Sex Assigned at Not on file Legal 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
--- OUTSIDE RECORDS SUMMARY | 2025-03-01 19:47 | XMS_ITS | Encounter Summary ---
Author Organization [facility] Address [address] [place] [address] Care Team Providers Care Director Of Scout Work Name Role Phone Harsha Shay DO Primary Care Provider [phone] Encounter Details Date Type Department Care Team (Latest Contact Info) Description 01/25/2005 Outpatient Historical 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
--- OUTSIDE RECORDS SUMMARY | 2025-03-01 19:47 | XMS_ITS | Encounter Summary ---
Author Organization [facility] Address [address] [place] [address] Care Team Providers Care Network Mgr Name Role Phone Harsha Shay DO Primary Care Provider [phone] Encounter Details Date Type Department Care Team (Latest Contact Info) Description 10/24/2003 Outpatient Historical [facility] Pain Management Procedures [address] 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
--- OUTSIDE RECORDS SUMMARY | 2025-03-01 19:47 | XMS_ITS | Encounter Summary ---
Author Organization [facility] Address [address] [place] [address] Care Team Providers Care Manager Convention Name Role Phone Harsha Shay DO Primary Care Provider [phone] Encounter Details Date Type Department Care Team (Latest Contact Info) Description 10/31/2003 Outpatient Historical [facility] [address] [place] [address] Herson Monterroso MD NO ADDRESS ON FILE Lumbosacral spondylosis (Primary Dx) Social History Tobacco Use Types Packs/Day Years Used Date Smoking Tobacco: Never Assessed Sex and Gender Information Value Date Recorded Sex Assigned at Not on file Legal Sex Male 6:12 AM SUPERVISOR TYPE PHOTOGRAPHY Gender Identity Not on file Sexual Orientation Not on file documented as of this encounter Plan of Treatment Not on file documented as of this encounter Visit Diagnoses Diagnosis Lumbosacral spondylosis- Primary Lumbosacral spondylosis without myelopathy documented in this encounter Care Teams Manager Convention Relationship Specialty Start Date End Date Harsha Shay DO [address] [place] [address] PCP - General 10/14/03 documented as of this encounter
--- OUTSIDE RECORDS SUMMARY | 2025-03-01 19:47 | XMS_ITS | Encounter Summary ---
Author Organization [facility] Address [address] [place] [address] Care Team Providers Care Textile Machine Operator Name Role Phone Harsha Shay DO Primary Care Provider [phone] Encounter Details Date Type Department Care Team (Late st Contact Info) Description 12/17/2003 Outpatient Historical [facility] [place] [facility] Pain Management- [place] [address] [place] [address] Antunez, Crystal A, HOUSEKEEPER CLEANING COOKING [address] [place] [address] BURSITIS NEC (Primary Dx); LUMBAGO Social History Tobacco Use Types Packs/Day Years Used Date Smoking Tobacco: Never Assessed Sex and Gender Information Value Date Recorded Sex Assigned at Not on file Legal Sex Male 6:12 AM WATCHGUARD Gender Identity Not on file Sexual Orientation Not on file documented as of this encounter Plan of Treatment Not on file documented as of this encounter Visit Diagnoses Diagnosis Other bursitis disorders- Primary Lumbago documented in this encounter Care Teams Textile Machine Operator Relationship Specialty Start Date End Date Harsha Shay DO [address] [place] [address] PCP - General 10/14/03 documented as of this encounter
--- OUTSIDE RECORDS SUMMARY | 2025-03-01 19:47 | XMS_ITS | Encounter Summary ---
Author Organization [facility] Address [address] [place] [address] Care Team Providers Care Operations Tech Name Role Phone Harsha Shay DO Primary Care Provider [phone] Encounter Details Date Type Department Care Team (Latest Contact Info) Description 03/30/2004 Outpatient Historical [facility] Orthopedics- [address] [address] [place] [address] Arjun Sandoval MD [address] [place] [address] CARPAL TUNNEL SYNDROME (Primary Dx) Social History Tobacco Use Types Packs/Day Years Used Date Smoking Tobacco: Never Assessed Sex and Gender Information Value Date Recorded Sex Assigned at Not on file Legal Sex Male 6:12 AM INSURANCE COORDINATOR Gender Identity Not on file Sexual Orientation Not on file documented as of this encounter Plan of Treatment Not on file documented as of this encounter Visit Diagnoses Diagnosis Carpal tunnel syndrome- Primary documented in this encounter Care Teams Operations Tech Relationship Specialty Start Date End Date Harsha Shay DO [address] [place] [address] PCP - General 10/14/03 documented as of this encounter
--- OUTSIDE RECORDS SUMMARY | 2025-03-01 19:47 | XMS_ITS | Encounter Summary ---
Author Organization [facility] Address [address] [place] [address] Care Team Providers Care Carton Forming Machine Tender Name Role Phone Harsha Shay DO Primary Care Provider Encounter Details Date Type Department Care Team (Latest Contact Info) Description 04/28/2004 Outpatient [facility] [address] 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
--- OUTSIDE RECORDS SUMMARY | 2025-03-01 19:47 | XMS_ITS | Encounter Summary ---
Author Organization [facility] Address [address] [place] [address] Care Team Providers Care Sighter Name Role Phone Harsha Shay DO Primary Care Provider [phone] Encounter Details Date Type Department Care Team (Late st Contact Info) Description 08/14/2006 Outpatient [facility] [address] 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
--- OUTSIDE RECORDS SUMMARY | 2025-03-01 19:47 | XMS_ITS | Encounter Summary ---
Author Organization [facility] Address [address] [place] [address] Care Team Providers Care Operations Vocational Instructor Name Role Phone Harsha Shay DO Primary Care Provider [phone] Encounter Details Date Type Department Care Team (Late st Contact Info) Description 12/29/2004 Outpatient Historical [facility] Denisha Antunez, ELIGIBILITY MANAGER [address] [place] [address] Social History Tobacco Use Types Packs/Day Years Used Date Smoking Tobacco: Never Assessed Sex and Gender Information Value Date Recorded Sex Assigned at Not on file Legal Sex Male 6:12 AM PRACTICING MD ANESTHESIOLOGIST Gender Identity Not on file Sexual Orientation Not on file documented as of this encounter Plan of Treatment Not on file documented as of this encounter Visit Diagnoses Not on filedocumented in this encounter Care Teams Operations Vocational Instructor Relationship Specialty Start Date End Date Harsha Shay DO [address] [place] [address] PCP - General 10/14/03 documented as of this encounter
--- OUTSIDE RECORDS SUMMARY | 2025-03-01 19:47 | XMS_ITS | Encounter Summary ---
Author Organization [facility] Address [address] [place] [address] Care Team Providers Care Safety Investigator/Cause Analyst Name Role Phone Harsha Shay DO Primary Care Provider [phone] Encounter Details Date Type Department Care Team (Latest Contact Info) Description 09/28/2004 Outpatient Historical [facility] [address] [place] [address] [place] [address] Herson Monterroso MD NO ADDRESS ON FILE LUMBAGO (Primary Dx) Social History Tobacco Use Types Packs/Day Years Used Date Smoking Tobacco: Never Assessed Sex and Gender Information Value Date Recorded Sex Assigned at Not on file Legal Sex Male 6:12 AM LOAD MANAGER Gender Identity Not on file Sexual Orientation Not on file documented as of this encounter Plan of Treatment Not on file documented as of this encounter Visit Diagnoses Diagnosis Lumbago- Primary documented in this encounter Care Teams Safety Investigator/Cause Analyst Relationship Specialty Start Date End Date Harsha Shay DO [address] [place] [address] PCP - General 10/14/03 documented as of this encounter
--- OUTSIDE RECORDS SUMMARY | 2025-03-01 19:47 | XMS_ITS | Encounter Summary ---
Author Organization [facility] Address [address] [place] [address] Care Team Providers Care Hydroelectric Plant Electrical Engineer Name Role Phone Harsha Shay DO Primary Care Provider [phone] Encounter Details Date Type Department Care Team (Latest Contact Info) Description 09/28/2004 Outpatient [facility] [address] 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
--- OUTSIDE RECORDS SUMMARY | 2025-03-01 19:47 | XMS_ITS | Clinical Summary ---
Author Organization [facility] Address [address] 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 Gender Identity Not on file Sexual Orientation Not on file Plan of Treatment Health Maintenance Due Date Last Done Comments DTAP/TDAP/TD VACCINES (1 - Tdap) 07/01/2003 06/30/20 03 COLORECTAL SCREENING 11/27/2008 Colorectal Cancer Screening 11/27/2008 FIT-DNA Q 3 years 11/27/2008 FIT/FOBT Q 1 year 11/27/2008 Flex Sig/CT Colonography Q 5 years 11/27/2008 ZOSTER VACCINE (1 of 2) 11/27/2013 INFLUENZA VACCINE (#1) 2024 RSV VACCINE (60+ or ) (1 - 1-dose 75+ series) 11/27/2038 Care Teams Brass And Wind Instrument Repairer Relationship Specialty Start Date End Date Harsha Shay DO [address] [place] [address] PCP - General 10/14/03
--- OUTSIDE RECORDS SUMMARY | 2025-03-01 19:47 | XMS_ITS | Encounter Summary ---
Author Organization [facility] Address [address] [place] [address] Care Team Providers Care Telecasting Technician Name Role Phone Harsha Shay DO Primary Care Provider [phone] Encounter Details Date Type Department Care Team (Latest Contact Info) Description 10/31/2003 Outpatient Historical [facility] Pain Management Procedures [address] [place] [address] Herson Monterroso MD NO ADDRESS ON FILE LUMBOSACRAL SPONDYLOSIS (Primary Dx) Social History Tobacco Use Types Packs/Day Years Used Date Smoking Tobacco: Never Assessed Sex and Gender Information Value Date Recorded Sex Assigned at Not on file Legal Sex Male 6:12 AM MGMT ANALYST Gender Identity Not on file Sexual Orientation Not on file documented as of this encounter Plan of Treatment Not on file documented as of this encounter Visit Diagnoses Diagnosis Lumbosacral spondylosis without myelopathy- Primary documented in this encounter Care Teams Telecasting Technician Relationship Specialty Start Date End Date Harsha Shay DO [address] [place] [address] PCP - General 10/14/03 documented as of this encounter
--- OUTSIDE RECORDS SUMMARY | 2025-03-01 19:47 | XMS_ITS | Encounter Summary ---
Author Organization [facility] Address [address] [place] [address] Care Team Providers Care Livestock Showman Name Role Phone Harsha Shay DO Primary Care Provider [phone] Encounter Details Date Type Department Care Team (Latest Contact Info) Description 06/30/2004 Outpatient Historical [facility] Herson Monterroso MD NO ADDRESS ON FILE ADMINISTRTVE ENCOUNT NOS (Primary Dx) Social History Tobacco Use Types Packs/Day Years Used Date Smoking Tobacco: Never Assessed Sex and Gender Information Value Date Recorded Sex Assigned at Not on file Legal Sex Male 6:12 AM DIRECTOR OF CORPORATE RESPONSIBILITY Gender Identity Not on file Sexual Orientation Not on file documented as of this encounter Plan of Treatment Not on file documented as of this encounter Visit Diagnoses Diagnosis Encounters for unspecified administrative purpose- Primary documented in this encounter Care Teams Livestock Showman Relationship Specialty Start Date End Date Harsha Shay DO [address] [place] [address] PCP - General 10/14/03 documented as of this encounter
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
--- OUTSIDE RECORDS SUMMARY | 2025-03-01 19:47 | XMS_ITS | Encounter Summary ---
Author Organization [facility] Address [address] [place] [address] Care Team Providers Care Paper Twister Tender Name Role Phone Harsha Shay DO Primary Care Provider [phone] Encounter Details Date Type Department Care Team (Latest Contact Info) Description 12/27/2004 Outpatient Historical [facility] Pain Management Procedures [address] [place] [address] Herson Monterroso MD NO ADDRESS ON FILE LUMBOSACRAL SPONDYLOSIS (Primary Dx) Social History Tobacco Use Types Packs/Day Years Used Date Smoking Tobacco: Never Assessed Sex and Gender Information Value Date Recorded Sex Assigned at Not on file Legal Sex Male 6:12 AM TIP STITCHER Gender Identity Not on file Sexual Orientation Not on file documented as of this encounter Plan of Treatment Not on file documented as of this encounter Visit Diagnoses Diagnosis Lumbosacral spondylosis without myelopathy- Primary documented in this encounter Care Teams Paper Twister Tender Relationship Specialty Start Date End Date Harsha Shay DO [address] [place] [address] PCP - General 10/14/03 documented as of this encounter
--- OUTSIDE RECORDS SUMMARY | 2025-03-01 19:47 | XMS_ITS | Encounter Summary ---
Author Organization [facility] Address [address] [place] [address] Care Team Providers Care Rate Clerk Passenger Name Role Phone Harsha Shay DO Primary Care Provider [phone] Encounter Details Date Type Department Care Team (Latest Contact Info) Description 08/14/2006 Outpatient Historical [facility] Pain Management Procedures [address] [place] [phone] Herson Monterroso MD NO ADDRESS ON FILE Lumbosacral Spondylosis without Myelopathy (Primary Dx) Social History Tobacco Use Types Packs/Day Years Used Date Smoking Tobacco: Never Assessed Sex and Gender Information Value Date Recorded Sex Assigned at Not on file Legal Sex Male 6:12 AM DIRECTOR OF INSTITUTIONAL SALES Gender Identity Not on file Sexual Orientation Not on file documented as of this encounter Plan of Treatment Not on file documented as of this encounter Visit Diagnoses Diagnosis Lumbosacral spondylosis without myelopathy- Primary documented in this encounter Care Teams Rate Clerk Passenger Relationship Specialty Start Date End Date Harsha Shay DO [address] [place] [address] PCP - General 10/14/03 documented as of this encounter
--- OUTSIDE RECORDS SUMMARY | 2025-03-01 19:47 | XMS_ITS | Encounter Summary ---
Author Organization [facility] Address [address] [place] [address] Care Team Providers Care Sap Bw Consultant Name Role Phone Harsha Shay DO Primary Care Provider [phone] Encounter Details Date Type Department Care Team (Latest Contact Info) Description 10/14/2003 Outpatient Historical [facility] [address] [place] [address] [place] [phone] Torin Prasad MD NO ADDRESS ON FILE LUMB/LUMBOSAC DISC DEGEN (Primary Dx) Social History Tobacco Use Types Packs/Day Years Used Date Smoking Tobacco: Never Assessed Sex and Gender Information Value Date Recorded Sex Assigned at Not on file Legal Sex Male 6:12 AM MATERIALS PLANNER Gender Identity Not on file Sexual Orientation Not on file documented as of this encounter Plan of Treatment Not on file documented as of this encounter Visit Diagnoses Diagnosis Degeneration of lumbar or lumbosacral intervertebral disc- Primary documented in this encounter Care Teams Sap Bw Consultant Relationship Specialty Start Date End Date Harsha Shay DO [address] [place] [address] PCP - General 10/14/03 documented as of this encounter
--- OUTSIDE RECORDS SUMMARY | 2025-03-01 19:47 | XMS_ITS | Encounter Summary ---
Author Organization [facility] Address [address] [place] [address] Care Team Providers Care Plastics Spreading Machine Operator Name Role Phone Harsha Shay DO Primary Care Provider Encounter Details Date Type Department Care Team (Latest Contact Info) Description 04/28/2004 Outpatient Historical [facility] [address] [place] [address] [place] [address] Herson Monterroso MD NO ADDRESS ON FILE LUMBAGO (Primary Dx) Social History Tobacco Use Types Packs/Day Years Used Date Smoking Tobacco: Never Assessed Sex and Gender Information Value Date Recorded Sex Assigned at Not on file 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
--- OUTSIDE RECORDS SUMMARY | 2025-03-01 19:47 | XMS_ITS | Encounter Summary ---
Author Organization [facility] Address [address] [place] [address] Care Team Providers Care Paper Core Machine Operator Name Role Phone Harsha Shay DO Primary Care Provider [phone] Encounter Details Date Type Department Care Team (Latest Contact Info) Description 10/14/2003 Outpatient Historical [facility] [place] [address] [place] [address] Herson Monterroso MD NO ADDRESS ON FILE LUMBAGO (Primary Dx) Social History Tobacco Use Types Packs/Day Years Used Date Smoking Tobacco: Never Assessed Sex and Gender Information Value Date Recorded Sex Assigned at Not on file 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
--- OUTSIDE RECORDS SUMMARY | 2025-03-01 19:47 | XMS_ITS | Encounter Summary ---
Author Organization [facility] Address [address] [facility] [place] [address] Care Team Providers Care Ibm Bpm Developer Name Role Phone Harsha Shay DO Primary Care Provider Encounter Details Date Type Department Care Team (Latest Contact Info) Description 01/25/2005 Outpatient Historical [facility] [address] 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
--- OUTSIDE RECORDS SUMMARY | 2025-03-01 19:47 | XMS_ITS | Encounter Summary ---
Author Organization [facility] Address [address] [place] [address] Care Team Providers Care Nuclear Instructor Name Role Phone Harsha Shay DO Primary Care Provider [phone] Encounter Details Date Type Department Care Team (Latest Contact Info) Description 03/15/2004 Outpatient Historical [facility] Pain Management Procedures [address] 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
--- OUTSIDE RECORDS SUMMARY | 2025-03-01 19:47 | XMS_ITS | Encounter Summary ---
Author Organization [facility] Address [address] [place] [address] Care Team Providers Care Sleeve Turner Name Role Phone Harsha Shay DO Primary Care Provider [phone] Encounter Details Date Type Department Care Team (Late st Contact Info) Description 12/17/2003 Outpatient Historical [facility] [address] [place] [address] [facility] [address] [place] [phone] AntunezDenisha FNP [address] 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
--- OUTSIDE RECORDS SUMMARY | 2025-03-01 19:47 | XMS_ITS | Clinical Summary ---
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 2023 Encounters Date Type Department Care Team Description 02/19/2025 External Device Data STL ABSTRACTION Provider, Abstract from Last 3 Months Immunizations Immunization Administration Dates Next Due (TDVAX)(7 YRS UP) TETANUS AN D DIPHTHERIA TOXOIDS, ADSORBED (2 LF OF TETANUS TOXOID AND 2 LF OF DIPHTHERIA TOXOID), 0.5ML (PF), IM 06/30/2003 Social History Tobacco Use Types Packs/Day Years Used Date Smoking Tobacco: Never Smokeless Tobacco: Never Alcohol Use Standard Drinks/Week Comments Not Currently 0 (1 standard drink = 0.6 oz pur e alcohol) Sex and Gender Information Value Date Recorded Sex Assigned at Not on file 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 Gender Identity Not on file Sexual Orientation Not on file Last Filed Vital Signs Vital Sign Reading Time Taken Comments Blood Pressure 140/78 07/01/2024 8:08 AM CDT Pulse 67 07/01/2024 8:08 AM CDT Temperature - - Respiratory Rate - - Oxygen Saturation 97% 07/01/2024 8:08 AM CDT Inhaled Oxygen Concentration - - Weight 114.4 kg (252 lb 4.8 oz) 07/01/2024 8:08 AM CDT Height 175.3 cm (5' 9 ) 07/01/2024 8:08 AM CDT Body Mass Index 37.26 07/01/2024 8:08 AM CDT Plan of Treatment Upcoming Encounters Date Type Department Care Team (Late st Contact Info) Description 03/31/2025 10:30 AM CDT Office Visit [facility] [place] [address] [place] [phone] Eva Shaikh MD [address] [place] [address] Health Maintenance Due Date Last Done Comments Pre-Diabetes and Diabetes Screening 1965 DTAP/TDAP/TD VACCINES (1 - Tdap) 07/01/2003 06/30/20 03 COLORECTAL SCREENING 11/27/2008 Colorectal Cancer Screening 11/27/2008 FIT-DNA Q 3 years 11/27/2008 FIT/FOBT Q 1 year 11/27/2008 Flex Sig/CT Colonography Q 5 years 11/27/2008 ZOSTER VACCINE (1 of 2) 11/27/2013 RSV VACCINE (60+ or ) (1 - Risk 60-74 years 1-dose series) 2023 INFLUENZA VACCINE (#1) 2024 Insurance MEDICAID [place] [facility] DUAL COMPLETE PPO DSNP [facility] [id number] Care Teams Panel Saw Operator Relationship Specialty Start Date End Date Harsha Shay DO [address] [place] [address] PCP - General 10/14/03 Bess Bernard NP Referring Physician 03/04/24
--- OUTSIDE RECORDS SUMMARY | 2025-03-01 19:48 | XMS_ITS | Patient Health Record ---
Author Organization [facility] Address [address] [place] [address] Care Team Providers Care Digital Artist Name Role Phone Prabhakar Gutierrez Primary Care Provider Edinson Lisa Unavailable [phone] NupurNikole Unavailable [phone] Allergies No Known Allergies Results Component Value Reference Range Notes Fluoro Needle For Placement - Spine [id number] Reviewed date:09/03/2024 01:40:38 PM Interpretation: Performing Lab: Notes/Report: CT Sinus w/o Contrast-[id number] Reviewed date:07/29/2024 01:38:27 PM Interpretation: Performing Lab: Notes/Report: Reason For Referral Reason chronic sinus pressu re Diagnosis 1 Chronic sinusitis, u nspecified location (J32.9) Referral Organization [facility] Referring Provider First Name Reinaldo ko Referring Provider Last Name aMtt Referring Provider Speciality Internal M edicine Referred Provider Conor Hoskins Referred Provider Specialty Ear, nose an d throat surgeon General Notes Emelyn Watters 05:38:38 PM >faxed Bebeto Montgomery Heidi 08/07/2024 11:12:24 AM >PER JOSE PT IS SCHEDULED 08/12Bebeto Heidi 08/26/2024 08:34:34 AM >PROGRESS NOTES IN REFERRAL FILE Referral Priority Routine Referral Appointment Date 08/12/2024 Medications Medication SIG (Take, Route, Frequency, Duration) Notes Start Date End Date Status Losartan Potassium 100 mg TAKE ONE TABLE T BY MOUTH DAILY FOR 30 DAYS for 30 Active Atorvastatin Calcium 40 MG 1 tablet Orally Once a day for 90 days Active Allergy 24-HR 180 MG 1 tablet Swallow whole with water; do not take with fruit juices. Orally Once a day Not-Taking Carvedilol 12.5 MG 1 tablet with food Orally Once a day Active Chlorthalidone 25 MG 1 tablet in the morning with food Orally Not-Taking Doxazosin Mesylate 1 MG 1 tablet Orally Once a day for 90 days 09/18/2025 Active CPAP By Mouth/Nose Nightly Not-Taking DULoxetine HCl 20 MG 1 capsule Orally On ce a day for 90 days 07/12/2024 Active Montelukast Sodium 10 MG 1 tablet Orally Once a day Not-Taking Fexofenadine HCl 180 MG 1 tablet Swallow whole with water; do not take with fruit juices. Orally Once a day Active Pantoprazole Sodium 40 MG 1 tablet 1/2 t o 1 hour before morning meal Orally Once a day Not-Taking Fluticasone Propionate 50 MCG/ACT 1 spray in each nostril Nasally Twice a day Active Stool Softener & Laxative 8.6-50 MG 1 tablet as needed Orally Twice a day Not-Taking Lansoprazole 30 MG 1 capsule 1/2 to 1 hour before morning meal Orally Once a day for 90 days Active Tamsulosin HCl 0.4 MG 1 capsule Orally O nce a day Not-Taking Montelukast Sodium 10 MG 1 tablet Orally Once a day for 90 days 06/20/2024 Active Metamucil 30.9 % as directed Orally Not-Taking Spironolactone-HCTZ 25-25 MG 1 tablet Orally Once a day for 90 days 06/20/2024 06/15/2025 Active amLODIPine Besylate 10 MG 1 tablet Orall y daily for 90 days Active Aspirin 81 MG 1 tablet Orally Once a day Active Magnesium Oxide 400 MG 1 tablet as neede d Orally TWICE DAILY for 90 days Active Immunizations Vaccine Route Administration Date Status Comme nts Flucelvax Trivalent, Syringe 0.5 mL, PF Unknown 025 Refused Social History Tobacco Use: Social History Observation Description Date Details (start date - stop date) Never Smoker NA - NA PHQ-9 Question Answer Notes Little interest or pleasure in doing things Not at all Feeling down, depressed, or hopeless Not at all Trouble falling or staying asleep, or sleeping t oo much Not at all Feeling tired or having little energy Not at all Poor appetite or overeating Not at all Feeling bad about yourself, or that you are a failure, or have let yourself or your family down Not at all Trouble concentrating on thi ngs, such as reading the newspaper or watching television Not at all Moving or speaking so slowly that other people could have noticed. Or the opposite ? being so fidgety or restless that you have been moving around a lot more than usual Not at all Thoughts that you would be b jazmyne off , or of hurting yourself in some way Not at all Total Score 0 Tobacco Control (Standard) Question Answer Notes Tobacco use: Nonsmoker AUDIT-C (Standard) Question Answer Notes Did you have a drink containing alcohol in the p ast year? No Points 0 Interpretation Negative Section Notes: 06/20/24 06/20/24 06/20/24 Tob:06/20/24 Dep: 06/20/24 Tob:06/20/24 Dep: 06/20/24 Tob:06/20/24 Dep: 06/20/24 CIME Dep/tob - 12/06/24 Tob:06/20/24 Dep: 06/20/24 Tob:06/20/24 Dep: 06/20/24 CIME Depression screenin12/06/2024 CIME Tobacco screenin12/06/2024 CIME SDoH screenin01/15/2025 Problems Problem Type SNOMED Code ICD Code Onset Dates Problem Status W/U Status Risk Notes Problem 064019686 Chronic pain syndrome (G89.4) Active confirmed Problem 87366488 Spondylosis without myelopathy or radiculopathy, lumbosacral region (M47.817) Active confirmed Problem 9010096 Radiculopathy, lumbosacral region (M54.17) Active confirmed Problem 744987670311950 Benign prostatic hyperplasia with lower urinary tract symptoms (N40.1) Active confirmed Problem 03165308 Essential hypertension (I10) Active confirmed Problem 47004061 Chronic sinusitis, unspecified location (J32.9) Active confirmed Problem 924777541 Gastritis and duodenitis (K29.90) Active confirmed Problem 129201217 Seasonal allergies (J30.2) Active confirmed Problem 402219819 Lumbar post-laminectomy syndrome (M96.1) Active confirmed Problem 87691087 Abnormality of gait and mobility (R26.9) Active confirmed Problem Lumbosacral radiculopathy (0157478) L-S radiculopathy (M54.17) Active confirmed Vital Signs Heart Rate 66 /min 01/15/2025 Temperature 99.4 degrees Fahrenheit 01/15/2025 Blood pressure diastolic 70 mm Hg 01/15/2025 Oximetry 95 % 01/15/2025 Height-cm 175.26 cm 01/15/2025 Weight-kg 122.47 kg 01/15/2025 Height 69 in 01/15/2025 Blood pressure systolic 138 mm Hg 01/15/2025 Weight 270 lbs 01/15/2025 BMI 39.87 kg/m2 01/15/2025 Procedures Procedure Date Ordered Date Performed Result Body Sit e Epidural, Lumbar/Sacral (Cau gama), w/ imaging guidance - [id number] 09/03/2024 09/03/2024 N/A Encounters Encounter Location Date Provider Diagnosis [facility] [address] [address] 06/20/2024 Prabhakar Gutierrez [facility] [address] [place] [address] 08/05/2024 Nikole CortesLenard [facility] [place] [address] [place] [address] 08/07/2024 Nikole Espitia [facility] [address] [address] 10/11/2024 Prabhakar Gutierrez Essential hypertension I10 [facility] [address] [address] 08/05/2024 Prabhakar Gutierrez Seasonal allergies J30.2 and Chronic sinusitis, unspecified location J32.9 [facility] [address] [address] 08/16/2024 Prabhakar Gutierrez Essential hypertension I10 ; Chronic sinusitis, unspecified location J32.9 and Benign prostatic hyperplasia with lower urinary tract symptoms N40.1 [facility] [address] [address] 08/29/2024 Prabhakar Gutierrez Gastritis and duodenitis K29.90 [facility] [address] [address] 09/23/2024 Prabhakar Guiterrez Essential hypertension I10 and Benign prostatic hyperplasia with lower urinary tract symptoms N40.1 [facility] [address] [place] [address] 09/25/2024 Edinson Lisa Chronic pain syndrome G89.4 ; Other intervertebral disc degeneration, 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.362 ; Radiculopathy, lumbosacral region M54.17 and Spondylosis without myelopathy or radiculopathy, lumbosacral region M47.817 [facility] [address] [address] 01/15/2025 Prabhakar Gutierrez Seasonal allergies J30.2 ; Benign prostatic hyperplasia with lower urinary tract symptoms N40.1 ; Essential hypertension I10 ; Encounter for immunization Z23 and Immunization not carried out because of patient refusal Z28.21 [facility] [address] [address] 06/20/2024 Prabhakar Gutierrez Seasonal allergies J30.2 ; Essential hypertension I10 ; Frequency of micturition R35.0 ; Benign prostatic hyperplasia with lower urinary tract symptoms N40.1 and Depression screen Z13.31 [facility] [address] [address] 12/06/2024 Prabhakar Gutierrez Infection of sebaceous gland L73.8 ; Chronic pain syndrome G89.4 and Depression screen Z13.31 [facility] [address] [address] 07/12/2024 Prabhakar Gutierrez Chronic sinusitis, unspecified location J32.9 ; Seasonal allergies J30.2 ; Essential hypertension I10 and Benign prostatic hyperplasia with lower urinary tract symptoms N40.1 [facility] [address] [place] [place] [address] 09/03/2024 Edinson Lisa L-S radiculopathy M54.17 Assessments Encounter Date Diagnosis (ICD Code) Assessment Notes Treatment Notes Treatment Clinical Notes Section Notes 06/20/2024 Essential hypertension (ICD-10 - I10) 07/12/2024 Chronic sinusitis, unspecified location (ICD-10 - J32.9) 07/12/2024 Seasonal allergies (ICD-10 - J30.2) 08/05/2024 Chronic sinusitis, unspecified location (ICD-10 - J32.9) 08/05/2024 Seasonal allergies (ICD-10 - J30.2) 06/20/2024 Seasonal allergies (ICD-10 - J30.2) 08/16/2024 Essential hypertension (ICD-10 - I10) 08/29/2024 Gastritis and duodenitis (ICD-10 - K29.90) 09/03/2024 L-S radiculopathy (ICD-10 - M54.17) 09/23/2024 Essential hypertension (ICD-10 - I10) 09/25/2024 Chronic pain syndrome (ICD-10 - G89.4) I had a nice visit with the patient today regarding his chronic pain issues. He reports the radicular symptoms have improved following the epidural steroid injection but he has persistent lumbar pain which has responded previously to lumbar medial branch rhizotomies completed elsewhere. It has been more than a couple of years so it would be reasonable to target these with diagnostic lumbar medial branch blocks and see how he does. Provided we get relief, we will move forward with the rhizotomies. We will follow up with him after the diagnostic blocks. Schedule [facility] 09/25/2024 Other intervertebral disc degeneration, lumbar region with discogenic back pain and lower extremity pain (ICD-10 - M51.362) 10/11/2024 Essential hypertension (ICD-10 - I10) 12/06/2024 Chronic pain syndrome (ICD-10 - G89.4) refilled magnesium 12/06/2024 Infection of sebaceous gland (ICD-10 - L73.8) 01/15/2025 Benign prostatic hyperplasia with lower urinary tract symptoms (ICD-10 - N40.1) 01/15/2025 Seasonal allergies (ICD-10 - J30.2) All patient's questions are encouraged and addressed to their apparent satisfaction. They are agreeable with the proposed plan of care and deny further needs or concerns. Patient is advised to take medications as prescribed. Patient agrees to contact the clinic with any new, worsening or increase of symptons. I am happy to see patient prior to next office visit as needed for acute concerns. 01/15/2025 Essential hypertension (ICD-10 - I10) Pt advised to take meds as prescribed, exercise as tolerated, and monitor BP as directed. If symptoms develop, parameters out of range, or any distress contact clinic or utilize ER. 12/06/2024 Depression screen (ICD-10 - Z13.31) 07/12/2024 Essential hypertension (ICD-10 - I10) 09/25/2024 Radiculopathy, lumbosacral region (ICD-10 - M54.17) 09/23/2024 Benign prostatic hyperplasia with lower urinary tract symptoms (ICD-10 - N40.1) 08/16/2024 Chronic sinusitis, unspecified location (ICD-10 - J32.9) 06/20/2024 Frequency of micturition (ICD-10 - R35.0) 06/20/2024 Benign prostatic hyperplasia with lower urinary tract symptoms (ICD-10 - N40.1) 08/16/2024 Benign prostatic hyperplasia with lower urinary tract symptoms (ICD-10 - N40.1) 07/12/2024 Benign prostatic hyperplasia with lower urinary tract symptoms (ICD-10 - N40.1) 09/25/2024 Spondylosis without myelopathy or radiculopathy, lumbosacral region (ICD-10 - M47.817) 01/15/2025 Encounter for immunization (ICD-10 - Z23) 01/15/2025 Immunization not carried out because of patient refusal (ICD-10 - Z28.21) 06/20/2024 Depression screen (ICD-10 - Z13.31) 09/25/2024 Other I, Farhan Willett, am scribing for Dr. Edinson Lisa. I, Dr. Edinson Lisa, personally performed the services described in this documentation, as scribed by Farhan Willett, and it is both accurate and complete. 01/15/2025 Other Plan Of Treatment Future Test Test Name Order Date Facet Inj. / MBB Lumbar/Sacral, 2 levels - [id number], [id number] 10/21/2024 Fluoro Needle For Placement - Spine 7700 3 10/29/2024 Next Appt Details Provider Name:Rudolphbrucelawrence Gutierrez, 07/17/2025 01:00:00 PM, [address] [place] [address], [phone], Insurance Providers Payer Name Payer Address Payer Phone Subscriber Number Group Number Insured Name Patient Relationship to Insured Coverage Start Date Coverage End Date [facility] [employer] Complete [address] [place] [address] [id number] MODKEATON NASH Self - patient is the insured [place] Medicaid [address] [place] [address] [id number] KEATON HODGSON Self - patient is the insured Medical (General) History Medical History History ICD Code allergies High Blood Pressure Back Trouble herniated disk prostatism Surgical History Surgery Date(Month/Year) rotator cuff tear repair L 2000 appendectomy 1999 hernia repair 1994 back surgery
--- NOTE | 2025-03-01 20:01 | XRR_ITS ---
PROCEDURE INFORMATION: Exam: XR Right Femur Exam date and time: 03/01/2025 8:07 PM Age: 59 years old Clinical indication: Injury or trauma; Fall; Blunt trauma; Thigh or upper leg; Right; Patient fell through the floor of a trailer landing on RT leg. C/O RT hip and knee pain. ; Additional info: Fall R thigh pain TECHNIQUE: Imaging protocol: Radiologic exam of the right femur. Views: 2 views. COMPARISON: CR (PELVIS, ) 03/01/2025 8:05 PM FINDINGS: Bones/joints: Unremarkable. No acute fracture. Soft tissues: Unremarkable. XR/XR femur RT min 2V* [id number] IMPRESSION: No acute findings.
--- NOTE | 2025-03-01 20:01 | XRR_ITS ---
PROCEDURE INFORMATION: Exam: XR Left Finger(s) Exam date and time: 03/01/2025 8:07 PM Age: 59 years old Clinical indication: Injury or trauma; Fall; Blunt trauma (contusions or hematomas); Index finger; Patient fell through the floor of a trailer. C/O left 2nd digit pain; Additional info: Fall left index finger pain swelling TECHNIQUE: Imaging protocol: Radiologic exam of the left fingers. Views: Minimum 2 views. COMPARISON: No relevant prior studies available. FINDINGS: Bones/joints: Normal. Soft tissues: Normal. XR/XR finger LT min 2V [id number] IMPRESSION: No acute findings.
--- NOTE | 2025-03-01 20:01 | XRR_ITS ---
PROCEDURE INFORMATION: Exam: XR Pelvis Exam date and time: 03/01/2025 8:05 PM Age: 59 years old Clinical indication: Injury or trauma; Fall; Blunt trauma (contusions or hematomas); Right; Prior surgery; Surgery date: 6+ months; Surgery type: Appy; Patient fell through the floor of a trailer landing on RT leg. C/O RT hip and knee pain. ; Additional info: Fall right hip and pelvic pain TECHNIQUE: Imaging protocol: Radiologic exam of the pelvis. Views: 1 or 2 view. COMPARISON: CR XR hip BI m 5V wo/w pel* [id number] 09/24/2024 3:00 PM FINDINGS: Bones/joints: Unremarkable. No acute fracture. Soft tissues: Unremarkable. XR/XR pelvis 1-2V* [id number] IMPRESSION: No acute findings.
--- NOTE | 2025-03-01 20:01 | XRR_ITS ---
PROCEDURE INFORMATION: Exam: XR Right Knee Exam date and time: 03/01/2025 8:07 PM Age: 59 years old Clinical indication: Injury or trauma; Fall; Blunt trauma; Right; Patient fell through the floor of a trailer landing on RT leg. C/O RT hip and knee pain. ; Additional info: Fall R knee pain effusion TECHNIQUE: Imaging protocol: Radiologic exam of the right knee. Views: 3 views. COMPARISON: CR XR knees AP WB w BI lmt ORTH 04/16/2024 2:39 PM FINDINGS: Bones/joints: Normal. Soft tissues: Normal. XR/XR knee RT 3V* [id number] IMPRESSION: No acute findings.
[2025-03-01 20:02] VITALS: BP 176/83; PULSE 65; RESP 18; O2SAT 97
[2025-03-01 20:24] VITALS: RESP 18
[2025-03-01] MEDS: oxyCODONE-APAP 5-325 mg Tablet 2 TAB PO (20:24)
--- NOTE | 2025-03-01 20:47 | W.ED.FALL ---
HPI - Fall General: Chief Complaint: Fall Stated Complaint: fell through floor, right leg/side inj. left hand Time Seen by Provider: 03/01/25 19:53 History of Present Illness: 59-year-old male patient who fell through the floor of the mobile home earlier in the day. He landed on his feet, with the floor about chest high. This is a fall of about 3+ feet. He complains of right thigh and right knee pain, as well as right pelvis and low back pain. He is able to bear weight. He has some bruising to his hip he says. He also injured his left index finger in the process. It is swollen and painful he says. Related Data Home Medications ?Medication ?Instructions ?Recorded ?Confirmed spironolactone 25 1 tab PO DAILY 06/24/24 02/12/25 mg-hydrochlorothiazide 25 mg tablet Previous Rx's ?Medication ?Instructions ?Recorded C-PAP Supplies #1 ea 05/02/22 CPAP AUTO TITRATING #1 ea 06/30/22 lumbar corsett #1 ea 11/16/23 montelukast 10 mg tablet 10 mg PO BEDTIME 90 days #90 tabs 04/18/24 pantoprazole 40 mg tablet,delayed 40 mg PO DAILY 90 days #90 tabs 04/24/24 release magnesium oxide 400 mg (241.3 mg 400 mg PO BID 30 days #60 tabs 05/27/24 magnesium) tablet (MagOx) amlodipine 5 mg tablet 5 mg PO BIDWM 30 days #60 tabs 06/04/24 fluticasone propionate 50 2 spray intranasal DAILY #16 grams 06/04/24 mcg/actuation nasal spray,suspension (Allergy Relief (fluticasone)) aspirin 81 mg tablet,delayed 81 mg PO DAILY #90 tabs 07/08/24 release atorvastatin 40 mg tablet 40 mg PO BEDTIME #90 tabs 07/08/24 doxazosin 1 mg tablet 2 mg (2 x 1 mg) PO BEDTIME #90 tabs 07/08/24 carvedilol 12.5 mg tablet 12.5 mg PO BID #60 tabs 12/02/24 topiramate 25 mg tablet (Topamax) 25 mg PO BID PRN for nerve pain 30 02/12/25 days #60 tabs tramadol 50 mg tablet 50 mg PO Q8H PRN pain #7 tabs 03/01/25 Allergies Allergy/AdvReac Type Severity Reaction Status Date / Time chicken derived Allergy Severe anaphylaxis Verified 02/12/25 13:09 turkey Allergy Severe anaphylaxis Verified 02/12/25 13:09 [facility] PFSH: Medical History LUIS (obstructive sleep apnea) Major depressive disorder, recurrent severe without psychotic features Inguinal hernia Long-term current use of opiate analgesic Pain management contract signed DDD (degenerative disc disease), lumbar Facet syndrome, lumbar Surgical History Hx of colonoscopy 3 yrs ago History of esophagogastroduodenoscopy (EGD) S/P appendectomy Hx of appendectomy Hx of hernia repair Hx of rotator cuff surgery LEFT SHOULDER Family History Mother CAD (coronary artery disease) Cancer LUNG CANCER Social History Smoking and tobacco/nicotine status: never used tobacco/nicotine Second hand smoke exposure: No Alcohol intake: never Substance/Drug Use: never Lives independently: Yes Marital status: Physical Exam Const: COMMON NORMALS: no acute distress GENERAL APPEARANCE: cooperative; not ill appearing and not frail appearing HENMT: COMMON NORMALS: normocephalic, atraumatic and Normal external nose present HEAD & SCALP: normocephalic and atraumatic FACE & SINUS: normal facial exam and face symmetric NOSE: Normal external nose present Eye: COMMON NORMALS: Equal, round and reactive pupils present and EOMs intact bilaterally PUPIL: Yes Equal, round and reactive pupils present Neck/C-Spine: GENERAL: Yes trachea midline Chest: CHEST: Yes Symmetrical chest wall rise Resp: COMMON NORMALS: normal respiratory effort, No retractions, No use of accessory muscles and clear to auscultation bilaterally AUSCULTATION: clear to auscultation bilaterally Cardio: COMMON NORMALS: regular rate and regular rhythm RATE: regular rate RHYTHM: regular rhythm GI: COMMON NORMALS: Normal to inspection, nondistended, normoactive bowel sounds present Extremity: NARRATIVE EXTREMITY EXAM: Exam the right lower extremity reveals lateral/trochanteric bruising over the right hip. There is tenderness to the area. There is no groin tenderness. There is minimal sacral tenderness. There is mild tenderness to the thigh. There is a small knee effusion. There is 5 degrees of extension lag to the knee. Generalized knee tenderness. No deformity. Pulses and sensation are intact. Exam of the left index finger reveals swelling. There is tenderness at the MCP and PIP. There is no hand or wrist tenderness or deformity. Neuro: MATHEUS COMA SCALE: document GCS findings [place] coma scale eye opening: Spontaneous Matheus coma scale verbal response: Orientated Matheus coma scale motor response: Obey commands [place] coma scale total score: 15 SENSORY EXAM: Yes extremities (intact) Psych: COMMON NORMALS: speech normal SPEECH: Yes normal speech Course Vital Signs: Vital signs: Vital Signs Temperature 99.1 F 03/01/25 19:46 Pulse Rate 65 03/01/25 21:12 Respiratory Rate 16 03/01/25 21:12 Blood Pressure 160/90 03/01/25 21:12 Pulse Oximetry 97 03/01/25 21:12 Oxygen Delivery Me thod Room Air 03/01/25 19:46 MDM - Fall Medical Decision Making X-rays of the pelvis, femur, and right knee reveal no fractures. No deformities. Knee effusion is not terribly visible on knee film. Finger x-ray shows no fracture or deformity. There is soft tissue swelling present. Will anai tape the finger. Ice, short course of pain medication. Lab Data Radiology Impressions Femur X-Ray 03/01/25 20:01 IMPRESSION: No acute findings. Finger X-Ray 03/01/25 20:01 IMPRESSION: No acute findings. Knee X-Ray 03/01/25 20:01 IMPRESSION: No acute findings. Pelvis X-Ray 03/01/25 20:01 IMPRESSION: No acute findings. All radiology interpretation(s) finalized by discharge Discharge Plan Discharge Patient Disposition: Home Clinical Impression: Contusion of hip, right, Sprain of index finger Condition: Stable Prescriptions: New tramadol 50 mg tablet 50 mg PO Q8H PRN (Reason: pain) Qty: 7 0RF No Action (DME) CPAP AUTO TITRATING See Rx Instructions .Route .MEDSUPPLY Qty: 1 0RF Rx Instructions: PLEASE PROVIDE NEW TUBING AND MASK. pantoprazole 40 mg tablet,delayed release (DR/EC) 40 mg PO DAILY 90 Days Qty: 90 1RF spironolacton-hydrochlorothiaz 25-25 mg tablet 1 tab PO DAILY topiramate [Topamax] 25 mg tablet 25 mg PO BID PRN (Reason: for nerve pain) 30 Days Qty: 60 0RF (DME) lumbar corsett See Rx Instructions .Route .MEDSUPPLY Qty: 1 0RF Rx Instructions: As directed montelukast 10 mg tablet 10 mg PO BEDTIME 90 Days Qty: 90 1RF magnesium oxide [MagOx] 400 mg (241.3 mg magnesium) tablet 400 mg PO BID 30 Days Qty: 60 5RF fluticasone propionate [Allergy Relief (fluticasone)] 50 mcg/actuation spray,suspension 2 spray intranasal DAILY Qty: 16 5RF Rx Instructions: administer into each nostril amlodipine 5 mg tablet 5 mg PO BIDWM 30 Days Qty: 60 2RF (DME) C-PAP Supplies See Rx Instructions .Route .MEDSUPPLY Qty: 1 11RF Rx Instructions: As directed carvedilol 12.5 mg tablet 12.5 mg PO BID Qty: 60 5RF Rx Instructions: must administer with a meal/food doxazosin 1 mg Tablet 2 mg PO BEDTIME Qty: 90 0RF atorvastatin 40 mg Tablet 40 mg PO BEDTIME Qty: 90 0RF aspirin 81 mg Tablet,Delayed Release (Dr/Ec) 81 mg PO DAILY Qty: 90 0RF Discharge Orders: Discharge ED (Routine); Ordered 03/01/25 Ordered By: Satish Lara Referrals: Jason Gutierrez MD [Primary Care Provider, Internal Medicine] - 4-7 days Patient Instructions: Finger Sprain (ED), Hip Contusion (ED), Opioid Safety, Pain Management, Patient Portal & Luca Instructions Activity Restrictions/Additional Instructions: Continue to anai tape your finger as shown in the emergency department until he swelling and pain resolved. Ice, pain medication, anti-inflammatories for pain and swelling otherwise. Follow-up with your doctor next week. Call Monday for a follow-up appointment. Return for any problems. Print Language: Romanian Coding Level of Care Code ED [employer] Manager for Dinesh Padilla
[2025-03-01 21:02] VITALS: BP 165/91; PULSE 63; RESP 16; O2SAT 98
[2025-03-01 21:12] VITALS: BP 160/90; PULSE 65; RESP 16; O2SAT 97
== END 2025-03-01 21:13 | disposition home or self-care (01) ==
PROVIDERS: Emergency Provider Emergency Medicine; PCP Internal Medicine
DX: S70.01XA Contusion of right hip, initial encounter (principal); S63.610A Unspecified sprain of right index finger, initial encounter; Z79.82 Long term (current) use of aspirin; W17.89XA Other fall from one level to another, initial encounter
CPT/HCPCS: 72170; 73140; 73552; 73562; 99284; J9999

== ENCOUNTER → 2025-03-11 15:41 | Outpatient (BNVA) | payer OTHER, SELFPAY | PROVIDERS: PCP Pediatrics | DX: I10 Essential (primary) hypertension (principal); N40.0 Benign prostatic hyperplasia without lower urinary tract symptoms; E78.2 Mixed hyperlipidemia; Z12.5 Encounter for screening for malignant neoplasm of prostate | CPT/HCPCS: 80053; 80061; 85025; 86695; 86696; G0103 ==

== ENCOUNTER → 2025-03-12 08:55 | Outpatient (BNVA) | payer OTHER, SELFPAY | PROVIDERS: PCP Pediatrics; Visit Provider Nurse Practitioner Family | DX: M48.062 Spinal stenosis, lumbar region with neurogenic claudication (principal); M54.50 Low back pain, unspecified; M79.604 Pain in right leg; M51.16 Intervertebral disc disorders with radiculopathy, lumbar region; M47.816 Spondylosis without myelopathy or radiculopathy, lumbar region | CPT/HCPCS: 99214 ==

== ENCOUNTER → 2025-04-01 11:03 | Outpatient (BNVA) | payer OTHER, SELFPAY | PROVIDERS: PCP Pediatrics; Visit Provider Podiatrist Foot & Ankle Surgery | DX: M79.671 Pain in right foot (principal); I73.9 Peripheral vascular disease, unspecified; L60.3 Nail dystrophy | CPT/HCPCS: 11721; 73650; 99213 ==

== ENCOUNTER 2025-04-09 13:55 | Outpatient (CLI) | payer MEDICARE, MEDICAID, SELFPAY ==
--- NOTE | 2025-04-09 14:07 | XR_ITS ---
WS: [id number] XR tibia fibula RT 2V [id number] REASON FOR EXAM: right acosta pain FINDINGS: The tibia and fibula are intact without fracture, periosteal reaction, or bone erosion. No radiopaque soft tissue foreign bodies identified. XR/XR tibia fibula RT 2V [id number] IMPRESSION: No significant abnormality.
--- NOTE | 2025-04-09 14:07 | XR_ITS ---
WS: [id number] XR ankle RT min 3V* [id number] REASON FOR EXAM: right acosta pain FINDINGS: There is a small bony avulsion from the extreme apex of the medial malleolus of unknown chronicity. This may relate to the remote trauma. Joint spaces of the ankle are intact and well preserved. XR/XR ankle RT min 3V* [id number] IMPRESSION: Small medial malleolar avulsion as above.
== END 2025-04-09 13:56 | disposition home or self-care (01) ==
PROVIDERS: PCP Pediatrics
DX: M79.661 Pain in right lower leg (principal); M48.062 Spinal stenosis, lumbar region with neurogenic claudication; M54.50 Low back pain, unspecified; M79.604 Pain in right leg; M51.16 Intervertebral disc disorders with radiculopathy, lumbar region; M47.816 Spondylosis without myelopathy or radiculopathy, lumbar region
CPT/HCPCS: 73590; 73610; 99214

== ENCOUNTER → 2025-05-13 11:08 | Outpatient (BNVA) | payer MEDICARE, SELFPAY | PROVIDERS: PCP Pediatrics; Visit Provider Nurse Practitioner Family | DX: M48.062 Spinal stenosis, lumbar region with neurogenic claudication (principal); M54.50 Low back pain, unspecified; M51.16 Intervertebral disc disorders with radiculopathy, lumbar region; M47.816 Spondylosis without myelopathy or radiculopathy, lumbar region | CPT/HCPCS: 99214 ==

== ENCOUNTER → 2025-05-28 12:50 | Outpatient (BNVA) | payer MEDICARE, SELFPAY | PROVIDERS: PCP Pediatrics; Visit Provider Student in an Organized Health Care Education/Training Program | DX: M17.0 Bilateral primary osteoarthritis of knee (principal); Z71.89 Other specified counseling | CPT/HCPCS: 20610; 99213; J3301; J9999 ==

== ENCOUNTER → 2025-06-10 10:12 | Outpatient (BNVA) | payer MEDICARE, SELFPAY | PROVIDERS: PCP Nurse Practitioner; Visit Provider Podiatrist Foot & Ankle Surgery | DX: E11.8 Type 2 diabetes mellitus with unspecified complications (principal); L60.3 Nail dystrophy; I73.9 Peripheral vascular disease, unspecified | CPT/HCPCS: 11721 ==

== ENCOUNTER 2025-06-22 20:58 | Emergency (ER) | payer MEDICARE, SELFPAY ==
--- OUTSIDE RECORDS SUMMARY | 2024-10-29 07:30 | XMS_ITS ---
Author Organization [facility] Address [address] [place] [address] Care Team Providers Care Biosolids Management Technician Name Role Phone Prabhakar Gutierrez Primary Care Provider [phone] Edinson Lisa Unavailable [phone] REASON FOR VISIT B-LMBB #2 L5-S1 rescheduled Encounters Encounter Location Date Provider Diagnosis [facility] [address] [place] [address] 10/29/2024 Edinson Lisa Plan Of Treatment Next Appt Details Provider Name:Prabhakar Gutierrez, 07/17/2025 01:00:00 PM, [address] [place] [address], [phone], Progress Notes * KEATON HODGSONDOB: 4 (59 yo M)Acc No.[id number]:10/29/2024 Patient: KEATON STERLING Provider: Nina Lisa D.O. :1965 A ge:58 Y S ex:Male Date:10/29/2024 Address:[address] [place], [place] [phone] Pcp:Prabhakar Gutierrez Subjective: * Chief Complaints: * B -LMBB #2 L5-S1 rescheduled * Electronic signature of Edinson Lisa DO on 06/22/2025 at 09:04 PM CDT Sign off status: Pending * Provider: Nina Lisa D.O. Date: 0 10/29/2024 Generated for Marilee nuñez/Jacinda/Danial on: 1 09:04 PM CDT
--- OUTSIDE RECORDS SUMMARY | 2024-11-19 09:10 | XMS_ITS ---
Author Organization [facility] Address [address] [place] [address] Care Team Providers Care Long Term Name Role Phone Prabhakar Gutierrez Primary Care Provider Edinson Lisa Unavailable [phone] REASON FOR VISIT B-LMBB #1 L4-5, [id number] Encounters Encounter Location Date Provider Diagnosis [facility] [address] [place] [address] 11/19/2024 Edinson Lisa Plan Of Treatment Next Appt Details Provider Name:Prabhakar Gutierrez, 07/17/2025 01:00:00 PM, [address] [place] [address], [phone], Progress Notes * KEATON HODGSONDOB: 4 (59 yo M)Acc No.[id number]:11/19/2024 Patient: KEATON STERLING Provider: Nina Lisa D.O. :1965 A ge:58 Y S ex:Male Date:11/19/2024 Address:[address] [place], [place] [phone] Pcp:Prabhakar Gutierrez Subjective: * Chief Complaints: * B -LMBB #1 L4-5, [id number] * Electronic signature of Edinson Lisa DO on 06/22/2025 at 09:03 PM CDT Sign off status: Pending * Provider: Nina Lisa D.O. Date: 0 11/19/2024 Generated for Marilee nuñez/Jacinda/Nathanaelitting on: 1 09:03 PM LENCHOT
--- OUTSIDE RECORDS SUMMARY | 2025-06-19 10:30 | XMS_ITS ---
Author Organization [facility], [facility] Address [address] [place] [address] Care Team Providers Care Social Problems Specialist Name Role Phone RAJ WILLIAMSON Unavailable [phone] Allergies No Known Allergies REASON FOR VISIT 4-6 wk fu/reassess Follow-up for Right Testicular Pain Medications Medication SIG (Take, Route, Frequency, Duration) Notes Start Date End Date Status Carvedilol 12.5 MG 1 tablet with food Orally Twice a day Active Atorvastatin Calcium 40 MG 1 tablet Orally Once a day Active Aspirin 81 81 MG 1 tablet Orally Once a day Active amLODIPine Besylate 5 MG 1 tablet Orally Once a day Active Doxazosin Mesylate 2 MG 1 tablet Orally Once a day Active Spironolactone-HCTZ 25-25 MG 1 tablet Orally Once a day Active Pantoprazole Sodium 40 MG 1 tablet 1/2 to 1 hour before morning meal Orally Once a day Active Montelukast Sodium 10 MG 1 tablet Orally Once a day Active Magnesium 400 MG as directed Orally Active Fluticasone Propionate 50 MCG/ACT 1 spray in each nostril Nasally Twice a day Active Doxycycline Monohydrate 100 MG 1 capsule Orally twice a day; Duration: 14 days 06/20/2025 07/04/2025 Active traMADol HCl 50 MG 1 tablet as needed Orally every 8 hrs Not-Taking Topiramate 25 MG 1 tablet Orally Once a day Active Social History Tobacco Use: Social History Observation Description Date Details (start date - stop date) Never Smoker NA - NA Tobacco Control (Standard) Question Answer Notes Tobacco use: Nonsmoker AUDIT-C (Standard) Question Answer Notes Did you have a drink contain ing alcohol in the past year? Yes How often did you have a dri nk containing alcohol in the past year? 2 to 3 times a week (3 points) How many drinks did you have on a typical day when you were drinking in the past year? 3 or 4 drinks (1 point) How often did you have six o r more drinks on one occasion in the past year? Never (0 point) Points 4 Interpretation Positive Problems Problem Type SNOMED Code ICD Code Onset Dates Problem Status W/U Status Risk Notes Problem Pain of right testicle (finding) (7515965696057 9107) Testicular pain, right (N50.811) Active confirmed Problem Nocturia (421803514) Nocturia (R35.1) Active confirmed Problem History of orchitis (Z87.438) Active confirmed Problem History of vasectomy (363939254) History of vasectomy (Z98.52) Active confirmed Vital Signs Blood pressure systolic 123 mm Hg 06/19/20 25 Blood pressure diastolic 77 mm Hg 025 Heart Rate 77 /min 06/19/2025 Height 69 in 06/19/2025 Weight 275 lbs 06/19/2025 BMI 40.61 kg/m2 06/19/2025 Height-cm 175.26 cm 06/19/2025 Weight-kg 124.74 kg 06/19/2025 Encounters Encounter Location Date Provider Diagnosis [facility], [facility] [address] [place] [address] 06/19/2025 RAJ WILLIAMSON Orchitis N45.2 ; Testicular pain, right N50.811 ; Nocturia R35.1 ; History of orchitis Z87.438 and History of vasectomy Z98.52 Assessments Encounter Date Diagnosis (ICD Code) Assessment Notes Treatment Notes Treatment Clinical Notes Section Notes 06/19/2025 Orchitis (ICD-10 - N45.2) 1. Right-sided orchitis/epidi dymitis - N45.1 2. Testicular cyst/spermatoc david - N44.2 3. History of vasectomy - Z98.52 This is a 59-year-old male with recurrent right testicular pain after completing a 1-week course of doxycycline. Symptoms are consistent with persistent epididymitis, possibly complicated by epididymal cysts or spermatoceles, potentially related to his history of vasectomy. 06/19/2025 Testicular pain, right (ICD-10 - N50.811) 1. Right-sided orchitis/epidi dymitis - N45.1 2. Testicular cyst/spermatoc david - N44.2 3. History of vasectomy - Z98.52 This is a 59-year-old male with recurrent right testicular pain after completing a 1-week course of doxycycline. Symptoms are consistent with persistent epididymitis, possibly complicated by epididymal cysts or spermatoceles, potentially related to his history of vasectomy. 06/19/2025 Nocturia (ICD-10 - R35.1) 1. Right-sided orchitis/epidi dymitis - N45.1 2. Testicular cyst/spermatoc david - N44.2 3. History of vasectomy - Z. This is a 59-year-old male with recurrent right testicular pain after completing a 1-week course of doxycycline. Symptoms are consistent with persistent epididymitis, possibly complicated by epididymal cysts or spermatoceles, potentially related to his history of vasectomy. 06/19/2025 History of orchitis (ICD-10 - Z87.438) 1. Right-sided orchitis/epidi dymitis - N45.1 2. Testicular cyst/spermatoc david - N44.2 3. History of vasectomy - Z.52 This is a 59-year-old male with recurrent right testicular pain after completing a 1-week course of doxycycline. Symptoms are consistent with persistent epididymitis, possibly complicated by epididymal cysts or spermatoceles, potentially related to his history of vasectomy. 06/19/2025 History of vasectomy (ICD-10 - Z98.52) 1. Right-sided orchitis/epidi dymitis - N45.1 2. Testicular cyst/spermatoc david - N44.2 3. History of vasectomy - Z.52 This is a 59-year-old male with recurrent right testicular pain after completing a 1-week course of doxycycline. Symptoms are consistent with persistent epididymitis, possibly complicated by epididymal cysts or spermatoceles, potentially related to his history of vasectomy. 06/19/2025 Other # Right Epididymitis/Orchi tis Prescribe doxycycline for a 2-week course to more thoroughly treat the suspected infection. Longer course indicated due to recurrence of symptoms and the difficulty of antibiotic penetration into testicular/epididy mal tissue. Medication to be sent to [facility] pharmacy. # Testicular Cyst/Spermatocele Request PowerShare of previous scrotal ultrasound from [facility] to review size and characteristics of reported cysts. Discussed potential surgical options if cysts are of sufficient size and continue to cause symptoms after infection is cleared. Surgical intervention would involve scrotal exploration with cyst excision. # Follow-up Return to clinic in 6 weeks (approximately 4 weeks after completing antibiotics) to reassess symptoms and review ultrasound findings. Will determine need for surgical intervention at that time if symptoms persist. You have an infection in your right testicle that has come back after your first round of antibiotics. Today we are: - Prescribing a 2-week course of doxycycline antibiotic - Requesting your previous ultrasound images to review Take all of your antibiotics exactly as prescribed, even if you start feeling better. The pain in your testicle may be caused by both infection and small fluid-filled sacs (cysts). These cysts are common and not dangerous, but can sometimes cause pain. They may be related to your past vasectomy. If the pain continues after finishing your antibiotics, we may discuss surgery to remove the cysts. Please return to the clinic in 6 weeks for follow-up. Call sooner if your symptoms get worse or you develop fever, increased swelling, or redness. 1. Right-sided orchitis/epidi dymitis - N45.1 2. Testicular cyst/spermatoc david - N44.2 3. History of vasectomy - Z98.52 This is a 59-year-old male with recurrent right testicular pain after completing a 1-week course of doxycycline. Symptoms are consistent with persistent epididymitis, possibly complicated by epididymal cysts or spermatoceles, potentially related to his history of vasectomy. Plan Of Treatment Medication Medication Name Sig Start Date Stop Date Notes Doxycycline Monohydrate 100 MG 1 capsule Orally twice a day; Duration: 14 days 06/20/2025 07/04/2025 Treatment Notes Assessment Notes Other # Right Epididymitis/Orchitis Prescribe doxycycline for a 2-week course to more thoroughly treat the suspected infection. Longer course indicated due to recurrence of symptoms and the difficulty of antibiotic penetration into testicular/epididymal tissue. Medication to be sent to [facility] pharmacy. # Testicular Cyst/Spermatocele Request PowerShare of previous scrotal ultrasound from [facility] to review size and characteristics of reported cysts. Discussed potential surgical options if cysts are of sufficient size and continue to cause symptoms after infection is cleared. Surgical intervention would involve scrotal exploration with cyst excision. # Follow-up Return to clinic in 6 weeks (approximately 4 weeks after completing antibiotics) to reassess symptoms and review ultrasound findings. Will determine need for surgical intervention at that time if symptoms persist. You have an infection in your right testicle that has come back after your first round of antibiotics. Today we are: - Prescribing a 2-week course of doxycycline antibiotic - Requesting your previous ultrasound images to review Take all of your antibiotics exactly as prescribed, even if you start feeling better. The pain in your testicle may be caused by both infection and small fluid-filled sacs (cysts). These cysts are common and not dangerous, but can sometimes cause pain. They may be related to your past vasectomy. If the pain continues after finishing your antibiotics, we may discuss surgery to remove the cysts. Please return to the clinic in 6 weeks for follow-up. Call sooner if your symptoms get worse or you develop fever, increased swelling, or redness. Pending Test Test Name Order Date US Scrotum/Testicle--[id number] 06/19/2025 Next Appt Details Follow Up: 6 Weeks, Reason: Provider Name:RAJ Wood, 07/28/2025 04:10:00 PM, [address] [place], [address], Progress Notes * Benjamin HODGSON IIDOB:[birth year] (59 yo M)Acc No.[id number]:06/19/2025 Progress Notes Patient: Angelito Benjamin MENEZES II Provider: Mariluz WILLIAMSON MD :[id number] A ge:59 Y S ex:Male Date:06/19/2025 Address:[address] [place], [place] [phone] Subjective: * Chief Complaints: * 1 . 4-6 wk fu/reassess Follow-up for Right Testicular Pain. * HPI: M igrated HPI: 59 year old male, here to establish care for R testicular pain. He reports pain is alleviated when he sleeps. Reports that his recently told that she had genital herpesand they are sexually active. He denies lesions to himself. STD testing was negative. He does have chronic pains and sees pain management for his chronic low back pain. Has had this testicular pain/R groin pain for over a 1.5 years now.. He was referred to our office nearly a year ago, however, never scheduled then. He was re referred for this chronic R testicular pain. Reports pain is constant. KADY completed in 2023 shown mild R orchitis, and small R epididymal spermatocele and small simple R hydrocele. Had a vasectomy nearly 25 years ago. Started on d oxycycline for 2 weeks Mr. Benjamin Hodgson is a 59-year-old male presenting for follow-up of right testicular pain. Patient was seen by Dr. Merino approximately one month ago who prescribed a 1-week course of doxycycline for suspected epididymal infection. Patient reports the pain initially improved with antibiotics, but symptoms returned this past weekend. He describes pain in the right testicle, along the spermatic cord, and in the right groin. Previously, he also experienced lower back pain which resolved with the initial antibiotic course but has not yet returned with this recurrence. Patient had an ultrasound performed at [facility] which reportedly showed cysts or spermatoceles, though he states no one has thoroughly explained the findings to him. Patient has history of vasectomy many years ago and left-sided hernia repair. He denies any new swelling, redness, or other changes since his last visit. * ROS: G eneral / Constitutional: Patient denies c hange in appetite, fever, weakness. ? G enitourinary: Comments S rivas [facility] for details. * Medical History: D egenerative joint disease, Hypertension. * Surgical History: a ppendectomy , router cuff surgery , back surgery , repair on right thump . * Hospitalization/Major Diagno stic Procedure: s ee hx above . * Family History: F ather: 25 yrs, no info. M other: alive 80 yrs, lung cancer. * Social History: T obacco Use: T obacco Control (Standard) T obacco use: N onsmoker. D rug/Alcohol: D o you smoke marijuana?: Denies. AUDIT-C (Standard) D id you have a drink containing alcohol in the past year? Y es, H ow often did you have a drink containing alcohol in the past year? 2 to 3 times a week (3 points), H ow many drinks did you have on a typical day when you were drinking in the past year? 3 or 4 drinks (1 point), H ow often did you have six or more drinks on one occasion in the past year? N ever (0 point), P oints 4 , I nterpretation P ositive. * Medications: T aking Topiramate 25 MG Tablet 1 tablet Orally Once a day , Taking Spironolactone-HCTZ 25-25 MG Tablet 1 tablet Orally Once a day , Taking Pantoprazole Sodium 40 MG Tablet Delayed Release 1 tablet 1/2 to 1 hour before morning meal Orally Once a day , Taking Montelukast Sodium 10 MG Tablet 1 tablet Orally Once a day , Taking Magnesium 400 MG Tablet as directed Orally , Taking Fluticasone Propionate 50 MCG/ACT Suspension 1 spray in each nostril Nasally Twice a day , Taking Doxazosin Mesylate 2 MG Tablet 1 tablet Orally Once a day , Taking Carvedilol 12.5 MG Tablet 1 tablet with food Orally Twice a day , Taking Atorvastatin Calcium 40 MG Tablet 1 tablet Orally Once a day , Taking Aspirin 81 81 MG Tablet Delayed Release 1 tablet Orally Once a day , Taking amLODIPine Besylate 5 MG Tablet 1 tablet Orally Once a day , Not-Taking traMADol HCl 50 MG Tablet 1 tablet as needed Orally every 8 hrs , Medication List reviewed and reconciled with the patient * Allergies: N .K.D.A. Objective: * Vitals: B P:123/77mm Hg, HR:77/min, Wt:275lbs, Wt-k.74 kg, Ht: 69 in, Ht-cm: 175.26 cm, BMI:40.61Index, Body Surface Area: 2.46. * Physical Examination: G eneral: No acute distress. Genitourinary: Per previous provider's exam, tenderness noted on the posterior aspect of the right testicle/epididymis. No erythema, swelling, or masses noted on current exam. Cardiovascular: Normal heart sounds. No lower extremity edema. Abdomen: No inguinal hernias palpated on right side. Skin: No rashes or skin lesions in genital region. Imaging: Previous scrotal ultrasound from [facility] not currently available in our system. Request sent for PowerShare of images. Assessment: * Assessment: 1. T esticular pain, right - N50.811 (Primary) 2 . O rchitis - N45.2 ? 3 . N octuria - R35.1 4 . H istory of orchitis - Z87.438 ? 5 . H istory of vasectomy - Z98.52 1. Right-sided orchitis/epid idymitis - N45.1 2. Testicular cyst/spermatocele - N44.2 3. History of vasectomy - Z98.52 This is a 59-year-old male with recurrent right testicular pain after completing a 1-week course of doxycycline. Symptoms are consistent with persistent epididymitis, possibly complicated by epididymal cysts or spermatoceles, potentially related to his history of vasectomy. Plan: * Treatment: * 2.?Orchitis?Imaging: US Scrotum/Testicle--[id number]* Gely Saleh 06/20/2025 0 9:49:57 AM CDT >SAME DAY APPT 07/28/25 prior to 4:10 Gely Saleh 06/20/2025 09:50:53 AM CDT >NA PA required. Prior to 07/28/25 * 3.?Others? Start Doxycycline Monohydrate Capsule, 100 MG, 1 capsule, Orally, twice a day, 14 days, 28 Capsule,Refills 0.?? Notes: # Right Epididymitis/Orchitis Prescribe doxycycline for a 2-week course to more thoroughly treat the suspected infection. Longer course indicated due to recurrence of symptoms and the difficulty of antibiotic penetration into testicular/epididymal tissue. Medication to be sent to [facility] pharmacy. # Testicular Cyst/Spermatocele Request PowerShare of previous scrotal ultrasound from [facility] to review size and characteristics of reported cysts. Discussed potential surgical options if cysts are of sufficient size and continue to cause symptomsafter infection is cleared. Surgical intervention would involve scrotal exploration with cyst excision. # Follow-up Return to clinic in 6 weeks (approximately 4 weeks after completing antibiotics) to reassess symptoms and review ultrasound findings. Will determine need for surgical intervention at that time if symptoms persist. You have an infection in your right testicle that has come back after your first round of antibiotics. Today we are: - Prescribing a 2-week course of doxycycline antibiotic - Requesting your previous ultrasound images to review Take all of your antibiotics exactly as prescribed, even if you start feeling better. The pain in your testicle may be caused by both infection and small fluid-filled sacs (cysts). These cysts are common and not dangerous, but can sometimes cause pain. They may be related to your pastvasectomy. If the pain continues after finishing your antibiotics, we may discuss surgery to remove the cysts. Please return to the clinic in 6 weeks for follow-up. Call sooner if your symptoms get worse or youdevelop fever, increased swelling, or redness.?? * Follow Up: 6 Weeks * Billing Information: * Visit Code: 79102 Office Visit, Est Pt., Level 4. * Procedure Codes: * Electronic signature of AUST IN MD CLAY on 06/22/2025 at 09:03 PM CDT Sign off status: Pending * Provider: Mariluz WILLIAMSON MD Date: Generated for Marilee nuñez/Jacinda/Nathanaelitting on: 09:03 PM CDT History and Physical Notes * HPI (History of Present Illness) Category Sub-Category Detail Notes Category Not es Migrated HPI 59 year old male, here to establish care for R testicular pain. He reports pain is alleviated when he sleeps. Reports that his recently told that she had genital herpesand they are sexually active. He denies lesions to himself. STD testing was negative. He does have chronic pains and sees pain management for his chronic low back pain. Has had this testicular pain/R groin pain for over a 1.5 years now.. He was referred to our office nearly a year ago, however, never scheduled then. He was re referred for this chronic R testicular pain. Reports pain is constant. KADY completed in 2023 shown mild R orchitis, and small R epididymal spermatocele and small simple R hydrocele. Had a vasectomy nearly 25 years ago. Started on doxycycline for 2 weeks Mr. Benjamin Hodgson is a 59-year-old male presenting for follow-up of right testicular pain. Patient was seen by Dr. Merino approximately one month ago who prescribed a 1-week course of doxycycline for suspected epididymal infection. Patient reports the pain initially improved with antibiotics, but symptoms returned this past weekend. He describes pain in the right testicle, along the spermatic cord, and in the right groin. Previously, he also experienced lower back pain which resolved with the initial antibiotic course but has not yet returned with this recurrence. Patient had an ultrasound performed at [facility] which reportedly showed cysts or spermatoceles, though he states no one has thoroughly explained the findings to him. Patient has history of vasectomy many years ago and left-sided hernia repair. He denies any new swelling, redness, or other changes since his last visit. Physical Examination Category Sub-Category Detail Notes Section Note s General: No acute distress. Genitourinary: Per previous provider's exam, tenderness noted on the posterior aspect of the right testicle/epididymis. No erythema, swelling, or masses noted on current exam. Cardiovascular: Normal heart sounds. No lower extremity edema. Abdomen: No inguinal hernias palpated on right side. Skin: No rashes or skin lesions in genital region. Imaging: Previous scrotal ultrasound from [facility] not currently available in our system. Request sent for PowerShare of images.
--- OUTSIDE RECORDS SUMMARY | 2025-06-22 21:02 | XMS_ITS | Encounter Summary ---
Author Organization [facility] Address [address] [place] [address] Care Team Providers Care Perioperative Nurse Name Role Phone Harsha Shay DO Primary Care Provider [phone] Encounter Details Date Type Department Care Team (Latest Contact Info) Description 03/16/2004 Outpatient Historical 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
--- OUTSIDE RECORDS SUMMARY | 2025-06-22 21:02 | XMS_ITS | Encounter Summary ---
Author Organization [facility] Address [address] [place] [address] Care Team Providers Care Business Unit Controller Name Role Phone Harsha Shay DO Primary Care Provider [phone] Encounter Details Date Type Department Care Team (Latest Contact Info) Description 03/15/2004 Outpatient Historical [facility] Pain Management Procedures [address] 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
--- OUTSIDE RECORDS SUMMARY | 2025-06-22 21:03 | XMS_ITS | Clinical Summary ---
Author Organization [facility] Address [address] [place] [address] Phone Care Team Providers Care Digital Media Sales Consultant Name Role Phone Harsha Shay DO Primary Care Provider [phone] Allergies No known active allergies Medications Hospital, Clinic, or Other Facility Administered Medication Ordered Dose Route Frequency Start Date End Date Status proparacaine (OPTHAINE) 0.5 % ophthalmic solution 1 DropIndications:Chron ic detachment of retina of right eye,Ruptured globe of right eye, sequela,Pseudophakia of left eye 1 Drop Both Eyes ONE TIME ONLY 03/31/2025 Active tropicamide (MYDRIACYL) 1 % ophthalmic solution 1 DropIndications:Chron ic detachment of retina of right eye,Ruptured globe of right eye, sequela,Pseudophakia of left eye 1 Drop Both Eyes ONE TIME ONLY 03/31/2025 Active phenylephrine 2.5 % ophthalmic solution 1 DropIndications:Chron ic detachment of retina of right eye,Ruptured globe of right eye, sequela,Pseudophakia of left eye 1 Drop Both Eyes ONE TIME ONLY 03/31/2025 Active Active Problems Problem Noted Date Diagnosed Date Ruptured globe of right eye 03/29/2024 Pseudophakia of left eye 03/29/2024 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 2023 Encounters Date Type Department Care Team Description 06/17/2025 External Device Data [facility] ABSTRACTION Provider, Abstract 04/23/2025 External Device Data [facility] ABSTRACTION Provider, Abstract [...] on file 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
--- OUTSIDE RECORDS SUMMARY | 2025-06-22 21:03 | XMS_ITS | Encounter Summary ---
Author Organization [facility] Address [address] [place] [address] Care Team Providers Care Tire Spotter Name Role Phone Harsha Shay DO Primary Care Provider [phone] Encounter Details Date Type Department Care Team (Latest Contact Info) Description 12/17/2003 Outpatient Historical [facility] [address] [address] [place] [address] Denisha Antunez FNP [address] [facility] [address] [place] [address] LUMBOSACRAL SPONDYLOSIS (Primary Dx) Social History Tobacco Use Types Packs/Day Years Used Date Smoking Tobacco: Never Assessed Sex and Gender Information Value Date Recorded Sex Assigned at Not on file Legal 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
--- OUTSIDE RECORDS SUMMARY | 2025-06-22 21:03 | XMS_ITS | Encounter Summary ---
Author Organization [facility] Address [address] [place] [address] Care Team Providers Care Electronic Security Technician Name Role Phone Harsha Shay DO Primary Care Provider [phone] Encounter Details Date Type Department Care Team (Latest Contact Info) Description 04/28/2004 [facility] [address] 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
--- OUTSIDE RECORDS SUMMARY | 2025-06-22 21:03 | XMS_ITS | Encounter Summary ---
Author Organization [facility] Address [address] [place] [address] Care Team Providers Care Mill Representative Name Role Phone Harsha Shay DO Primary Care Provider [phone] Encounter Details Date Type Department Care Team (Latest Contact Info) Description 12/17/2003 Outpatient Historical [facility] Orthopedics- 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
--- OUTSIDE RECORDS SUMMARY | 2025-06-22 21:03 | XMS_ITS | Encounter Summary ---
Author Organization [facility] Address [address] [place] [address] Care Team Providers Care Assistant To The Dean Name Role Phone Harsha Shay DO Primary Care Provider [phone] Encounter Details Date Type Department Care Team (Latest Contact Info) Description 01/25/2005 Outpatient Historical [facility] [address] 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
--- OUTSIDE RECORDS SUMMARY | 2025-06-22 21:03 | XMS_ITS | Encounter Summary ---
Author Organization [facility] Address [address] [place] [address] Care Team Providers Care Cardiac Exercise Specialist Name Role Phone Harsha Shay DO Primary Care Provider [phone] Encounter Details Date Type Department Care Team (Latest Contact Info) Description 10/31/2003 Outpatient Historical [facility] Pain [facility] [address] 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
--- OUTSIDE RECORDS SUMMARY | 2025-06-22 21:03 | XMS_ITS | Encounter Summary ---
Author Organization [facility] Address [address] [place] [address] Care Team Providers Care Corn Chip Maker Name Role Phone Harsha Shay DO Primary Care Provider [phone] Encounter Details Date Type Department Care Team (Latest Contact Info) Description 10/31/2003 Outpatient Historical [facility] [address] 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
--- OUTSIDE RECORDS SUMMARY | 2025-06-22 21:03 | XMS_ITS | Encounter Summary ---
Author Organization [facility] Address [address] [place] [address] Care Team Providers Care Certified Phlebotomy Technician Name Role Phone Harsha Shay DO Primary Care Provider [phone] Encounter Details Date Type Department Care Team (Late st Contact Info) Description 08/14/2006 Outpatient [facility] [address] [place] [address] Social History Tobacco Use Types Packs/Day Years Used Date Smoking Tobacco: Never Assessed Sex and Gender Information Value Date Recorded Sex Assigned at Not on file Legal Sex Male 6:12 AM SHAPER HAND Gender Identity Not on file Sexual Orientation Not on file documented as of this encounter Plan of Treatment Not on file documented as of this encounter Visit Diagnoses Not on filedocumented in this encounter Care Teams Certified Phlebotomy Technician Relationship Specialty Start Date End Date Harsha Shay DO [address] [place] [address] PCP - General 10/14/03 documented as of this encounter
--- OUTSIDE RECORDS SUMMARY | 2025-06-22 21:03 | XMS_ITS | Patient Health Record ---
Author Organization [facility] Address [address] [place] [address] Care Team Providers Care Fibreglass Laminator Name Role Phone RAJ WILLIAMSON Unavailable [phone] Wilber Rivera Unavailable [phone] Allergies No Known Allergies Results Component Value Reference Range Notes Urinalysis, Routine Reviewed date:05/19/2025 03:22:34 PM Interpretation: Performing Lab: Notes/Report: Urine-Color yellow Appearance clear Glucose - Bilirubin - Ketones - Specific [place] 1.015 Occult Blood - pH 6.0 Urine Protein - Urobilinogen,Semi-Qn - Nitrite, Urine - WBC Esterase - Reason For Referral No Information Medications Medication SIG (Take, Route, Frequency, Duration) Notes Start Date End Date Status Carvedilol 12.5 MG 1 tablet with food Orally Twice a day Active Atorvastatin Calcium 40 MG 1 tablet Orally Once a day Active Aspirin 81 81 MG 1 tablet Orally Once a day Active amLODIPine Besylate 5 MG 1 tablet Orally Once a day Active traMADol HCl 50 MG 1 tablet [...] each nostril Nasally Twice a day Active Doxazosin Mesylate 2 MG 1 tablet Orally Once a day Active Doxycycline Monohydrate 100 MG 1 capsule Orally twice a day; Duration: 14 days 06/20/2025 07/04/2025 Active Social History Tobacco Use: Social History [...] Problem Status W/U Status Risk Notes Problem Nocturia (619767200) Nocturia (R35.1) Active confirmed Problem History of orchitis (Z87.438) Active confirmed Problem History of vasectomy (081407608) History of vasectomy (Z98.52) Active confirmed Problem Pain of right testicle (finding) (7438581737491 9107) Testicular pain, right (N50.811) Active confirmed Vital Signs Heart Rate 77 /min 06/19/2025 Height-cm 175.26 cm 06/19/2025 Blood pressure diastolic 77 mm Hg 06/19/2025 Weight-kg 124.74 kg 06/19/2025 Height 69 in 06/19/2025 Blood pressure systolic 123 mm Hg 06/19/2025 Weight 275 lbs 06/19/2025 BMI 40.61 kg/m2 06/19/2025 Procedures Procedure Date Ordered Date Performed Result Body Sit e Bladder Scan 05/19/2025 05/19/2025 N/A Encounters Encounter Location Date Provider Diagnosis [facility] [address] [facility] [place] [address] 06/19/2025 RAJ WILLIAMSON Orchitis N45.2 ; Testicular pain, right N50.811 ; Nocturia R35.1 ; History of orchitis Z87.438 and History of vasectomy Z98.52 [facility] [address] [facility] [place] [address] 05/19/2025 Wilber Rivera Orchitis N45.2 ; Testicular pain, right N50.811 ; Establishing care with new doctor, encounter for Z76.89 and Nocturia R35.1 [facility]: [address] [facility] [place] [address] 05/13/2025 Wilber Rivera [facility], [facility] [address] [facility] [place] [address] 06/03/2025 RAJ WILLIAMSON Assessments Encounter Date Diagnosis (ICD Code) Assessment Notes Treatment Notes Treatment Clinical Notes Section Notes 06/19/2025 Orchitis (ICD-10 - N45.2) 1. Right-sided orchitis/epidid ymitis - N45.1 2. Testicular cyst/spermatoce le - N44.2 3. History of vasectomy - Z98.52 This is a 59-year-old male with recurrent right testicular pain after completing a 1-week course of doxycycline. Symptoms are consistent with persistent epididymitis, possibly complicated by epididymal cysts or spermatoceles, potentially related to his history of vasectomy. 06/19/2025 Testicular pain, right (ICD-10 - N50.811) 1. Right-sided orchitis/epidid ymitis - N45.1 2. Testicular cyst/spermatoce le - N44.2 3. History of vasectomy - Z98.52 This is a 59-year-old male with recurrent right testicular pain after completing a 1-week course of doxycycline. Symptoms are consistent with persistent epididymitis, possibly complicated by epididymal cysts or spermatoceles, potentially related to his history of vasectomy. 05/19/2025 Orchitis (ICD-10 - N45.2) I reviewed [facility] radiology report from 2023 and I discussed with the patient that there is findings consistent with a orchitis that has been causing him pain. I have recommended him a course of doxycycline for 2 weeks, but understands it can take 4-6w course at times. We discussed methods for symptomatic support including scrotal support, NSAIDs, and warm sitz baths. Patient is to return back in 4-6 weeks for symptom reassessment with MD. May consider setting up for testicluar block if continued symptoms following antibiotics and conserviatve measures.. For now, and through shared decision making we are in agreement with no further workup or intervention at this time with care plan, aside from what was mentioned. Patient has no other voiced concerns or questions. Patient satisfied with plan. 05/19/2025 Testicular pain, right (ICD-10 - N50.811) I reviewed [facility] radiology report from 2023 and I discussed with the patient that there is findings consistent with a orchitis that has been causing him pain. I have recommended him a course of doxycycline for 2 weeks, but understands it can take 4-6w course at times. We discussed methods for symptomatic support including scrotal support, NSAIDs, and warm sitz baths. Patient is to return back in 4-6 weeks for symptom reassessment with MD. May consider setting up for testicluar block if continued symptoms following antibiotics and conserviatve measures.. For now, and through shared decision making we are in agreement with no further workup or intervention at this time with care plan, aside from what was mentioned. Patient has no other voiced concerns or questions. Patient satisfied with plan. 05/19/2025 Establishing care with new doctor, encounter for (ICD-10 - Z76.89) I reviewed [facility] radiology report from 2023 and I discussed with the patient that there is findings consistent with a orchitis that has been causing him pain. I have recommended him a course of doxycycline for 2 weeks, but understands it can take 4-6w course at times. We discussed methods for symptomatic support including scrotal support, NSAIDs, and warm sitz baths. Patient is to return back in 4-6 weeks for symptom reassessment with MD. May consider setting up for testicluar block if continued symptoms following antibiotics and conserviatve measures.. For now, and through shared decision making we are in agreement with no further workup or intervention at this time with care plan, aside from what was mentioned. Patient has no other voiced concerns or questions. Patient satisfied with plan. 06/19/2025 Nocturia (ICD-10 - R35.1) 1. Right-sided orchitis/epidid ymitis - N45.1 2. Testicular cyst/spermatoce le - N44.2 3. History of vasectomy - Z98.52 This is a 59-year-old male with recurrent right testicular pain after completing a 1-week course of doxycycline. Symptoms are consistent with persistent epididymitis, possibly complicated by epididymal cysts or spermatoceles, potentially related to his history of vasectomy. 06/19/2025 History of orchitis (ICD-10 - Z87.438) 1. Right-sided orchitis/epidid ymitis - N45.1 2. Testicular cyst/spermatoce le - N44.2 3. History of vasectomy - Z98.52 This is a 59-year-old male with recurrent right testicular pain after completing a 1-week course of doxycycline. Symptoms are consistent with persistent epididymitis, possibly complicated by epididymal cysts or spermatoceles, potentially related to his history of vasectomy. 05/19/2025 Nocturia (ICD-10 - R35.1) I reviewed [facility] radiology report from 2023 and I discussed with the patient that there is findings consistent with a orchitis that has been causing him pain. I have recommended him a course of doxycycline for 2 weeks, but understands it can take 4-6w course at times. We discussed methods for symptomatic support including scrotal support, NSAIDs, and warm sitz baths. Patient is to return back in 4-6 weeks for symptom reassessment with MD. May consider setting up for testicluar block if continued symptoms following antibiotics and conserviatve measures.. For now, and through shared decision making we are in agreement with no further workup or intervention at this time with care plan, aside from what was mentioned. Patient has no other voiced concerns or questions. Patient satisfied with plan. 06/19/2025 History of vasectomy (ICD-10 - Z98.52) 1. Right-sided orchitis/epidid ymitis - N45.1 2. Testicular cyst/spermatoce le - N44.2 3. History of vasectomy - [...] mal tissue. Medication to be sent to [facility] pharmacy. # Testicular Cyst/Spermatocele Request [employer] of previous scrotal ultrasound from [place] to review size and characteristics of reported [...] fever, increased swelling, or redness. 1. Right-sided orchitis/epidid ymitis - N45.1 2. Testicular cyst/spermatoce le - N44.2 3. History of vasectomy - Z98.52 This is a 59-year-old male with recurrent right testicular pain after completing a 1-week course of doxycycline. Symptoms are consistent with persistent epididymitis, possibly complicated by epididymal cysts or spermatoceles, potentially related to his history of vasectomy. Plan Of Treatment Pending Test Test Name Order Date US Scrotum/Testicle--[id number] 06/19/2025 Next Appt Details Provider Name:RAJ Wood, 07/28/2025 04:10:00 PM, [address] [place], [address], Insurance Providers Payer Name Payer Address Payer Phone Subscriber Number Group Number Insured Name Patient Relationship to Insured Coverage Start Date Coverage End Date [employer] Medicare Replacement [address] [address] [place], [place] [id number] [phone] [id number] Benjamin Carrion Self - patient is the insured [facility] [address] [address] [place], [place] [id number] Benjamin Carrion Self - patient is the insured Medical (General) History Medical History History ICD Code degenerative joint disease hypertension Surgical History Surgery Date(Month/Year) appendectomy router cuff surgery back surgery repair on right thump Hospitalization History Reason Date(Month/Year) see hx above
--- OUTSIDE RECORDS SUMMARY | 2025-06-22 21:03 | XMS_ITS | Encounter Summary ---
Author Organization [facility] Address [address] [place] [address] Care Team Providers Care Director It Name Role Phone Harsha Shay DO Primary Care Provider [phone] Encounter Details Date Type Department Care Team (Latest Contact Info) Description 08/14/2006 Outpatient Historical [facility] [address] 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
--- OUTSIDE RECORDS SUMMARY | 2025-06-22 21:03 | XMS_ITS | Encounter Summary ---
Author Organization [facility] Address [address] [place] [address] Care Team Providers Care Videotape Operator Name Role Phone Harsha Shay DO Primary Care Provider [phone] Encounter Details Date Type Department Care Team (Latest Contact Info) Description 04/28/2004 Outpatient Historical [facility] [address] [place] [address] eHrson Monterroso MD NO ADDRESS ON FILE LUMBAGO (Primary Dx) Social History Tobacco Use Types Packs/Day Years Used Date Smoking Tobacco: Never Assessed Sex and Gender Information Value Date Recorded Sex Assigned at Not on file 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
--- OUTSIDE RECORDS SUMMARY | 2025-06-22 21:03 | XMS_ITS | Encounter Summary ---
Author Organization [employer] [facility] Address [address] [place] [address] Care Team Providers Care Insurance Claim Auditor Name Role Phone Harsha Shay DO Primary Care Provider [phone] Encounter Details Date Type Department Care Team (Late st Contact Info) Description 12/29/2004 Outpatient Historical HIS CANCELLED ADMISSION Denisha Antunez, ASSISTANT MECHANIC [address] [facility] [address] [place] [id number] Social History Tobacco Use Types Packs/Day Years Used Date Smoking Tobacco: Never Assessed Sex and Gender Information Value Date Recorded Sex Assigned at Not on file Legal 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
--- OUTSIDE RECORDS SUMMARY | 2025-06-22 21:03 | XMS_ITS | Encounter Summary ---
Author Organization [employer] [facility] Address [address] [place] [address] Care Team Providers Care Clarification Operator Name Role Phone Harsha Shay DO Primary Care Provider [phone] Encounter Details Date Type Department Care Team (Latest Contact Info) Description 12/27/2004 Outpatient Historical [facility] [address] 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
--- OUTSIDE RECORDS SUMMARY | 2025-06-22 21:03 | XMS_ITS | Encounter Summary ---
Author Organization [facility] Address [address] [place] [address] Care Team Providers Care Polystyrene Bead Molder Name Role Phone Harsha Shay DO Primary Care Provider [phone] Encounter Details Date Type Department Care Team (Latest Contact Info) Description 01/25/2005 Outpatient Historical [facility] [address] [place] [address] Herson Monterroso MD NO ADDRESS ON FILE BACKACHE NOS (Primary Dx) Social History Tobacco Use Types Packs/Day Years Used Date Smoking Tobacco: Never Assessed Sex and Gender Information Value Date Recorded Sex Assigned at Not on file 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
--- OUTSIDE RECORDS SUMMARY | 2025-06-22 21:03 | XMS_ITS | Encounter Summary ---
Author Organization [facility] Address [address] [place] [address] Care Team Providers Care Driver/Refuse Collector Name Role Phone Harsha Shay DO Primary Care Provider [phone] Encounter Details Date Type Department Care Team (Latest Contact Info) Description 09/28/2004 Outpatient Historical [facility] [address] 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
--- OUTSIDE RECORDS SUMMARY | 2025-06-22 21:03 | XMS_ITS | Encounter Summary ---
Author Organization [employer] [facility] Address [address] [place] [address] Care Team Providers Care Roof Fitter Name Role Phone Harsha Shay DO Primary Care Provider [phone] Encounter Details Date Type Department Care Team (Latest Contact Info) Description 08/14/2006 Outpatient Historical [facility] Pain Management Procedures [address] 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
--- OUTSIDE RECORDS SUMMARY | 2025-06-22 21:03 | XMS_ITS | Encounter Summary ---
Author Organization [facility] Address [address] [place] [facility] [place] [address] Care Team Providers Care Rigging And Controls Aircraft Mechanic Name Role Phone Harsha Shay DO Primary Care Provider [phone] Encounter Details Date Type Department Care Team (Latest Contact Info) Description 12/17/2003 Outpatient Historical [facility] [address] [place] 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
--- OUTSIDE RECORDS SUMMARY | 2025-06-22 21:03 | XMS_ITS | Encounter Summary ---
Author Organization [facility] Address [address] [place] [address] Care Team Providers Care Terminal Worker Name Role Phone Harsha Shay DO Primary Care Provider [phone] Encounter Details Date Type Department Care Team (Latest Contact Info) Description 03/30/2004 Outpatient Historical [facility]- 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
[2025-06-22 21:04] VITALS: BP 205/69; PULSE 94; RESP 16; TEMP 36.7; O2SAT 96; BMI 40.6
--- OUTSIDE RECORDS SUMMARY | 2025-06-22 21:04 | XMS_ITS | Encounter Summary ---
Author Organization [facility] Address [address] [place] [address] Care Team Providers Care Theatrical Rigger Name Role Phone Harsha Shay DO Primary Care Provider [phone] Encounter Details Date Type Department Care Team (Latest Contact Info) Description 10/24/2003 Outpatient Historical [facility] [address] 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
--- OUTSIDE RECORDS SUMMARY | 2025-06-22 21:04 | XMS_ITS | Clinical Summary ---
Author Organization [employer] Address [address] 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 Gender Identity Not on file Sexual Orientation Not on file Plan of Treatment Health Maintenance Due Date Last Done Comments DTAP/TDAP/TD VACCINES (1 - Tdap) 07/01/2003 06/30/20 03 COLORECTAL SCREENING 11/27/2008 Colorectal Cancer Screening 11/27/2008 FIT-DNA Q 3 years 11/27/2008 FIT/FOBT Q 1 year 11/27/2008 Flex Sig/CT Colonography Q 5 years 11/27/2008 ZOSTER VACCINE (1 of 2) 11/27/2013 INFLUENZA VACCINE (#1) 2025 RSV VACCINE (60+ or ) (1 - 1-dose 75+ series) 11/27/2038 Care Teams Supervisor Incising Relationship Specialty Start Date End Date Harsha Shay DO [address] [place] [address] PCP - General 10/14/03
--- OUTSIDE RECORDS SUMMARY | 2025-06-22 21:04 | XMS_ITS | Encounter Summary ---
Author Organization [facility] Address [address] [place] [address] Care Team Providers Care Wood Die Maker Name Role Phone Harsha Shay DO Primary Care Provider [phone] Encounter Details Date Type Department Care Team (Latest Contact Info) Description 06/30/2004 Outpatient Historical HIS CANCELLED ADMISSION Herson Monterroso MD NO ADDRESS ON FILE ADMINISTRTVE ENCOUNT NOS (Primary Dx) Social History Tobacco Use Types Packs/Day Years Used Date Smoking Tobacco: Never Assessed Sex and Gender Information Value Date Recorded Sex Assigned at Not on file Legal 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
--- OUTSIDE RECORDS SUMMARY | 2025-06-22 21:04 | XMS_ITS | Patient Health Record ---
Author Organization [facility] Address [address] [place] [address] Care Team Providers Care Blasting Contract Man Name Role Phone Prabhakar Gutierrez Primary Care Provider Kevin Roberts Unavailable [phone] Edinson Lisa Unavailable [phone] Nikole Espitia Unavailable Allergies No Known Allergies Results Component Value Reference Range Notes CT Sinus w/o Contrast-[id number] Reviewed date:07/29/2024 01:38:27 PM Interpretation: Performing Lab: Notes/Report: Fluoro Needle For Placement - Spine [id number] Reviewed date:09/03/2024 01:40:38 PM Interpretation: Performing Lab: Notes/Report: Reason For Referral Reason chronic sinus pressu re Diagnosis 1 Chronic sinusitis, u nspecified location ([facility]) Referral Organization [facility] Referring Provider First Name Reinaldo ko Referring Provider Last Name Matt Referring Provider Speciality Internal M edicine Referred [...] Duration) Notes Start Date End Date Status DULoxetine HCl 20 MG Capsule Delayed Release Particles 1 capsule Orally Once a day; Duration: 90 days 07/12/2024 Active Losartan Potassium 100 MG Tablet 1 tablet Orally Once a day; Duration: 90 days Active Atorvastatin Calcium 40 MG Tablet 1 tablet Orally Once a day; Duration: 90 days Active Allergy 24-HR 180 MG Tablet 1 tablet Swallow whole with water; do not take with fruit juices. Orally Once a day Not-Taking Carvedilol 12.5 MG Tablet 1 tablet with food Orally Once a day Active Chlorthalidone 25 MG Tablet 1 tablet in the morning with food Orally Not-Taking Doxazosin Mesylate 1 MG Tablet 1 tablet Orally Once a day; Duration: 90 days 09/18/2025 Active CPAP Machine By Mouth/Nose Nightly Not-Taking Montelukast Sodium 10 MG Tablet 1 tablet Orally Once a day Not-Taking Fexofenadine HCl 180 MG Tablet 1 tablet Swallow whole with water; do not take with fruit juices. Orally Once a day Active Pantoprazole Sodium 40 MG Tablet Delayed Release 1 tablet 1/2 to 1 hour before morning meal Orally Once a day Not-Taking Fluticasone Propionate 50 MCG/ACT Suspension 1 spray in each nostril Nasally Twice a day Active Stool Softener & Laxative 8.6-50 MG Tablet 1 tablet as needed Orally Twice a day Not-Taking Lansoprazole 30 MG Capsule Delayed Release 1 capsule 1/2 to 1 hour before morning meal Orally Once a day; Duration: 90 days Active Tamsulosin HCl 0.4 MG Capsule 1 capsule Orally Once a day Not-Taking Montelukast Sodium 10 MG Tablet 1 tablet Orally Once a day; Duration: 90 days 06/20/2024 Active Metamucil 30.9 % Powder as directed Orally Not-Taking amLODIPine Besylate 10 MG Tablet 1 tablet Orally daily; Duration: 90 days Active Aspirin 81 MG Tablet Delayed Release 1 tablet Orally Once a day Active Magnesium Oxide 400 MG Tablet 1 tablet as needed Orally TWICE DAILY; Duration: 90 days Active Immunizations Vaccine Route Administration Date Status Comme nts Flucelvax Trivalent, Syringe 0.5 mL, PF Unknown 025 Refused Social History Tobacco Use: Social History Observation Description Date Details (start date - stop date) Never Smoker NA - NA Social History Depression Screening Social Info Question Answer Notes depression screening findings Findings Negative (0 -4) 12/06/24 PHQ-9 Little interest or p carlitos in doing things Not at all Feeling [...] way Not at all Total Score 0 Drugs/Alcohol: Social Info Question Answer Notes Drugs Have you used drugs other than those for medical reasons in the past 12 months? No Comprehensive Health Assessm ent Social Info Question Answer Notes *Social Determinants of Health Has lack of transportation kept you from medical appointments, meetings, work or from getting things needed for daily living? No Recently, have you worried t hat your food would run out before you got money to buy more? No Do you feel physically and e motionally safe where you currently live? Choose not to answer Are you worried about losing your housing? No Have you recently been himanshu rned that your utilities would be turned off (electricity, gas, or water)? No Drug/Alcohol: Social Info Question Answer Notes AUDIT-C (Standard) Did you have a drink containing alcohol in the past year? No Points 0 Interpretation Negative Tobacco Use: Social Info Question Answer Notes Tobacco Control (Standard) Tobacco use: Nonsmoker Section Notes: 06/20/24 06/20/24 06/20/24 Tob:06/20/24 Dep: 06/20/24 Tob:06/20/24 Dep: 06/20/24 Tob:06/20/24 Dep: 06/20/24 Tob:06/20/24 Dep: 06/20/24 CIME Dep/tob - 12/06/24 Tob:06/20/24 Dep: 06/20/24 CIME Depression screenin12/06/2024 CIME Tobacco screenin12/06/2024 CIME SDoH screenin01/15/2025 Problems Problem Type SNOMED Code ICD Code Onset Dates Problem Status W/U Status Risk Notes Problem Chronic pain syndrome (054369899) Chronic pain syndrome (G89.4) Active confirmed Problem Lumbosacral spondylosis without myelopathy (disorder) (85820985) Spondylosis without myelopathy or radiculopathy, lumbosacral region (M47.817) Active confirmed Problem Lumbosacral radiculopathy (5960827) Radiculopathy, lumbosacral region (M54.17) Active confirmed Problem Lower urinary tract symptoms due to benign prostatic hypertrophy (78558440625099) Benign prostatic hyperplasia with lower urinary tract symptoms (N40.1) Active confirmed Problem Essential hypertension (46811893) Essential hypertension (I10) Active confirmed Problem Chronic sinusitis (87976150) Chronic sinusitis, unspecified location (J32.9) Active confirmed Problem Gastritis and duodenitis (106792746) Gastritis and duodenitis (K29.90) Active confirmed Problem Seasonal allergy (735287100) Seasonal allergies (J30.2) Active confirmed Problem Lumbar post-laminectomy syndrome (838094047) Lumbar post-laminectomy syndrome (M96.1) Active confirmed Problem Abnormal gait (68897734) Abnormality of gait and mobility (R26.9) Active confirmed Problem Lumbosacral radiculopathy (1165228) L-S radiculopathy (M54.17) Active confirmed Vital Signs Heart Rate 66 /min 01/15/2025 Temperature 99.4 degrees Fahrenheit 01/15/2025 Oximetry 95 % 01/15/2025 Height-cm 175.26 cm 01/15/2025 Blood pressure diastolic 70 mm Hg 01/15/2025 Weight-kg 122.47 kg 01/15/2025 Height 69 in 01/15/2025 Blood pressure systolic 138 mm Hg 01/15/2025 Weight 270 lbs 01/15/2025 BMI 39.87 kg/m2 01/15/2025 Procedures Procedure Date Ordered Date Performed Result Body Sit e Epidural, Lumbar/Sacral (Cau gama), w/ imaging guidance - 40101 09/03/2024 09/03/2024 N/A Facet Inj. / MBB Lumbar/Sacr al, 2 levels - 24154, 12209 10/15/2024 N/A Encounters Encounter Location Date Provider Diagnosis [facility] [address] [place] [address] 07/12/2024 Prabhakar Gutierrez Chronic sinusitis, unspecified location J32.9 ; Seasonal allergies J30.2 ; Essential hypertension I10 and Benign prostatic hyperplasia with lower urinary tract symptoms N40.1 [facility] [address] [place] [address], [place] [address] 08/05/2024 Christophlawrence Gutierrez Seasonal allergies J30.2 and Chronic sinusitis, unspecified location J32.9 [facility] [address] [place] [address], [place] [address] 08/16/2024 Prabhakar Gutierrez Essential hypertension I10 ; Chronic sinusitis, unspecified location J32.9 and Benign prostatic hyperplasia with lower urinary tract symptoms N40.1 [facility] [address] [place] [address], [place] [address] 08/29/2024 Prabhakar Gutierrez Gastritis and duodenitis K29.90 [facility] [address] [place] [address] 09/03/2024 Edinson Lisa L-S radiculopathy M54.17 [facility] [address] [place] [address], [place] [address] 09/23/2024 Prabhakar Gutierrez Essential hypertension I10 and Benign prostatic hyperplasia with lower urinary tract symptoms N40.1 [facility] [address] [address] 09/25/2024 Edinson Lisa Chronic pain syndrome G89.4 ; Other intervertebral disc degeneration, 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.362 ; Radiculopathy, lumbosacral region M54.17 and Spondylosis without myelopathy or radiculopathy, lumbosacral region M47.817 [facility] [address] [place] [address], [place] [address] 12/06/2024 Prabhakar Gutierrez Infection of sebaceous gland L73.8 ; Chronic pain syndrome G89.4 and Depression screen Z13.31 [facility] [address] [place] [address], [place] [address] 01/15/2025 Prabhakar Gutierrez Seasonal allergies J30.2 ; Benign prostatic hyperplasia with lower urinary tract symptoms N40.1 ; Essential hypertension I10 ; Encounter for immunization Z23 and Immunization not carried out because of patient refusal Z28.21 [facility] [place] [address] [place] [address] 08/05/2024 Nikole Nupur [facility] [place] [address] [place] [address] 08/07/2024 Nikole Nupur [facility] [address] [address] 10/11/2024 Prabhakar Gutierrez Essential hypertension I10 [facility] [address] [place] [address], [place] [address] 05/13/2025 Kevin Roberts [facility] [address] [place] [address] 05/21/2025 Prabhakar Gutierrez Assessments Encounter Date Diagnosis (ICD Code) Assessment Notes Treatment Notes Treatment Clinical Notes Section Notes 08/16/2024 Essential hypertension (ICD-10 - I10) 09/25/2024 Other intervertebral disc degeneration, lumbar region with discogenic back pain and lower extremity pain (ICD-10 - M51.362) 09/23/2024 Essential hypertension (ICD-10 - I10) 09/25/2024 [...] him after the diagnostic blocks. Schedule [facility]MB[facility] 01/15/2025 Benign prostatic hyperplasia with lower urinary tract symptoms (ICD-10 - N40.1) 12/06/2024 Infection of sebaceous gland (ICD-10 - L73.8) 08/29/2024 Gastritis and duodenitis (ICD-10 - K29.90) 08/05/2024 Chronic sinusitis, unspecified location (ICD-10 - J32.9) 08/05/2024 Seasonal allergies (ICD-10 - J30.2) 01/15/2025 Seasonal allergies (ICD-10 - J30.2) All [...] office visit as needed for acute concerns. 12/06/2024 Chronic pain syndrome (ICD-10 - G89.4) refilled magnesium 07/12/2024 Chronic sinusitis, unspecified location (ICD-10 - J32.9) 07/12/2024 Seasonal allergies (ICD-10 - J30.2) 09/03/2024 L-S radiculopathy (ICD-10 - M54.17) 10/11/2024 Essential hypertension (ICD-10 - I10) 12/06/2024 Depression screen (ICD-10 - Z13.31) 09/25/2024 Radiculopathy, lumbosacral region (ICD-10 - M54.17) 07/12/2024 Essential hypertension (ICD-10 - I10) 01/15/2025 Essential hypertension (ICD-10 - I10) Pt advised to take meds as prescribed, exercise as tolerated, and monitor BP as directed. If symptoms develop, parameters out of range, or any distress contact clinic or utilize ER. 08/16/2024 Chronic sinusitis, unspecified location (ICD-10 - J32.9) 09/23/2024 Benign prostatic hyperplasia with lower urinary tract symptoms (ICD-10 - N40.1) 08/16/2024 Benign prostatic hyperplasia with lower urinary tract symptoms (ICD-10 - N40.1) 01/15/2025 Encounter for immunization (ICD-10 - Z23) 09/25/2024 Spondylosis without myelopathy or radiculopathy, lumbosacral region (ICD-10 - M47.817) 07/12/2024 Benign prostatic hyperplasia with lower urinary tract symptoms (ICD-10 - N40.1) 01/15/2025 Immunization not carried out because of patient refusal (ICD-10 - Z28.21) 09/25/2024 Other I, Farhan Willett, am scribing for Dr. Edinson Lisa. I, Dr. Edinson Lisa, personally performed the services described in this documentation, as scribed by Farhan Willett, and it is both accurate and complete. Plan Of Treatment Pending Test Test Name Order Date Fluoro Needle For Placement - Spine 7700 3 10/15/2024 Facet Inj. / MBB Lumbar/Sacral, 2 levels - 75277, 39950 10/15/2024 Future Test Test Name Order Date Facet Inj. / MBB Lumbar/Sacral, 2 levels - 82282, 33692 10/21/2024 Fluoro Needle For Placement - Spine 7700 3 10/29/2024 Next Appt Details Provider Name:Prabhakar Gutierrez, 07/17/2025 01:00:00 PM, [address] [place] [address], [phone], Insurance Providers Payer Name Payer Address Payer Phone Subscriber Number Group Number Insured Name Patient Relationship to Insured Coverage Start Date Coverage End Date [facility] Dual Complete [address] [place] [address] [id number] [employer] KEATON HODGSON Self - patient is the insured [place] Medicaid [address] [place] [address] [id number] KEATON HODGSON Self - patient is the insured Medical (General) History Medical History History ICD Code allergies High Blood Pressure Back Trouble herniated disk prostatism Surgical History Surgery Date(Month/Year) back surgery hernia repair 1993 appendectomy 1999 rotator cuff tear repair L 2000
--- OUTSIDE RECORDS SUMMARY | 2025-06-22 21:04 | XMS_ITS | Encounter Summary ---
Author Organization [facility] Address [address] [place] [address] Care Team Providers Care Restaurant Worker Name Role Phone Harsha Shay DO Primary Care Provider Encounter Details Date Type Department Care Team (Latest Contact Info) Description 09/28/2004 Outpatient Historical [facility] [address] [place] [address] Herson Monterroso MD NO ADDRESS ON FILE LUMBAGO (Primary Dx) Social History Tobacco Use Types Packs/Day Years Used Date Smoking Tobacco: Never Assessed Sex and Gender Information Value Date Recorded Sex Assigned at Not on file 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
--- OUTSIDE RECORDS SUMMARY | 2025-06-22 21:04 | XMS_ITS | Encounter Summary ---
Author Organization [facility] Address [address] [place] [address] Care Team Providers Care Evaporator Name Role Phone Harsha Shay DO Primary Care Provider Encounter Details Date Type Department Care Team (Latest Contact Info) Description 10/24/2003 Outpatient Historical [facility] Pain Management Procedures [address] 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
--- OUTSIDE RECORDS SUMMARY | 2025-06-22 21:04 | XMS_ITS | Encounter Summary ---
Author Organization [facility] Address [address] [place] [address] Care Team Providers Care Width Stripper Name Role Phone Harsha Shay DO Primary Care Provider Encounter Details Date Type Department Care Team (Latest Contact Info) Description 10/14/2003 Outpatient Historical [facility] [address] [place] [phone] Torin Prasad MD NO ADDRESS ON FILE LUMB/LUMBOSAC DISC DEGEN (Primary Dx) Social History Tobacco Use Types Packs/Day Years Used Date Smoking Tobacco: Never Assessed Sex and Gender Information Value Date Recorded Sex Assigned at Not on file Legal 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
--- OUTSIDE RECORDS SUMMARY | 2025-06-22 21:04 | XMS_ITS | Encounter Summary ---
Author Organization [facility] Address 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
--- OUTSIDE RECORDS SUMMARY | 2025-06-22 21:04 | XMS_ITS | Encounter Summary ---
Author Organization [facility] Address [address] [place] [address] Care Team Providers Care Workforce Staffing Advisor Name Role Phone Harsha Shay DO Primary Care Provider [phone] Encounter Details Date Type Department Care Team (Latest Contact Info) Description 10/14/2003 Outpatient Historical [facility] [address] [place] [address] Herson Monterroso MD NO ADDRESS ON FILE LUMBAGO (Primary Dx) Social History Tobacco Use Types Packs/Day Years Used Date Smoking Tobacco: Never Assessed Sex and Gender Information Value Date Recorded Sex Assigned at Not on file 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
--- NOTE | 2025-06-22 22:05 | XRR_ITS ---
PROCEDURE INFORMATION: Exam: XR Chest Exam date and time: 06/22/2025 10:16 PM Age: 59 years old Clinical indication: Other: Dizziness, diaphoresis; Additional info: Left shoulder pain, dizzy, diaphoresis TECHNIQUE: Imaging protocol: Radiologic exam of the chest. Views: 1 view. COMPARISON: CR XR chest 2V* [id number] 08/20/2024 2:12 PM FINDINGS: Lungs: Unremarkable. No consolidation. Pleural spaces: Unremarkable. No pleural effusion. No pneumothorax. Heart/Mediastinum: Unremarkable. No cardiomegaly. Bones/joints: Unremarkable. XR/XR chest 1V portable [id number] IMPRESSION: No acute findings.
[2025-06-22 22:09] LABS: Hematocrit 50.6 % (37-53); Hemoglobin 16.60 g/dL (11.27-16.99); Mean Corpuscular HGB Conc 32.8 g/dL (30-55); Mean Corpuscular Hemoglobin 27.7 pg (27-33); Mean Corpuscular Volume 84.5 fl (82-101); Nucleated Red Blood Cells % 0 %; Platelet Count 267 10^3/cmm (157-399); Red Blood Count 5.99 10^6/uL (3.85-5.65); White Blood Count 17.51 10^3/uL (3.29-11.43)
--- NOTE | 2025-06-22 22:22 | ECG_ITS ---
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 Measurements Intervals [place] Rate: 86 P: 7 [place]: 156 QRS: 41 QRSD: 97 T: 28 QT: 376 QTc: 450 Interpretive Statements SINUS RHYTHM POSSIBLE LEFT ATRIAL ENLARGEMENT [-0.1mV P-WAVE IN V1/V2] NONSPECIFIC T-WAVE ABNORMALITY Compared to ECG 07/05/2024 01:16:36 T-wave abnormality now present Electronically Signed On 06-24-2025 19:25:45 CDT by Roel Gill M.D. [email or web address]
[2025-06-22 22:29] VITALS: BP 182/100; PULSE 91; O2SAT 96
[2025-06-22 22:35] LABS: Alanine Aminotransferase 38 U/L (0-41); Albumin Level 4.7 g/dL (3.5-5.2); Alkaline Phosphatase 134 U/L (40-130); Anion Gap 20.7 (5-19); Blood Urea Nitrogen 16 mg/dL (8-23); Calcium 10.1 mg/dL (8.5-10.5); Carbon Dioxide 22 mmol/L (22-29); Chloride 100 mmol/L (98-107); Creatinine Clr Calc Pharmacy 126.6129; Globulin 2.5 g/dL (1.3-4.6); Glucose 123 mg/dL (65-115); Lipase 27 U/L (13-60); Osmolality Calculated 291 mOsm/kg (285-295); Potassium 3.7 mmol/L (3.5-5.1); Sodium 139 mmol/L (136-145); Total Protein 7.2 g/dL (6.6-8.7)
[2025-06-22 22:36] VITALS: BP 186/102; PULSE 88; O2SAT 96
[2025-06-22 22:36] LABS: Aspartate Amino Transferase 23 U/L (0-40)
[2025-06-22 22:37] VITALS: RESP 18; O2SAT 96
[2025-06-22] MEDS: morphine 4 mg/mL SDV 1 mL IVP (22:37)
[2025-06-22] MEDS: ondansetron 2 mg/ML SDV 2 mL 4 MG IVP (22:37)
[2025-06-22 22:40] LABS: Troponin(5th) Baseline 19 ng/L (0-15)
[2025-06-22 23:19] LABS: Respiratory Syncytial Virus Ce NEGATIVE (Negative); SARS-CoV-2 PCR NEGATIVE (Negative)
[2025-06-23] VITALS: BP 181/106; PULSE 82; O2SAT 93
--- NOTE | 2025-06-23 00:21 | ED_ITS ---
HPI - Abdominal Pain 2 General: Chief Complaint: Abdominal Pain Stated Complaint: N/V, dry mouth, abd pain, LT shoulder pain Time Seen by Provider: 06/22/25 21:13 Source: patient Mode of arrival: ambulatory Limitations: no limitations History of Present Illness: Patient is a 59-year-old male with past medical history of hypertension who presents to the emergency department complaining of nausea vomiting and diffuse abdominal pain for the past 24 hours. He states that last night he got drunk for the first time in a while, and today has had significant nausea vomiting and diarrhea. He also notes that he has started taking doxycycline for a testicular infection and that he thinks he had a reaction from the alcohol in the medication. States that he has been unable to keep down any fluids. Pain in his abdomen is reported to be diffuse, no blood in his vomit or diarrhea. Notes 2 many episodes of vomiting and diarrhea to count. He arrives hypertensive, states that he has been out of his blood pressure medications for 3 days now. He is noting associated headache, dry mouth, left shoulder pain, and diaphoresis. Denies any urinary symptoms. No chest pain or shortness of breath. He is hypertensive and mildly tachycardic, otherwise vital stable. MD elicited complaint: abdominal pain and other (Nausea vomiting diarrhea) Onset (ago): hour(s) Pain Consistency: constant Location: Diffuse Quality: cramping Context: other (Recent alcohol ingestion, new antibiotic) Associated Symptoms: Reports diarrhea, nausea and vomiting; Denies bloating, change in stool character, chills, constipation, dysuria, fever(s) and hematochezia Related Data Previous Rx's ?Medication ?Instructions ?Recorded fluticasone propionate 50 2 spray intranasal DAILY #16 grams 06/04/24 mcg/actuation nasal spray,suspension (Allergy Relief (fluticasone)) aspirin 81 mg tablet,delayed 81 mg PO DAILY #90 tabs 1 09/07/23 release epinephrine 0.3 mg/0.3 mL 0.3 mg (0.3 mL) IM Q10M PRN 03/11/25 injection, auto-injector (EpiPen anaphylaxis #2 ea 2-Daniel) topiramate 25 mg tablet (Topamax) 50 mg (2 x 25 mg) PO BID #60 tabs 03/12/25 lidocaine 5 % topical patch 3 patch topical DAILY PRN back 03/13/25 pain #30 ea tall CAM boot #1 ea 04/28/25 amlodipine 10 mg tablet 10 mg PO QDAY #90 tabs 06/04 atorvastatin 40 mg tablet 40 mg PO BEDTIME #90 tabs carvedilol 12.5 mg tablet 12.5 mg PO BID #180 tabs 09/28 lansoprazole 30 mg capsule,delayed 30 mg PO DAILY #90 caps 06/04/25 release magnesium oxide 400 mg (241.3 mg 400 mg PO BID 30 days #180 tabs 06/04/25 magnesium) tablet (MagOx) montelukast 10 mg tablet 10 mg PO BEDTIME 90 days #90 tabs 06/04/25 spironolactone 25 1 tab PO DAILY #90 tabs 09/28 mg-hydrochlorothiazide 25 mg tablet ondansetron 4 mg disintegrating 4 mg PO TID PRN nausea and 06/23/25 tablet vomiting #30 tabs Allergies Allergy/AdvReac Type Severity Reaction Status Date / Time turkey Allergy Severe anaphylaxis Verified 06/22/25 21:09 Review of Systems 2 General: Reports: 10 or more systems reviewed and unremarkable except in HPI and below Const: Reports: diaphoresis; Denies: fever(s), chills, change in appetite or change in weight ENMT: Reports: dry mouth; Denies: throat pain or hoarseness Card: Denies: chest pain, palpitations or lightheadedness Resp: Denies: dyspnea, productive cough or wheezing GI: Reports: abdominal pain, nausea, vomiting and diarrhea; Denies: constipation, bloating, change in stool character or hematochezia : Denies: flank pain, difficulty urinating, dysuria, urinary frequency or urinary urgency Musc: Reports: joint pain (left shoulder); Denies: neck pain or back pain Skin/Breast: Denies: rash or new lesions Neuro: Reports: headache(s); Denies: dizziness PFSH ED 2 PFSH: Medical History LUIS (obstructive sleep apnea) Major depressive disorder, recurrent severe without psychotic features Inguinal hernia Long-term current use of opiate analgesic Pain management contract signed DDD (degenerative disc disease), lumbar Facet syndrome, lumbar Surgical History History of back surgery 10/16/23 Procedure done: 1. L3-4 laminectomy with partial facetectomy 2. L4-5 laminectomy with partial facetectomy Hx of colonoscopy History of esophagogastroduodenoscopy (EGD) S/P appendectomy Hx of appendectomy Hx of hernia repair Hx of rotator cuff surgery LEFT SHOULDER Family History Mother CAD (coronary artery disease) Cancer LUNG CANCER Social History Smoking and tobacco/nicotine status: never used tobacco/nicotine Second hand smoke exposure: No Alcohol intake: never Substance/Drug Use: never Adopted: No Caregiver/support person: No Lives independently: Yes Household members: spouse Housing: House Marital status: Number of children: 2 service: No Current occupational status: retired Current occupational exposures/hazards: No Do you think of yourself as: Straight/Heterosexual Current gender identity: Male Special amisha needs: No Physical Exam 2 Const: COMMON NORMALS: patient oriented x3, no limitations and alert G ENERAL APPEARANCE: cooperative NUTRITIONAL APPEARANCE: obese morbidly obese ORIENTATION/CONSCIOUSNESS: Yes awake OTHER: mildly diaphoretic HENMT: OTHER: dry oral mucosa Eye: COMMON NORMALS: EOMs intact bilaterally and conjunctivae normal C ONJUNCTIVA: Yes conjunctivae normal Neck/C-Spine: COMMON NORMALS: full ROM, supple and no meningeal signs Resp: COMMON NORMALS: normal respiratory effort, No retractions, No use of accessory muscles and clear to auscultation bilaterally AUSCULTATION: clear to auscultation bilaterally, no crackles, no rales, no rhonchi and no wheezes Cardio: COMMON NORMALS: regular rate, regular rhythm, No gallops present (Cardio), No clicks present (Cardio), No murmurs present (Cardio), No rub (Cardio) and Peripheral pulses 2+ throughout RATE: regular rate RHYTHM: r egular rhythm PERIPHERAL PULSES: Peripheral pulses 2+ throughout GI: COMMON NORMALS: Soft to palpation, No hepatosplenomegaly present and no masses INSPECTION: Yes central obesity AUSCULTATION: Yes normoactive bowel sounds PALPATION: Yes Soft to palpation, Yes Tenderness to palpation present (GI) (Diffuse), No Guarding due to palpation present (GI), No Rigid due to palpation and Yes No hepatosplenomegaly present RECTAL EXAM: Yes deferred Extremity: COMMON NORMALS: normal to inspection and full ROM Neuro: COMMON NORMALS: patient oriented x3, moves all extremities, no focal motor deficits and no sensory deficits noted SENSORIUM/ORIENTATION: Yes alert MENINGEAL SIGNS: Yes no meningeal signs Psych: COMMON NORMALS: mental status grossly normal, cooperative and speech normal SPEECH: Yes normal speech Skin: COMMON NORMALS: no rashes or lesions noted GENERAL SKIN EXAM: no rashes or lesions noted Course 2 Vital Signs: Vital signs: Vital Signs Temperature 98.1 F 06/22/25 21:04 Pulse Rate 88 06/22/25 22:36 Respiratory Rate 18 06/22/25 22:37 Blood Pressure 186/102 06/22/25 22:36 Pulse Oximetry 96 06/22/25 22:37 Oxygen Delivery Me thod Room Air 06/22/25 22:36 MDM - Abdominal Pain Medical Decision Making This patient presented with multiple symptoms, including diffuse abdominal pain, nausea vomiting and diarrhea. Of note he states that he got drunk last night, and also began doxycycline and was concerned that he had an interaction between the 2. He arrives hypertensive, he states he has been able to keep down his blood pressure medications and this is why it is so elevated. He had noted that his mouth was dry and he was having a headache. On exam he does have dry oral mucosa, not tachycardic but heart rate has been elevated. But overall afebrile and nontoxic. He was diaphoretic and had some left upper shoulder pain due to his age ordered troponin, delta troponin is negative. ECG is not showing any acute ST segment changes. Chest x-ray negative. He has leukocytosis that is likely secondary to his countless vomiting and diarrhea that he has been having, though no episodes here in the ED today as he was treated with Zofran for nausea. Fluids administered and after 2 L had noted that his condition had improved, notably his heart rate has normalized somewhat and he is now able to tolerate p.o. fluids. No other significant lab abnormalities. Also noted that his abdominal pain had subsided. I suspect this is dehydration, possibly reaction from his doxycycline and alcohol binge episode, and with him noting significant improvement I believe he is stable for discharge home for oral rehydration. He is to continue doxycycline for his testicular infection, and Zofran for nausea will be sent. He is given general return precautions and told to take his blood pressure medications when he gets home, and to follow-up with primary care later this week. He agrees with this plan. Lab Data 06/22/25 22:02 06/22/25 22:02 Labs/Radiology: Radiology Impressions Chest X-Ray 06/22/25 22:05 IMPRESSION: No acute findings. Laboratory Results WBC 17.51 10^3/uL (3.29-11.43) H 06/22/25 22:02 RBC 5.99 10^6/uL (3.85-5.65) H 06/22/25 22:02 Hgb 16.60 g/dL (11.27-16.99) 06/22/25 22: Hct 50.6 % (37-53) 06/22/25 22: MCV 84.5 fl (82-101) 06/22/25 22: MCH 27.7 pg (27-33) 06/22/25 22: MCHC 32.8 g/dL (30-55) 06/22/25 22:02 RDW 13.7 % (12.1-15.1) 06/22/25 22: Plt Count 267 10^3/cmm (157-399) 06/22/25 22:02 MPV 10.7 fL (7.4-10.4) H 06/22/25 22:02 Neut % (Auto) 78.1 % 06/22/25 22: Lymph % (Auto) 13.4 % 06/22/25: [place] % (Auto) 7.5 % 06/22/25 22:02 Eos % (Auto) 0.1 % 06/22/25 22:02 Baso % (Auto) 0.5 % 06/22/25: Neut # (Auto) 13.69 10^3/uL (1.8-7.7) H 06/22/25 22:02 Lymph # (Auto) 2.4 10^3/uL (0.8-4.8) 06/22/25 22:02 [place] # (Auto) 1.3 10^3/uL (0.2-0.9) H 06/22/25 22:02 Eos # (Auto) 0.0 10^3/uL (0.0-0.8) 06/22/25 22:02 Baso # (Auto) 0.1 10^3/uL (0.0-0.1) 06/22/25 22:02 Nucleated RBC % (auto) 0 % 06/22/25 22:02 Nucleated RBCs # 0.0 /100WBC 06/22/25 22:02 Sodium 139 mmol/L (136-145) 06/22/25 22:02 Potassium 3.7 mmol/L (3.5-5.1) 06/22/25 22:02 Chloride 100 mmol/L (98-107) 06/22/25 22:02 Carbon Dioxide 22 mmol/L (22-29) 06/22/25 22:02 Anion Gap 20.7 (5-19) H 06/22/25 22:02 BUN 16 mg/dL (8-23) 06/22/25 22:02 Creatinine 0.8 mg/dL (0.7-1.2) 06/22/25 22:02 GFR Calculation 98.3 mL/min (90-130) 06/22/25 22:02 Glucose 123 mg/dL (65-115) H 06/22/25 22:02 Calculated Osmolality 291 mOsm/kg (285-295) 06/22/25 22:02 Calcium 10.1 mg/dL (8.5-10.5) 06/22/25 22:02 Total Bilirubin 1.6 mg/dL (0.15-1.2) H 06/22/25 22:02 AST 23 U/L (0-40) 06/22/25 22:02 ALT 38 U/L (0-41) 06/22/25 22:02 Alkaline Phosphatase 134 U/L (40-130) H 06/22/25 22:02 Troponin T Baseline 19 ng/L (0-15) H 06/22/25 22:02 Troponin T 120 Minute 17.06 ng/L (0-15) H 06/23/25 00:24 Delta Troponin T -1.94 ABS# (0-10) L 06/23/25 00:24 Total Protein 7.2 g/dL (6.6-8.7) 06/22/25 22:02 Albumin 4.7 g/dL (3.5-5.2) 06/22/25 22:02 Globulin 2.5 g/dL (1.3-4.6) 06/22/25 22:02 Lipase 27 U/L (13-60) 06/22/25 22:02 Urine Color Dark yellow (Yellow) A 06/23/25 00:16 Urine Appearance Cloudy (CLEAR) A 06/23/25 00:16 Urine pH 5.0 (5-7) 06/23/25 00:16 Ur Specific [place] 1.027 (1.005-1.030) 06/23/25 00:16 Urine Protein 1+ (Negative) A 06/23/25 00:16 Urine Glucose (UA) Negative (Normal) 06/23/25 00:16 Urine Ketones Negative (Negative) 06/23/25 00:16 Urine Blood Negative (Negative) 06/23/25 00:16 Urine Nitrate Negative (Negative) 06/23/25 00:16 Urine Bilirubin Negative (Negative) 06/23/25 00:16 Urine Urobilinogen 1.0 mg/dL (Negative) 06/23/25 00:16 Ur Leukocyte Esterase Negative (Negative) 06/23/25 00:16 Urine RBC 0-4 /hpf (0-2) H 06/23/25 00:16 Urine WBC 0-4 /hpf (0-5) H 06/23/25 00:16 Ur Squamous Epith Cells 0-4 /hpf (0-5) H 06/23/25 00:16 Amorphous Sediment Not Reportable 06/23/25 00:16 Urine Bacteria Trace /hpf (NONE) 06/23/25 00:16 Urine Mucus 3+ /hpf 06/23/25 00:16 Influenza A (PCR) Negative (Negative) 06/22/25 22:34 Influenza Type B (PCR) Negative (Negative) 06/22/25 22:34 RSV (PCR) Negative (Negative) 06/22/25 22:34 SARS-CoV-2 (PCR) Negative (Negative) 06/22/25 22:34 All radiology interpretation(s) finalized by discharge Discharge Plan Discharge Patient Disposition: Home Clinical Impression: Dehydration, Gastroenteritis Medication reaction Qualifiers: Encounter type: initial encounter Qualified Code(s): T50.905A - Adverse effect of unspecified drugs, medicaments and biological substances, initial encounter Condition: Stable Prescriptions: New ondansetron 4 mg tablet,disintegrating 4 mg PO TID PRN (Reason: nausea and vomiting) Qty: 30 0RF No Action topiramate [Topamax] 25 mg tablet 50 mg PO BID Qty: 60 0RF lidocaine 5 % adhesive patch,medicated 3 patch topical DAILY PRN (Reason: back pain) Qty: 30 0RF Rx Instructions: leave on most painful area for up to 12 hrs fluticasone propionate [Allergy Relief (fluticasone)] 50 mcg/actuation spray,suspension 2 spray intranasal DAILY Qty: 16 5RF Rx Instructions: administer into each nostril epinephrine [EpiPen 2-Daniel] 0.3 mg/0.3 mL auto-injector 0.3 mg IM Q10M PRN (Reason: anaphylaxis) Qty: 2 0RF Rx Instructions: for 2 doses atorvastatin 40 mg tablet 40 mg PO BEDTIME Qty: 90 1RF amlodipine 10 mg tablet 10 mg PO QDAY Qty: 90 1RF carvedilol 12.5 mg tablet 12.5 mg PO BID Qty: 180 1RF Rx Instructions: must administer with a meal/food lansoprazole 30 mg capsule,delayed release(DR/EC) 30 mg PO DAILY Qty: 90 1RF magnesium oxide [MagOx] 400 mg (241.3 mg magnesium) tablet 400 mg PO BID 30 Days Qty: 180 1RF montelukast 10 mg tablet 10 mg PO BEDTIME 90 Days Qty: 90 1RF spironolacton-hydrochlorothiaz 25-25 mg tablet 1 tab PO DAILY Qty: 90 1RF (DME) tall CAM boot See Rx Instructions .Route .MEDSUPPLY Qty: 1 0RF Rx Instructions: As directed aspirin 81 mg Tablet,Delayed Release (Dr/Ec) 81 mg PO DAILY Qty: 90 0RF Discharge Orders: Discharge ED (Routine); Ordered 06/23/25 Ordered By: Hosea Bonilla Patient Instructions: Patient Portal & Luca Instructions Activity Restrictions/Additional Instructions: Dehydration Discharge Instructions You are being discharged after treatment for dehydration. Please follow these instructions to help you recover safely: 1. Rehydration at Home - Drink plenty of fluids. The best choices are oral rehydration solutions (ORS) such as Pedialyte, CeraLyte, or Enfalac Lytren. These help replace water and important salts lost during dehydration. - Avoid drinks like apple juice, Gatorade, and soft drinks, as they do not have the right balance of salts and may make dehydration worse. - Continue drinking fluids until you feel well and your urine is light yellow. If vomiting or diarrhea continues, keep sipping ORS as tolerated. 2. Medications - Doxycycline: Take as prescribed. Do not drink alcohol while taking doxycycline. Alcohol may reduce the effectiveness of doxycycline, especially in people who drink heavily or over a long period. Avoiding alcohol helps your body recover and ensures the medicine works properly. - Ondansetron (Zofran): Take as directed for nausea. This medication can help reduce vomiting and make it easier to keep fluids down. - Resume your regular prescribed medications unless told otherwise. 3. Monitoring and Follow-Up - Check your blood pressure at home as instructed. - Watch for signs of dehydration: dry mouth, feeling very thirsty, little or no urine, dizziness, or weakness. - If you feel worse, cannot keep fluids down, or have new symptoms, contact your doctor or return to the emergency department. - Follow up with your primary care provider this week for a check-up and to review your recovery. 4. Other Important Information - Your lab results showed a high white blood cell count, likely due to vomiting. This is not a concern unless you develop new symptoms. - Rest, eat a normal diet as tolerated, and avoid strenuous activity until you feel better. 5. Alcohol and Doxycycline - Do not drink alcohol while taking doxycycline. Alcohol can make the medicine less effective and may slow your recovery. - Wait until you have finished your doxycycline and are fully recovered before drinking alcohol again. If you have any questions or concerns, please contact your healthcare provider. Print Language: Bengali Coding Level of Care Code ED Coating Mixer Tender for Dinesh Padilla
[2025-06-23 00:22] LABS: Glucose Urine UA Negative (Normal); Nitrate Urine Negative (Negative); Specific Gravity, Urine 1.027 (1.005-1.030)
[2025-06-23 00:41] LABS: Add Urine Microscopic? YES
[2025-06-23 00:58] LABS: Troponin 5 2HR 17.06 ng/L (0-15)
[2025-06-23 01:00] VITALS: BP 183/90; PULSE 82; O2SAT 96
[2025-06-23 01:00] LABS: Troponin 5 2HR Delta -1.94 ABS# (0-10)
[2025-06-23 02:00] VITALS: BP 180/90; PULSE 78; RESP 16; O2SAT 98
== END 2025-06-23 02:06 | disposition home or self-care (01) ==
PROVIDERS: Emergency Provider Physician Assistant
DX: E86.0 Dehydration (principal); K52.9 Noninfective gastroenteritis and colitis, unspecified; T50.905A Adverse effect of unspecified drugs, medicaments and biological substances, initial encounter; Z79.82 Long term (current) use of aspirin; Z11.52 Encounter for screening for COVID-19; X58.XXXA Exposure to other specified factors, initial encounter
CPT/HCPCS: 36415; 71045; 80053; 81001; 83690; 84484; 85025; 87637; 93005; 96361; 96374; 96375; 99285; J2270; J2405; J7030

== ENCOUNTER → 2025-07-14 12:04 | Outpatient (BNVA) | payer MEDICARE, SELFPAY | PROVIDERS: PCP Nurse Practitioner; Visit Provider Nurse Practitioner | DX: D72.829 Elevated white blood cell count, unspecified (principal) | CPT/HCPCS: 85025 ==

== ENCOUNTER → 2025-08-19 09:45 | Outpatient (BNVA) | payer MEDICARE, SELFPAY | PROVIDERS: PCP Nurse Practitioner; Visit Provider Podiatrist Foot & Ankle Surgery | DX: I73.9 Peripheral vascular disease, unspecified (principal); L60.3 Nail dystrophy | CPT/HCPCS: 11721 ==

== ENCOUNTER 2025-08-29 00:32 | Emergency (ER) | payer MEDICARE, SELFPAY ==
--- OUTSIDE RECORDS SUMMARY | 2024-10-29 06:30 | XMS_ITS ---
Author Organization [facility] Address [address] [place] [address] Care Team Providers Care Credit Union Teller Name Role Phone Ramos Blake APRN Primary Care Provider Unav ailEdinson Frey Unavailable [phone] REASON FOR VISIT B-LMBB #2 L5-S1 rescheduled Encounters Encounter Location Date Provider Diagnosis [facility] [address] [place] [place] [address] 10/29/2024 Edinson Lisa Plan Of Treatment No Information Progress Notes * MERVATKEATON MONKDOB: 4 (59 yo M)Acc No.[id number]:10/29/2024 Patient: KEATON STERLING Provider: Nina Lisa D.O. :1965 A ge:58 Y S ex:Male Date:10/29/2024 Address:[address] [place], [place] [phone] Pcp:Ramos Blake APRN Subjective: * Chief Complaints: * B -LMBB #2 L5-S1 rescheduled * Electronic signature of Edinson Lisa DO on 08/29/2025 at 12:37 AM OPHTHALMIC AIDE Sign off status: Pending * Provider: Nina Lisa D.O. Date: 0 10/29/2024 Generated for Printi ng/Faxing/eTransmitting on: 1 10/30/2024 12:37 AM OPHTHALMIC AIDE
--- OUTSIDE RECORDS SUMMARY | 2024-11-19 08:10 | XMS_ITS ---
Author Organization [facility] Address [address] [place] [address] Care Team Providers Care Windows Phone Developer Name Role Phone Ramos Blake APRN Primary Care Provider Unav ailEdinson Frey Unavailable [phone] REASON FOR VISIT B-LMBB #1 L4-5, [id number] Encounters Encounter Location Date Provider Diagnosis [facility] [address] [place] [address] 11/19/2024 Edinson Lisa Plan Of Treatment No Information Progress Notes * KEATON HODGSONDOB: 4 (59 yo M)Acc No.[id number]:11/19/2024 Patient: KEATON STERLING Provider: Nina Lisa D.O. :1965 A ge:58 Y S ex:Male Date:11/19/2024 Address:[address] [place], [place] [phone] Pcp:Ramos Blake APRN Subjective: * Chief Complaints: * B -LMBB #1 L4-5, [id number] * Electronic signature of Edinson Lisa DO on 08/29/2025 at 12:37 AM CUPOLA CHARGER INSULATION Sign off status: Pending * Provider: Nina Lisa D.O. Date: 0 11/19/2024 Generated for Printi ng/Faxing/eTransmitting on: 1 10/30/2024 12:37 AM CUPOLA CHARGER INSULATION
--- OUTSIDE RECORDS SUMMARY | 2025-07-17 07:00 | XMS_ITS ---
Author Organization [facility] Address [address] [place] [address] Care Team Providers Care Sales Applications Engineer Name Role Phone Ramos Blake APRN Primary Care Provider Unav ailable Prabhakar Gutierrez Unavailable REASON FOR VISIT 6 month f/u, Pt's Influenza Vaccination status needs to be documented under Preventive Medicine. Encounters Encounter Location Date Provider Diagnosis [facility] [address] [place] [id number] 07/17/2025 Prabhakar Gutierrez Plan Of Treatment No Information Progress Notes * KEATON HODGSONDOB: [birth year] (59 yo M)Acc No.[id number]:07/17/2025 Progress Notes Patient: KEATON STERLING Provider: Sofy Gutierrez MD :1965 A ge:59 Y S ex:Male Date:07/17/2025 Address:[address] [place], [place] [phone] Pcp:Ramos Blake APRN Subjective: * Chief Complaints: * 6 month f/uPt's Influenza Vaccination status needs to be documented under Preventive Medicine. Plan: * Preventive Medicine: Screenings: L AST WELLNESS VISIT (if today's visit is wellness, use today's date): Date: w ill schedule C OLORECTAL CANCER SCREENING: Date of last colonoscopy 0 02/16/2024 OZH D EPRESSION SCREENING: Date of most recent screenin 12/06/2024 T OBACCO USE SCREENING: (Please document on Smart Form in Social History to meet measure. No mapping from this section.) 0 12/06/2024 V ACCINATIONS: Influenza vaccinations: o curs sporadically Billing Information: * Procedure Codes: Care Plan Details* * Electronic signature of Jackelin Gutierrez MD on 08/29/2025 at 12:37 AM ROLL PICKER Sign off status: Pending * Provider: Sofy Gutierrez MD Date: 09/16/2024 Generated for Marilee nuñez/Jacinda/Santasmitting on: 10/30/2024 12:37 AM ROLL PICKER
--- OUTSIDE RECORDS SUMMARY | 2025-07-28 10:10 | XMS_ITS ---
Author Organization [facility] Address [address] [facility] [place] [address] Care Team Providers Care Business Solutions Consultant Name Role Phone RAJ WILLIAMSON Unavailable [phone] Allergies No Known Allergies Results Component Value Reference Range Notes AutoUA Reviewed date:07/29/2025 10:24:48 AM Interpretation: Performing Lab: Notes/Report: REASON FOR VISIT 6 wks w/ ua, pvr and KADY Medications Medication SIG (Take, Route, Frequency, Duration) Notes Start Date End Date Status Carvedilol 12.5 MG Tablet 1 tablet with food Orally Twice a day Active traMADol HCl 50 MG Tablet 1 tablet as ne eded Orally every 8 hrs Not-Taking Atorvastatin Calcium 40 MG Tablet 1 tablet Orally Once a day Active Aspirin 81 81 MG Tablet Delayed Release 1 tablet Orally Once a day Active amLODIPine Besylate 5 MG Tablet 1 tablet Orally Once a day Active Magnesium 400 MG Tablet as directed Orally Active Fluticasone Propionate 50 MCG/ACT Suspension 1 spray in each nostril Nasally Twice a day Active Doxazosin Mesylate 2 MG Tablet 1 tablet Orally Once a day Active Pantoprazole Sodium 40 MG Tablet Delayed Release 1 tablet 1/2 to 1 hour before morning meal Orally Once a day Active Montelukast Sodium 10 MG Tablet 1 tablet Orally Once a day Active Topiramate 25 MG Tablet 1 tablet Orally Once a day Not-Taking Spironolactone-HCTZ 25-25 MG Tablet 1 tablet Orally Once a day Active Social History Tobacco Use: Social History Observation Description Date Details (start date - stop date) Never Smoker NA - NA Social History Tobacco Use: Social Info Question Answer Notes Tobacco Control (Standard) Tobacco use: Nonsmoker Vital Signs Blood pressure systolic 131 mm Hg 07/28/20 25 Blood pressure diastolic 79 mm Hg 025 Heart Rate 64 /min 07/28/2025 Height 69 in 07/28/2025 Weight 270 lbs 07/28/2025 BMI 39.87 kg/m2 07/28/2025 Height-cm 175.26 cm 07/28/2025 Weight-kg 122.47 kg 07/28/2025 Procedures Procedure Date Ordered Date Performed Result Body Sit e Bladder Scan 07/28/2025 07/28/2025 N/A Encounters Encounter Location Date Provider Diagnosis [facility], [facility] [address] [place] [address] 07/28/2025 RAJ WILLIAMSON Orchitis N45.2 ; Testicular pain, right N50.811 ; Nocturia R35.1 ; History of orchitis Z87.438 and History of vasectomy Z98.52 Assessments Encounter Date Diagnosis (ICD Code) Assessment Notes Treatment Notes Treatment Clinical Notes Section Notes 07/28/2025 Orchitis (ICD-10 - N45.2) 07/28/2025 Testicular pain, right (ICD-10 - N50.811) 07/28/2025 Nocturia (ICD-10 - R35.1) 07/28/2025 History of orchitis (ICD-10 - Z87.438) 07/28/2025 History of vasectomy (ICD-10 - Z98.52) Plan Of Treatment Next Appt Details Provider Name:Wilber Rivera, 01/27/2026 02:30:00 PM, [address] [place], [address], History and Physical Notes * HPI (History [...] years ago. Started on doxycycline for 2 weeks. Patient reports the pain initially improved with antibiotics, but symptoms returned this past weekend. He describes pain in the right testicle, along the spermatic cord, and in the right groin. On 09/2023 KADY performed at [facility] which reportedly showed cysts or spermatoceles, though he states no one has thoroughly explained the findings to him. Imaging is powershared. Started on doxyxyxline for 2 weeks. ( this imaging was reviewed with patient) Here today for 6 week f/u with UA and PVR Progress Notes * Benjamin HODGSON IIDOB:[birth year] (59 yo M)Acc No.[id number]:07/28/2025 Progress Notes Patient: Angelito Benjamin cruz II Provider: Mariluz WILLIAMSON MD :1965 A ge:59 Y S ex:Male Date:07/28/2025 Address:[address] [place], [place] [id number] Subjective: * Chief Complaints: * 6 wks w/ ua, pvr and KADY * HPI: M igrated HPI: 59 year [...] chronic R testicular pain. Reports pain is constant.KADY completed in 2023 shown mild R orchitis, and small R epididymal spermatocele and small simple R hydrocele.Had a vasectomy nearly 25 years ago. Started on doxycycline for 2 weeks. Patient reports the pain initially improved with antibiotics, but symptoms returned this past weekend. He describes pain in the right testicle, along the spermatic cord, and in the right groin. On 09/2023 S US performed at [facility] which reportedly showed cysts or spermatoceles, though he states no one has thoroughly explained the findings to him.Imaging is powershared. S tarted on doxyxyxline for 2 weeks. ( this imaging was reviewed with patient) Here today for 6 week f/u with UA and PVR. * Medical History: Degenerative joint disease Hypertension Medical History Verified * Surgical History: appendectomy router cuff surgery back surgery repair on right thump Surgical History verified. * Hospitalization/Major Diagno stic Procedure: see hx above Hospitalization Verified. * Family History: F ather: 25 yrs, no info. M other: alive 80 yrs, lung cancer. F amily History Verified.. * Social History: T obacco Use: T obacco Control (Standard) T obacco use: N onsmoker. Social History Verified. * Medications: T akingSpironolactone-HCTZ 25-25 MG Tablet 1 tablet Orally Once a day Pantoprazole Sodium 40 MG Tablet Delayed Release 1 tablet 1/2 to 1 hour before morning meal Orally Once a day Montelukast Sodium 10 MG Tablet 1 tablet Orally Once a day Magnesium 400 MG Tablet as directed Orally Fluticasone Propionate 50 MCG/ACT Suspension 1 spray in each nostril Nasally Twice a day Doxazosin Mesylate 2 MG Tablet 1 tablet Orally Once a day Carvedilol 12.5 MG Tablet 1 tablet with food Orally Twice a day Atorvastatin Calcium 40 MG Tablet 1 tablet Orally Once a day Aspirin 81 81 MG Tablet Delayed Release 1 tablet Orally Once a day amLODIPine Besylate 5 MG Tablet 1 tablet Orally Once a day Taking Spironolactone-HCTZ 25-25 MG Tablet 1 tablet Orally Once a day Taking Pantoprazole Sodium 40 MG Tablet Delayed Release 1 tablet 1/2 to 1 hour before morning meal Orally Once a day Taking Montelukast Sodium 10 MG Tablet 1 tablet Orally Once a day Taking Magnesium 400 MG Tablet as directed Orally Taking Fluticasone Propionate 50 MCG/ACT Suspension 1 spray in each nostril Nasally Twice a day Taking Doxazosin Mesylate 2 MG Tablet 1 tablet Orally Once a day Taking Carvedilol 12.5 MG Tablet 1 tablet with food Orally Twice a day Taking Atorvastatin Calcium 40 MG Tablet 1 tablet Orally Once a day Taking Aspirin 81 81 MG Tablet Delayed Release 1 tablet Orally Once a day Taking amLODIPine Besylate 5 MG Tablet 1 tablet Orally Once a day Not-TakingTopiramate 25 MG Tablet 1 tablet Orally Once a day traMADol HCl 50 MG Tablet 1 tablet as needed Orally every 8 hrs Medication List reviewed and reconciled with the patientNot-Taking Topiramate 25 MG Tablet 1 tablet Orally Once a day Not-Taking traMADol HCl 50 MG Tablet 1 tablet as needed Orally every 8 hrs Medication List reviewed and reconciled with the patient * Allergies: N .K.D.A.yesAllergies Verified. Objective: * Vitals: B P:131/79mm Hg, HR:64/min, Wt:270lbs, Wt-k.47 kg, Ht: 69 in, Ht-cm: 175.26 cm, BMI:39.87Index, Body Surface Area: 2.44. Assessment: * Assessment: 1. T esticular pain, right - N50.811 (Primary) 2 . O rchitis - N45.2 ? 3 . N octuria - R35.1 4 . H istory of orchitis - Z87.438 ? 5 . H istory of vasectomy - Z98.52 Plan: * Treatment: * Procedure Codes: 8 4311 [id number] MICROALBUMIN, [id number] GLUCOSE OTHER [id number] ASSAY OF URINE [id number] ACETONE [id number] BILIRUBIN, [id number] ASSAY OF BODY FLUID [id number] ASSAY OF PROTEIN, [id number] ASSAY OF URINE [id number] URINE SCREEN FOR [id number] US URINE CAPACITY MEASURE Billing Information: * Procedure Codes: 57806 SPECTROPHOTOMETRY. 05600 MICROALBUMIN, QUANTITATIVE. 23073 GLUCOSE OTHER FLUID. 53135 ASSAY OF URINE HEMOGLOBIN. 89849 ACETONE ASSAY. 88340 BILIRUBIN, TOTAL. 44999 ASSAY OF BODY FLUID ACIDITY. 57086 ASSAY OF PROTEIN, URINE. 60461 ASSAY OF URINE CREATININE. 76089 URINE SCREEN FOR BACTERIA. 97692 US URINE CAPACITY MEASURE. * Electronic signature of AUST IN MD CLAY on 08/29/2025 at 12:36 AM DEPUTY JUVENILE OFFICER Sign off status: Pending * Provider: Mariluz WILLIAMSON MD Date: 09/27/2024 Generated for Marilee nuñez/Jacinda/Nathanaelitting on: 10/30/2024 12:36 AM DEPUTY JUVENILE OFFICER
[2025-08-29 00:33] VITALS: BP 166/91; PULSE 72; RESP 16; TEMP 36.7; O2SAT 98; BMI 39.9
--- OUTSIDE RECORDS SUMMARY | 2025-08-29 00:36 | XMS_ITS | Encounter Summary ---
Author Organization [facility] Address [address] [place] [address] Care Team Providers Care Meteorology Professor Name Role Phone Harsha Shay DO Primary Care Provider [phone] Encounter Details Date Type Department Care Team (Latest Contact Info) Description 12/17/2003 Outpatient Historical [facility] [address] [place] [address] [place] [phone] Denisha Antunez, TIFFANIE [address] [facility] [address] [place] [phone] LUMBOSACRAL SPONDYLOSIS (Primary Dx) Social History Tobacco Use Types Packs/Day Years Used Date Smoking Tobacco: Never Assessed Sex and Gender Information Value Date Recorded Sex Assigned at Not on file Legal Sex Male 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
--- OUTSIDE RECORDS SUMMARY | 2025-08-29 00:36 | XMS_ITS | Encounter Summary ---
Author Organization [facility] Address [address] [place] [address] Care Team Providers Care Promotions Executive Producer Name Role Phone Harsha Shay DO Primary Care Provider Encounter Details Date Type Department Care Team (Latest Contact Info) Description 04/28/2004 [facility]patient [facility] [address] 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
--- OUTSIDE RECORDS SUMMARY | 2025-08-29 00:36 | XMS_ITS | Encounter Summary ---
Author Organization [facility] Address [address] [facility] [place] [address] Care Team Providers Care Certified Ski Patroller Name Role Phone Harsha Shay DO Primary Care Provider [phone] Encounter Details Date Type Department Care Team (Latest Contact Info) Description 12/17/2003 Outpatient Historical [facility] [address] [place] [phone] AntunezDenisha, SCHOOL LABORATORY TECHNICIAN [address] [facility] [address] [place] [address] BURSITIS NEC (Primary Dx); LUMBAGO Social History Tobacco Use Types Packs/Day Years Used Date Smoking Tobacco: Never Assessed Sex and Gender Information Value Date Recorded Sex Assigned at Not on file Legal Sex Male 6:12 AM MANAGER PUBLIC Gender Identity Not on file Sexual Orientation Not on file documented as of this encounter Plan of Treatment Not on file documented as of this encounter Visit Diagnoses Diagnosis Other bursitis disorders- Primary Lumbago documented in this encounter Care Teams Certified Ski Patroller Relationship Specialty Start Date End Date Harsha Shay DO [address] [place] [address] PCP - General 10/14/03 documented as of this encounter
--- OUTSIDE RECORDS SUMMARY | 2025-08-29 00:36 | XMS_ITS | Encounter Summary ---
Author Organization [facility] Address [address] [place] [address] Care Team Providers Care Textile Designer Name Role Phone Harsha Shay DO Primary Care Provider Encounter Details Date Type Department Care Team (Latest Contact Info) Description 12/17/2003 Outpatient Historical [facility] Orthopedics- [address] [place] [address] [place] [address] Arjun Sandoval MD [address] [place] [address] CARPAL TUNNEL SYNDROME (Primary Dx) Social History Tobacco Use Types Packs/Day Years Used Date Smoking Tobacco: Never Assessed Sex and Gender Information Value Date Recorded Sex Assigned at Not on file Legal Sex Male 6:12 AM MARKETING ADMIN Gender Identity Not on file Sexual Orientation Not on file documented as of this encounter Plan of Treatment Not on file documented as of this encounter Visit Diagnoses Diagnosis Carpal tunnel syndrome- Primary documented in this encounter Care Teams Textile Designer Relationship Specialty Start Date End Date Harsha Shay DO [address] [place] [address] PCP - General 10/14/03 documented as of this encounter
--- OUTSIDE RECORDS SUMMARY | 2025-08-29 00:36 | XMS_ITS | Encounter Summary ---
Author Organization [facility] Address [address] [place] [address] Care Team Providers Care Break Out Man Name Role Phone Harsha Shay DO Primary Care Provider Encounter Details Date Type Department Care Team (Latest Contact Info) Description 03/30/[address] [facility] Orthopedics- [address] [place] [address] [place] [address] Arjun Sandoval MD [address] [place] [address] CARPAL TUNNEL SYNDROME (Primary Dx) Social History Tobacco Use Types Packs/Day Years Used Date Smoking Tobacco: Never Assessed Sex and Gender Information Value Date Recorded Sex Assigned at Not on file Legal Sex Male 6:12 AM NOUGAT CANDY MAKER HELPER Gender Identity Not on file Sexual Orientation Not on file documented as of this encounter Plan of Treatment Not on file documented as of this encounter Visit Diagnoses Diagnosis Carpal tunnel syndrome- Primary documented in this encounter Care Teams Break Out Man Relationship Specialty Start Date End Date Harsha Shay DO [address] [place] [address] PCP - General 10/14/03 documented as of this encounter
--- OUTSIDE RECORDS SUMMARY | 2025-08-29 00:36 | XMS_ITS | Encounter Summary ---
Author Organization [facility] Address [address] [place] [address] Care Team Providers Care Continuity Tester Name Role Phone Harsha Shay DO Primary Care Provider [phone] Encounter Details Date Type Department Care Team (Latest Contact Info) Description 03/16/2004 Outpatient Historical [facility] [address] [place] [address] [place] [address] Arjun Sandoval MD [address] [place] [address] CARPAL TUNNEL SYNDROME (Primary Dx) Social History Tobacco Use Types Packs/Day Years Used Date Smoking Tobacco: Never Assessed Sex and Gender Information Value Date Recorded Sex Assigned at Not on file Legal Sex Male 6:12 AM MANAGER INVENTORY CONTROL Gender Identity Not on file Sexual Orientation Not on file documented as of this encounter Plan of Treatment Not on file documented as of this encounter Visit Diagnoses Diagnosis Carpal tunnel syndrome- Primary documented in this encounter Care Teams Continuity Tester Relationship Specialty Start Date End Date Harsha Shay DO [address] [place] [address] PCP - General 10/14/03 documented as of this encounter
--- OUTSIDE RECORDS SUMMARY | 2025-08-29 00:36 | XMS_ITS | Encounter Summary ---
Author Organization [facility] Address [address] [place] [address] Care Team Providers Care Hydraulic Auto Jack Mechanic Name Role Phone Harsha Shay DO Primary Care Provider Encounter Details Date Type Department Care Team (Latest Contact Info) Description 04/28/2004 Outpatient Historical [facility] [address] [place] [address] [place] [address] Herson Monterroso MD NO ADDRESS ON FILE LUMBAGO (Primary Dx) Social History Tobacco Use Types Packs/Day Years Used Date Smoking Tobacco: Never Assessed Sex and Gender Information Value Date Recorded Sex Assigned at Not on file Legal Sex Male 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
--- OUTSIDE RECORDS SUMMARY | 2025-08-29 00:36 | XMS_ITS | Encounter Summary ---
Author Organization [facility] Address [address] [place] [address] Care Team Providers Care Pharmaceutical Scientist Name Role Phone Harsha Shay DO Primary Care Provider [phone] Encounter Details Date Type Department Care Team (Latest Contact Info) Description 03/15/2004 Outpatient Historical [facility] Pain Management Procedures [address] 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
--- OUTSIDE RECORDS SUMMARY | 2025-08-29 00:36 | XMS_ITS | Encounter Summary ---
Author Organization [facility] Address [address] [place] [address] Care Team Providers Care Select Banker Name Role Phone Harsha Shay DO Primary Care Provider [phone] Encounter Details Date Type Department Care Team (Latest Contact Info) Description 10/31/2003 Outpatient Historical [facility] Pain [facility] [address] [place] [address] Herson Monterroso MD NO ADDRESS ON FILE Lumbosacral spondylosis (Primary Dx) Social History Tobacco Use Types Packs/Day Years Used Date Smoking Tobacco: Never Assessed Sex and Gender Information Value Date Recorded Sex Assigned at Not on file Legal Sex Male 6:12 AM ROUTE CARRIER Gender Identity Not on file Sexual Orientation Not on file documented as of this encounter Plan of Treatment Not on file documented as of this encounter Visit Diagnoses Diagnosis Lumbosacral spondylosis- Primary Lumbosacral spondylosis without myelopathy documented in this encounter Care Teams Select Banker Relationship Specialty Start Date End Date Harsha Shay DO [address] [place] [address] PCP - General 10/14/03 documented as of this encounter
--- OUTSIDE RECORDS SUMMARY | 2025-08-29 00:37 | XMS_ITS | Encounter Summary ---
Author Organization [facility] Address [address] [place] [address] Care Team Providers Care Body Worker Name Role Phone Harsha Shay DO Primary Care Provider [phone] Encounter Details Date Type Department Care Team (Latest Contact Info) Description 08/14/2006 Outpatient Historical [facility] [address] [place] [address] Herson Monterroso MD NO ADDRESS ON FILE Lumbosacral Spondylosis (Primary Dx) Social History Tobacco Use Types Packs/Day Years Used Date Smoking Tobacco: Never Assessed Sex and Gender Information Value Date Recorded Sex Assigned at Not on file Legal Sex Male 6:12 AM ACUTE CARE OCCUPATIONAL THERAPIST Gender Identity Not on file Sexual Orientation Not on file documented as of this encounter Plan of Treatment Not on file documented as of this encounter Visit Diagnoses Diagnosis Lumbosacral spondylosis- Primary Lumbosacral spondylosis without myelopathy documented in this encounter Care Teams Body Worker Relationship Specialty Start Date End Date Harsha Shay DO [address] [place] [address] PCP - General 10/14/03 documented as of this encounter
--- OUTSIDE RECORDS SUMMARY | 2025-08-29 00:37 | XMS_ITS | Encounter Summary ---
Author Organization [facility] Address [address] [place] [address] Care Team Providers Care Deicer Finisher Name Role Phone Harsha Shay DO Primary Care Provider Encounter Details Date Type Department Care Team (Latest Contact Info) Description 09/28/[address] [facility] [address] [place] [phone] Herson Monterroso MD NO ADDRESS ON FILE Enthesopathy of hip (Primary Dx) Social History Tobacco Use Types Packs/Day Years Used Date Smoking Tobacco: Never Assessed Sex and Gender Information Value Date Recorded Sex Assigned at Not on file Legal Sex Male 6:12 AM CONTAINER REPAIRER Gender Identity Not on file Sexual Orientation Not on file documented as of this encounter Plan of Treatment Not on file documented as of this encounter Visit Diagnoses Diagnosis Enthesopathy of hip- Primary Enthesopathy of hip region documented in this encounter Care Teams Deicer Finisher Relationship Specialty Start Date End Date Harsha Shay DO [address] [place] [address] PCP - General 10/14/03 documented as of this encounter
--- OUTSIDE RECORDS SUMMARY | 2025-08-29 00:37 | XMS_ITS | Encounter Summary ---
Author Organization [facility] Address [address] [place] [address] Care Team Providers Care Sampling Theory Teacher Name Role Phone Harsha Shay DO Primary Care Provider Encounter Details Date Type Department Care Team (Latest Contact Info) Description 10/14/2003 Outpatient Historical [facility] [address] [place] [address] [place] [address] Herson Monterroso MD NO ADDRESS ON FILE LUMBAGO (Primary Dx) Social History Tobacco Use Types Packs/Day Years Used Date Smoking Tobacco: Never Assessed Sex and Gender Information Value Date Recorded Sex Assigned at Not on file Legal Sex Male 6:12 AM SHAPE BRICK 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
--- OUTSIDE RECORDS SUMMARY | 2025-08-29 00:37 | XMS_ITS | Encounter Summary ---
Author Organization [facility] Address [address] [place] [address] Care Team Providers Care Lan/Wan Engineer Name Role Phone Harsha Shya DO Primary Care Provider [phone] Encounter Details Date Type Department Care Team (Latest Contact Info) Description 10/24/2003 Outpatient Historical [facility] Pain [facility] [address] [place] [address] Herson Monterroso MD NO ADDRESS ON FILE Lumbosacral spondylosis (Primary Dx) Social History Tobacco Use Types Packs/Day Years Used Date Smoking Tobacco: Never Assessed Sex and Gender Information Value Date Recorded Sex Assigned at Not on file Legal Sex Male 6:12 AM INTERPRETER FOR THE DEAF Gender Identity Not on file Sexual Orientation Not on file documented as of this encounter Plan of Treatment Not on file documented as of this encounter Visit Diagnoses Diagnosis Lumbosacral spondylosis- Primary Lumbosacral spondylosis without myelopathy documented in this encounter Care Teams Lan/Wan Engineer Relationship Specialty Start Date End Date Harsha Shay DO [address] [place] [address] PCP - General 10/14/03 documented as of this encounter
--- OUTSIDE RECORDS SUMMARY | 2025-08-29 00:37 | XMS_ITS | Encounter Summary ---
Author Organization [facility] Address [address] [place] [address] Care Team Providers Care Butadiene Converter Utility Operator Name Role Phone Harsha Shay DO Primary Care Provider [phone] Encounter Details Date Type Department Care Team (Latest Contact Info) Description 10/31/2003 Outpatient Historical [facility] Pain Management Procedures [address] 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
--- OUTSIDE RECORDS SUMMARY | 2025-08-29 00:37 | XMS_ITS | Encounter Summary ---
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
--- OUTSIDE RECORDS SUMMARY | 2025-08-29 00:37 | XMS_ITS | Encounter Summary ---
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
--- OUTSIDE RECORDS SUMMARY | 2025-08-29 00:37 | XMS_ITS | Clinical Summary ---
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
--- OUTSIDE RECORDS SUMMARY | 2025-08-29 00:37 | XMS_ITS | Encounter Summary ---
Author Organization [facility] Address [address] [place] [address] Care Team Providers Care Project Design Engineer Name Role Phone Harsha Shay DO Primary Care Provider [phone] Encounter Details Date Type Department Care Team (Latest Contact Info) Description 10/24/2003 Outpatient Historical [facility] Pain Management Procedures [address] 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
--- OUTSIDE RECORDS SUMMARY | 2025-08-29 00:37 | XMS_ITS | Encounter Summary ---
Author Organization [employer] [facility] Address [address] [facility] [place] [address] Care Team Providers Care Director Of Digital Platforms Name Role Phone Harsha Shay DO Primary Care Provider Encounter Details Date Type Department Care Team (Late st Contact Info) Description 12/29/2004 Outpatient Historical [facility] CANCELLED ADMISSION Denisha Antunez, PARTY DEMONSTRATOR [address] [facility] [address] [place] [phone] Social History Tobacco Use Types Packs/Day Years Used Date Smoking Tobacco: Never Assessed Sex and Gender Information Value Date Recorded Sex Assigned at Not on file Legal Sex Male 6:12 AM ADMISSION LIAISON Gender Identity Not on file Sexual Orientation Not on file documented as of this encounter Plan of Treatment Not on file documented as of this encounter Visit Diagnoses Not on filedocumented in this encounter Care Teams Director Of Digital Platforms Relationship Specialty Start Date End Date Harsha Shay DO [address] [place] [address] PCP - General 10/14/03 documented as of this encounter
--- OUTSIDE RECORDS SUMMARY | 2025-08-29 00:37 | XMS_ITS | Clinical Summary ---
Author Organization [employer] Address [address] [place]: Epic Prelude [place] [address] Care Team Providers Care Instrumentation Specialist Name Role Phone Harsha Shay DO Primary Care Provider [phone] Immunizations Immunization Administration Dates Next Due (TDVAX)(7 YRS UP) TETANUS AN D DIPHTHERIA TOXOIDS, ADSORBED (2 LF OF TETANUS TOXOID AND 2 LF OF DIPHTHERIA TOXOID), 0.5ML (PF), IM 06/30/2003 Social History Tobacco Use Types Packs/Day Years Used Date Smoking Tobacco: Never Assessed Sex and Gender Information Value Date Recorded Sex Assigned at Not on file Legal Sex Male 6:12 AM SPARE HAND Gender Identity Not on file Sexual [...] - 1-dose 75+ series) 11/27/2038 Care Teams Instrumentation Specialist Relationship Specialty Start Date End Date Harsha Shay DO [address] [place] [address] PCP - General 10/14/03
--- OUTSIDE RECORDS SUMMARY | 2025-08-29 00:37 | XMS_ITS | Patient Health Record ---
Author Organization [facility] Address [address] [place] [address] Care Team Providers Care Senior Research Consultant Name Role Phone RAJ WILLIAMSON Unavailable [phone] Wilber Rivera Unavailable [phone] Allergies No Known Allergies Results Component Value Reference Range Notes AutoUA Reviewed date:07/29/2025 10:24:48 AM Interpretation: Performing Lab: Notes/Report: US Scrotum/Testicle--[id number] Reviewed date:07/29/2025 08:04:39 AM Interpretation: Performing Lab: Notes/Report: See Below For Report US Scrotum/Testicle Read See Below For Report Urinalysis, Routine Reviewed date:05/19/2025 03:22:34 PM Interpretation: Performing Lab: Notes/Report: Urine-Color yellow Appearance clear Glucose - Bilirubin - Ketones - Specific Scott 1.015 Occult Blood - pH 6.0 Urine Protein - Urobilinogen,Semi-Qn - Nitrite, Urine - WBC Esterase - Reason For Referral No Information Medications Medication SIG (Take, Route, Frequency, Duration) Notes Start Date End Date Status Magnesium 400 MG Tablet as directed Orally Active Fluticasone Propionate 50 MCG/ACT Suspension 1 spray in each nostril Nasally Twice a day Active Doxazosin Mesylate 2 MG Tablet 1 tablet Orally Once a day Active Carvedilol 12.5 MG Tablet 1 tablet with food Orally Twice a day Active Topiramate 25 MG Tablet 1 tablet Orally Once a day Not-Taking traMADol HCl 50 MG Tablet 1 tablet as ne eded Orally every 8 hrs Not-Taking Spironolactone-HCTZ 25-25 MG Tablet 1 tablet Orally Once a day Active Pantoprazole Sodium 40 MG Tablet Delayed Release 1 tablet 1/2 to 1 hour before morning meal Orally Once a day Active Montelukast Sodium 10 MG Tablet 1 tablet Orally Once a day Active Atorvastatin Calcium 40 MG Tablet 1 tablet Orally Once a day Active Aspirin 81 81 MG Tablet Delayed Release 1 tablet Orally Once a day Active amLODIPine Besylate 5 MG Tablet 1 tablet Orally Once a day Active Social History Tobacco Use: Social History Observation Description Date Details (start date - stop date) Never Smoker NA - NA Social History Drug/Alcohol: Social Info Question Answer Notes AUDIT-C (Standard) Did you have a drink containing alcohol in the past year? Yes How often did you have a drink containing alcohol in the past year? 2 to 3 times a week (3 points) How many drinks did you have on a typical day when you were drinking in the past year? 3 or 4 drinks (1 point) How often did you have six or more drinks on one occasion in the past year? Never (0 point) Points 4 Interpretation Positive Tobacco Use: Social Info Question Answer Notes Tobacco Control (Standard) Tobacco use: Nonsmoker Additional Details Category Social Info Options Details Drug/Alcohol: Do you smoke marijuana? Den ies Problems Problem Type SNOMED Code ICD Code Onset Dates Problem Status W/U Status Risk Notes Problem Nocturia (399910210) Nocturia (R35.1) Active confirmed Problem History of orchitis (Z87.438) Active confirmed Problem History of vasectomy (743434296) History of vasectomy (Z98.52) Active confirmed Problem Pain of right testicle (finding) (4622638048824 9107) Testicular pain, right (N50.811) Active confirmed Vital Signs Heart Rate 64 /min 07/28/2025 Height-cm 175.26 cm 07/28/2025 Blood pressure diastolic 79 mm Hg 07/28/2025 Weight-kg 122.47 kg 07/28/2025 Height 69 in 07/28/2025 Blood pressure systolic 131 mm Hg 07/28/2025 Weight 270 lbs 07/28/2025 BMI 39.87 kg/m2 07/28/2025 Procedures Procedure Date Ordered Date Performed Result Body Sit e Bladder Scan 05/19/2025 05/19/2025 N/A Bladder Scan 07/28/2025 07/28/2025 N/A Encounters Encounter Location Date Provider Diagnosis [facility], [facility] [address] [place] [address] 07/28/2025 RAJ WILLIAMSON Orchitis N45.2 ; Testicular pain, right N50.811 ; Nocturia R35.1 ; History of orchitis Z87.438 and History of vasectomy Z98.52 [facility], [facility] [address] [place] [address] 05/19/2025 Wilber Pevrbenita Orchitis N45.2 ; Testicular pain, right N50.811 ; Establishing care with new doctor, encounter for Z76.89 and Nocturia R35.1 [facility] [address] [place] [address] 06/19/2025 RAJ WILLIAMSON Orchitis N45.2 ; Testicular pain, right N50.811 ; Nocturia R35.1 ; History of orchitis Z87.438 and History of vasectomy Z98.52 [facility] [address] [place] [address] 05/13/2025 Wilber Rivera Vitality [facility] [address] [place] [address] 06/03/2025 [place] [facility] [address] [place] [address] 06/24/2025 RAJ WILLIAMSON Assessments Encounter Date Diagnosis (ICD Code) Assessment Notes Treatment Notes Treatment Clinical Notes Section Notes 07/28/2025 Orchitis (ICD-10 - N45.2) 06/19/2025 Orchitis (ICD-10 - N45.2) 1. Right-sided [...] concerns or questions. Patient satisfied with plan. 07/28/2025 Testicular pain, right (ICD-10 - N50.811) 05/19/2025 Establishing care with new doctor, encounter [...] potentially related to his history of vasectomy. 07/28/2025 Nocturia (ICD-10 - R35.1) 05/19/2025 Nocturia (ICD-10 - R35.1) I reviewed [...] concerns or questions. Patient satisfied with plan. 07/28/2025 History of orchitis (ICD-10 - Z87.438) 06/19/2025 History of vasectomy (ICD-10 - Z98.52) 1. Right-sided orchitis/epidid ymitis - N45.1 2. Testicular cyst/spermatoce le - N44.2 3. History of vasectomy - Z98.52 This is a 59-year-old male with recurrent right testicular pain after completing a 1-week course of doxycycline. Symptoms are consistent with persistent epididymitis, possibly complicated by epididymal cysts or spermatoceles, potentially related to his history of vasectomy. 07/28/2025 History of vasectomy (ICD-10 - Z98.52) 06/19/2025 Other # Right Epididymitis/Orchi tis Prescribe doxycycline for a 2-week course to more thoroughly treat the suspected infection. Longer course indicated due to recurrence of symptoms and the difficulty of antibiotic penetration into testicular/epididy mal tissue. Medication to be sent to [facility] pharmacy. # Testicular Cyst/Spermatocele Request [employer] of previous scrotal ultrasound from [place] to review size and characteristics of reported [...] his history of vasectomy. Plan Of Treatment Next Appt Details Provider Name:Wilber Vijaymagalys, 01/27/2026 02:30:00 PM, [address] [place], [address], Insurance Providers Payer Name Payer Address Payer Phone Subscriber Number Group Number Insured Name Patient Relationship to Insured Coverage Start Date Coverage End Date [employer] Medicare Replacement [address] [address] [place], [place] [id number] Benjamin Carrion Self - patient is the insured [facility] [address] [address] [place], [place] [id number] [phone] [id number] Benjamin Carrion Self - patient is the insured Medical (General) History Medical History History ICD Code degenerative joint disease hypertension Surgical History Surgery Date(Month/Year) appendectomy router cuff surgery back surgery repair on right thump Hospitalization History Reason Date(Month/Year) see hx above
--- OUTSIDE RECORDS SUMMARY | 2025-08-29 00:37 | XMS_ITS | Encounter Summary ---
Author Organization [facility] Address [address] [place] [address] Care Team Providers Care Ordnance Technician Name Role Phone Harsha Shay DO Primary Care Provider Encounter Details Date Type Department Care Team (Latest Contact Info) Description 10/14/[address] 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
--- OUTSIDE RECORDS SUMMARY | 2025-08-29 00:37 | XMS_ITS | Encounter Summary ---
Author Organization [facility] Address [address] [place] [address] Care Team Providers Care Ap Processor Name Role Phone Harsha Shay DO Primary Care Provider [phone] Encounter Details Date Type Department Care Team (Latest Contact Info) Description 01/25/[address] [facility] [address] 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
--- OUTSIDE RECORDS SUMMARY | 2025-08-29 00:37 | XMS_ITS | Encounter Summary ---
Author Organization [facility] Address [address] [place] [address] Care Team Providers Care Errand Runner Name Role Phone Harsha Shay DO Primary Care Provider [phone] Encounter Details Date Type Department Care Team (Latest Contact Info) Description 12/27/2004 Outpatient Historical [facility] Pain Management Procedures [address] 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
--- OUTSIDE RECORDS SUMMARY | 2025-08-29 00:37 | XMS_ITS | Encounter Summary ---
Author Organization [facility] Address [address] [place] [address] Care Team Providers Care Pressure Dispatcher Name Role Phone Harsha Shay DO Primary Care Provider Encounter Details Date Type Department Care Team (Latest Contact Info) Description 01/25/2005 Outpatient Historical [facility] [address] [place] [address] Herson Monterroso MD NO ADDRESS ON FILE BACKACHE NOS (Primary Dx) Social History Tobacco Use Types Packs/Day Years Used Date Smoking Tobacco: Never Assessed Sex and Gender Information Value Date Recorded Sex Assigned at Not on file 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
--- OUTSIDE RECORDS SUMMARY | 2025-08-29 00:37 | XMS_ITS | Encounter Summary ---
Author Organization [facility] Address [address] [place] [address] Care Team Providers Care Drafter Electrical Name Role Phone Harsha Shay DO Primary Care Provider Encounter Details Date Type Department Care Team (Latest Contact Info) Description 08/14/2006 Outpatient Historical [facility] Pain Management Procedures [address] [place] [phone] Herson Monterroso MD NO ADDRESS ON FILE Lumbosacral Spondylosis without Myelopathy (Primary Dx) Social History Tobacco Use Types Packs/Day Years Used Date Smoking Tobacco: Never Assessed Sex and Gender Information Value Date Recorded Sex Assigned at Not on file Legal Sex Male 6:12 AM PIE CRUST MIXER Gender Identity Not on file Sexual Orientation Not on file documented as of this encounter Plan of Treatment Not on file documented as of this encounter Visit Diagnoses Diagnosis Lumbosacral spondylosis without myelopathy- Primary documented in this encounter Care Teams Drafter Electrical Relationship Specialty Start Date End Date Harsha Shay DO [address] [place] [address] PCP - General 10/14/03 documented as of this encounter
--- OUTSIDE RECORDS SUMMARY | 2025-08-29 00:37 | XMS_ITS | Encounter Summary ---
Author Organization [facility] Address [address] [place] [address] Care Team Providers Care Oxyacetylene Burner Name Role Phone Harsha Shay DO Primary Care Provider [phone] Encounter Details Date Type Department Care Team (Latest Contact Info) Description 09/28/2004 Outpatient Historical [facility] [address] [place] [address] Herson Monterroso MD NO ADDRESS ON FILE LUMBAGO (Primary Dx) Social History Tobacco Use Types Packs/Day Years Used Date Smoking Tobacco: Never Assessed Sex and Gender Information Value Date Recorded Sex Assigned at Not on file Legal Sex Male 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
--- OUTSIDE RECORDS SUMMARY | 2025-08-29 00:38 | XMS_ITS | Patient Health Record ---
Author Organization [facility] Address [address] [place] [address] Care Team Providers Care Gummed Tape Press Operator Name Role Phone Ramos Blake APRN Primary Care Provider Unav ailable Prabhakar Gutierrez Unavailable Kevin oRberts Unavailable [phone] Edinson Lisa Unavailable [phone] Allergies No Known Allergies Results Component Value Reference Range Notes Fluoro Needle For Placement - Spine 19154 Reviewed date:09/03/2024 01:40:38 PM Interpretation: Performing Lab: Notes/Report: Reason For Referral No Information Medications Medication [...] (Standard) Tobacco use: Nonsmoker Section Notes: 06/20/24 Tob:06/20/24 Dep: 06/20/24 Tob:06/20/24 Dep: 06/20/24 Tob:06/20/24 Dep: 06/20/24 Tob:06/20/24 Dep: 06/20/24 CIME Depression screenin12/06/2024 CIME Tobacco screenin12/06/2024 CIME SDoH screenin01/15/2025 06/20/24 06/20/24 Tob:06/20/24 Dep: 06/20/24 CIME Dep/tob - 12/06/24 Problems Problem Type SNOMED Code ICD Code Onset Dates Problem Status W/U Status Risk Notes Problem Chronic pain syndrome (549809383) Chronic pain syndrome (G89.4) Active confirmed Problem Lumbosacral spondylosis without myelopathy (disorder) (78945421) Spondylosis without myelopathy or radiculopathy, lumbosacral region (M47.817) Active confirmed Problem Lumbosacral radiculopathy (2307143) Radiculopathy, lumbosacral region (M54.17) Active confirmed Problem Lower urinary tract symptoms due to benign prostatic hypertrophy (16149908662546) Benign prostatic hyperplasia with lower urinary tract symptoms (N40.1) Active confirmed Problem Essential hypertension (02596383) Essential hypertension (I10) Active confirmed Problem Chronic sinusitis (47097490) Chronic sinusitis, unspecified location (J32.9) Active confirmed Problem Gastritis and duodenitis (208695413) Gastritis and duodenitis (K29.90) Active confirmed Problem Seasonal allergy (054735317) Seasonal allergies (J30.2) Active confirmed Problem Lumbar post-laminectomy syndrome (213018624) Lumbar post-laminectomy syndrome (M96.1) Active confirmed Problem Abnormal gait (70858024) Abnormality of gait and mobility (R26.9) Active confirmed Problem Lumbosacral radiculopathy (3786043) L-S radiculopathy (M54.17) Active confirmed Vital Signs [...] Lumbar/Sacral (Cau gama), w/ imaging guidance - [address]67[address] 09/03/2024 09/03/2024 N/A Encounters Encounter Location Date Provider Diagnosis [facility] [address] [place] [address] 01/15/2025 Prabhakar Gutierrez Seasonal allergies J30.2 ; Benign prostatic hyperplasia with lower urinary tract symptoms N40.1 ; Essential hypertension I10 ; Encounter for immunization Z23 and Immunization not carried out because of patient refusal Z28.21 [facility] [place] [address] [place] [address] 09/25/2024 Edinosn Khoifft Chronic pain syndrome G89.4 ; Other intervertebral disc degeneration, 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.362 ; Radiculopathy, lumbosacral region M54.17 and Spondylosis without myelopathy or radiculopathy, lumbosacral region M47.817 [facility] [address] [address] 09/23/2024 Prabhakar Gutierrez Essential hypertension I10 and Benign prostatic hyperplasia with lower urinary tract symptoms N40.1 [facility] [address] [place] [address] 08/29/2024 Prabhakar Gutierrez Gastritis and duodenitis K29.90 [facility] [address] [place] [address] 09/03/2024 Edinson Khoikaylansuzi L-S radiculopathy M54.17 [facility] [address] [place] [address], [place] [address] 12/06/2024 Prabhakar Gutierrez Infection of sebaceous gland L73.8 ; Chronic pain syndrome G89.4 and Depression screen Z13.31 [facility] [address] [place] [address], [place] [address] 05/21/2025 Prabhakar Gutierrez [facility] [address] [place] [address] [address] [place] [address] 05/13/2025 Kevin Roberts [facility] [address] [place] [address], [place] [address] 10/11/2024 Prabhakar Gutierrez Essential hypertension I10 Assessments Encounter Date Diagnosis (ICD Code) Assessment Notes Treatment Notes Treatment Clinical Notes Section Notes 08/29/2024 Gastritis and duodenitis (ICD-10 - K29.90) [...] ER. 12/06/2024 Depression screen (ICD-10 - Z13.31) 09/25/2024 [...] For Placement - Spine 7700 3 10/15/2024 Future Test Test Name Order Date Fluoro Needle For Placement - Spine 7700 3 10/29/2024 Insurance Providers Payer Name Payer Address Payer Phone Subscriber Number Group Number Insured Name Patient Relationship to Insured Coverage Start Date Coverage End Date [place] Medicaid [address] [place] [address] [id number] KEATON HODGSON Self - patient is the insured Medical (General) History Medical History History ICD Code allergies High Blood Pressure Back Trouble herniated disk prostatism Surgical History Surgery Date(Month/Year) back surgery hernia repair 1993 appendectomy 1999 rotator cuff tear repair L 2001
--- NOTE | 2025-08-29 01:18 | ECG_ITS ---
[facility] Test Date: 2025-08-29 Pat Name: Benjamin Carrion Department: Room: Gender: Male Armature Connector: : 1965 Requested By: Satish Boogie Order Number: [id number] Yoli MD: HA HO Measurements Intervals Clyman Rate: 77 P: 49 OH: 190 QRS: 54 QRSD: 94 T: 45 QT: 384 QTc: 437 Interpretive Statements SINUS RHYTHM Compared to ECG 06/22/2025 22:22:29 T-wave abnormality no longer present Electronically Signed On 08-31-2025 23:08:42 FENCE SUPERVISOR by HA HO [email or web address]
[2025-08-29 02:47] LABS: Hematocrit 46.9 % (37-53); Hemoglobin 15.50 g/dL (11.27-16.99); Mean Corpuscular HGB Conc 33.0 g/dL (30-55); Mean Corpuscular Hemoglobin 27.9 pg (27-33); Mean Corpuscular Volume 84.5 fl (82-101); Nucleated Red Blood Cells % 0 %; Platelet Count 257 10^3/cmm (157-399); Red Blood Count 5.55 10^6/uL (3.85-5.65); White Blood Count 10.33 10^3/uL (3.29-11.43)
[2025-08-29 03:10] LABS: Alanine Aminotransferase 43 U/L (0-41); Albumin Level 4.4 g/dL (3.5-5.2); Alkaline Phosphatase 125 U/L (40-130); Anion Gap 13.7 (5-19); Aspartate Amino Transferase 18 U/L (0-40); Blood Urea Nitrogen 14 mg/dL (8-23); Calcium 9.4 mg/dL (8.5-10.5); Carbon Dioxide 26 mmol/L (22-29); Chloride 100 mmol/L (98-107); Globulin 2.1 g/dL (1.3-4.6); Glucose 137 mg/dL (65-115); Osmolality Calculated 285 mOsm/kg (285-295); Potassium 3.7 mmol/L (3.5-5.1); Sodium 136 mmol/L (136-145); Total Protein 6.5 g/dL (6.6-8.7)
[2025-08-29 03:11] LABS: Troponin(5th) Baseline 14 ng/L (0-15)
--- NOTE | 2025-08-29 03:54 | XRR_ITS ---
PROCEDURE INFORMATION: Exam: XR Chest Exam date and time: 08/29/2025 3:58 AM Age: 59 years old Clinical indication: Left-sided; C/O left sided chest pain; Additional info: Cp TECHNIQUE: Imaging protocol: Radiologic exam of the chest. Views: 1 view. COMPARISON: CR XR chest 1V portable [id number] 06/22/2025 10:16 PM FINDINGS: Lungs: Unremarkable. No consolidation. Pleural spaces: No focal consolidation, pleural effusion, or pneumothorax. Heart/Mediastinum: Mild cardiomegaly. Bones/joints: Unremarkable. XR/XR chest 1V portable [id number] IMPRESSION: No focal consolidation, pleural effusion, or pneumothorax.
--- NOTE | 2025-08-29 04:13 | W.ED.CHESTPA ---
HPI - Chest Pain General: Chief Complaint: Chest Pain Stated Complaint: chest wall pain Time Seen by Provider: 08/29/25 03:48 History of Present Illness: This 59-year-old male presents with a 4.5-week history of severe cough that has recently improved following treatment with two antibiotics prescribed by his primary care physician. Last evening around 7:30-8:00 PM, while experiencing a coughing episode, he developed sudden onset sharp chest pain localized to the right anterior chest wall. The pain radiates laterally around his side toward his back and extends inferiorly. The affected area demonstrates visible asymmetry with palpable swelling compared to the contralateral side. The patient reports significant tenderness throughout the affected region, with pain exacerbated by movement and breathing. He denies current fever. The pain is most severe at the point of initial onset on the anterior chest wall, with less intensity noted posteriorly. The patient's respiratory symptoms have shown improvement over the past few days with antibiotic therapy. Related Data Previous Rx's ?Medication ?Instructions ?Recorded fluticasone propionate 50 2 spray intranasal DAILY #16 grams 06/04/24 mcg/actuation nasal spray,suspension (Allergy Relief (fluticasone)) aspirin 81 mg tablet,delayed 81 mg PO DAILY #90 tabs 07/08/24 release epinephrine 0.3 mg/0.3 mL 0.3 mg (0.3 mL) IM Q10M PRN 03/11/25 injection, auto-injector (EpiPen anaphylaxis #2 ea 2-Daniel) topiramate 25 mg tablet (Topamax) 50 mg (2 x 25 mg) PO BID #60 tabs 03/12/25 tall CAM boot #1 ea 04/28/25 amlodipine 10 mg tablet 10 mg PO QDAY #90 tabs 06/04/25 atorvastatin 40 mg tablet 40 mg PO BEDTIME #90 tabs 06/04/25 carvedilol 12.5 mg tablet 12.5 mg PO BID #180 tabs 06/04/25 lansoprazole 30 mg capsule,delayed 30 mg PO DAILY #90 caps 06/04/25 release magnesium oxide 400 mg (241.3 mg 400 mg PO BID 30 days #180 tabs 06/04/25 magnesium) tablet (MagOx) montelukast 10 mg tablet 10 mg PO BEDTIME 90 days #90 tabs 06/04/25 spironolactone 25 1 tab PO DAILY #90 tabs 06/04/25 mg-hydrochlorothiazide 25 mg tablet ondansetron 4 mg disintegrating 4 mg PO TID PRN nausea and 06/23/25 tablet vomiting #30 tabs lidocaine 5 % topical patch 3 patch topical DAILY PRN back 08/14/25 pain #30 ea amoxicillin 500 mg-potassium 1 tab PO TID 10 days #30 tabs 08/27/25 clavulanate 125 mg tablet (Augmentin) doxycycline hyclate 100 mg tablet 100 mg PO BID #20 tabs 08/27/25 tramadol 50 mg tablet 50 mg PO Q8H PRN pain #10 tabs 08/29/25 Allergies Allergy/AdvReac Type Severity Reaction Status Date / Time No Known Allergies Allergy Verified 08/29/25 00:41 PFSH ED PFSH: Medical History LUIS (obstructive sleep apnea) Major depressive disorder, recurrent severe without psychotic features Inguinal hernia Long-term current use of opiate analgesic Pain management contract signed DDD (degenerative disc disease), lumbar Facet syndrome, lumbar Surgical History History of back surgery 10/16/23 Procedure done: 1. L3-4 laminectomy with partial facetectomy 2. L4-5 laminectomy with partial facetectomy Hx of colonoscopy History of esophagogastroduodenoscopy (EGD) S/P appendectomy Hx of appendectomy Hx of hernia repair Hx of rotator cuff surgery LEFT SHOULDER Family History Mother CAD (coronary artery disease) Cancer LUNG CANCER Social History Smoking and tobacco/nicotine status: never used tobacco/nicotine Second hand smoke exposure: No Alcohol intake: never Substance/Drug Use: never Adopted: No Caregiver/support person: No Lives independently: Yes Household members: spouse Housing: House Marital status: Number of children: 2 service: No Current occupational status: retired Current occupational exposures/hazards: No Do you think of yourself as: Straight/Heterosexual Current gender identity: Male Special amisha needs: No Physical Exam Const: COMMON NORMALS: no acute distress GENERAL APPEARANCE: cooperative; not ill appearing and not frail appearing HENMT: COMMON NORMALS: normocephalic, atraumatic and Normal external nose present HEAD & SCALP: normocephalic and atraumatic FACE & SINUS: normal facial exam and face symmetric NOSE: Normal external nose present Eye: COMMON NORMALS: Equal, round and reactive pupils present and EOMs intact bilaterally PUPIL: Yes Equal, round and reactive pupils present Neck/C-Spine: GENERAL: Yes trachea midline Chest: CHEST: Yes Symmetrical chest wall rise and Yes tenderness (Left side) rib, costochondral junction and costal cartilage Resp: COMMON NORMALS: normal respiratory effort, No retractions, No use of accessory muscles and clear to auscultation bilaterally AUSCULTATION: clear to auscultation bilaterally Cardio: COMMON NORMALS: regular rate and regular rhythm RATE: regular rate RHYTHM: regular rhythm GI: COMMON NORMALS: Normal to inspection, nondistended, normoactive bowel sounds present Extremity: COMMON NORMALS: no pedal edema Neuro: MATHEUS COMA SCALE: document GCS findings [place] coma scale eye opening: Spontaneous Matheus coma scale verbal response: Orientated [place] coma scale motor response: Obey commands Matheus coma scale total score: 15 SENSORY EXAM: Yes extremities (intact) Psych: COMMON NORMALS: speech normal SPEECH: Yes normal speech Skin: COMMON NORMALS: no rashes or lesions noted GENERAL SKIN EXAM: no rashes or lesions noted Course Vital Signs: Vital signs: Vital Signs Temperature 98.1 F 08/29/25 00:33 Pulse Rate 72 08/29/25 00:33 Respiratory Rate 16 08/29/25 00:33 Blood Pressure 166/91 08/29/25 00:33 Pulse Oximetry 98 08/29/25 00:33 Oxygen Delivery Me thod Room Air 08/29/25 00:33 MDM - Chest Pain Medical Decision Making 59-year-old male with pleuritic type pain following a coughing fit. His vital signs are stable. CBC is normal. BMP is normal. Chest x-ray shows no focal consolidation effusion or pneumothorax. Likely intercostal strain given his presentation. Differential includes ACS, pneumothorax, consolidation, pulmonary embolus. He has no signs of pulmonary embolus on exam. His saturations are normal. He is nontachycardic. No signs of ACS, as troponin is 14, no significant EKG changes. Pain control. Discharged with symptomatic treatment. He will continue his antibiotics and steroids Lab Data 08/29/25 02:37 08/29/25 02:37 Radiology Impressions Chest X-Ray 08/29/25 03:54 IMPRESSION: No focal consolidation, pleural effusion, or pneumothorax. Laboratory Results WBC 10.33 10^3/uL (3.29-11.43) 08/29/25 02:37 RBC 5.55 10^6/uL (3.85-5.65) 08/29/25 02:37 Hgb 15.50 g/dL (11.27-16.99) 08/29/25 02:37 Hct 46.9 % (37-53) 08/29/25 02:37 MCV 84.5 fl (82-101) 08/29/25 02:37 MCH 27.9 pg (27-33) 08/29/25 02:37 MCHC 33.0 g/dL (30-55) 08/29/25 02:37 RDW 13.5 % (12.1-15.1) 08/29/25 02:37 Plt Count 257 10^3/cmm (157-399) 08/29/25 02:37 MPV 10.5 fL (7.4-10.4) H 08/29/25 02:37 Neut % (Auto) 63.4 % 08/29/25 02:37 Lymph % (Auto) 25.8 % 08/29/25 02:37 Power % (Auto) 8.3 % 08/29/25 02:37 Eos % (Auto) 1.4 % 08/29/25 02:37 Baso % (Auto) 0.9 % 08/29/25 02:37 Neut # (Auto) 6.55 10^3/uL (1.8-7.7) 08/29/25 02:37 Lymph # (Auto) 2.7 10^3/uL (0.8-4.8) 08/29/25 02:37 Power # (Auto) 0.9 10^3/uL (0.2-0.9) 08/29/25 02:37 Eos # (Auto) 0.1 10^3/uL (0.0-0.8) 08/29/25 02:37 Baso # (Auto) 0.1 10^3/uL (0.0-0.1) 08/29/25 02:37 Nucleated RBC % (auto) 0 % 08/29/25 02:37 Nucleated RBCs # 0.0 /100WBC 08/29/25 02:37 Sodium 136 mmol/L (136-145) 08/29/25 02:37 Potassium 3.7 mmol/L (3.5-5.1) 08/29/25 02:37 Chloride 100 mmol/L (98-107) 08/29/25 02:37 Carbon Dioxide 26 mmol/L (22-29) 08/29/25 02:37 Anion Gap 13.7 (5-19) 08/29/25 02:37 BUN 14 mg/dL (8-23) 08/29/25 02:37 Creatinine 0.8 mg/dL (0.7-1.2) 08/29/25 02:37 GFR Calculation 98.3 mL/min (90-130) 08/29/25 02:37 Glucose 137 mg/dL (65-115) H 08/29/25 02:37 Calculated Osmolality 285 mOsm/kg (285-295) 08/29/25 02:37 Calcium 9.4 mg/dL (8.5-10.5) 08/29/25 02:37 Total Bilirubin 0.8 mg/dL (0.15-1.2) 08/29/25 02:37 AST 18 U/L (0-40) 08/29/25 02:37 ALT 43 U/L (0-41) H 08/29/25 02:37 Alkaline Phosphatase 125 U/L (40-130) 08/29/25 02:37 Troponin T Baseline 14 ng/L (0-15) 08/29/25 02:37 Total Protein 6.5 g/dL (6.6-8.7) L 08/29/25 02:37 Albumin 4.4 g/dL (3.5-5.2) 08/29/25 02:37 Globulin 2.1 g/dL (1.3-4.6) 08/29/25 02:37 All radiology interpretation(s) finalized by discharge EKG Data EKG 1: Computer generated interpretation: EKG time 0037 read at 0040 shows a normal sinus rhythm, rate 75, axis is normal. Intervals are normal. No acute ST wave changes. Discharge Plan Discharge Patient Disposition: Home Clinical Impression: Intercostal muscle strain Condition: Stable Prescriptions: New tramadol 50 mg tablet 50 mg PO Q8H PRN (Reason: pain) Qty: 10 0RF No Action topiramate [Topamax] 25 mg tablet 50 mg PO BID Qty: 60 0RF fluticasone propionate [Allergy Relief (fluticasone)] 50 mcg/actuation spray,suspension 2 spray intranasal DAILY Qty: 16 5RF Rx Instructions: administer into each nostril epinephrine [EpiPen 2-Daniel] 0.3 mg/0.3 mL auto-injector 0.3 mg IM Q10M PRN (Reason: anaphylaxis) Qty: 2 0RF Rx Instructions: for 2 doses atorvastatin 40 mg tablet 40 mg PO BEDTIME Qty: 90 1RF amlodipine 10 mg tablet 10 mg PO QDAY Qty: 90 1RF carvedilol 12.5 mg tablet 12.5 mg PO BID Qty: 180 1RF Rx Instructions: must administer with a meal/food lansoprazole 30 mg capsule,delayed release(DR/EC) 30 mg PO DAILY Qty: 90 1RF magnesium oxide [MagOx] 400 mg (241.3 mg magnesium) tablet 400 mg PO BID 30 Days Qty: 180 1RF montelukast 10 mg tablet 10 mg PO BEDTIME 90 Days Qty: 90 1RF spironolacton-hydrochlorothiaz 25-25 mg tablet 1 tab PO DAILY Qty: 90 1RF doxycycline hyclate 100 mg tablet 100 mg PO BID Qty: 20 0RF amoxicillin-pot clavulanate [Augmentin] 500-125 mg tablet 1 tab PO TID 10 Days Qty: 30 0RF (DME) tall CAM boot See Rx Instructions .Route .MEDSUPPLY Qty: 1 0RF Rx Instructions: As directed lidocaine 5 % adhesive patch,medicated 3 patch topical DAILY PRN (Reason: back pain) Qty: 30 5RF Rx Instructions: leave on most painful area for up to 12 hrs ondansetron 4 mg tablet,disintegrating 4 mg PO TID PRN (Reason: nausea and vomiting) Qty: 30 0RF aspirin 81 mg Tablet,Delayed Release (Dr/Ec) 81 mg PO DAILY Qty: 90 0RF Discharge Orders: Discharge ED (Routine); Ordered 08/29/25 Ordered By: Satish Lara Referrals: Ramos Blake, FINANCIAL ECONOMIST-C [Primary Care Provider, Family Practice] - 4-7 days Patient Instructions: Chest Wall Pain (ED), Opioid Safety, Pain Management, Patient Portal & Luca Instructions Activity Restrictions/Additional Instructions: Medication as directed for pain. You can also take Tylenol or ibuprofen for pain. Ice may help with pain or swelling. Return for worsening shortness of breath, fever, other concerning symptoms. Follow-up with your doctor. Print Language: Vietnamese Coding Level of Care Code ED Yard General Car Supervisor for Chg Fwmaren Heart Score HEART Score Components History: Slightly Suspicous EKG: Normal Age: 45-64 yrs Risk Factors: 1 or 2 Risk Factors Troponin: Baseline Trop <16 ng/L HEART Score RESULT HEART Score: 2
[2025-08-29] MEDS: oxyCODONE-APAP 5-325 mg Tablet 2 TAB PO (04:24)
[2025-08-29 04:50] VITALS: BP 164/84; PULSE 87; RESP 18; O2SAT 98
== END 2025-08-29 04:50 | disposition home or self-care (01) ==
PROVIDERS: Emergency Provider Emergency Medicine; PCP Nurse Practitioner
DX: S29.019A Strain of muscle and tendon of unspecified wall of thorax, initial encounter (principal); Z79.82 Long term (current) use of aspirin; X58.XXXA Exposure to other specified factors, initial encounter
CPT/HCPCS: 36415; 71045; 80053; 84484; 85025; 93005; 96374; 99285; J1885; J9999